=== PATIENT | female | born 1950 | race Caucasian/White ===

== ENCOUNTER → 2016-12-21 | Outpatient (CLI) | payer MEDICARE, OTHER ==
--- NOTE | 2016-12-21 16:17 | MR ---
EXAMINATION TYPE: MR brain wo con DATE OF EXAM: 12/21/2016 3:51 PM COMPARISON: NONE HISTORY: Dizziness, headaches, neck pain TECHNIQUE: Multiplanar, multisequence imaging of the brain and brainstem is performed without IV cont rast. Exam performed without IV contrast as ordered due to difficulty accessing IV access and then pa tient refusing. FINDINGS: Diffusion weighted images demonstrate no evidence of a recent infarct or other diffusion abnormality. There is no worrisome extra-axial fluid collection. There is ventricular and sulcal prominence consis tent with diffuse cerebral atrophy. There are scattered foci of T2 hyperintensity seen throughout the white matter bilaterally. Approximately 20-25 scattered lesions are likely present. Lesions are nons pecific in appearance and distribution but most likely on basis of product of chronic small vessel is chemic change in patient of this age. Midline structures demonstrate normal morphology. The craniocervical junction appears within normal limits. Normal vascular flow voids are present. There is mild to moderate mucosal thickening involvin g the anterior ethmoid sinuses bilaterally. The remainder of the paranasal sinuses are clear. The mago bes are intact bilaterally. IMPRESSION: 1. Mild to moderate diffuse cerebral atrophy and chronic small vessel ischemic change. 2. Mild bilateral chronic anterior ethmoid sinus disease.
--- NOTE | 2016-12-21 16:22 | MR ---
MRI CERVICAL SPINE: CLINICAL HISTORY: Headache and neck pain. History of fall injury January 22, 2015. TECHNIQUE: Multiplanar, multisequence imaging of the cervical spine is performed without IV contrast. . COMPARISON: None. FINDINGS: Sagittal images of the cervical spine show the craniocervical junction to appear within nor mal limits. The cervical and upper thoracic spinal cord is normal in course, caliber, and signal. V ertebral alignment is anatomic. The vertebral body heights are normal. There is moderate disc space narrowing C4-C5 through C6-C7 levels with moderate spurring. Posterior disc herniations are effacing anterior thecal sac from C3-C4 through C6-C7 levels on sagittal images. The bone marrow signal intens ity is within normal limits. Axial images are noted suboptimal as degraded by artifact. Axial images show the C2-C3 level to appear within normal limits. Axial images at C3-C4 level show broad-based right paracentral disc protrusion effacing anterolateral thecal sac as well as uncovertebral facet degenerative changes contributing to moderate right-sided neural foraminal narrowing. Left-sided neural foramen is patent. Motion artifact is noted. Axial images at C4-C5 level show broad-based right paracentral disc protrusion effacing anterior thec al sac up to ventral surface of spinal cord, artifact degradation is present. There is uncovertebral facet degenerative changes bilaterally. There is suspected moderate to severe right-sided neural fora [place] narrowing and mild left-sided neural foraminal narrowing. Axial images at C5-C6 level show broad-based central disc protrusion effacing anterior thecal sac up to ventral surface of spinal cord on axial image 22. Some increased cord signal may be present at thi s level. Artifact degradation is noted. There is suspected mild to moderate left greater than right neural foraminal narrowing at this level identified. Axial images at C6-C7 level show broad-based central disc protrusion effacing anterior thecal sac wit h mild to moderate left and mild right-sided neural foraminal narrowing identified. Artifact degradat ion is noted. Axial images at C7-T1 level are felt within normal limits. IMPRESSION: Suboptimal study with significant artifact on axial images present. There is multi level degenerative change in the cervical spine with prominent spinal canal effacement or stenosis identifi ed from C3-C4 through C6-C7 levels.
== END | disposition home or self-care (01) ==
LOC: RADMRIMAIN 14:47
PROVIDERS: ATTEND Family Medicine
DX: M47.812 Spondylosis without myelopathy or radiculopathy, cervical region (principal); G31.9 Degenerative disease of nervous system, unspecified; I67.82 Cerebral ischemia
CPT/HCPCS: 70551; 72141

== ENCOUNTER 2017-01-20 21:56 | Inpatient (IN) | payer MEDICARE, OTHER ==
[2017-01-20] MEDS ORDERED: methylPREDNISolone SOD SUCCI 125 MG/2 ML VIAL IV STA (22:18)
[2017-01-20] MEDS ORDERED: IPRATROPIUM 0.5 MG/2.5 ML NEBU INHALATION STA (22:18)
[2017-01-20] MEDS ORDERED: ALBUTEROL NEBULIZED 2.5 MG/3 ML INHALATION STA (22:18)
--- NOTE | 2017-01-20 22:23 | ED ---
General Adult HPI - General Chief complaint: Shortness of Breath Stated complaint: YARA Time Seen by Provider: 01/20/17 22:00 Source: patient, family, RN notes reviewed Mode of arrival: wheelchair Limitations: no limitations - History of Present Illness Initial comments: This is a 66-year-old female who presents to the emergency department complaining of difficulty breathing. Patient states she has a long-standing history of COPD. Patient states she doesn't wear oxygen at home and she continues to smoke. Patient states this COPD exacerbation started yesterday and continued today to get worse. Patient states she's had no fever or chills. Patient states she has a cough but not producing any sputum. Patient denies any chest pain or palpitations. Patient denies any abdominal pain. Patient denies nausea vomiting diarrhea. Patient denies any recent headache patient denies any lightheadedness dizziness or near syncopal episode. Patient denies any numbness or weakness. - Related Data Home Medications Medication Instructions Recorded Confirmed Unable To Assess [Unable to Assess] 01/20/17 01/20/17 Allergies Allergy/AdvReac Type Severity Reaction Status Date / Time Penicillins Allergy Unknown Verified 01/20/17 22:06 Review of Systems ROS Statement: Those systems with pertinent positive or pertinent negative responses have been documented in the HPI. ROS Other: All systems not noted in ROS Statement are negative. Past Medical History Past Medical History: COPD History of Any Multi-Drug Resistant Organisms: None Reported Past Surgical History: Cholecystectomy, Hysterectomy, Orthopedic Surgery Past Psychological History: Anxiety Smoking Status: Current every day smoker Past Alcohol Use History: None Reported Past Drug Use History: None Reported General Exam - General Exam Comments Initial Comments: GENERAL: Patient is well-developed and well-nourished. Patient is nontoxic and well- hydrated and is in mild distress. ENT: Neck is soft and supple. No significant lymphadenopathy is noted. Oropharynx is clear. Moist mucous membranes. Neck has full range of motion without eliciting any pain. EYES: The sclera were anicteric and conjunctiva were pink and moist. Extraocular movements were intact and pupils were equal round and reactive to light. Eyelids were unremarkable. PULMONARY: Patient has decreased breath sounds and diffuse wheezing CARDIOVASCULAR: Patient is tachycardic at about 110 beats a minute. ABDOMEN: Soft and nontender with normal bowel sounds. No palpable organomegaly was noted. There is no palpable pulsatile mass. SKIN: Skin is clear with no lesions or rashes and otherwise unremarkable. NEUROLOGIC: Patient is alert and oriented x3. Cranial nerves II through XII are grossly intact. Motor and sensory are also intact. Normal speech, volume and content. Symmetrical smile. MUSCULOSKELETAL: Normal extremities with adequate strength and full range of motion. LYMPHATICS: No significant lymphadenopathy is noted PSYCHIATRIC: Normal psychiatric evaluation. Normal interpersonal interactions appears functionally intact in deals appropriately with others. No signs of depression. No signs of anxiety. Limitations: no limitations Course Vital Signs 01/20/17 01/20/17 01/20/17 22:03 22:27 22:40 Temperature 98.4 F Pulse Rate 120 H 116 H 115 H Respiratory 26 H Rate Blood Pressure 143/86 O2 Sat by Pulse 82 L Oximetry Medical Decision Making - Medical Decision Making EKG shows sinus tachycardia at 110 bpm VT interval is 122 QRS is 68 QT interval 316 QTC is 427. Patient's EKG is of poor quality but there is no obvious ST segment elevation or depression or T-wave abnormalities. Patient received 3 albuterol treatments consecutively and Solu-Medrol. Patient was initially oxygenating in the low 80s on 2 L. I went back in and reevaluate the patient during the treatments and then after and she was oxygenating quite well and she was moving much more air. Patient was now oxygenating in the mid 90s with 4 L I spoke with Dr. Olmedo I admitted the patient I wrote admitting orders. Continue breathing treatments and steroids on the floor. - Lab Data Result diagrams: 01/20/17 22:20 01/20/17 22:20 Lab Results 01/20/17 01/20/17 01/20/17 Range/Units 22:20 22:20 22:20 WBC 7.2 (3.8-10.6) k/uL RBC 5.77 H (3.80-5.40) m/uL Hgb 17.7 H (11.4-16.0) gm/dL Hct 55.1 H (34.0-46.0) % MCV 95.4 (80.0-100.0) fL MCH 30.7 (25.0-35.0) pg MCHC 32.2 (31.0-37.0) g/dL RDW 15.0 (11.5-15.5) % Plt Count 208 (150-450) k/uL Neutrophils % 71 % Lymphocytes % 18 % Monocytes % 6 % Eosinophils % 0 % Basophils % 1 % Neutrophils # 5.1 (1.3-7.7) k/uL Lymphocytes # 1.3 (1.0-4.8) k/uL Monocytes # 0.5 (0-1.0) k/uL Eosinophils # 0.0 (0-0.7) k/uL Basophils # 0.0 (0-0.2) k/uL PT (9.0-12.0) sec INR (<1.1) APTT (22.0-30.0) sec Sodium 140 (137-145) mmol/L Potassium 4.3 (3.5-5.1) mmol/L Chloride 97 L (98-107) mmol/L Carbon Dioxide 27 (22-30) mmol/L Anion Gap 16 mmol/L BUN 12 (7-17) mg/dL Creatinine 0.94 (0.52-1.04) mg/dL Est GFR (MDRD) Af Amer >60 (>60 ml/min/1.73 sqM) Est GFR (MDRD) Non-Af 59 (>60 ml/min/1.73 sqM) Glucose 104 H (74-99) mg/dL Calcium 8.9 (8.4-10.2) mg/dL Magnesium 2.1 (1.6-2.3) mg/dL Total Bilirubin 0.7 (0.2-1.3) mg/dL AST 30 (14-36) U/L ALT 30 (9-52) U/L Alkaline Phosphatase 108 (38-126) U/L Total Creatine Kinase 52 (30-135) U/L CK-MB (CK-2) 1.0 (0.0-2.4) ng/mL CK-MB (CK-2) Rel Index 1.9 Troponin I <0.012 (0.000-0.034) ng/mL Total Protein 7.7 (6.3-8.2) g/dL Albumin 4.5 (3.5-5.0) g/dL 01/20/17 Range/Units 22:20 WBC (3.8-10.6) k/uL RBC (3.80-5.40) m/uL Hgb (11.4-16.0) gm/dL Hct (34.0-46.0) % MCV (80.0-100.0) fL MCH (25.0-35.0) pg MCHC (31.0-37.0) g/dL RDW (11.5-15.5) % Plt Count (150-450) k/uL Neutrophils % % Lymphocytes % % Monocytes % % Eosinophils % % Basophils % % Neutrophils # (1.3-7.7) k/uL Lymphocytes # (1.0-4.8) k/uL Monocytes # (0-1.0) k/uL Eosinophils # (0-0.7) k/uL Basophils # (0-0.2) k/uL PT 10.1 (9.0-12.0) sec INR 1.0 (<1.1) APTT 24.5 (22.0-30.0) sec Sodium (137-145) mmol/L Potassium (3.5-5.1) mmol/L Chloride (98-107) mmol/L Carbon Dioxide (22-30) mmol/L Anion Gap mmol/L BUN (7-17) mg/dL Creatinine (0.52-1.04) mg/dL Est GFR (MDRD) Af Amer (>60 ml/min/1.73 sqM) Est GFR (MDRD) Non-Af (>60 ml/min/1.73 sqM) Glucose (74-99) mg/dL Calcium (8.4-10.2) mg/dL Magnesium (1.6-2.3) mg/dL Total Bilirubin (0.2-1.3) mg/dL AST (14-36) U/L ALT (9-52) U/L Alkaline Phosphatase (38-126) U/L Total Creatine Kinase (30-135) U/L CK-MB (CK-2) (0.0-2.4) ng/mL CK-MB (CK-2) Rel Index Troponin I (0.000-0.034) ng/mL Total Protein (6.3-8.2) g/dL Albumin (3.5-5.0) g/dL Critical Care Time Critical Care Time: Yes Total Critical Care Time: 35 Disposition Clinical Impression: Acute exacerbation of chronic obstructive pulmonary disease (COPD) Disposition: ADMITTED IP TO THIS [facility] Time of Disposition: 23:55
[2017-01-20] MEDS ORDERED: ALBUTEROL NEB (CONC) 2.5 MG/0.5 ML INHALATION STA (22:25)
[2017-01-20] MEDS ORDERED: IPRATROPIUM-ALBUTEROL 3 ML NEB INHALATION STA (22:25)
[2017-01-20 22:39] LABS: Basophils % (A) 1 %; CHCM 32.8; Eosinophils % (A) 0 %; HCT 55.1 % (34.0-46.0); HGB 17.7 gm/dL (11.4-16.0); Luc # (Auto) 0.26; Luc % (Auto) 4; Lymphocytes # (A) 1.3 k/uL (1.0-4.8); Lymphocytes % (A) 18 %; MCH 30.7 pg (25.0-35.0); MCHC 32.2 g/dL (31.0-37.0); MCV 95.4 fL (80.0-100.0); Mean Platelet Volume 6.6; Monocytes # (A) 0.5 k/uL (0-1.0); Monocytes % (A) 6 %; Neutrophils # (A) 5.1 k/uL (1.3-7.7); Neutrophils % (A) 71 %; RBC 5.77 m/uL (3.80-5.40); WBC 7.2 k/uL (3.8-10.6); WBC (Perox) 7.25
[2017-01-20 22:47] LABS: Partial Thromboplastin Time 24.5 sec (22.0-30.0); Prothrombin Time 10.1 sec (9.0-12.0)
[2017-01-20 22:49] LABS: ALT 30 U/L (9-52); AST 30 U/L (14-36); Alkaline Phosphatase 108 U/L (38-126); Anion Gap 16 mmol/L; Blood Urea Nitrogen 12 mg/dL (7-17); Calcium 8.9 mg/dL (8.4-10.2); Carbon Dioxide 27 mmol/L (22-30); Chloride 97 mmol/L (98-107); Glucose 104 mg/dL (74-99); Magnesium 2.1 mg/dL (1.6-2.3); Non-African American GFR(MDRD) 59 (>60 ml/min/1.73 sqM); Potassium 4.3 mmol/L (3.5-5.1); Sodium 140 mmol/L (137-145); Total Bilirubin 0.7 mg/dL (0.2-1.3); Total Protein 7.7 g/dL (6.3-8.2)
[2017-01-20 22:52] LABS: Creatine Kinase 52 U/L (30-135)
--- NOTE | 2017-01-20 23:04 | XR ---
EXAM: XR Chest, 2 Views. CLINICAL HISTORY: Reason: difficulty breathing TECHNIQUE: Frontal and lateral views of the chest. COMPARISON: None FINDINGS: Hardware: None. Lungs/pleura: Diffuse mild interstitial opacities bilaterally. Mild streaky bibasilar opacities that may represent atelectasis. No focal consolidation. No pleural effusion or pneumothorax. Heart/mediastinum: Borderline size of the cardiac silhouette. Soft tissues: Unremarkable. Bones: Plate and screw fixation partially visualized in the left humerus. No acute fracture. Upper abdomen: Surgical clips in the upper abdomen seen on lateral view. IMPRESSION: Mild bibasilar atelectasis. Diffuse mild interstitial opacities may represent prominent lung markings versus mild interstitial pulmonary edema. No focal consolidation.
[2017-01-20 23:05] LABS: Troponin I <0.012 ng/mL (0.000-0.034)
[2017-01-21] MEDS: methylPREDNISolone SOD SUCCI 125 MG/2 ML VIAL IV SCH ×4 (06:14→23:35)
[2017-01-21] MEDS: IPRATROPIUM-ALBUTEROL 3 ML NEB INHALATION PRN ×4 (08:32→19:51)
[2017-01-21] MEDS: traMADol 50 MG TAB PO PRN (14:53)
[2017-01-21 17:29] LABS: Glucose,Whole Blood 139 mg/dL (75-99)
[2017-01-21] MEDS: CYCLOBENZAPRINE 10 MG TAB PO SCH ×2 (17:56→21:31)
[2017-01-21] MEDS: HYDROcodone/APAP 10-325MG 1 EACH TAB PO PRN (17:56)
[2017-01-21] MEDS: MECLIZINE 25 MG TAB PO SCH ×2 (17:56→21:31)
[2017-01-21] MEDS: INSULIN LISPRO (humaLOG) 300 UNIT/3 ML VIAL SQ SCH ×2 (17:57→21:32)
[2017-01-21 21:20] LABS: Glucose,Whole Blood 152 mg/dL (75-99)
[2017-01-21] MEDS: CITALOPRAM HYDROBROMIDE 20 MG TAB PO SCH (21:31)
[2017-01-21] MEDS: DOXYCYCLINE 50 MG CAP PO SCH (22:09)
[2017-01-21] MEDS: ZOLPIDEM 10 MG TAB PO PRN (22:09)
[2017-01-22] MEDS: LEVOTHYROXINE 112 MCG TAB PO SCH (06:36)
[2017-01-22] MEDS: methylPREDNISolone SOD SUCCI 125 MG/2 ML VIAL IV SCH ×4 (06:39→22:55)
[2017-01-22 07:23] LABS: Glucose,Whole Blood 129 mg/dL (75-99)
[2017-01-22] MEDS: INSULIN LISPRO (humaLOG) 300 UNIT/3 ML VIAL SQ SCH ×4 (07:30→21:27)
[2017-01-22] MEDS: IPRATROPIUM-ALBUTEROL 3 ML NEB INHALATION PRN ×4 (08:07→19:51)
[2017-01-22] MEDS: MECLIZINE 25 MG TAB PO SCH ×3 (08:30→20:56)
[2017-01-22] MEDS: CYCLOBENZAPRINE 10 MG TAB PO SCH ×3 (08:30→20:57)
[2017-01-22] MEDS: busPIRone HCl 10 MG TAB PO SCH (08:30)
[2017-01-22] MEDS: DOXYCYCLINE 50 MG CAP PO SCH ×2 (08:30→20:56)
[2017-01-22] MEDS: LORATADINE 10 MG TAB PO SCH (08:30)
[2017-01-22 09:08] LABS: Hemoglobin A1C 5.8 % (4.2-6.1)
[2017-01-22] MEDS: NICOTINE 21MG/24HR PATCH TRANSDERM SCH (10:33)
[2017-01-22 11:47] LABS: Glucose,Whole Blood 116 mg/dL (75-99)
--- NOTE | 2017-01-22 12:14 | HP ---
DATE OF ADMISSION: 01/20/2017 The patient is a 66 -year-old female with complaints of ( ). The patient appears to have ( ). The patient ( ) when I evaluated the patient which apparently this is after significant improvement. The patient continues to smoke and is noncompliant with ( ) and the patient ( ) does not have pneumonia on chest x-ray. The patient is on systemic steroids and inhalation treatments and the patient has chronic hypoxemia, elevated ( ). The patient denied any lightheadedness. Denied any chest pain, denied any syncopal episode. REVIEW OF SYSTEMS: CONSTITUTIONAL: No fever, no malaise, no fatigue. HEENT: No recent visual problems or hearing problems. Denied any sore throat. CARDIOVASCULAR: No chest pain, orthopnea, PND, no palpitations, no syncope. PULMONARY: As described in history of present illness. The patient denied any orthopnea or PND. GASTROINTESTINAL: No diarrhea, no nausea, no vomiting, no abdominal pain. Normoactive bowel sounds. NEUROLOGICAL: No headaches, no weakness, no numbness. HEMATOLOGICAL: Denies any bleeding or petechiae. GENITOURINARY: Denies any burning micturition, frequency, or urgency. MUSCULOSKELETAL/RHEUMATOLOGICAL: Denies any joint pain, swelling, or any muscle pain. ENDOCRINE: Denies any polyuria or polydipsia. The rest of the 14 point review of systems is negative. For home medications please refer to the chart. ALLERGIES: No known drug allergies. Past medical history significant for COPD, cholecystectomy, hysterectomy, orthopedic surgery, anxiety disorder. SOCIAL HISTORY: Patient continues to smoke. Denied any alcohol abuse or any drug abuse. FAMILY HISTORY: Unable to obtain at this point of time. PHYSICAL EXAMINATION: Temperature 98.5, pulse of 115, respiratory rate of 26, saturating at 90 percent on 5 liters of O2 by nasal cannula. GENERAL: The patient is in moderate respiratory distress, ( ) alert, oriented times ( ). HEENT: Pupils are round and equally reacting to light. EOMI. No scleral icterus. No conjunctival pallor. Normocephalic, atraumatic. No pharyngeal erythema. No thyromegaly. CARDIOVASCULAR: S1 and S2 present. No murmurs, rubs, or gallops. PULMONARY: Lung examination significant for decreased air entry. Significant expiratory wheezing was appreciated. No crackles were appreciated. ( ) as mentioned above. ABDOMEN: Soft, nontender, nondistended, normoactive bowel sounds. No palpable organomegaly. MUSCULOSKELETAL: No joint swelling or deformity. EXTREMITIES: No cyanosis, clubbing, or pedal edema. NEUROLOGICAL: Gross neurological examination did not reveal any focal deficits. SKIN: No rashes. LABORATORY DATA: CBC, BMP abnormal for elevated hematocrit 55, hemoglobin ( ). Patient does not have any leukocytosis. Chest x-ray as mentioned above. ASSESSMENT AND PLAN: 1. Acute on chronic hypercapnic respiratory failure secondary to chronic obstructive pulmonary disease exacerbation. Patient was started on systemic steroids ( ) and doxycycline for tracheobronchitis. 2. Acute bronchitis ( ) started on Doxycycline. 3. Elevated hematocrit secondary to chronic hypoxemia. Improving with IV fluids, which will be continued. This is a chronic response, ( ) for chronic hypoxemia. 4. Continue nicotine abuse, extensive counselling was provided.
--- NOTE | 2017-01-22 13:17 | P.CNPUL ---
History of Present Illness Consult date: 01/22/17 Requesting physician: Jayda Wilkinson Reason for consult: COPD Chief complaint: Shortness of breath cough and wheezing History of present illness: This is a 66-year-old female with history of severe underlying COPD, moved recently to the area, patient is a heavy smoker, quit only 3 days ago, she has history of chronic hypoxic respiratory failure and she is O2 dependent. Patient is not prednisone dependent. Patient presented to the ER with a few doses history of cough wheezing shortness of breath. Cough is productive with whitish phlegm. Chest x-ray on admission showed minimal scarring at the bases but no clear-cut evidence of pneumonia. She was admitted with the impression of acute exacerbation of COPD, and we were asked to see her on consultation. Since admission, the patient seems to be feeling a bit better, breathing easier. Denies any headaches no blurred vision no dizziness. She complains of shortness of breath cough and wheezing. Denies any nausea vomiting abdominal pain. No melena no hematemesis no dysuria and no frequency no urgency. Review of Systems 14 point review of systems were obtained, please refer to pertinent positives and negatives in HPI Past Medical History Past Medical History: COPD History of Any Multi-Drug Resistant Organisms: None Reported Past Surgical History: Cholecystectomy, Hysterectomy, Orthopedic Surgery Past Psychological History: Anxiety Smoking Status: Current every day smoker Past Alcohol Use History: None Reported Past Drug Use History: None Reported - Past Family History Mother Family Medical History: Cancer Medications and Allergies Home Medications Medication Instructions Recorded Confirmed Type Citalopram Hydrobromide [CeleXA] 20 mg PO HS 01/21/17 01/21/17 History Cyclobenzaprine [Flexeril] 10 mg PO TID 01/21/17 01/21/17 History Fluconazole [Diflucan] 100 mg PO DAILY PRN 01/21/17 01/21/17 History Levothyroxine Sodium [Synthroid] 112 mcg PO DAILY 01/21/17 01/21/17 History Loratadine [Claritin] 10 mg PO DAILY 01/21/17 01/21/17 History Meclizine [Antivert] 25 mg PO TID 01/21/17 01/21/17 History Zolpidem [Ambien] 10 mg PO HS PRN 01/21/17 01/21/17 History busPIRone HCL 10 mg PO DAILY 01/21/17 01/21/17 History traMADol HCL [Ultram] 50 mg PO Q6HR PRN 01/21/17 01/21/17 History Allergies Allergy/AdvReac Type Severity Reaction Status Date / Time Penicillins Allergy Unknown Verified 01/21/17 11:00 Physical Exam Vitals: Vital Signs Temp Pulse Pulse Pulse Resp BP Pulse Ox 01/22/17 12:12 96 01/22/17 12:00 96 01/22/17 08:21 100 01/22/17 08:08 100 01/22/17 07:00 96.8 F L 92 20 153/82 91 L 01/21/17 23:00 97.6 F 101 H 20 131/86 95 01/21/17 20:02 100 01/21/17 19:51 96 01/21/17 16:39 92 01/21/17 16:29 92 01/21/17 15:00 96.4 F L 95 18 143/77 95 Intake and Output 01/21/17 01/22/17 01/22/17 22:59 06:59 14:59 Intake Total 520 350 Balance 520 350 Intake: Oral 520 350 Other: Voiding Method Bedside Commode # Voids 2 1 # Bowel Movements 1 Physical Exam: Revealed a 66-year-old female, comfortable, in no distress. HEENT:[Neck is supple.] [No neck masses.] [No thyromegaly.] [No JVD.] Chest: [Diminished breath sounds at the bases some wheezing on forced expiratory maneuver noted..] Cardiac Exam: [Normal S1 and S2, no S3 gallop, no murmur.] Abdomen: [Soft, nontender, no megaly, no rebound, no guarding, normal bowel sounds.] Extremities: [No clubbing, no edema, no cyanosis.] Neurological Exam: [No focal neurologic deficit.] Results - Laboratory Findings CBC and BMP: 01/20/17 22:20 01/20/17 22:20 PT/INR, D-dimer PT 10.1 sec (9.0-12.0) 01/20/17 22:20 INR 1.0 (<1.1) 01/20/17 22:20 Abnormal lab findings: Abnormal Labs 01/21/17 01/21/17 01/22/17 17:15 21:00 07:22 POC Glucose (mg/dL) 139 H 152 H 129 H 01/22/17 11:45 POC Glucose (mg/dL) 116 H - Diagnostic Findings Chest x-ray: image reviewed (Chronic scarring at the bases, no evidence of active disease) Assessment and Plan Plan: Impression: 1 acute exacerbation of COPD and purulent tracheobronchitis. 2 tobacco dependence syndrome, hence the patient was counseled regarding smoking cessation. Recommendation: Fully agree with the present treatment plan including antibiotics and bronchodilators steroids, I added Symbicort 160/4.52 puffs twice a day. Consider discharge planning in the next 24 hours. And follow-up on outpatient basis. Time with Patient: Greater than 30
[2017-01-22] MEDS: HYDROcodone/APAP 10-325MG 1 EACH TAB PO PRN ×2 (15:23→22:47)
[2017-01-22 16:56] LABS: Glucose,Whole Blood 138 mg/dL (75-99)
[2017-01-22] MEDS: SYMBICORT 160-4.5 MCG INHALER INHALATION SCH (19:51)
[2017-01-22] MEDS ORDERED: CALCIUM CARBONATE 500 MG CHEWABLE PO PRN (19:54)
[2017-01-22] MEDS: CITALOPRAM HYDROBROMIDE 20 MG TAB PO SCH (20:56)
[2017-01-22] MEDS: PANTOPRAZOLE 40 MG TABLET PO SCH (20:56)
[2017-01-22] MEDS: traMADol 50 MG TAB PO PRN (20:59)
[2017-01-22 21:45] LABS: Glucose,Whole Blood 184 mg/dL (75-99)
[2017-01-22 21:54] LABS: Creatine Kinase 51 U/L (30-135)
[2017-01-22 22:07] LABS: Creatine Kinase MB 1.7 ng/mL (0.0-2.4); Troponin I <0.012 ng/mL (0.000-0.034)
[2017-01-22] MEDS: ZOLPIDEM 10 MG TAB PO PRN (22:49)
[2017-01-23] MEDS: IPRATROPIUM-ALBUTEROL 3 ML NEB INHALATION PRN ×6 (00:18→19:06)
[2017-01-23 03:49] LABS: CH 31.2; CHCM 32.7; HCT 55.2 % (34.0-46.0); HDW 2.78; HGB 17.6 gm/dL (11.4-16.0); MCH 30.7 pg (25.0-35.0); MCV 96.1 fL (80.0-100.0); Mean Platelet Volume 7.6; RBC 5.74 m/uL (3.80-5.40); RDW 15.1 % (11.5-15.5); WBC 10.7 k/uL (3.8-10.6)
[2017-01-23 04:08] LABS: Anion Gap 11 mmol/L; Blood Urea Nitrogen 22 mg/dL (7-17); Calcium 9.6 mg/dL (8.4-10.2); Carbon Dioxide 28 mmol/L (22-30); Chloride 98 mmol/L (98-107); Glucose 124 mg/dL (74-99); Non-African American GFR(MDRD) >60 (>60 ml/min/1.73 sqM); Potassium 5.1 mmol/L (3.5-5.1); Sodium 137 mmol/L (137-145)
[2017-01-23 04:10] LABS: Creatine Kinase 36 U/L (30-135)
[2017-01-23 04:23] LABS: Creatine Kinase MB 1.7 ng/mL (0.0-2.4); Troponin I <0.012 ng/mL (0.000-0.034)
[2017-01-23] MEDS: LEVOTHYROXINE 112 MCG TAB PO SCH (06:42)
[2017-01-23] MEDS: methylPREDNISolone SOD SUCCI 125 MG/2 ML VIAL IV SCH ×3 (06:42→19:28)
[2017-01-23 07:23] LABS: Glucose,Whole Blood 126 mg/dL (75-99)
[2017-01-23] MEDS: INSULIN LISPRO (humaLOG) 300 UNIT/3 ML VIAL SQ SCH ×4 (07:33→22:11)
[2017-01-23] MEDS: SYMBICORT 160-4.5 MCG INHALER INHALATION SCH ×2 (07:41→19:06)
[2017-01-23] MEDS: CYCLOBENZAPRINE 10 MG TAB PO SCH ×3 (08:05→22:10)
[2017-01-23] MEDS: LORATADINE 10 MG TAB PO SCH (08:05)
[2017-01-23] MEDS: busPIRone HCl 10 MG TAB PO SCH (08:05)
[2017-01-23] MEDS: MECLIZINE 25 MG TAB PO SCH ×3 (08:05→22:11)
[2017-01-23] MEDS: DOXYCYCLINE 50 MG CAP PO SCH ×2 (08:05→22:10)
[2017-01-23] MEDS: PANTOPRAZOLE 40 MG TABLET PO SCH (08:05)
[2017-01-23] MEDS: NICOTINE 21MG/24HR PATCH TRANSDERM SCH (08:07)
--- NOTE | 2017-01-23 08:18 | PN ---
Patient is admitted with COPD exacerbation. Patient continues to be short of breath, but significant improvement compared to yesterday. Tachycardia improving as well. REVIEW OF SYSTEMS: CARDIOVASCULAR: No chest pain, no orthopnea, no PND, no palpitations. PULMONARY: As described in HPI. GASTROINTESTINAL: No diarrhea, nausea or vomiting. No abdominal pain. Normoactive bowel sounds. NEUROLOGIC: No headaches, no weakness, no numbness. Medications were reviewed. PHYSICAL EXAMINATION: Temperature 96.8, pulse of 96, respiratory rate of 20. Blood pressure is 153/82, saturating at 91% on 4 L of O2 by nasal cannula. GENERAL: The patient is alert and oriented x3, not in any acute distress. Well developed, well nourished. HEENT: Pupils are round and equally reacting to light. EOMI. No scleral icterus. No conjunctival pallor. Normocephalic, atraumatic. No pharyngeal erythema. No thyromegaly. CARDIOVASCULAR: S1 and S2 present. No murmurs, rubs, or gallops. ABDOMEN: Soft, nontender, nondistended, normoactive bowel sounds. No palpable organomegaly. MUSCULOSKELETAL: No joint swelling or deformity. EXTREMITIES: No cyanosis, clubbing, or pedal edema. NEUROLOGICAL: Gross neurological examination did not reveal any focal deficits. SKIN: No rashes. LUNG EXAMINATION: Expiratory wheezing bilaterally. No crackles were appreciated. LABORATORY DATA: None available from today. ASSESSMENT AND PLAN: 1. Acute on chronic hypercapnic respiratory failure secondary to severe chronic obstructive pulmonary disease exacerbation. Patient appears to have advanced chronic obstructive pulmonary disease. 2. Acute tracheobronchitis for which patient is on doxycycline. 3. Elevated hematocrit secondary to chronic hypoxemia. Continue with IV fluids. 4. Nicotine dependence. Counseling was provided. 5. Tachycardia due to hypoxemia which is improving at this point of time.
[2017-01-23 09:38] LABS: Creatine Kinase 32 U/L (30-135)
[2017-01-23 09:51] LABS: Creatine Kinase MB 1.6 ng/mL (0.0-2.4); Troponin I <0.012 ng/mL (0.000-0.034)
[2017-01-23 11:57] LABS: Glucose,Whole Blood 134 mg/dL (75-99)
--- NOTE | 2017-01-23 14:38 | P.PN ---
Subjective Principal diagnosis: Acute exacerbation of chronic obstructive pulmonary disease This is a 66-year-old female with history of severe underlying COPD, moved recently to the area, patient is a heavy smoker, quit only 3 days ago, she has history of chronic hypoxic respiratory failure and she is O2 dependent. Patient is not prednisone dependent. Patient presented to the ER with a few day history of cough wheezing shortness of breath. Cough is productive with whitish phlegm. Chest x-ray on admission showed minimal scarring at the bases but no clear-cut evidence of pneumonia. She was admitted with the impression of acute exacerbation of COPD, and we were asked to see her on consultation. Since admission, the patient seems to be feeling a bit better, breathing easier. Denies any headaches no blurred vision no dizziness. She complains of shortness of breath cough and wheezing. Denies any nausea vomiting abdominal pain. No melena no hematemesis no dysuria and no frequency no urgency. The patient is seen again today 01/23/2017 in follow-up. She is awake and alert in no acute distress. She is quite dyspneic on minimal conversation however. She states she is better today as compared to yesterday but still not quite back to her baseline. She remains quite bronchospastic and wheezy. She has been afebrile. She is maintaining good O2 saturations in the mid 90s on 4 L /m per nasal cannula. Objective - Vital Signs Vital signs: Vital Signs Temp 97.1 F L 01/23/17 07:00 Pulse 108 H 01/23/17 11:04 Resp 20 01/23/17 07:00 BP 110/65 01/23/17 07:00 Pulse Ox 94 L 01/23/17 07:44 Intake & Output 01/22/17 01/23/17 01/23/17 18:59 06:59 18:59 Intake Total 400 Balance 400 Intake: Oral 400 Other: Voiding Method Bedside Commode Bedside Commode # Voids 2 2 - Exam GENERAL EXAM: Alert, fairly comfortable in no apparent distress. HEAD: Normocephalic. EYES: Normal reaction of pupils, equal size. NOSE: Clear with pink turbinates. THROAT: No erythema or exudates. NECK: No masses, no JVD. CHEST: No chest wall deformity. LUNGS: Equal air entry with bilateral wheezing. Diminished throughout. CVS: S1 and S2 normal with no audible murmurs, regular rhythm. ABDOMEN: Obese.Normal bowel sounds, no guarding or rigidity. Extremities: There is trace peripheral edema. No clubbing, no cyanosis. Peripheral pulses are intact. - Labs CBC & Chem 7: 01/23/17 03:30 01/23/17 03:30 Labs: Abnormal Lab Results - Last 24 Hours (Table) 01/22/17 01/22/17 01/23/17 Range/Units 16:55 21:19 03:30 WBC 10.7 H (3.8-10.6) k/uL RBC 5.74 H (3.80-5.40) m/uL Hgb 17.6 H (11.4-16.0) gm/dL Hct 55.2 H (34.0-46.0) % BUN (7-17) mg/dL Glucose (74-99) mg/dL POC Glucose (mg/dL) 138 H 184 H (75-99) mg/dL 01/23/17 01/23/17 01/23/17 Range/Units 03:30 07:22 11:56 WBC (3.8-10.6) k/uL RBC (3.80-5.40) m/uL Hgb (11.4-16.0) gm/dL Hct (34.0-46.0) % BUN 22 H (7-17) mg/dL Glucose 124 H (74-99) mg/dL POC Glucose (mg/dL) 126 H 134 H (75-99) mg/dL Assessment and Plan Plan: Impression: #1 Acute exacerbation of suspected severe chronic obstructive pulmonary disease , complicated by purulent tracheobronchitis. #2 Chronic and ongoing tobacco dependencehead #3 Anxiety/Depression. #4 Hypothyroidism. Plan: The patient was seen and evaluated by Dr. Sanches. We'll continue with her current medications including bronchodilators, IV Solu-Medrol and empiric antibiotics. Will increase her activity as tolerated. We'll continue to follow.
[2017-01-23] MEDS: guaiFENesin 600 MG TABLET.ER PO SCH (14:46)
[2017-01-23 17:13] LABS: Glucose,Whole Blood 112 mg/dL (75-99)
[2017-01-23 20:15] LABS: Glucose,Whole Blood 150 mg/dL (75-99)
[2017-01-23] MEDS: ZOLPIDEM 10 MG TAB PO PRN (22:10)
[2017-01-23] MEDS: HYDROcodone/APAP 10-325MG 1 EACH TAB PO PRN (22:10)
[2017-01-23] MEDS: CITALOPRAM HYDROBROMIDE 20 MG TAB PO SCH (22:11)
[2017-01-24] MEDS: HEPARIN SODIUM,PORCINE 5,000 UNIT/ML 1 ML VIAL SQ SCH ×4 (00:02→23:42)
[2017-01-24] MEDS: methylPREDNISolone SOD SUCCI 125 MG/2 ML VIAL IV SCH ×5 (00:02→23:42)
[2017-01-24] MEDS: IPRATROPIUM-ALBUTEROL 3 ML NEB INHALATION PRN ×5 (03:26→20:03)
[2017-01-24] MEDS: LEVOTHYROXINE 112 MCG TAB PO SCH (06:48)
[2017-01-24] MEDS: SYMBICORT 160-4.5 MCG INHALER INHALATION SCH ×2 (07:23→20:03)
[2017-01-24 07:32] LABS: Glucose,Whole Blood 135 mg/dL (75-99)
[2017-01-24 07:55] LABS: Basophils # (A) 0.1 k/uL (0-0.2); Basophils % (A) 1 %; CH 31.2; CHCM 33.3; Eosinophils % (A) 0 %; HCT 52.4 % (34.0-46.0); HDW 2.65; HGB 17.4 gm/dL (11.4-16.0); Luc # (Auto) 0.15; Luc % (Auto) 1; Lymphocytes # (A) 0.6 k/uL (1.0-4.8); Lymphocytes % (A) 5 %; MCH 31.4 pg (25.0-35.0); MCHC 33.3 g/dL (31.0-37.0); MCV 94.4 fL (80.0-100.0); Mean Platelet Volume 7.6; Monocytes # (A) 0.4 k/uL (0-1.0); Monocytes % (A) 3 %; Neutrophils # (A) 10.5 k/uL (1.3-7.7); Neutrophils % (A) 90 %; RBC 5.55 m/uL (3.80-5.40); RDW 14.9 % (11.5-15.5); WBC 11.6 k/uL (3.8-10.6)
[2017-01-24 08:23] LABS: Anion Gap 9 mmol/L; Blood Urea Nitrogen 25 mg/dL (7-17); Calcium 9.2 mg/dL (8.4-10.2); Carbon Dioxide 27 mmol/L (22-30); Chloride 101 mmol/L (98-107); Glucose 117 mg/dL (74-99); Non-African American GFR(MDRD) >60 (>60 ml/min/1.73 sqM); Potassium 4.9 mmol/L (3.5-5.1); Sodium 137 mmol/L (137-145)
[2017-01-24] MEDS: INSULIN LISPRO (humaLOG) 300 UNIT/3 ML VIAL SQ SCH ×4 (08:48→21:41)
[2017-01-24] MEDS: NICOTINE 21MG/24HR PATCH TRANSDERM SCH (08:49)
[2017-01-24] MEDS: LORATADINE 10 MG TAB PO SCH (08:49)
[2017-01-24] MEDS: PANTOPRAZOLE 40 MG TABLET PO SCH (08:50)
[2017-01-24] MEDS: busPIRone HCl 10 MG TAB PO SCH (08:51)
[2017-01-24] MEDS: DOXYCYCLINE 50 MG CAP PO SCH ×2 (08:51→21:40)
[2017-01-24] MEDS: CYCLOBENZAPRINE 10 MG TAB PO SCH ×3 (08:51→21:41)
[2017-01-24] MEDS: guaiFENesin 600 MG TABLET.ER PO SCH ×2 (08:51→21:41)
[2017-01-24] MEDS: MECLIZINE 25 MG TAB PO SCH ×3 (08:52→21:41)
--- NOTE | 2017-01-24 09:09 | PN ---
DATE OF SERVICE: 01/23/2017 INTERVAL HISTORY: Ms. Tyler is a 66-year-old female with known history of severe COPD, on home oxygen and active nicotine addiction, was admitted to the hospital with worsening short of breath oropharynx and currently being treated for acute COPD exacerbation. Otherwise, patient is still having short of breath at baseline even with minimal conversation. Patient is being continued on IV steroids and breathing treatments and antibiotics. Pulmonary is following this patient. Denied any fever or chills. No acute overnight issues. REVIEW OF SYSTEMS: CONSTITUTIONAL: No fever. No chills. RESPIRATORY: Patient does have a cough with whitish sputum production. . CARDIOVASCULAR: No chest pain. No leg swelling. ABDOMEN: No nausea, vomiting, abdominal pain. GENITOURINARY: Negative. ENDOCRINE: Negative. PSYCHIATRIC: Negative. SKIN: Negative. All other review of systems negative, except as above. Current medications include [place] 10, DuoNeb, Symbicort, BuSpar, TUMS, Celexa, Flexeril, Vibramycin, Mucinex, Humalog, Synthroid, loratadine, Antivert, methylprednisolone, nicotine patch, Protonix, Ultram and zolpidem. PHYSICAL EXAMINATION: A 66-year-old female, lying in the bed comfortably. Awake, alert, oriented x3, appears to be in no apparent distress. VITALS: Blood pressure 136/90, pulse is 106, respirations 20, temperature afebrile, pulse ox 97% on 4 L nasal cannula. HEENT: Atraumatic, normocephalic. Neck is supple. No JVD. CVS EXAM: S1, S2 heard. No murmurs, no gallop. LUNGS: Bilateral diminished breath sounds and extensive wheezing positive, using accessory muscles with minimal conversation. Abdomen is soft, nontender bowel sounds present. PAD HAND: Awake, alert, oriented, x3. No focal neurologic deficits. EXTREMITIES: No edema. Pulses palpable bilaterally. No clubbing or cyanosis. PSYCHIATRIC: Cooperative, anxious. LABORATORY DATA: WBC 10.7, hemoglobin 17.6, platelets 216. Sodium 137, potassium 5.1, chloride 98, bicarb is 28, BUN 22, creatinine 0.8, troponin less than 0.012. IMPRESSION: 1. Acute exacerbation of severe chronic obstructive pulmonary disease. 2. ( ) tracheobronchitis. 3. Chronic respiratory failure on home oxygen-dependent. 4. Hypothyroidism. 5. Anxiety and depression. DISCUSSION AND PLAN: Patient will be continued on bronchodilators, and continue with antibiotics in the form of doxycycline, continue with methylprednisolone. Patient is still having extensive wheezing. Will continue with the current management and further recommendations based on the clinical course. Pulmonary is on board.
[2017-01-24 11:50] LABS: Glucose,Whole Blood 116 mg/dL (75-99)
--- NOTE | 2017-01-24 12:41 | P.PN ---
Subjective Principal diagnosis: Acute exacerbation of chronic obstructive pulmonary disease This is a 66-year-old female with history of severe underlying COPD, moved recently to the area, patient is a heavy smoker, quit only 3 days ago, she has history of chronic hypoxic respiratory failure and she is O2 dependent. Patient is not prednisone dependent. Patient presented to the ER with a few day history of cough wheezing shortness of breath. Cough is productive with whitish phlegm. Chest x-ray on admission showed minimal scarring at the bases but no clear-cut evidence of pneumonia. She was admitted with the impression of acute exacerbation of COPD, and we were asked to see her on consultation. Since admission, the patient seems to be feeling a bit better, breathing easier. Denies any headaches no blurred vision no dizziness. She complains of shortness of breath cough and wheezing. Denies any nausea vomiting abdominal pain. No melena no hematemesis no dysuria and no frequency no urgency. The patient is seen again today 01/23/2017 in follow-up. She is awake and alert in no acute distress. She is quite dyspneic on minimal conversation however. She states she is better today as compared to yesterday but still not quite back to her baseline. She remains quite bronchospastic and wheezy. She has been afebrile. She is maintaining good O2 saturations in the mid 90s on 4 L /m per nasal cannula. She is seen again today 01/24/2017 in follow-up on the regular medical floor. She is awake and alert in no acute distress. She is breathing easier today as compared to yesterday. She denies any worsening shortness of breath, cough or congestion. Blood cultures reveal no growth. Objective - Vital Signs Vital signs: Vital Signs Temp 96.8 F L 01/24/17 07:00 Pulse 98 01/24/17 07:45 Resp 18 01/24/17 07:00 BP 130/69 01/24/17 07:00 Pulse Ox 97 01/24/17 07:00 Intake & Output 01/23/17 01/24/17 01/24/17 18:59 06:59 18:59 Other: Voiding Method Bedside Commode Bedside Commode # Voids 1 1 - Exam GENERAL EXAM: Alert, fairly comfortable in no apparent distress. HEAD: Normocephalic. EYES: Normal reaction of pupils, equal size. NOSE: Clear with pink turbinates. THROAT: No erythema or exudates. NECK: No masses, no JVD. CHEST: No chest wall deformity. LUNGS: Equal air entry with bilateral wheezing. Diminished throughout. CVS: S1 and S2 normal with no audible murmurs, regular rhythm. ABDOMEN: Obese.Normal bowel sounds, no guarding or rigidity. Extremities: There is trace peripheral edema. No clubbing, no cyanosis. Peripheral pulses are intact. - Labs CBC & Chem 7: 01/24/17 07:11 01/24/17 07:11 Labs: Abnormal Lab Results - Last 24 Hours (Table) 01/23/17 01/23/17 01/24/17 Range/Units 17:12 20:12 07:11 WBC 11.6 H (3.8-10.6) k/uL RBC 5.55 H (3.80-5.40) m/uL Hgb 17.4 H (11.4-16.0) gm/dL Hct 52.4 H (34.0-46.0) % Neutrophils # 10.5 H (1.3-7.7) k/uL Lymphocytes # 0.6 L (1.0-4.8) k/uL BUN (7-17) mg/dL Glucose (74-99) mg/dL POC Glucose (mg/dL) 112 H 150 H (75-99) mg/dL 01/24/17 01/24/17 01/24/17 Range/Units 07:11 07:11 11:44 WBC (3.8-10.6) k/uL RBC (3.80-5.40) m/uL Hgb (11.4-16.0) gm/dL Hct (34.0-46.0) % Neutrophils # (1.3-7.7) k/uL Lymphocytes # (1.0-4.8) k/uL BUN 25 H (7-17) mg/dL Glucose 117 H (74-99) mg/dL POC Glucose (mg/dL) 135 H 116 H (75-99) mg/dL Assessment and Plan Plan: Impression: #1 Acute exacerbation of suspected severe chronic obstructive pulmonary disease , complicated by purulent tracheobronchitis. #2 Chronic and ongoing tobacco dependence. #3 Anxiety/Depression. #4 Hypothyroidism. Plan: The patient was seen and evaluated by Dr. Sanches. We'll continue with her current medications including bronchodilators, IV Solu-Medrol and empiric antibiotics. Will increase her activity as tolerated. We'll continue to follow. We will repeat her chest x-ray. Possible discharge within the next 24 hours.
--- NOTE | 2017-01-24 13:07 | XR ---
EXAMINATION TYPE: XR chest 1V portable DATE OF EXAM: 01/24/2017 1:02 PM CLINICAL HISTORY: Difficulty breathing progress study. COPD. TECHNIQUE: Single AP portable upright view of the chest is obtained. COMPARISON: Chest x-ray from 4 days earlier. FINDINGS: There is chronic emphysematous change with small right pleural effusion is felt stable. Th ere is no new focal airspace opacity or pneumothorax seen bilaterally. Cardiac silhouette size is sta ble and within normal limits. There is metallic hardware from prior internal fixation surgery through healed fracture left proximal humerus. IMPRESSION: Overall stable findings, chronic emphysematous change with small right pleural effusion , no new suspicious focal infiltrate.
[2017-01-24] MEDS: GABAPENTIN 300 MG CAP PO SCH ×2 (16:18→21:41)
[2017-01-24] MEDS: HYDROcodone/APAP 10-325MG 1 EACH TAB PO PRN ×2 (16:24→21:45)
[2017-01-24 17:13] LABS: Glucose,Whole Blood 125 mg/dL (75-99)
[2017-01-24 21:09] LABS: Glucose,Whole Blood 117 mg/dL (75-99)
[2017-01-24] MEDS: CITALOPRAM HYDROBROMIDE 20 MG TAB PO SCH (21:40)
[2017-01-24] MEDS: ZOLPIDEM 10 MG TAB PO PRN (22:08)
[2017-01-25] MEDS: LEVOTHYROXINE 112 MCG TAB PO SCH (06:16)
[2017-01-25] MEDS: methylPREDNISolone SOD SUCCI 125 MG/2 ML VIAL IV SCH ×2 (06:16→11:25)
[2017-01-25 07:01] LABS: Glucose,Whole Blood 113 mg/dL (75-99)
[2017-01-25] MEDS: SYMBICORT 160-4.5 MCG INHALER INHALATION SCH (07:15)
[2017-01-25] MEDS: IPRATROPIUM-ALBUTEROL 3 ML NEB INHALATION PRN ×2 (07:15→11:01)
[2017-01-25 07:42] VITALS: BP 140/82; RESP 18; TEMP 97.4
[2017-01-25] MEDS: INSULIN LISPRO (humaLOG) 300 UNIT/3 ML VIAL SQ SCH ×2 (08:05→12:02)
[2017-01-25] MEDS: HEPARIN SODIUM,PORCINE 5,000 UNIT/ML 1 ML VIAL SQ SCH (08:08)
[2017-01-25] MEDS: guaiFENesin 600 MG TABLET.ER PO SCH (08:08)
[2017-01-25] MEDS: DOXYCYCLINE 50 MG CAP PO SCH (08:08)
[2017-01-25] MEDS: PANTOPRAZOLE 40 MG TABLET PO SCH (08:08)
[2017-01-25] MEDS: GABAPENTIN 300 MG CAP PO SCH (08:08)
[2017-01-25] MEDS: CYCLOBENZAPRINE 10 MG TAB PO SCH (08:08)
[2017-01-25] MEDS: LORATADINE 10 MG TAB PO SCH (08:08)
[2017-01-25] MEDS: NICOTINE 21MG/24HR PATCH TRANSDERM SCH (08:08)
[2017-01-25] MEDS: busPIRone HCl 10 MG TAB PO SCH (08:08)
[2017-01-25] MEDS: HYDROcodone/APAP 10-325MG 1 EACH TAB PO PRN (09:56)
[2017-01-25] MEDS: MECLIZINE 25 MG TAB PO SCH (10:06)
[2017-01-25 11:39] LABS: Glucose,Whole Blood 103 mg/dL (75-99)
[2017-01-25 12:50] VITALS: PULSE 96
--- NOTE | 2017-01-25 13:58 | P.PN ---
Subjective Principal diagnosis: Acute exacerbation of chronic obstructive pulmonary disease This is a 66-year-old female with history of severe underlying COPD, moved recently to the area, patient is a heavy smoker, quit only 3 days ago, she has history of chronic hypoxic respiratory failure and she is O2 dependent. Patient is not prednisone dependent. Patient presented to the ER with a few day history of cough wheezing shortness of breath. Cough is productive with whitish phlegm. Chest x-ray on admission showed minimal scarring at the bases but no clear-cut evidence of pneumonia. She was admitted with the impression of acute exacerbation of COPD, and we were asked to see her on consultation. Since admission, the patient seems to be feeling a bit better, breathing easier. Denies any headaches no blurred vision no dizziness. She complains of shortness of breath cough and wheezing. Denies any nausea vomiting abdominal pain. No melena no hematemesis no dysuria and no frequency no urgency. The patient is seen again today 01/23/2017 in follow-up. She is awake and alert in no acute distress. She is quite dyspneic on minimal conversation however. She states she is better today as compared to yesterday but still not quite back to her baseline. She remains quite bronchospastic and wheezy. She has been afebrile. She is maintaining good O2 saturations in the mid 90s on 4 L /m per nasal cannula. She is seen again today 01/24/2017 in follow-up on the regular medical floor. She is awake and alert in no acute distress. She is breathing easier today as compared to yesterday. She denies any worsening shortness of breath, cough or congestion. Blood cultures reveal no growth. The patient is seen again today 01/25/2017 in follow-up in the regular medical floor. She is more awake and alert and active today as compared to yesterday. She still is somewhat dyspneic on minimal exertion. She is nearing her baseline but not quite there yet. She continues with a loose nonproductive cough. No chills or night sweats. today's chest x-ray is stable. There is chronic and the somatic changes and a small right pleural effusion. No new suspicious focal infiltrates. Objective - Vital Signs Vital signs: Vital Signs Temp 97.4 F L 01/25/17 07:00 Pulse 96 01/25/17 11:12 Resp 18 01/25/17 07:00 BP 140/82 01/25/17 07:00 Pulse Ox 98 01/25/17 12:30 Intake & Output 01/24/17 01/25/17 01/25/17 18:59 06:59 18:59 Intake Total 600 300 Balance 600 300 Intake: Oral 600 300 Other: Voiding Method Bedside Commode # Voids 2 - Exam GENERAL EXAM: Alert, fairly comfortable in no apparent distress. HEAD: Normocephalic. EYES: Normal reaction of pupils, equal size. NOSE: Clear with pink turbinates. THROAT: No erythema or exudates. NECK: No masses, no JVD. CHEST: No chest wall deformity. LUNGS: Equal air entry with bilateral wheezing. Diminished throughout. CVS: S1 and S2 normal with no audible murmurs, regular rhythm. ABDOMEN: Obese.Normal bowel sounds, no guarding or rigidity. Extremities: There is trace peripheral edema. No clubbing, no cyanosis. Peripheral pulses are intact. - Labs CBC & Chem 7: 01/24/17 07:11 01/24/17 07:11 Labs: Abnormal Lab Results - Last 24 Hours (Table) 01/24/17 01/24/17 01/25/17 Range/Units 17:06 21:08 06:43 POC Glucose (mg/dL) 125 H 117 H 113 H (75-99) mg/dL 01/25/17 Range/Units 11:36 POC Glucose (mg/dL) 103 H (75-99) mg/dL Assessment and Plan Plan: Impression: #1 Acute exacerbation of suspected severe chronic obstructive pulmonary disease , complicated by purulent tracheobronchitis. #2 Chronic and ongoing tobacco dependence. #3 Anxiety/Depression. #4 Hypothyroidism. Plan: The patient was seen and evaluated by Dr. Sanches. We'll continue with her current medications including bronchodilators, IV Solu-Medrol and empiric antibiotics. Will increase her activity as tolerated. We'll continue to follow. Neck was ready for discharge today. Possible discharge within the next 24 hours.
--- NOTE | 2017-01-26 11:52 | PN ---
DATE OF SERVICE: 01/25/2017 INTERVAL HISTORY: Ms. Tyler is a 66-year-old female with known history of severe COPD, home oxygen-dependent, nicotine addiction, admitted to the hospital with worsening shortness of breath and being treated for acute COPD exacerbation. Patient is still having a little bit of shortness of breath when she walks; otherwise, did improve clinically. Patient has been continued on IV steroids and breathing treatments. Pulmonary is following this patient. Anticipate discharge in 24 hours. REVIEW OF SYSTEMS: CONSTITUTIONAL: No fever. No chills. RESPIRATORY: No cough or sputum production. CARDIOVASCULAR: No chest pain, shortness of breath. ABDOMEN: No nausea, vomiting, abdominal pain. GENITOURINARY: Negative. ENDOCRINE: Negative. PSYCHIATRIC: Negative. SKIN: Negative. All other 14-point review of systems negative except as above. Current medications reviewed. PHYSICAL EXAMINATION: A 66-year-old female, lying in bed comfortably; awake, alert, oriented x3, appears to be in no apparent distress. VITALS: Blood pressure is 130/69, pulse rate is 87, respirations 18, temperature afebrile, pulse ox 91% on 4L nasal cannula. HEENT: Atraumatic, normocephalic. Neck is supple. No JVD. CVS: S1, S2 heard. No murmurs. No gallop. LUNGS: Bilateral diffuse wheezing positive. Nonlabored breathing. ABDOMEN: Soft, nontender. Bowel sounds positive. ERADICATOR: Awake, alert and oriented x3. No focal deficits. EXTREMITIES: No edema. Pulses palpable bilaterally. No clubbing or cyanosis. PSYCHIATRIC: Cooperative. Nonsuicidal. LABORATORY DATA: Hemoglobin 11.6, hemoglobin 17.4, platelets 239. Sodium 137, potassium 4.9, chloride 101, bicarb is 27, BUN 25, creatinine 0.4. Calcium is 9.2. IMPRESSION: 1. Acute severe chronic obstructive pulmonary disease exacerbation. 2. Acute tracheobronchitis. 3. Chronic respiratory failure, home oxygen-dependent. 4. Hypothyroidism. 5. Anxiety and depression. DISCUSSION AND PLAN: The patient will be continued on bronchodilators and antibiotics and steroids and followed up closely. She is medically improving now and I anticipate discharge in 24 hours. Further recommendations based on clinical course. Pulmonary is on board.
--- NOTE | 2017-01-26 22:07 | DS ---
DATE OF ADMISSION: 01/20/2017 DATE OF DISCHARGE: 01/25/2017 DISCHARGE DIAGNOSES: 1. Acute severe chronic obstructive pulmonary disease exacerbation. 2. Acute tracheobronchitis. 3. Chronic respiratory failure on home oxygen dependent. 4. Active nicotine addiction. 5. Hypothyroidism. 6. Anxiety and depression. HOSPITAL COURSE: Ms. Tyler is a 66 -year-old female with known history of COPD admitted to the hospital with worsening short of breath and cough and sputum production. The patient was continued on breathing treatments. IV steroids in the form of Methylprednisolone and antibiotics. Patient did improve clinically. The patient was counseled for smoking cessation. Otherwise, the patient will be continued on tapering dose of steroids and breathing treatments and antibiotics at home. The patient is stable for discharge home. Patient was cleared by pulmonary as well. Discharge physical examination: 66-year-old female lying in bed, awake, alert, oriented x3, appears to be in no apparent distress. VITALS: Blood pressure is 140/82, pulse is 80, respirations 18, temp afebrile, pulse ox 98% on 4 liters nasal cannula. Laboratory data reviewed. Discharge physical examination done. Chest x-ray showed stable and no new findings noted. Discharge physical examination done. Discharge medications include: 1. Celexa 20 mg p.o. at bedtime. 2. Flexeril 10 mg p.o. t.i.d. 3. Diflucan 100 mg p.o. daily p.r.n. 4. Levothyroxine 112 mcg p.o. daily. 5. Loratadine 10 mg p.o. daily. 6. Meclizine 25 mg p.o. t.i.d. 7. Zolpidem 10 mg p.o. at bedtime. 8. Buspirone 10 mg p.o. daily. 9. Ultram 50 mg p.o. q.6 hourly p.r.n. for pain. 10. Gabapentin 300 mg p.o. t.i.d. 11. Symbicort 2 puffs b.i.d. 12. Vibramycin 100 mg p.o. b.i.d. for 7 days. 13. DuoNeb q.i.d. 14. Prednisone tapering dose. Activity as tolerated. Heart healthy diet. Follow-up with Dr. Seferino Dorman in one to three days. Follow-up with Dr. Sanches. Home with self-care.
== END 2017-01-25 15:45 | disposition home or self-care (01) | DRG 190 ==
LOC: EC 21:56 → 4MS4W 23:56
PROVIDERS: ADMIT Internal Medicine; ATTEND Internal Medicine
DX: J44.1 Chronic obstructive pulmonary disease with (acute) exacerbation (principal); J96.22 Acute and chronic respiratory failure with hypercapnia; J96.21 Acute and chronic respiratory failure with hypoxia; Z99.81 Dependence on supplemental oxygen; J20.9 Acute bronchitis, unspecified; E03.9 Hypothyroidism, unspecified; J44.0 Chronic obstructive pulmonary disease with (acute) lower respiratory infection; R00.0 Tachycardia, unspecified; F41.9 Anxiety disorder, unspecified; F32.9 Major depressive disorder, single episode, unspecified; E66.9 Obesity, unspecified; F17.200 Nicotine dependence, unspecified, uncomplicated; Z79.899 Other long term (current) drug therapy; Z88.0 Allergy status to penicillin; Z80.9 Family history of malignant neoplasm, unspecified; Z79.891 Long term (current) use of opiate analgesic; Z91.19 Patient's noncompliance with other medical treatment and regimen; Z71.6 Tobacco abuse counseling; Z90.49 Acquired absence of other specified parts of digestive tract; Z90.710 Acquired absence of both cervix and uterus; Z68.29 Body mass index [BMI] 29.0-29.9, adult
CPT/HCPCS: 36415; 71010; 71020; 80048; 80053; 82550; 82553; 83036; 83735; 84484; 85025; 85027; 85610; 85730; 87040; 87324; 93005; 94640; 94760; 96374; 99291

== ENCOUNTER → 2017-02-13 | Outpatient (CLI) | payer OTHER, MEDICARE ==
--- NOTE | 2017-02-14 08:32 | MR ---
MR thoracic spine without contrast history: Pain since trauma 2013 Multiplanar multisequence imaging through the thoracic spine. No comparisons Thoracic vertebral bodies show preserved height and alignment. There is multilevel spondylosis with e ndplate discogenic marrow signal change, associated loss of disc height and signal. Thoracic cord sig nal is normal. There is no significant central canal stenosis, foraminal encroachment, or sizable dis c herniation. Degenerative disc changes are noted in the cervical spine. There is a scoliotic curvature is suspecte d at the lower lumbar spine. There is some facet arthropathy noted at the lower thoracic spine. Left adrenal mass is suspected measuring 14 mm. IMPRESSION: Scoliosis, degenerative disc disease and facet arthropathy. No significant central canal stenosis or sizable disc herniation. Left adrenal mass statistically is likely to represent adenoma, follow-up could be performed to assess for stability, consider adrenal MRI
== END | disposition home or self-care (01) ==
LOC: RADMRIMAIN 17:54
PROVIDERS: ATTEND Psychiatry & Neurology Pain Medicine
DX: M51.34 Other intervertebral disc degeneration, thoracic region (principal); M46.84 Other specified inflammatory spondylopathies, thoracic region; M41.84 Other forms of scoliosis, thoracic region
CPT/HCPCS: 72146

== ENCOUNTER → 2017-02-14 | Outpatient (CLI) | payer OTHER, MEDICARE ==
--- NOTE | 2017-02-14 22:03 | MR ---
EXAMINATION TYPE: MR lumbar spine wo con DATE OF EXAM: 02/14/2017 8:54 PM COMPARISON: NONE HISTORY: 66-year-old female with low back pain, bilateral lower extremity radiculopathy status post f all 2 years ago. TECHNIQUE: Multiplanar, multisequence images of the lumbar spine were acquired. FINDINGS: There is a transitional lumbosacral segment with right L5 hemisacralization. Variable mild to moderate disc desiccation and disc interspace narrowing particularly at L1-L2 where broad-based posterior disc protrusion is present. There is a component of mild congenital spinal canal narrowing with AP canal dimension of 1 cm. Scattered facet degenerative change. Vertebral body heights are preserved and alignment is maintained. Conus medullaris is normal. No suspicious bone marrow replacement. At T12-L1, no spinal canal or neuroforaminal stenosis. At L1-L2, broad-based posterior disc protrusion. This impresses on the ventral thecal sac but does no t cause significant canal or neuroforaminal stenosis. At L2-L3, mild congenital canal narrowing without significant spinal canal or neuroforaminal stenosis . At L3-L4, there is facet arthropathy with ligamentum flavum thickening and mild diffuse disc bulge. O verall mild spinal canal stenosis and minimal inferior right neuroforaminal narrowing. At L4-L5, ligamentum flavum thickening with hypertrophic facet arthropathy. Changes result in minimal inferior left neural foraminal narrowing without significant spinal canal stenosis. At L5-S1, no significant spinal canal or neuroforaminal stenosis. No prevertebral or paravertebral soft tissue abnormality. There is fusiform ectasia of the infrarenal abdominal aorta of 2.5 cm. IMPRESSION: 1. Moderate multilevel degenerative disc disease. There is mild congenital spinal canal narrowing sandra ecially in the mid lumbar spine along with facet arthropathy. 2. Broad-based posterior disc protrusion at L1-L2 impresses on the ventral thecal sac but does not co ntribute to a significant spinal canal stenosis. 3. Accentuated overall mild spinal canal stenosis at L3-L4. 4. Variable minimal to mild neuroforaminal narrowing as outlined above. 5. Transitional lumbosacral segment with right L5 hemisacralization. 6. Fusiform ectasia of the infrarenal abdominal aorta at 2.5 cm.
== END | disposition home or self-care (01) ==
LOC: RADMRIMAIN 20:25
PROVIDERS: ATTEND Psychiatry & Neurology Pain Medicine
DX: M48.06 Spinal stenosis, lumbar region (principal); M51.26 Other intervertebral disc displacement, lumbar region; M51.36 Other intervertebral disc degeneration, lumbar region
CPT/HCPCS: 72148

== ENCOUNTER → 2017-03-07 | Outpatient (CLI) | payer OTHER, MEDICARE ==
--- NOTE | 2017-03-08 06:13 | MR ---
EXAMINATION TYPE: MR brain/cspine wo DATE OF EXAM: 03/07/2017 9:04 PM COMPARISON: MRI brain and cervical spine December 21, 2016 HISTORY: Dizziness, headache, neck pain, weakness TECHNIQUE: Multiplanar, multisequence imaging of the cervical spine, brain and brainstem are all perf ormed without IV contrast. FINDINGS: BRAIN: Diffusion weighted images demonstrate no evidence of a recent infarct or other diffusion abnormality. There is no worrisome extra-axial fluid collection. There is ventricular and sulcal prominence consis tent with diffuse cerebral atrophy. There are scattered foci of T2 hyperintensity seen throughout the white matter bilaterally. Lesions are nonspecific in appearance and distribution but most likely on basis of product of chronic small vessel ischemic change in patient of this age. Midline structures demonstrate normal morphology. Stable mild patchy increased fluid right mastoid a ir cells on axial image 5. The craniocervical junction appears within normal limits. Normal vascular flow voids are present. Stable mild mucosal thickening anterior ethmoid sinuses bilaterally otherwise paranasal sinuses are clear. Nasal septum is deviated to left of midline and unchanged. IMPRESSION: Stable mild to moderate diffuse cerebral atrophy and chronic small vessels ischemic larson e, no significant change from prior. C-SPINE: FINDINGS: Sagittal images of the cervical spine show the craniocervical junction to appear within nor mal limits. The cervical and upper thoracic spinal cord is normal in course, caliber, and signal. V ertebral alignment is anatomic. The vertebral body heights are normal. There is multilevel mild to m oderate disc space narrowing with mild to moderate spurring most prominent at C4-C5 and C5-C6 levels. Posterior disc herniations are redemonstrated effacing anterior thecal sac from C3 -C4 through C6-C7 levels on sagittal images. The bone marrow signal intensity is within normal limits. Axial images show the C2-C3 level to remain within normal limits. Axial images at C3-C4 level show uncovertebral facet degenerative changes bilaterally as well as cent ral disc protrusion. There is effacement of the anterior thecal sac. There is persistent moderate rig ht and mild left-sided neural foraminal narrowing. No significant change from prior study is seen. Axial images at C4-C5 level show broad-based right paracentral disc protrusion effacing anterolateral thecal sac up to ventral surface. In addition there is uncovertebral facet degenerative change seen bilaterally causing advanced right and mild left-sided neural foraminal narrowing. No significant milan nge from prior study is identified. Axial images at C5-C6 level show broad-based right paracentral disc protrusion effacing anterior thec al sac up to ventral surface of spinal cord and causing advanced right and moderate left-sided neural foraminal narrowing. No definitive abnormal cord signal is noted. Less artifact seen on current stud y versus prior. Axial images at C6-C7 level show new left paracentral/foraminal disc protrusion on axial image 16 cau sing moderate left-sided neural foraminal narrowing. There is effacement of the anterior thecal sac. There is persistent mild right-sided neural foraminal narrowing noted. Axial images at C7-T1 level remain within normal limits. IMPRESSION: Multilevel degenerative changes in the cervical spine redemonstrated with most pronounced spinal canal effacement seen at C4-C5 and C5-C6 level similar to prior exam, only interval change is increasing disc herniation C6-C7 level causing more prominent left-sided neural foraminal narrowing.
== END ==
LOC: RADMRIMAIN 20:20
PROVIDERS: ATTEND Psychiatry & Neurology Pain Medicine
DX: M99.73 Connective tissue and disc stenosis of intervertebral foramina of lumbar region (principal); M50.223 Other cervical disc displacement at C6-C7 level; M47.812 Spondylosis without myelopathy or radiculopathy, cervical region; R51 Headache
CPT/HCPCS: 70551; 72141

== ENCOUNTER → 2017-03-08 | Outpatient (CLI) | payer OTHER, MEDICARE ==
--- NOTE | 2017-03-08 21:47 | MR ---
EXAMINATION TYPE: MR shoulder RT wo con DATE OF EXAM: 03/08/2017 9:38 PM COMPARISON: NONE HISTORY: Rt shoulder pain, fall TECHNIQUE: Multiplanar, multisequence imaging of the right shoulder is performed without contrast. FINDINGS: Rotator Cuff: There is thinning and irregularity of the distal margin of the supraspinatus tendon ext ending a length of 16 mm.. Severe partial tear near the insertion measuring 7 mm. No retraction. Alexi g the undersurface of the infraspinatus tendon there is increased signal compatible with partial unde rsurface tear. No through thickness tear. There is a atrophic change of the musculature of the rotato r cuff tendon with the most marked findings involving the infraspinatus muscle. Small amount of fluid in the subscapularis bursa. Acromioclavicular Joint: Mild hypertrophic change of the AC joint. No impingement. Glenohumeral Joint: No sizable joint effusion. Glenohumeral ligaments appear intact. Labrum: The labrum appears grossly intact given limitation of non-arthrogram study. Biceps Tendon: The long head of biceps is in normal location within bicipital groove. Increased signa l within the intracapsular portion of the tendon suggests mild tendinosis. No through thickness tear. No retraction. Bone marrow signal: No focal abnormal marrow signal is appreciated. IMPRESSION: 1. There is a 7 x 16 mm partial tear distal margin supraspinatus tendon. 2. Undersurface partial tear insertion infraspinatus tendon with no retraction or through thickness t ear. Atrophic changes involving the infraspinatus muscle. 3. Bicipital mild tendinosis
== END | disposition home or self-care (01) ==
LOC: RADMRIMAIN 20:53
PROVIDERS: ATTEND Psychiatry & Neurology Pain Medicine
DX: M75.111 Incomplete rotator cuff tear or rupture of right shoulder, not specified as traumatic (principal); M62.511 Muscle wasting and atrophy, not elsewhere classified, right shoulder; M67.813 Other specified disorders of tendon, right shoulder

== ENCOUNTER 2018-07-28 06:16 | Inpatient (IN) | payer MEDICARE, OTHER ==
--- NOTE | 2018-07-28 07:13 | ED ---
General Adult HPI - General Chief complaint: Fall Stated complaint: Fall, left hip pain Time Seen by Provider: 07/28/18 07:01 Source: patient, RN notes reviewed, old records reviewed Mode of arrival: EMS Limitations: no limitations - History of Present Illness Initial comments: 67-year-old female presenting for evaluation of left hip pain status post fall. Patient states she was walking, her right knee gave out which happens from time to time she fell onto her left side. No head or neck trauma. No loss consciousness. She has been complaining of left hip pain since the fall. She has been unable to fully bear weight on this extremity. Denies any numbness or tingling in the lower portion of the left leg. - Related Data Home Medications Medication Instructions Recorded Confirmed Citalopram Hydrobromide [CeleXA] 20 mg PO HS 01/21/17 07/28/18 Cyclobenzaprine [Flexeril] 10 mg PO TID 01/21/17 07/28/18 Fluconazole [Diflucan] 100 mg PO DAILY PRN 01/21/17 07/28/18 Levothyroxine Sodium [Synthroid] 112 mcg PO DAILY 01/21/17 07/28/18 Loratadine [Claritin] 10 mg PO DAILY 01/21/17 07/28/18 Meclizine [Antivert] 25 mg PO TID 01/21/17 07/28/18 Zolpidem [Ambien] 10 mg PO HS PRN 01/21/17 07/28/18 busPIRone HCL 10 mg PO DAILY 01/21/17 07/28/18 traMADol HCL [Ultram] 50 mg PO Q6HR PRN 01/21/17 07/28/18 Gabapentin 300 mg PO TID 01/22/17 07/28/18 Previous Rx's Medication Instructions Recorded Budesonide-Formot 160-4.5 Mcg 2 puff INHALATION BID #1 inhaler 01/25/17 [Symbicort 160-4.5 Mcg Inhaler] Doxycycline Hyclate [Vibramycin] 100 mg PO BID #14 cap 01/25/17 Ipratropium-Albuterol Nebulize 0 ml INHALATION QID #120 neb 01/25/17 [Duoneb 0.5 mg-3 mg/3 ml Soln] predniSONE 10 mg PO DAILY #33 tab 01/25/17 Allergies Allergy/AdvReac Type Severity Reaction Status Date / Time ibuprofen Allergy Anaphylaxis Verified 08/30/17 16:47 Penicillins Allergy Unknown Verified 01/21/17 11:00 latex AdvReac Rash/Hives Verified 07/28/18 06:24 Review of Systems ROS Statement: Those systems with pertinent positive or pertinent negative responses have been documented in the HPI. ROS Other: All systems not noted in ROS Statement are negative. Past Medical History Past Medical History: COPD, Thyroid Disorder Additional Past Medical History / Comment(s): Degenerative bone disease, vertigo History of Any Multi-Drug Resistant Organisms: None Reported Past Surgical History: Cholecystectomy, Hysterectomy, Orthopedic Surgery Past Psychological History: Anxiety Smoking Status: Current every day smoker Past Alcohol Use History: None Reported Past Drug Use History: None Reported - Past Family History Mother Family Medical History: Cancer General Exam Limitations: no limitations General appearance: alert, in no apparent distress Head exam: Present: atraumatic, normocephalic Eye exam: Present: normal appearance, PERRL ENT exam: Present: normal exam Neck exam: Present: normal inspection. Absent: tenderness, meningismus Respiratory exam: Present: wheezes. Absent: respiratory distress Cardiovascular Exam: Present: regular rate, normal rhythm GI/Abdominal exam: Present: soft. Absent: distended, tenderness Extremities exam: Present: normal inspection, tenderness, normal capillary refill, other (2+ DP pulse, no shortening or rotation present on exam). Absent : full ROM (Pain with internal or external rotation at the hip, ), pedal edema, joint swelling, calf tenderness Neurological exam: Present: alert, oriented X3, CN II-XII intact. Absent: motor sensory deficit Psychiatric exam: Present: normal affect, normal mood Skin exam: Present: warm, dry, intact. Absent: cyanosis, diaphoretic Course Vital Signs 07/28/18 07/28/18 06:19 10:31 Temperature 98.7 F Pulse Rate 82 95 Respiratory 20 14 Rate Blood Pressure 140/75 108/56 O2 Sat by Pulse 94 L 93 L Oximetry Medical Decision Making - Medical Decision Making 67-year-old female presenting status post fall with left hip pain. X-ray obtained, concern for impacted 7D fracture, CT obtained, this confirms mildly displaced subcapital fracture left hip. Patient will be admitted to orthopedics , medicine on consult for surgical clearance. - Lab Data Result diagrams: 07/28/18 07:55 07/28/18 07:55 Lab Results 07/28/18 07/28/18 07/28/18 Range/Units 07:55 07:55 07:55 WBC 13.3 H (3.8-10.6) k/uL RBC 6.00 H (3.80-5.40) m/uL Hgb 17.9 H (11.4-16.0) gm/dL Hct 58.1 H* (34.0-46.0) % MCV 96.9 (80.0-100.0) fL MCH 29.9 (25.0-35.0) pg MCHC 30.9 L (31.0-37.0) g/dL RDW 13.7 (11.5-15.5) % Plt Count 294 (150-450) k/uL Neutrophils % 81 % Lymphocytes % 12 % Monocytes % 3 % Eosinophils % 3 % Basophils % 1 % Neutrophils # 10.8 H (1.3-7.7) k/uL Lymphocytes # 1.6 (1.0-4.8) k/uL Monocytes # 0.4 (0-1.0) k/uL Eosinophils # 0.3 (0-0.7) k/uL Basophils # 0.1 (0-0.2) k/uL PT 9.6 (9.0-12.0) sec INR 1.0 (<1.2) APTT 25.5 (22.0-30.0) sec Sodium 140 (137-145) mmol/L Potassium 4.7 (3.5-5.1) mmol/L Chloride 104 (98-107) mmol/L Carbon Dioxide 26 (22-30) mmol/L Anion Gap 10 mmol/L BUN 10 (7-17) mg/dL Creatinine 0.80 (0.52-1.04) mg/dL Est GFR (CKD-EPI)AfAm 87 (>60 ml/min/1.73 sqM) Est GFR (CKD-EPI)NonAf 76 (>60 ml/min/1.73 sqM) Glucose 87 (74-99) mg/dL Calcium 9.6 (8.4-10.2) mg/dL Total Bilirubin 0.4 (0.2-1.3) mg/dL AST 24 (14-36) U/L ALT 25 (9-52) U/L Alkaline Phosphatase 129 H (38-126) U/L Total Protein 7.0 (6.3-8.2) g/dL Albumin 4.1 (3.5-5.0) g/dL Disposition Clinical Impression: Fall, Subcapital fracture of hip Disposition: ADMITTED IP TO THIS [facility] Condition: Stable Is patient prescribed a controlled substance at d/c from ED?: No Referrals: Seferino Dorman MD [Primary Care Provider] - 1-2 days Decision to Admit Reason: Admit from EC Decision Date: 07/28/18 Decision Time: 09:30
--- NOTE | 2018-07-28 07:37 | XR ---
EXAMINATION TYPE: XR Hip LT and AP Pelvis , 3 VIEWS DATE OF EXAM ORDERED: 07/28/2018 HISTORY: Pain. COMPARISON: Previous study dated 08/30/2017. FINDINGS: The study is limited by the patient's tremendous size. The bones appear osteopenic. I'm st radhagly suspicious that there is a subcapital fracture of the left hip. IMPRESSION: PROBABLE SUBCAPITAL FRACTURE OF THE LEFT HIP. A CT SCAN OF THE HIP MAYBE WORTHWHILE FOR FURTHER ASSES SMENT. CODE A: INITIAL ENCOUNTER FOR CLOSED FRACTURE.
[2018-07-28] MEDS ORDERED: MORPHINE SULFATE 4 MG/ML SYRINGE IVP STA ×2 (07:58→10:23)
[2018-07-28 08:13] LABS: Basophils # (A) 0.1 k/uL (0-0.2); Basophils % (A) 1 %; Eosinophils # (A) 0.3 k/uL (0-0.7); Eosinophils % (A) 3 %; HGB 17.9 gm/dL (11.4-16.0); Lymphocytes # (A) 1.6 k/uL (1.0-4.8); Lymphocytes % (A) 12 %; MCH 29.9 pg (25.0-35.0); MCHC 30.9 g/dL (31.0-37.0); MCV 96.9 fL (80.0-100.0); Mean Platelet Volume 6.7; Monocytes # (A) 0.4 k/uL (0-1.0); Monocytes % (A) 3 %; Neutrophils # (A) 10.8 k/uL (1.3-7.7); Neutrophils % (A) 81 %; Platelet Count 294 k/uL (150-450); RDW 13.7 % (11.5-15.5); WBC 13.3 k/uL (3.8-10.6)
[2018-07-28 08:19] LABS: Partial Thromboplastin Time 25.5 sec (22.0-30.0); Prothrombin Time 9.6 sec (9.0-12.0)
[2018-07-28 08:30] LABS: Albumin 4.1 g/dL (3.5-5.0); Calcium 9.6 mg/dL (8.4-10.2); Potassium 4.7 mmol/L (3.5-5.1); Total Bilirubin 0.4 mg/dL (0.2-1.3)
[2018-07-28 08:33] LABS: HCT 58.1 % (34.0-46.0)
--- NOTE | 2018-07-28 09:16 | CT ---
EXAMINATION TYPE: CT hip LT wo con DATE OF EXAM: 07/28/2018 COMPARISON: Plain film of earlier today HISTORY: Lt hip pain CT DLP: 241.2 mGycm Automated exposure control for dose reduction was used. FINDINGS: There is a mildly impacted subcapital fracture of the left hip. Adjacent soft tissues are u nremarkable. IMPRESSION: MILDLY IMPACTED SUBCAPITAL FRACTURE OF THE LEFT HIP. CODE A: INITIAL ENCOUNTER FOR CLOSED FRACTURE.
--- NOTE | 2018-07-28 09:24 | XR ---
EXAMINATION TYPE: XR chest 1V DATE OF EXAM: 07/28/2018 HISTORY: Pain. REFERENCE: Previous study dated 01/24/2017. FINDINGS: There has been internal fixation of the left shoulder. Lung volumes are prominent. Heart size is within normal limits. There are chronic increased markings. There is mild vascular congestion and interstitial change. Pleural spaces are clear. IMPRESSION: PLEASE CORRELATE TO EXCLUDE CONGESTIVE HEART FAILURE
[2018-07-28] MEDS ORDERED: NALOXONE 0.4 MG/ML 1 ML VIAL IV PRN (10:47)
[2018-07-28] MEDS ORDERED: ACETAMINOPHEN TAB 325 MG TAB PO PRN (10:47)
[2018-07-28] MEDS ORDERED: ONDANSETRON 4 MG/2 ML VIAL IVP PRN (10:47)
[2018-07-28] MEDS ORDERED: 0.9% NACL WITH KCL 20 MEQ/L 1,000 ML IV SCH (11:00)
--- NOTE | 2018-07-28 12:16 | P.HPOR ---
History of Present Illness H&P Date: 07/28/18 Chief Complaint: Left subcapital fracture Patient is a 67-year-old female who presented to [facility] on 07/28/2018, she was brought in by EMS. Patient had a fall in her home, she landed on her left side. She was unable to weight-bear initially, EMS was contacted. Upon arrival to the hospital, imaging and lab tests were done. Both x-rays and computed tomography scan demonstrated a subcapital fracture involving the left hip. I was contacted by the emergency room staff about this patient, case was discussed. I was able to discuss this also with my attending physician Dr. Jay, patient was admitted under our service. Consults were placed for both medical clearance and evaluation by pulmonology, she does have a history of COPD. At bedside today, patient is resting comfortably, her daughters present at bedside. She notes discomfort in the left hip with movement. She also notes some anterior left knee pain. She denies any acute pain involving the right lower extremity, bilateral upper extremities. She denies any new onset cervical , thoracic or lumbar pain. She does have history of cervical degenerative disc and lumbar degenerative disc disease. With the lumbar problems, patient does have numbness and tingling in the bilateral lower extremities. She also notices weakness in the lower extremities. She states this may have contributed to the fall. Patient utilizes a cane with ambulation. She did inquire about a new set of arm crutches, she feels more stable with these. She does see a pain management doctor. She has a history of a right total knee arthroplasty that was done in [address] Becker in [place]. She also has a history of an open reduction internal fixation left proximal humerus fracture, this was done in 2007 in [place]. Patient denies any headaches or lightheadedness. She notes no worsening shortness of breath, she does have a history of COPD. She denies any chest pain. She denies any abdominal pain, fever or chills. Review of Systems Constitutional: Reports as per HPI Past Medical History Past Medical History: COPD, Thyroid Disorder Additional Past Medical History / Comment(s): Degenerative bone disease, vertigo History of Any Multi-Drug Resistant Organisms: None Reported Past Surgical History: Cholecystectomy, Hysterectomy, Orthopedic Surgery Past Psychological History: Anxiety Smoking Status: Current every day smoker Past Alcohol Use History: None Reported Past Drug Use History: None Reported - Past Family History Mother Family Medical History: Cancer Medications and Allergies Home Medications Medication Instructions Recorded Confirmed Type Citalopram Hydrobromide [CeleXA] 20 mg PO HS 01/21/17 07/28/18 History Cyclobenzaprine [Flexeril] 10 mg PO TID 01/21/17 07/28/18 History Fluconazole [Diflucan] 100 mg PO DAILY PRN 01/21/17 07/28/18 History Levothyroxine Sodium [Synthroid] 112 mcg PO DAILY 01/21/17 07/28/18 History Loratadine [Claritin] 10 mg PO DAILY 01/21/17 07/28/18 History Meclizine [Antivert] 25 mg PO TID 01/21/17 07/28/18 History Zolpidem [Ambien] 10 mg PO HS PRN 01/21/17 07/28/18 History busPIRone HCL 10 mg PO DAILY 01/21/17 07/28/18 History traMADol HCL [Ultram] 50 mg PO Q6HR PRN 01/21/17 07/28/18 History Gabapentin 300 mg PO TID 01/22/17 07/28/18 History Budesonide-Formot 160-4.5 Mcg 2 puff INHALATION BID #1 inhaler 01/25/17 Rx [Symbicort 160-4.5 Mcg Inhaler] Doxycycline Hyclate [Vibramycin] 100 mg PO BID #14 cap 01/25/17 07/28/18 Rx Ipratropium-Albuterol Nebulize 0 ml INHALATION QID #120 neb 01/25/17 07/28/18 Rx [Duoneb 0.5 mg-3 mg/3 ml Soln] predniSONE 10 mg PO DAILY #33 tab 01/25/17 07/28/18 Rx Allergies Allergy/AdvReac Type Severity Reaction Status Date / Time ibuprofen Allergy Anaphylaxis Verified 08/30/17 16:47 Penicillins Allergy Unknown Verified 01/21/17 11:00 latex AdvReac Rash/Hives Verified 07/28/18 06:24 Physical Examination Left lower extremity: No obvious open lesions or sores present throughout the leg No obvious malalignment present of the lower extremity Christi maneuver reproduces discomfort, she is unable to straight leg raise Tenderness with palpation over the patella on the anterior side involving the knee, no joint effusion is present or swelling over the prepatellar bursa. Remaining the exam is difficult due to pain in the left hip Calf is soft, no tenderness with palpation. Plantar flexion, dorsiflexion, EHL , FHL are intact. Dorsal pedis pulses 2+, sensory exam to light touch is diminished throughout multiple layers of left lower extremity Results - Labs Labs: Abnormal Lab Results - Last 24 Hours (Table) 07/28/18 07/28/18 Range/Units 07:55 07:55 WBC 13.3 H (3.8-10.6) k/uL RBC 6.00 H (3.80-5.40) m/uL Hgb 17.9 H (11.4-16.0) gm/dL Hct 58.1 H* (34.0-46.0) % MCHC 30.9 L (31.0-37.0) g/dL Neutrophils # 10.8 H (1.3-7.7) k/uL Alkaline Phosphatase 129 H (38-126) U/L H & H 07/28/18 Range/Units 07:55 Hgb 17.9 H (11.4-16.0) gm/dL Hct 58.1 H* (34.0-46.0) % Coagulation 07/28/18 Range/Units 07:55 INR 1.0 (<1.2) Result Diagrams: 07/28/18 07:55 07/28/18 07:55 - Diagnostic results Hip x-ray: report reviewed, image reviewed Hip CT: report reviewed, image reviewed Assessment and Plan Plan: Imaging: Multiple imaging studies were done, including x-rays and CT of the pelvis and left hip. Images do demonstrate an impacted subcapital fracture on the left side. Assessment: 1. Left subcapital femur fracture 2. Left knee pain 3. Multiple medical comorbidities Plan: I was able to discuss the case, including both physical exam findings and imaging studies my attending physician Dr. Jay. We would like to proceed with surgical intervention, more specifically left total hip arthroplasty, taking in consideration the patient's age. Our plan is to proceed with this on 07/29/2018. Risks and benefits of the procedure were discussed the patient, this including but not excluding infection, blood loss, pain and stiffness, development blood clots, need for subsequent surgeries. She is in good understanding with like to proceed. Obtain consent Due to the pain in the left knee, I will order AP and lateral x-rays Pain control, oral and IV medications needed Nonweightbearing left lower extremity GI and DVT prophylaxis, will likely begin subcu medication after surgery Medical and pulmonology recommendations and clearances Further recommendations to follow Time with Patient: Less than 30
[2018-07-28] MEDS ORDERED: IPRATROPIUM-ALBUTEROL 3 ML NEB INHALATION PRN ×2 (13:27)
[2018-07-28] MEDS: traMADol 50 MG TAB PO SCH ×3 (13:44→21:26)
--- NOTE | 2018-07-28 13:57 | P.CNPUL ---
History of Present Illness Consult date: 07/28/18 Requesting physician: Caden Jay Reason for consult: COPD, other Chief complaint: Pulmonary clearance for left total hip arthroplasty History of present illness: This is 67-year-old white female patient with past medical history of severe COPD with an underlying FEV1 of 46% of predicted, with hypoxemic respiratory failure, patient wears 2 L of oxygen at home on as-needed basis, chronic and ongoing nicotine dependence, hypothyroidism, degenerative osteoarthritis, vertigo, anxiety, who was brought to the hospital per ambulance after sustaining a fall in her home onto her left side. States she was reaching for the light switch, misjudged the distance, and went down. Upon arrival to the hospital, both x-rays and computed tomography scan demonstrated a subcu Of fracture involving the left hip. Patient was evaluated by orthopedic surgery and direct anterior left total hip arthroplasty was recommended on 07/29/[address] Jay, and we were asked to see the patient for pulmonary clearance. She is resting comfortably in bed, in no acute distress other than with repositioning, she has pain in her left hip area. His any dyspnea, denies any chest pain. No cough, or congestion, no wheezing. Currently on 2 L per nasal cannula and her pulse ox is anywhere from 90-93%, lung sounds are fair, diminished at the bases, patient is afebrile, vital signs are stable, chest x- ray was completed and showed increased interstitial markings and mild vascular congestion. No cardiomegaly, pleural spaces were clear. No prior history of congestive heart failure, or previous [place]. No peripheral edema. Lab work showed WBC of 13.3, hemoglobin 17.9, lecture lites and renal profile were within normal limits, LFTs was 129, AST, ALT were within normal limits. Review of Systems All systems: negative Constitutional: Denies chills, Denies fever Eyes: denies blurred vision, denies pain Ears, nose, mouth and throat: Denies headache, Denies sore throat Cardiovascular: Denies chest pain, Denies shortness of breath Respiratory: Denies cough Gastrointestinal: Denies abdominal pain, Denies diarrhea, Denies nausea, Denies vomiting Genitourinary: Denies dysuria, Denies hematuria Musculoskeletal: Denies myalgias Musculoskeletal: left: hip pain Integumentary: Denies pruritus, Denies rash Neurological: Denies numbness, Denies weakness Psychiatric: Denies anxiety, Denies depression Endocrine: Denies fatigue, Denies weight change Past Medical History Past Medical History: COPD, Thyroid Disorder Additional Past Medical History / Comment(s): Degenerative bone disease, vertigo History of Any Multi-Drug Resistant Organisms: None Reported Past Surgical History: Cholecystectomy, Hysterectomy, Orthopedic Surgery Additional Past Surgical History / Comment(s): right knee surgery 2014, left shoulder 2008 Past Anesthesia/Blood Transfusion Reactions: No Reported Reaction Past Psychological History: Anxiety Smoking Status: Current every day smoker Past Alcohol Use History: None Reported Past Drug Use History: None Reported - Past Family History Mother Family Medical History: Cancer Additional Family Medical History / Comment(s): skin cancer Medications and Allergies Home Medications Medication Instructions Recorded Confirmed Type Cyclobenzaprine [Flexeril] 10 mg PO TID 01/21/17 07/28/18 History Levothyroxine Sodium [Synthroid] 112 mcg PO DAILY 01/21/17 07/28/18 History Loratadine [Claritin] 10 mg PO DAILY 01/21/17 07/28/18 History Meclizine [Antivert] 25 mg PO TID 01/21/17 07/28/18 History Zolpidem [Ambien] 10 mg PO HS PRN 01/21/17 07/28/18 History busPIRone HCL 10 mg PO DAILY 01/21/17 07/28/18 History Gabapentin 300 mg PO TID 01/22/17 07/28/18 History Budesonide-Formot 160-4.5 Mcg 2 puff INHALATION RT-BID 07/28/18 07/28/18 History [Symbicort 160-4.5 Mcg Inhaler] Hydrocodone/Acetaminophen [[place] 1 tab PO TID PRN 07/28/18 07/28/18 History 10-325] Ipratropium-Albuterol Nebulize 3 ml INHALATION RT-BID PRN 07/28/18 07/28/18 History [Duoneb 0.5 mg-3 mg/3 ml Soln] guaiFENesin [Mucinex] 600 mg PO BID 07/28/18 07/28/18 History Allergies Allergy/AdvReac Type Severity Reaction Status Date / Time ibuprofen Allergy Anaphylaxis Verified 07/28/18 13:22 Penicillins Allergy Unknown Verified 09/23/18 13:22 latex AdvReac Rash/Hives Verified 07/28/18 13:22 Physical Exam Vitals: Vital Signs Temp Pulse Pulse Resp BP BP Pulse Ox 07/28/18 11:38 98.6 F 92 18 129/77 90 L 07/28/18 10:31 95 14 108/56 93 L 07/28/18 06:19 98.7 F 82 20 140/75 94 L Intake and Output 07/27/18 07/28/18 07/28/18 22:59 06:59 14:59 Intake Total 180 Balance 180 Intake: Oral 180 Other: Weight 61.235 kg GENERAL EXAM: Alert, pleasant, 67-year-old white female, appears older than stated age, comfortable in no apparent distress. HEAD: Normocephalic/atraumatic. EYES: Normal reaction of pupils, equal size. Conjunctiva pink, sclera white. NOSE: Clear with pink turbinates. THROAT: No erythema or exudates. NECK: No masses, no JVD, no thyroid enlargement, no adenopathy. CHEST: No chest wall deformity. Symmetrical expansion. LUNGS: Equal air entry with no crackles, wheeze, rhonchi or dullness. CVS: Regular rate and rhythm, normal S1 and S2, no gallops, no murmurs, no rubs ABDOMEN: Soft, nontender. No hepatosplenomegaly, normal bowel sounds, no guarding or rigidity. EXTREMITIES: No clubbing, no edema, no cyanosis, 2+ pulses and upper and lower extremities. MUSCULOSKELETAL: Muscle strength and tone normal. There is tenderness with palpation over left hip area. No calf tenderness, distal pulses are intact. SPINE: No scoliosis or deformity SKIN: No rashes CENTRAL NERVOUS SYSTEM: Alert and oriented -3. No focal deficits, tone is normal in all 4 extremities. PSYCHIATRIC: Alert and oriented -3. Appropriate affect. Intact judgment and insight. Results - Laboratory Findings CBC and BMP: 07/28/18 07:55 07/28/18 07:55 PT/INR, D-dimer PT 9.6 sec (9.0-12.0) 07/28/18 07:55 INR 1.0 (<1.2) 07/28/18 07:55 Abnormal lab findings: Abnormal Labs 07/28/18 07/28/18 07:55 07:55 WBC 13.3 H RBC 6.00 H Hgb 17.9 H Hct 58.1 H* MCHC 30.9 L Neutrophils # 10.8 H Alkaline Phosphatase 129 H - Diagnostic Findings Chest x-ray: report reviewed, image reviewed Assessment and Plan Plan: Assessment: #1. Left Femur fracture, Patient is scheduled for left total hip arthroplasty on 07/29/2018 #2. Mechanical fall at home sustaining left hip fracture #3. Chronic obstructive pulmonary disease, severe, gold stage III, with chronic hypoxemic respiratory failure, currently stable #4. Interstitial prominence seen on the chest x-ray, without any clinical signs of congestive heart failure. May be related to chest x-ray taken while the patient was laying down, poor inspiratory effort #5. Mild leukocytosis, possibly reactive #6. hypothyroidism #7. Chronic and ongoing nicotine dependence #8. Degenerative history of arthritis #9. Vertigo #10. Anxiety Plan: We'll obtain pro-BNP level. COPD seems to be stable, without any evidence of exacerbation. As far as interstitial prominence seen on the chest x-ray patient is without any medical signs of fluid overload or congestive heart failure. If the proBNP level is within normal limits no need to proceed with echocardiogram. No shortness of breath or chest pain, no peripheral edema, no JVD. If the proBNP level is elevated we may have to obtain clearance from cardiology. We will reorder patient's Symbicort, and DuoNeb nebulized treatments, Mucinex per patient's request. Provide with incentive spirometry. Pain control. As far as her history of COPD, she is stable, and is cleared for surgery from pulmonary perspective. I performed a history & physical examination of the patient and discussed their management with my nurse practitioner, Elsi Drake. I reviewed the nurse practitioner's note and agree with the documented findings and plan of care. Lung sounds are clear diminished at the bases. The findings and the impression was discussed with the patient. I attest to the documentation by the nurse practitioner. Time with Patient: Greater than 30
[2018-07-28] MEDS: MORPHINE SULFATE 4 MG/ML SYRINGE IV PRN ×2 (14:53→19:17)
[2018-07-28] MEDS: SYMBICORT 160-4.5 MCG INHALER INHALATION SCH (19:21)
[2018-07-28] MEDS: HYDROcodone/APAP 7.5-325MG 1 EACH TAB PO PRN (20:21)
[2018-07-28] MEDS: guaiFENesin 600 MG TABLET.ER PO SCH (20:21)
--- NOTE | 2018-07-29 00:32 | P.CONS ---
History of Present Illness - Reason for Consult Consult date: 07/28/18 Medical management and clearance for surgery - Chief Complaint Left hip pain - History of Present Illness Patient is a 67-year-old female with known history of COPD on home oxygen, nicotine ongoing addiction, hypothyroidism presented to ER with complaints of fall and left hip pain. Patient was brought to the hospital by ambulance. Patient was walking in the kitchen and turned to the side to these the switch, suddenly she lost balance and fell on the left side. Patient had left hip x- ray as well as computed tomography scan showed subcapital fracture involving the left hip. Otherwise plan for surgery tomorrow. Currently patient's pain is fairly controlled with medications. Denied any leg weakness or paresthesias. No complaints of chest pain or shortness of breath. No nausea vomiting or abdominal pain or diarrhea. Denied any previous cardiac history. No history of CHF. Patient does have chronic hypoxic respiratory failure currently on 2 L home oxygen. Patient does have a history of right total knee arthroplasty was done in 2014. Denied any fever or chills. No recent illnesses. No history of peripheral vascular disease. Laboratory data showed hemoglobin 17.9, alk phos 129 otherwise remaining laboratory data within normal limits. Chest x-ray showed Correlate for CHF. But BNP 264 Review of Systems Constitutional: Patient denies any fever or chills . No generalized weakness or weight loss. Abdomen: Patient denied nausea vomiting and diarrhea and abdominal pain. Cardiovascular: Patient denies any chest pain or short of breath no palpitations. Respiratory: patient denied any cough is from production. No shortness of breath Neurologic: Patient denied any numbness or tingling headache. Musculoskeletal: Patient denies any complaints of joint swelling or deformity. Left hip pain. Skin: Negative Psychiatric: Negative Endocrine: No heat or cold intolerance. No recent weight gain. Genitourinary: No dysuria or hematuria. All other 14 point ROS negative except the above Past Medical History Past Medical History: COPD, Thyroid Disorder Additional Past Medical History / Comment(s): Degenerative bone disease, vertigo History of Any Multi-Drug Resistant Organisms: None Reported Past Surgical History: Cholecystectomy, Hysterectomy, Orthopedic Surgery Additional Past Surgical History / Comment(s): right knee surgery 2014, left shoulder 2007 Past Anesthesia/Blood Transfusion Reactions: No Reported Reaction Past Psychological History: Anxiety Smoking Status: Current every day smoker Past Alcohol Use History: None Reported Past Drug Use History: None Reported - Past Family History Mother Family Medical History: Cancer Additional Family Medical History / Comment(s): skin cancer Medications and Allergies Home Medications Medication Instructions Recorded Confirmed Type Cyclobenzaprine [Flexeril] 10 mg PO TID 01/21/17 07/28/18 History Levothyroxine Sodium [Synthroid] 112 mcg PO DAILY 01/21/17 07/28/18 History Loratadine [Claritin] 10 mg PO DAILY 01/21/17 07/28/18 History Meclizine [Antivert] 25 mg PO TID 01/21/17 07/28/18 History Zolpidem [Ambien] 10 mg PO HS PRN 01/21/17 07/28/18 History busPIRone HCL 10 mg PO DAILY 01/21/17 07/28/18 History Gabapentin 300 mg PO TID 01/22/17 07/28/18 History Budesonide-Formot 160-4.5 Mcg 2 puff INHALATION RT-BID 07/28/18 07/28/18 History [Symbicort 160-4.5 Mcg Inhaler] Citalopram Hydrobromide [CeleXA] 20 mg PO HS 07/28/18 07/28/18 History Hydrocodone/Acetaminophen [[place] 1 tab PO TID PRN 07/28/18 07/28/18 History 10-325] Ipratropium-Albuterol Nebulize 3 ml INHALATION RT-BID PRN 07/28/18 07/28/18 History [Duoneb 0.5 mg-3 mg/3 ml Soln] guaiFENesin [Mucinex] 600 mg PO BID 07/28/18 07/28/18 History Allergies Allergy/AdvReac Type Severity Reaction Status Date / Time ibuprofen Allergy Anaphylaxis Verified 07/28/18 13:22 Penicillins Allergy Unknown Verified 07/28/18 13:22 latex AdvReac Rash/Hives Verified 07/28/18 13:22 Physical Exam Vitals: Vital Signs Temp Pulse Pulse Resp BP BP Pulse Ox 07/28/18 11:38 98.6 F 92 18 129/77 90 L 07/28/18 10:31 95 14 108/56 93 L 07/28/18 06:19 98.7 F 82 20 140/75 94 L Intake and Output 07/27/18 07/28/18 07/28/18 22:59 06:59 14:59 Intake Total 180 Balance 180 Intake: Oral 180 Other: Weight 61.235 kg PHYSICAL EXAMINATION: Patient is lying in the bed comfortably, no acute distress, awake alert and oriented.. HEENT: Normocephalic. Neck is supple. Pupils reactive. Nostrils clear. Oral cavity is moist. Ears reveal no drainage. Neck reveals no JVD, carotid bruits, or thyromegaly. CHEST EXAMINATION: Trachea is central. Symmetrical expansion. Lung kwok clear to auscultation and percussion. CARDIAC: Normal S1, S2 with no gallops. No murmurs ABDOMEN: Soft. Bowel sounds normal. No organomegaly. No abdominal bruits. Extremities: reveal no edema. No clubbing or cyanosis Neurologically awake, alert, oriented x3 with well-coordinated movements. No focal deficits noted Skin: No rash or skin lesions. Psychiatric: Coperative. Nonsuicidal Musculoskeletal: No joint swelling or deformity. Left hip pain and decreased range of motion. Results CBC & Chem 7: 07/28/18 07:55 07/28/18 07:55 Labs: Abnormal Lab Results - Last 24 Hours (Table) 07/28/18 07/28/18 Range/Units 07:55 07:55 WBC 13.3 H (3.8-10.6) k/uL RBC 6.00 H (3.80-5.40) m/uL Hgb 17.9 H (11.4-16.0) gm/dL Hct 58.1 H* (34.0-46.0) % MCHC 30.9 L (31.0-37.0) g/dL Neutrophils # 10.8 H (1.3-7.7) k/uL Alkaline Phosphatase 129 H (38-126) U/L Assessment and Plan Assessment: Left hip subcapital fracture status post mechanical fall. COPD stable. Chronic hypoxic respiratory failure on home oxygen 2 L nausea cannula due to COPD Unlikely CHF with BNP being not elevated. Chest x-ray showed correlate for CHF otherwise. Hypothyroidism Anxiety Degenerative joint disease History of vertigo Chronic ongoing nicotine addiction Polycythemia likely due to underlying COPD DVT prophylaxis Plan: Patient will be continued on breathing treatments and oxygen with another cannula. BNP is not elevated. Unlikely patient has CHF. No history of coronary artery disease or peripheral vascular disease in the past. No active complaints of chest pain or shortness of breath. No history of CVA. Patient is cleared for low risk orthopedic surgery. We will continue to follow with you. Discussed with patient's granddaughter at bedside in detail. Thank you for your consult Time with Patient: Greater than 30
[2018-07-29] MEDS: HYDROcodone/APAP 7.5-325MG 1 EACH TAB PO PRN ×2 (03:22→22:48)
[2018-07-29] MEDS: LEVOTHYROXINE 112 MCG TAB PO SCH (06:10)
[2018-07-29] MEDS: SYMBICORT 160-4.5 MCG INHALER INHALATION SCH ×2 (07:33→19:38)
[2018-07-29] MEDS: guaiFENesin 600 MG TABLET.ER PO SCH ×2 (07:57→21:30)
[2018-07-29] MEDS: LORATADINE 10 MG TAB PO SCH (07:58)
[2018-07-29] MEDS: traMADol 50 MG TAB PO SCH ×4 (08:00→21:30)
[2018-07-29] MEDS ORDERED: LACTATED RINGERS 1,000 ML IV ONE ×2 (08:02→11:23)
[2018-07-29] MEDS ORDERED: ROPIVACAINE 246.25 MG, EPINEPHrine 0.5 MG, KETOROLAC 30 MG, cloNIDine HCL/PF 80 MCG, WA... MISCELLANE ONE ×5 (09:06)
[2018-07-29] MEDS ORDERED: TRANEXAMIC ACID 1,000 MG in SODIUM CHLORIDE 0.9% 50 ML IVPB ONE ×2 (10:01→10:30)
[2018-07-29] MEDS ORDERED: SODIUM CHLORIDE 0.9% 100 ML with CLINDAMYCIN 600 MG IV ONE ×2 (10:10)
[2018-07-29] MEDS ORDERED: CLINDAMYCIN 1,800 MG in SODIUM CHLORIDE 0.9% IRRIGATIO 3,000 ML IRRIGATION ONE (10:17)
--- NOTE | 2018-07-29 11:47 | XR ---
EXAMINATION TYPE: XR Hip Limited LT DATE OF EXAM: 07/29/2018 COMPARISON: NONE HISTORY: Postsurgical TECHNIQUE: One view submitted. FINDINGS: There is a prosthetic hip in near anatomic alignment. There is soft tissue edema and emphysema. IMPRESSION: 1. Postoperative change. Appears in near-anatomic alignment.
[2018-07-29] MEDS ORDERED: ONDANSETRON 4 MG/2 ML VIAL IVP PRN (11:49)
[2018-07-29] MEDS ORDERED: HYDROmorphone 1 MG/ML 1 ML SYRINGE IVP PRN ×3 (11:49)
[2018-07-29] MEDS ORDERED: NALOXONE 0.4 MG/ML 1 ML VIAL IV PRN (11:49)
--- NOTE | 2018-07-29 11:49 | P.OP ---
Date of Procedure: 07/29/18 Preoperative Diagnosis: Left hip femoral neck fracture Postoperative Diagnosis: Left hip femoral neck fracture with acetabular osteoarthritis Procedure(s) Performed: Direct anterior left total hip arthroplasty Implants: 1. Reba Corail KA size 12 press-fit femoral stem 2. Bivins pinnacle multi hole acetabular shell press-fit 52 mm 3. Bivins pinnacle polyethylene acetabular liner neutral 36 mm ID 52 mm OD 4. Reba metallic femoral head 36 mm -2 5. 5-6.5 mm cancellus bone screws Anesthesia: FELICIAA, local Surgeon: Caden Jay Data Input Clerk #1: David Hart Estimated Blood Loss (ml): 500 Pathology: other (Femoral head) Condition: stable Disposition: PACU Indications for Procedure: 67-year-old patient who was seen with a displaced left hip femoral neck fracture. I discussed total hip arthroplasty given the fracture and her age. The procedure, risks, complications and recovery were discussed. Patient was agreeable and consent regarding the procedure was obtained. Operative Findings: See description of procedure Description of Procedure: The patient was taken to the operative suite. Patient underwent a general anesthetic by the department of anesthesia. Patient was then transferred to the [facility]. Patient was given preoperative IV antibiotics and TXA. Both lower extremities were placed in standard leg spars. The hip was then prepped and draped in the normal sterile orthopedic fashion. A standard anterior incision was made beginning 3 cm lateral and 1 cm distal to the ASIS extending 10 cm. Dissection was then carried down through the subcutaneous soft tissues down to the fascia overlying the tensor fascia davin. An incision was now made through the fascia. Careful dissection was taken down exposing the tensor fascia davin muscle. A Cobra retractor was now placed along the medial femoral neck and a second one along the lateral femoral neck. The venous circumflex vessels were now identified, cauterized and clipped. We identified the anterior hip capsule. An incision was made through the hip capsule along the lateral border. I noted immediately hemarthrosis with incision into the capsule. I performed a partial anterior capsulectomy. Retractors were now placed around the femoral neck itself. I could visualize the displaced femoral neck fracture with impaction. A femoral neck cut was now made with a sagittal saw. It was completed with an osteotome at the lateral neck area. The femoral head was now removed without difficulty. The extremity was now rotated to 45 of external rotation. It was locked in position. Residual labrum was now debrided out. There was some moderate osteoarthritis noted of the acetabulum. Serial reaming was performed of the acetabulum while Baldemar FARIAS assisted holding an anterior retractor for exposure. Once we reached the appropriate size and a trial was position and fit nicely. The appropriate size was now chosen opened and made available. It was introduced into the acetabulum without difficulty. The C-arm/fluoroscopy was now brought into the operative field. We made sure we had a true AP pelvic view. We now under direct C-arm/ fluoroscopy introduced into the acetabular component with appropriate version and inclination. I held the cup in appropriate position well Baldemar FARIAS used a mallet to seat the acetabular component. The cup would not seat. The acetabular cup was now removed. I made sure there was no soft tissue in the area. The acetabular cup was now reintroduced. I connected the cup to seat properly. I now opened up a multi hole cup. I seated it as well as possible. Under direct fluoroscopy I now made multiple drill holes introduced 6.5 mm cancellous bone screws. 3 out of 5 bone screws had great purchase. There was good stability noted now. I noted the component now to be well seated and stable. Acetabular cup introduce her was removed. The C-arm was pulled back. An appropriate liner was introduced and clicked into position. It was felt to be stable. At this point retractors were removed. The extremity was now placed into 120 external rotation with no traction. The leg was now dropped to the ground and adducted. Appropriate retractors were now positioned along the proximal femur. We also placed our femoral look into position. Additional capsular releasing was performed to gain access to the proximal femur. We now used a box osteotome. A canal finder was now utilized. Serial broaching was now performed with the assistance of Baldemar FARIAS tapping the broaches down with a mallet while held the broach in appropriate rotation and position. This was done until we reached the appropriate size with good overall rotational stability. Appropriate calcar planing was performed. A trial head/neck was placed into position. The hip was now reduced. The C-arm/fluoroscopy was brought back into the operative field. A spot film was obtained of the nonoperative hip. A spot film was obtained of the trial components. Overlays were performed, we noted good overall alignment and positioning for determining leg length. The C-arm/fluoroscopy was pulled back. Retractors were repositioned and the hip was dislocated. The leg was again taken down to the ground and adducted. Appropriate retractors were repositioned as well as the femoral hook. All trial components were removed. The femoral implant was opened along with the femoral head. The femoral implant was introduced on the appropriate handle into our pre-broached area. I held the component position well Baldemar FARIAS used a mallet to seat the femoral component. The femoral component was now noted to be well seated and stable.. The femoral head was introduced with good positioning and fixation noted. Retractors were now removed. The hip was now reduced. There appeared be good positioning of the hip confirmed on intraoperative fluoroscopy. Spot films were obtained to document this. A second gram of TXA was given. The deep and superficial soft tissues were infiltrated with local analgesic. Bipolar cautery had been utilized intermittently through the procedure for hemostasis. The wound was irrigated copiously with pulse lavage mechanical irrigation. The fascia was repaired with Vicryl suture. The subcutaneous soft tissues were repaired in layers with Vicryl suture. The skin was approximated with pernio/Dermabond. Sterile dressings were applied. Patient was then awakened, transferred to a bed and taken to recovery in stable condition. Baldemar FARIAS assisted with the complex procedure.
--- NOTE | 2018-07-29 11:54 | FL ---
EXAMINATION TYPE: FL guidance operating room DATE OF EXAM: 07/29/2018 HISTORY: Flouroscopy time 49 seconds of fluoroscopy provided. IMPRESSION: 1. Fluoroscopy time.
[2018-07-29] MEDS: LACTATED RINGERS 1,000 ML IV SCH ×2 (13:18→23:58)
[2018-07-29] MEDS: CLINDAMYCIN 900 MG in DEXTROSE 5% IN WATER 50 ML IVPB SCH ×4 (15:53→23:58)
--- NOTE | 2018-07-29 17:33 | P.PN ---
Subjective 67-year-old female resting in bed. Complains of left hip pain. Patient has COPD his descending to 88% ordered [facility] Objective - Vital Signs Vital signs: Vital Signs Temp 97.9 F 07/29/18 13:15 Pulse 94 07/29/18 15:00 Resp 14 07/29/18 13:15 BP 126/81 07/29/18 15:00 Pulse Ox 95 07/29/18 13:15 Intake & Output 07/28/18 07/29/18 07/29/18 18:59 06:59 18:59 Intake Total 595 067 2974 Output Total 600 900 750 Balance -420 -400 1745 Weight 61.235 kg Intake: IV 1855 Intake, IV Titration 640 Amount Lactated Ringers 1,000 ml 640 @ 80 mls/hr IV .[id number] NADEEN Rx#:[id number] Oral 180 500 Output: Urine 600 900 250 Estimated Blood Loss 500 Other: Voiding Method Indwelling Catheter Indwelling Catheter - Constitutional General appearance: Present: mild distress - EENT Eyes: Present: PERRLA Ears: bilateral: normal - Neck Neck: Present: normal ROM - Respiratory Respiratory: bilateral: diminished - Cardiovascular Rhythm: regular - Gastrointestinal General gastrointestinal: Present: soft - Integumentary Integumentary: Present: normal - Neurologic Neurologic: Present: CNII-XII intact - Psychiatric Psychiatric: Present: A&O x's 3, appropriate affect, intact judgment & insight - Labs CBC & Chem 7: 07/28/18 07:55 07/28/18 07:55 Assessment and Plan Plan: Assessment Left hip subcapital fracture secondary to fall post total left hip arthroplasty COPD stable Chronic hypoxic respiratory failure home O2 2 L Hypothyroidism Anxiety disorder Degenerative joint disease History of vertigo Chronic nicotine addiction Polycythemia secondary to COPD Plan Pulmonology to follow We'll monitor for changes patient condition
[2018-07-29] MEDS ORDERED: NICOTINE 21MG/24HR PATCH TRANSDERM STA (17:59)
[2018-07-29] MEDS ORDERED: diphenhydrAMINE 50 MG CAP PO PRN (18:43)
[2018-07-29] MEDS ORDERED: SYMBICORT 160-4.5 MCG INHALER INHALATION SCH (20:00)
[2018-07-29] MEDS: SENNOSIDES-DOCUSATE SODIUM 1 EACH TAB PO SCH (21:30)
[2018-07-29] MEDS: GABAPENTIN 300 MG CAP PO SCH (21:30)
[2018-07-30] MEDS: HYDROcodone/APAP 7.5-325MG 1 EACH TAB PO PRN ×3 (06:00→19:36)
[2018-07-30] MEDS: LEVOTHYROXINE 112 MCG TAB PO SCH (06:55)
[2018-07-30] MEDS ORDERED: SODIUM CHLORIDE 0.9% 500 ML IV ONE ×2 (07:23→09:02)
[2018-07-30 08:51] VITALS: BMI 25.4
[2018-07-30] MEDS: SYMBICORT 160-4.5 MCG INHALER INHALATION SCH ×2 (08:52→20:45)
[2018-07-30 08:56] LABS: Basophils # (A) 0.1 k/uL (0-0.2); Basophils % (A) 1 %; Eosinophils # (A) 0.5 k/uL (0-0.7); Eosinophils % (A) 4 %; Lymphocytes # (A) 1.2 k/uL (1.0-4.8); Lymphocytes % (A) 11 %; MCH 30.9 pg (25.0-35.0); MCHC 32.5 g/dL (31.0-37.0); MCV 95.2 fL (80.0-100.0); Mean Platelet Volume 6.9; Monocytes # (A) 0.5 k/uL (0-1.0); Monocytes % (A) 4 %; Neutrophils # (A) 8.7 k/uL (1.3-7.7); Neutrophils % (A) 79 %; Platelet Count 215 k/uL (150-450); RBC 3.89 m/uL (3.80-5.40); RDW 13.7 % (11.5-15.5)
[2018-07-30] MEDS ORDERED: CITALOPRAM HYDROBROMIDE 20 MG TAB PO SCH (09:00)
[2018-07-30 09:03] LABS: Calcium 7.7 mg/dL (8.4-10.2); Potassium 4.4 mmol/L (3.5-5.1)
[2018-07-30] MEDS: busPIRone HCl 10 MG TAB PO SCH (09:08)
[2018-07-30] MEDS: LORATADINE 10 MG TAB PO SCH (09:08)
[2018-07-30] MEDS: FAMOTIDINE 20 MG TAB PO SCH (09:08)
[2018-07-30] MEDS: GABAPENTIN 300 MG CAP PO SCH ×3 (09:08→21:06)
[2018-07-30] MEDS: ENOXAPARIN 40 MG/0.4 ML SYRINGE SQ SCH (09:08)
[2018-07-30] MEDS: guaiFENesin 600 MG TABLET.ER PO SCH ×2 (09:09→19:36)
[2018-07-30] MEDS: traMADol 50 MG TAB PO SCH ×4 (09:09→21:06)
--- NOTE | 2018-07-30 09:37 | P.PN ---
Subjective Report given from the nurse at patient was hypoxic and hypotensive. On examination patient awake and alert. Dr. Camp consult did sent critical care nurse to assess. EKG and labs ordered. Patient was given a 500 mL bolus of normal saline Objective - Vital Signs Vital signs: Vital Signs Temp 97.5 F L 07/30/18 07:00 Pulse 94 07/30/18 08:59 Resp 18 07/30/18 00:00 BP 86/54 07/30/18 09:32 Pulse Ox 88 L 07/30/18 08:25 Intake & Output 07/29/18 07/30/18 07/30/18 18:59 06:59 18:59 Intake Total 2595 1500 200 Output Total 1275 Balance 1320 1500 200 Weight 61.235 kg Intake: IV 1855 Intake, IV Titration 640 1000 Amount Lactated Ringers 1,000 ml 640 1000 @ 80 mls/hr IV .[id number] [facility] Rx#:[id number] Oral 100 500 200 Output: Urine 775 Estimated Blood Loss 500 Other: Voiding Method Indwelling Catheter Indwelling Catheter Indwelling Catheter - Constitutional General appearance: Present: mild distress - EENT Eyes: Present: PERRLA Ears: bilateral: normal - Neck Neck: Present: normal ROM - Respiratory Respiratory: bilateral: diminished - Cardiovascular Rhythm: regular - Gastrointestinal General gastrointestinal: Present: soft - Integumentary Integumentary: Present: normal - Neurologic Neurologic: Present: CNII-XII intact - Musculoskeletal Musculoskeletal: Present: generalized weakness - Psychiatric Psychiatric: Present: A&O x's 3, appropriate affect, intact judgment & insight - Labs CBC & Chem 7: 07/30/18 08:30 07/30/18 08:30 Labs: Abnormal Lab Results - Last 24 Hours (Table) 07/30/18 07/30/18 Range/Units 08:30 08:30 WBC 11.0 H (3.8-10.6) k/uL Neutrophils # 8.7 H (1.3-7.7) k/uL Sodium 135 L (137-145) mmol/L Glucose 114 H (74-99) mg/dL Calcium 7.7 L (8.4-10.2) mg/dL Assessment and Plan Plan: Assessment Left hip septic capital fracture post total hip arthroplasty Hypotensive episode COPD with saturation at 88% Hypothyroidism Anxiety Degenerative joint disease Vertigo Chronic nicotine addiction Polycythemia secondary to COPD 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
[2018-07-30] MEDS: LACTATED RINGERS 1,000 ML IV SCH ×2 (10:13→21:09)
--- NOTE | 2018-07-30 11:02 | P.PN ---
Subjective Progress Note Date: 07/30/18 Principal diagnosis: left femur fracture, status post left total hip arthroplasty, postop day 1 This is 67-year-old white female patient with past medical history of severe COPD with an underlying FEV1 of 46% of predicted, with hypoxemic respiratory failure, patient wears 2 L of oxygen at home on as-needed basis, chronic and ongoing nicotine dependence, hypothyroidism, degenerative osteoarthritis, vertigo, anxiety, who was brought to the hospital per ambulance after sustaining a fall in her home onto her left side. States she was reaching for the light switch, misjudged the distance, and went down. Upon arrival to the hospital, both x-rays and computed tomography scan demonstrated a subcu Of fracture involving the left hip. Patient was evaluated by orthopedic surgery and direct anterior left total hip arthroplasty was recommended on 07/29/[address] Jay, and we were asked to see the patient for pulmonary clearance. She is resting comfortably in bed, in no acute distress other than with repositioning, she has pain in her left hip area. His any dyspnea, denies any chest pain. No cough, or congestion, no wheezing. Currently on 2 L per nasal cannula and her pulse ox is anywhere from 90-93%, lung sounds are fair, diminished at the bases, patient is afebrile, vital signs are stable, chest x- ray was completed and showed increased interstitial markings and mild vascular congestion. No cardiomegaly, pleural spaces were clear. No prior history of congestive heart failure, or previous [place]. No peripheral edema. Lab work showed WBC of 13.3, hemoglobin 17.9, lecture lites and renal profile were within normal limits, LFTs was 129, AST, ALT were within normal limits. On 07/30/2018 patient seen in follow-up on the surgical floor, this is postop day 1 status post left hip arthroplasty. Patient had retention this morning, he was given 500 mL of IV 0.9 normal saline, she remains hypotensive, but she is clinically asymptomatic. She is awake and alert, denies any acute distress, no chest pain, no shortness of breath no altered mentation. Give the patient additional 500 mL bolus. Otherwise vitals are stable, she is not tachycardic. Afebrile. Her left hip pain is reasonably controlled, she needs to be encouraged with the use of her incentive spirometer. Lung sounds are positive for a few faint wheezes. Objective - Vital Signs Vital signs: Vital Signs Temp 97.5 F L 07/30/18 07:00 Pulse 94 07/30/18 08:59 Resp 18 07/30/18 00:00 BP 86/54 07/30/18 09:32 Pulse Ox 88 L 07/30/18 08:25 Intake & Output 07/29/18 07/30/18 07/30/18 18:59 06:59 18:59 Intake Total 2595 1500 200 Output Total 1275 Balance 1320 1500 200 Weight 61.235 kg Intake: IV 1855 Intake, IV Titration 640 1000 Amount Lactated Ringers 1,000 ml 640 1000 @ 80 mls/hr IV .[id number] [facility] Rx#:[id number] Oral 100 500 200 Output: Urine 775 Estimated Blood Loss 500 Other: Voiding Method Indwelling Catheter Indwelling Catheter Indwelling Catheter - Exam GENERAL EXAM: Alert, pleasant, 67-year-old white female, appears older than stated age, comfortable in no apparent distress. HEAD: Normocephalic/atraumatic. EYES: Normal reaction of pupils, equal size. Conjunctiva pink, sclera white. NOSE: Clear with pink turbinates. THROAT: No erythema or exudates. NECK: No masses, no JVD, no thyroid enlargement, no adenopathy. CHEST: No chest wall deformity. Symmetrical expansion. LUNGS: Equal air entry with no crackles, scattered faint wheezes CVS: Regular rate and rhythm, normal S1 and S2, no gallops, no murmurs, no rubs ABDOMEN: Soft, nontender. No hepatosplenomegaly, normal bowel sounds, no guarding or rigidity. EXTREMITIES: No clubbing, no edema, no cyanosis, 2+ pulses and upper and lower extremities. MUSCULOSKELETAL: Muscle strength and tone normal. There is tenderness with palpation over left hip area. No calf tenderness, distal pulses are intact. SPINE: No scoliosis or deformity SKIN: No rashes CENTRAL NERVOUS SYSTEM: Alert and oriented -3. No focal deficits, tone is normal in all 4 extremities. PSYCHIATRIC: Alert and oriented -3. Appropriate affect. Intact judgment and insight. - Labs CBC & Chem 7: 07/30/18 08:30 07/30/18 08:30 Labs: Abnormal Lab Results - Last 24 Hours (Table) 09/25/18 09/25/18 Range/Units 08:30 08:30 WBC 11.0 H (3.8-10.6) k/uL Neutrophils # 8.7 H (1.3-7.7) k/uL Sodium 135 L (137-145) mmol/L Glucose 114 H (74-99) mg/dL Calcium 7.7 L (8.4-10.2) mg/dL Assessment and Plan Plan: Assessment: #1. Left Femur fracture, left hip arthroplasty, postop day 1. #2. Hypotension, related to hypovolemia. She was given 1 L bolus of IV 0.9 normal saline. Clinically asymptomatic #3. Mechanical fall at home sustaining left hip fracture #4. Chronic obstructive pulmonary disease, severe, gold stage III, with chronic hypoxemic respiratory failure, currently stable #5. Interstitial prominence seen on the chest x-ray, without any clinical signs of congestive heart failure. May be related to chest x-ray taken while the patient was laying down, poor inspiratory effort #6. Mild leukocytosis, possibly reactive #7. hypothyroidism #8. Chronic and ongoing nicotine dependence #9. Degenerative history of arthritis #10. Vertigo #11. Anxiety Plan: Patient received a total of 1 L bolus of IV 0.9 normal saline, she remains asymptomatic. Non-tachycardic. No distress. She may remain on the surgical floor. Continue with bronchodilators, continue with Symbicort, incentive spirometry use, deep breathing and coughing, pain control. Vu performed a history & physical examination of the patient and discussed their management with my nurse practitioner, Elsi Drake. I reviewed the nurse practitioner's note and agree with the documented findings and plan of care. Lung sounds are clear diminished at the bases. The findings and the impression was discussed with the patient. I attest to the documentation by the nurse practitioner. Time with Patient: Less than 30
--- NOTE | 2018-07-30 17:17 | P.PN ---
Subjective Progress Note Date: 07/30/18 Principal diagnosis: Status post left total hip arthroplasty Patient seen today resting in her hospital bed, she has family present at bedside. She did have initially low blood pressure this morning, this has improved after a few fluid boluses. She's ambulated with therapy. She denies any chest pain or shortness of breath. Objective - Vital Signs Vital signs: Vital Signs Temp 97.5 F L 07/30/18 07:00 Pulse 94 07/30/18 08:59 Resp 18 07/30/18 00:00 BP 93/59 07/30/18 17:13 Pulse Ox 88 L 07/30/18 08:25 Intake & Output 07/29/18 07/30/18 07/30/18 18:59 06:59 18:59 Intake Total 2595 1500 1840 Output Total 1275 2300 Balance 1320 1500 -460 Weight 61.235 kg Intake: IV 1855 Intake, IV Titration 640 1000 1000 Amount Lactated Ringers 1,000 ml 640 1000 @ 80 mls/hr IV .[id number] [facility] Rx#:[id number] Sodium Chloride 0.9% 100 1000 ml @ 0 mls/hr IV .STK-MED ONE with Clindamycin 600 mg Rx#:[id number] Oral 100 500 840 Output: Urine 775 2300 Uretheral (Sam) 2300 Estimated Blood Loss 500 Other: Voiding Method Indwelling Catheter Indwelling Catheter Indwelling Catheter - Exam Left lower extremity: Incision is clean, dry, and intact. The prineo tape is in good condition. There is minimal soft tissue swelling and ecchymosis surrounding the medial and lateral aspects of the incision. Calf is soft, no tenderness with palpation. Plantar flexion, dorsiflexion, EHL, FHL are intact. Sensory exam to light touch throughout the extremity is intact, dorsal pedis pulses 2+. - Labs CBC & Chem 7: 07/30/18 08:30 07/30/18 08:30 Labs: Abnormal Lab Results - Last 24 Hours (Table) 07/30/18 07/30/18 Range/Units 08:30 08:30 WBC 11.0 H (3.8-10.6) k/uL Neutrophils # 8.7 H (1.3-7.7) k/uL Sodium 135 L (137-145) mmol/L Glucose 114 H (74-99) mg/dL Calcium 7.7 L (8.4-10.2) mg/dL Assessment and Plan Plan: Assessment: Postoperative day #1 status post left total hip arthroplasty Plan: Pain control, continue supportive oral medication GI and DVT prophylaxis, continue Lovenox Daily dressing changes/ice and elevate Continue work physical therapy Encourage incentive spirometer Other medical specialty recommendations Discharge planning: Plan for discharge home in the next day or 2 Time with Patient: Less than 30
[2018-07-30] MEDS: SENNOSIDES-DOCUSATE SODIUM 1 EACH TAB PO SCH (19:36)
--- NOTE | 2018-07-30 20:11 | XR ---
EXAMINATION: XR chest 2V DATE AND TIME: 07/30/2018 6:39 PM CLINICAL INDICATION: cough TECHNIQUE: PA and lateral COMPARISON: 07/28/2018 FINDINGS: There is partial silhouetting of the right hemidiaphragm due to partial airlessness within the right lower lobe, with partial volume loss evident with mild elevation of the right hemidiaphragm. Lungs ar e otherwise clear. The pleural spaces are negative. The cardiac silhouette is not enlarged. The remainder of the mediastinal silhouette is unremarkable. The skeletal structures and soft tissues are negative for acute findings. IMPRESSION: Right lower lobe bronchopneumonia. Would recommend 6 week follow-up PA and lateral chest regressed to prove resolution.
[2018-07-30] MEDS ORDERED: LEVOFLOXACIN 500MG-D5W PMX 500 MG in DEXTROSE/WATER 1 100ML.BAG IVPB SCH (22:00)
[2018-07-31] MEDS: LEVOTHYROXINE 112 MCG TAB PO SCH (05:51)
[2018-07-31] MEDS: SYMBICORT 160-4.5 MCG INHALER INHALATION SCH ×2 (07:22→19:48)
[2018-07-31 08:12] LABS: Basophils # (A) 0.1 k/uL (0-0.2); Basophils % (A) 1 %; Eosinophils # (A) 0.4 k/uL (0-0.7); Eosinophils % (A) 4 %; HGB 12.5 gm/dL (11.4-16.0); Lymphocytes % (A) 9 %; MCH 30.4 pg (25.0-35.0); MCHC 32.1 g/dL (31.0-37.0); MCV 94.7 fL (80.0-100.0); Mean Platelet Volume 6.9; Monocytes # (A) 0.5 k/uL (0-1.0); Monocytes % (A) 4 %; Neutrophils # (A) 8.5 k/uL (1.3-7.7); Neutrophils % (A) 80 %; Platelet Count 230 k/uL (150-450); RBC 4.12 m/uL (3.80-5.40); RDW 13.8 % (11.5-15.5); WBC 10.6 k/uL (3.8-10.6)
[2018-07-31 08:40] LABS: ALT 22 U/L (9-52); AST 38 U/L (14-36); Albumin 2.5 g/dL (3.5-5.0); Alkaline Phosphatase 98 U/L (38-126); Anion Gap 5 mmol/L; Blood Urea Nitrogen 9 mg/dL (7-17); Calcium 8.1 mg/dL (8.4-10.2); Carbon Dioxide 25 mmol/L (22-30); Chloride 107 mmol/L (98-107); Glucose 92 mg/dL (74-99); Sodium 137 mmol/L (137-145); Total Bilirubin 0.7 mg/dL (0.2-1.3); Total Protein 4.9 g/dL (6.3-8.2)
[2018-07-31 09:02] LABS: Potassium 4.6 mmol/L (3.5-5.1)
[2018-07-31] MEDS: LORATADINE 10 MG TAB PO SCH (09:48)
[2018-07-31] MEDS: GABAPENTIN 300 MG CAP PO SCH ×3 (09:48→22:29)
[2018-07-31] MEDS: traMADol 50 MG TAB PO SCH ×4 (09:48→22:28)
[2018-07-31] MEDS: ENOXAPARIN 40 MG/0.4 ML SYRINGE SQ SCH (09:48)
[2018-07-31] MEDS: guaiFENesin 600 MG TABLET.ER PO SCH ×2 (09:49→20:47)
[2018-07-31] MEDS: busPIRone HCl 10 MG TAB PO SCH (09:49)
[2018-07-31] MEDS: FAMOTIDINE 20 MG TAB PO SCH (09:49)
--- NOTE | 2018-07-31 10:46 | P.PN ---
Subjective Progress Note Date: 07/31/18 Principal diagnosis: Status post left total hip arthroplasty Patient seen today resting in her hospital bed, she has family present at bedside. She denies any chest pain or shortness of breath. Objective - Vital Signs Vital signs: Vital Signs Temp 98.5 F 07/31/18 07:35 Pulse 92 07/31/18 07:35 Resp 17 07/31/18 07:35 BP 124/74 07/31/18 07:35 Pulse Ox 96 07/31/18 07:35 Intake & Output 07/30/18 07/31/18 07/31/18 18:59 06:59 18:59 Intake Total 1840 640 Output Total 2600 8 Balance -760 632 Weight 61.235 kg Intake: Intake, IV Titration 1000 640 Amount Lactated Ringers 1,000 ml 640 @ 80 mls/hr IV .[id number] [facility] Rx#:[id number] Sodium Chloride 0.9% 100 1000 ml @ 0 mls/hr IV .STK-MED ONE with Clindamycin 600 mg Rx#:[id number] Oral 840 Output: Urine 2600 8 Uretheral (Sam) 2300 Other: Voiding Method Indwelling Catheter # Voids 1 1 - Exam Left lower extremity: Incision is clean, dry, and intact. The prineo tape is in good condition. There is minimal soft tissue swelling and ecchymosis surrounding the medial and lateral aspects of the incision. Calf is soft, no tenderness with palpation. Plantar flexion, dorsiflexion, EHL, FHL are intact. Sensory exam to light touch throughout the extremity is intact, dorsal pedis pulses 2+. - Labs CBC & Chem 7: 07/31/18 08:01 07/31/18 08:01 Labs: Abnormal Lab Results - Last 24 Hours (Table) 07/31/18 07/31/18 Range/Units 08:01 08:01 Neutrophils # 8.5 H (1.3-7.7) k/uL Calcium 8.1 L (8.4-10.2) mg/dL AST 38 H (14-36) U/L Total Protein 4.9 L (6.3-8.2) g/dL Albumin 2.5 L (3.5-5.0) g/dL Assessment and Plan Plan: Assessment: Postoperative day #2 status post left total hip arthroplasty Plan: Pain control, continue supportive oral medication GI and DVT prophylaxis, continue Lovenox Daily dressing changes/ice and elevate Continue work physical therapy Encourage incentive spirometer Other medical specialty recommendations Discharge planning: Awaiting arrival of hospital bed to patient's house, plan for discharge to home tomorrow Time with Patient: Less than 30
--- NOTE | 2018-07-31 11:19 | P.PN ---
Subjective Progress Note Date: 07/31/18 Principal diagnosis: left femur fracture, status post left total hip arthroplasty, postop day 1 This is 67-year-old white female patient with past medical history of severe COPD with an underlying FEV1 of 46% of predicted, with hypoxemic respiratory failure, patient wears 2 L of oxygen at home on as-needed basis, chronic and ongoing nicotine dependence, hypothyroidism, degenerative osteoarthritis, vertigo, anxiety, who was brought to the hospital per ambulance after sustaining a fall in her home onto her left side. States she was reaching for the light switch, misjudged the distance, and went down. Upon arrival to the hospital, both x-rays and computed tomography scan demonstrated a subcu Of fracture involving the left hip. Patient was evaluated by orthopedic surgery and direct anterior left total hip arthroplasty was recommended on 07/29/[address] Jay, and we were asked to see the patient for pulmonary clearance. She is resting comfortably in bed, in no acute distress other than with repositioning, she has pain in her left hip area. His any dyspnea, denies any chest pain. No cough, or congestion, no wheezing. Currently on 2 L per nasal cannula and her pulse ox is anywhere from 90-93%, lung sounds are fair, diminished at the bases, patient is afebrile, vital signs are stable, chest x- ray was completed and showed increased interstitial markings and mild vascular congestion. No cardiomegaly, pleural spaces were clear. No prior history of congestive heart failure, or previous [place]. No peripheral edema. Lab work showed WBC of 13.3, hemoglobin 17.9, lecture lites and renal profile were within normal limits, LFTs was 129, AST, ALT were within normal limits. On 07/30/2018 patient seen in follow-up on the surgical floor, this is postop day 1 status post left hip arthroplasty. Patient had retention this morning, he was given 500 mL of IV 0.9 normal saline, she remains hypotensive, but she is clinically asymptomatic. She is awake and alert, denies any acute distress, no chest pain, no shortness of breath no altered mentation. Give the patient additional 500 mL bolus. Otherwise vitals are stable, she is not tachycardic. Afebrile. Her left hip pain is reasonably controlled, she needs to be encouraged with the use of her incentive spirometer. Lung sounds are positive for a few faint wheezes. On 07/31/2018 patient seen in follow-up 3 surgical floor. Patient was noted to be hypoxic, and chest x-ray was obtained which showed partial volume loss the right hemidiaphragm, possibly atelectasis, or limited pneumonitis. He was started on antibiotics in the form of Levaquin, she is on nebulized bronchodilators, he is afebrile, she is currently on 3 L per nasal cannula and her pulse ox is 96%, hemodynamically stable. Today's lab work has been reviewed , WBCs 10.6, hemoglobin is 12.5, electrolytes and renal profile are normal. This is postop day 2 status post left hip arthroplasty. Her pain is reasonably controlled, lung sounds are diminished, scattered faint wheezes., Patient denies any shortness of breath or chest pain. Objective - Vital Signs Vital signs: Vital Signs Temp 98.5 F 07/31/18 07:35 Pulse 92 07/31/18 07:35 Resp 17 07/31/18 07:35 BP 124/74 07/31/18 07:35 Pulse Ox 96 07/31/18 07:35 Intake & Output 07/30/18 07/31/18 07/31/18 18:59 06:59 18:59 Intake Total 1840 640 Output Total 2600 8 Balance -760 632 Weight 61.235 kg Intake: Intake, IV Titration 1000 640 Amount Lactated Ringers 1,000 ml 640 @ 80 mls/hr IV .[id number] [facility] Rx#:[id number] Sodium Chloride 0.9% 100 1000 ml @ 0 mls/hr IV .STK-MED ONE with Clindamycin 600 mg Rx#:[id number] Oral 840 Output: Urine 2600 8 Uretheral (Sam) 2300 Other: Voiding Method Indwelling Catheter # Voids 1 1 - Exam GENERAL EXAM: Alert, pleasant, 67-year-old white female, appears older than stated age, comfortable in no apparent distress. HEAD: Normocephalic/atraumatic. EYES: Normal reaction of pupils, equal size. Conjunctiva pink, sclera white. NOSE: Clear with pink turbinates. THROAT: No erythema or exudates. NECK: No masses, no JVD, no thyroid enlargement, no adenopathy. CHEST: No chest wall deformity. Symmetrical expansion. LUNGS: Equal air entry with no crackles, scattered faint wheezes CVS: Regular rate and rhythm, normal S1 and S2, no gallops, no murmurs, no rubs ABDOMEN: Soft, nontender. No hepatosplenomegaly, normal bowel sounds, no guarding or rigidity. EXTREMITIES: No clubbing, no edema, no cyanosis, 2+ pulses and upper and lower extremities. MUSCULOSKELETAL: Muscle strength and tone normal. There is tenderness with palpation over left hip area. No calf tenderness, distal pulses are intact. SPINE: No scoliosis or deformity SKIN: No rashes CENTRAL NERVOUS SYSTEM: Alert and oriented -3. No focal deficits, tone is normal in all 4 extremities. PSYCHIATRIC: Alert and oriented -3. Appropriate affect. Intact judgment and insight. - Labs CBC & Chem 7: 07/31/18 08:01 07/31/18 08:01 Labs: Abnormal Lab Results - Last 24 Hours (Table) 07/31/18 07/31/18 Range/Units 08:01 08:01 Neutrophils # 8.5 H (1.3-7.7) k/uL Calcium 8.1 L (8.4-10.2) mg/dL AST 38 H (14-36) U/L Total Protein 4.9 L (6.3-8.2) g/dL Albumin 2.5 L (3.5-5.0) g/dL Assessment and Plan Plan: Assessment: #1. Left Femur fracture, left hip arthroplasty, postop day 2. #2. Hypoxic respiratory failure secondary to atelectasis, and limited pneumonitis at the right base #3. Hypotension, related to hypovolemia. She was given 1 L bolus of IV 0.9 normal saline. Clinically asymptomatic. Resolved. #4. Mechanical fall at home sustaining left hip fracture #5. Chronic obstructive pulmonary disease, severe, gold stage III, with chronic hypoxemic respiratory failure, currently stable #6. Interstitial prominence seen on the chest x-ray, without any clinical signs of congestive heart failure. May be related to chest x-ray taken while the patient was laying down, poor inspiratory effort #7. Mild leukocytosis, possibly reactive #8. hypothyroidism #9. Chronic and ongoing nicotine dependence #10. Degenerative history of arthritis #11. Vertigo #12. Anxiety Plan: Continue current plan of treatment, continue Levaquin, chest x-ray has been reviewed by , showed some atelectasis and limited pneumonitis at the right lung base. Patient is afebrile, denies any chest pain or shortness of breath. Continue encouraging incentive spirometry use and deep breathing and coughing. No leukocytosis. Continue nebulized bronchodilators. Today's labs have been reviewed, and essentially unremarkable. Discharge planning is in progress. From pulmonary perspective patient is stable for discharge. Vu performed a history & physical examination of the patient and discussed their management with my nurse practitioner, Elsi Drake. I reviewed the nurse practitioner's note and agree with the documented findings and plan of care. Lung sounds are clear diminished at the bases. The findings and the impression was discussed with the patient. I attest to the documentation by the nurse practitioner. Time with Patient: Less than 30
--- NOTE | 2018-07-31 11:35 | P.PN ---
Subjective Patient sitting in chair at bedside continues complaining of cough with sputum evaluated by Dr. Melton question of atelectasis versus pneumonitis patient on bronchodilators and Levaquin. Home bed ordered from [facility]. Discussed crutches versus walker patient on cleared by physical therapy for crutches Objective - Vital Signs Vital signs: Vital Signs Temp 98.5 F 07/31/18 07:35 Pulse 92 07/31/18 07:35 Resp 17 07/31/18 07:35 BP 124/74 07/31/18 07:35 Pulse Ox 96 07/31/18 07:35 Intake & Output 07/30/18 07/31/18 07/31/18 18:59 06:59 18:59 Intake Total 1840 640 Output Total 2600 8 Balance -760 632 Weight 61.235 kg Intake: Intake, IV Titration 1000 640 Amount Lactated Ringers 1,000 ml 640 @ 80 mls/hr IV .[id number] [facility] Rx#:[id number] Sodium Chloride 0.9% 100 1000 ml @ 0 mls/hr IV .STK-MED ONE with Clindamycin 600 mg Rx#:[id number] Oral 840 Output: Urine 2600 8 Uretheral (Sam) 2300 Other: Voiding Method Indwelling Catheter # Voids 1 1 - Constitutional General appearance: Present: mild distress - EENT Eyes: Present: PERRLA Ears: bilateral: normal - Neck Neck: Present: normal ROM - Respiratory Respiratory: bilateral: diminished - Cardiovascular Rhythm: regular - Gastrointestinal General gastrointestinal: Present: soft - Integumentary Integumentary: Present: normal - Neurologic Neurologic: Present: CNII-XII intact - Musculoskeletal Musculoskeletal: Present: generalized weakness - Psychiatric Psychiatric: Present: A&O x's 3, appropriate affect, intact judgment & insight - Labs CBC & Chem 7: 07/31/18 08:01 07/31/18 08:01 Labs: Abnormal Lab Results - Last 24 Hours (Table) 07/31/18 07/31/18 Range/Units 08:01 08:01 Neutrophils # 8.5 H (1.3-7.7) k/uL Calcium 8.1 L (8.4-10.2) mg/dL AST 38 H (14-36) U/L Total Protein 4.9 L (6.3-8.2) g/dL Albumin 2.5 L (3.5-5.0) g/dL - Imaging and Cardiology Chest x-ray: report reviewed Assessment and Plan Plan: Assessment Left hip some capital fracture post fall patient is postop from total hip arthroplasty Hypotension corrected hypovolemic Pneumonitis on Levaquin COPD" stage III chronic hypoxic respiratory failure on home O2 Hypothyroidism Anxiety disorder Degenerative joint disease Nicotine addiction Polycythemia secondary to COPD Plan Continue all Levaquin and bronchodilators Patient medically cleared by pulmonology for discharge
[2018-07-31] MEDS: HYDROcodone/APAP 7.5-325MG 1 EACH TAB PO PRN ×2 (11:45→20:47)
--- NOTE | 2018-07-31 13:49 | P.PN ---
Progress Note - Text Addendum to soap chart Patient in need of hospital bed has severe COPD needs ahead of that elevated. Also is postoperative for hip fracture has limited mobility needs a walker for ambulation. COPD and the fractured hip limiter all ability to ambulate. Hospital bed ordered for delivery from [facility]
[2018-07-31] MEDS: LACTATED RINGERS 1,000 ML IV SCH (16:56)
--- NOTE | 2018-07-31 17:03 | P.CONS ---
History of Present Illness - Chief Complaint Walking difficulty due to left hip fracture - History of Present Illness I had the opportunity to see patient for inpatient rehab consultation with regard to walking difficulty. She was admitted to [facility] July 28 trip and fall and left hip pain. Pelvic x-ray and head CT demonstrates mild impacted subcapital fracture left hip. Chest x-ray with right lower lobe infiltrate. Seen in consultation by pulmonary, Dr. Luis and Dr. Jay who did perform operative procedure. PT reports moderate to maximal assistance functional mobility. OT reports minimal assistance for upper dressing and maximal assistance for lower dressing and bathing and total assistance for toileting. Transfers and a. Previous functional history as elicited from patient and daughter: 67-year-old left-handed white female is lives in a first-floor of 2 floor home with 2 daughters in the daughters boyfriends and kids. Patient receives physical assistance for sitdown shower, dressing and toileting and mobility. Dr. Elana Dorman is regular doctor. Smokes up to pack per day and doesn't drink. Note that the patient is on chronic pain management for myself includes [place] 10 4 times a day, gabapentin 300 3 times a day and Flexeril. Review of Systems Review of systems: ENT: Denies sneezes or discharge. Eyes: Denies discharge or photophobia. Cardiac: Denies chest pain or palpitation. Pulmonary: Denies cough or shortness of breath. Breast: Denies discharge or lumps. Gastrointestinal: Denies nausea, emesis, constipation, diarrhea. Genitourinary: Denies discharge or frequency. Musculoskeletal: Left hip discomfort when laying supine. Neurologic: Denies motor or sensory change. But giveaway weakness left hip due to pain. Endocrine: Denies shakes or sweats. Oncology: Denies cancers. Dermatologic: Denies rash, itching, pruritus. ALLERGY/immunology: Denies sneezes, rashes. Past Medical History Past Medical History: COPD, Thyroid Disorder Additional Past Medical History / Comment(s): Degenerative bone disease, vertigo History of Any Multi-Drug Resistant Organisms: None Reported Past Surgical History: Cholecystectomy, Hysterectomy, Orthopedic Surgery Additional Past Surgical History / Comment(s): right knee surgery 2014, left shoulder 2008 Past Anesthesia/Blood Transfusion Reactions: No Reported Reaction Past Psychological History: Anxiety Smoking Status: Current every day smoker Past Alcohol Use History: None Reported Past Drug Use History: None Reported - Past Family History Mother Family Medical History: Cancer Additional Family Medical History / Comment(s): skin cancer Medications and Allergies Home Medications Medication Instructions Recorded Confirmed Type Cyclobenzaprine [Flexeril] 10 mg PO TID 01/21/17 07/28/18 History Levothyroxine Sodium [Synthroid] 112 mcg PO DAILY 01/21/17 07/28/18 History Loratadine [Claritin] 10 mg PO DAILY 01/21/17 07/28/18 History Meclizine [Antivert] 25 mg PO TID 01/21/17 07/28/18 History Zolpidem [Ambien] 10 mg PO HS PRN 01/21/17 07/28/18 History busPIRone HCL 10 mg PO DAILY 01/21/17 07/28/18 History Gabapentin 300 mg PO TID 01/22/17 07/28/18 History Budesonide-Formot 160-4.5 Mcg 2 puff INHALATION RT-BID 07/28/18 07/28/18 History [Symbicort 160-4.5 Mcg Inhaler] Citalopram Hydrobromide [CeleXA] 20 mg PO QAM 07/28/18 07/29/18 History Hydrocodone/Acetaminophen [[place] 1 tab PO TID PRN 07/28/18 07/28/18 History 10-325] Ipratropium-Albuterol Nebulize 3 ml INHALATION RT-BID PRN 07/28/18 07/28/18 History [Duoneb 0.5 mg-3 mg/3 ml Soln] guaiFENesin [Mucinex] 600 mg PO BID 07/28/18 07/28/18 History Allergies Allergy/AdvReac Type Severity Reaction Status Date / Time ibuprofen Allergy Anaphylaxis Verified 07/28/18 13:22 Penicillins Allergy Unknown Verified 07/28/18 13:22 latex AdvReac Rash/Hives Verified 07/28/18 13:22 Physical Exam Vitals: Vital Signs Temp Pulse Pulse Resp BP Pulse Ox 07/31/18 15:46 98.5 F 89 18 131/79 90 L 07/31/18 07:35 98.5 F 92 17 124/74 96 07/31/18 05:53 96 104/65 07/31/18 01:02 98.3 F 98 16 112/68 95 07/30/18 22:31 111/63 07/30/18 19:08 98.5 F 101 H 20 116/59 96 07/30/18 17:13 93/59 Intake and Output 07/31/18 07/31/18 07/31/18 06:59 14:59 22:59 Intake Total 640 1000 Output Total 8 Balance 632 1000 Intake: Intake, IV Titration 640 Amount Lactated Ringers 1,000 ml 640 @ 80 mls/hr IV .[id number] [facility] Rx#:[id number] Oral 1000 Output: Urine 8 Other: # Voids 1 Skin: Good color, texture, turgor. General: Medium build and comfortable appearance. Head: Normocephalic, atraumatic. Eyes: Symmetric. Pupils equal round. Ears: Symmetric. Hearing within normal limits. Mouth: Clear. Neck: Supple. Carotid without bruit. Cardiac: Regular rate and rhythm. Lungs: Clear anteriorly and posteriorly. Abdomen: Soft active nontender. Extremities: Normal tone. Neurological: Mental status: Alert, cooperative, pleasant. Cranial nerves: Symmetric facial tone and trapezius. Motor: Normal strength and isolation both arms and right leg. Left leg poor due to pain and hip but does actively move right ankle and toes. Sensation: Intact throughout. DTRs: Symmetric and equal throughout. Mobility: Requires assistance for bed mobility. Results CBC & Chem 7: 07/31/18 08:01 07/31/18 08:01 Labs: Abnormal Lab Results - Last 24 Hours (Table) 07/31/18 07/31/18 Range/Units 08:01 08:01 Neutrophils # 8.5 H (1.3-7.7) k/uL Calcium 8.1 L (8.4-10.2) mg/dL AST 38 H (14-36) U/L Total Protein 4.9 L (6.3-8.2) g/dL Albumin 2.5 L (3.5-5.0) g/dL Assessment and Plan (1) Subcapital fracture of hip Current Visit: Yes Status: Acute Code(s): S72.019A - UNSP INTRACAPSULAR FRACTURE OF UNSP FEMUR, INIT FOR CLOS FX SNOMED Code(s): 145792003 Plan: Impression: 1. Walking difficulty. 2. Left sub-Fracture status post PILAR. 3. COPD exacerbation. 4. Chronic pain. Comments and plan: At this time discussed case with patient and one daughter that I have reviewed PT and OT notes previously and would recommend inpatient rehab. Both patient and daughter feel that rehab not necessary and patient can return home with care of 2 daughters and extended family as well as support services. In fact, patient seems to be unwilling to work with therapies in hospital currently. Note that I do treat patient for chronic pain. Patient is on a regimen that includes [place] 10 4 times a day. I have discussed opiate agreement loop all that includes perioperative pain management that can be managed by surgeon, that is the patient can receive pain meds related to the surgery from surgeon instead of myself. My refill dates would then be delayed however long patient is in hospital as well as receiving perioperative pain management.
[2018-07-31] MEDS: SENNOSIDES-DOCUSATE SODIUM 1 EACH TAB PO SCH (20:43)
[2018-07-31] MEDS ORDERED: LEVOFLOXACIN 500MG-D5W PMX 500 MG in DEXTROSE/WATER 1 100ML.BAG IVPB SCH (21:00)
[2018-08-01] MEDS: LACTATED RINGERS 1,000 ML IV SCH ×2 (02:30→14:35)
[2018-08-01] MEDS: HYDROcodone/APAP 7.5-325MG 1 EACH TAB PO PRN ×2 (05:39→12:18)
[2018-08-01] MEDS: LEVOTHYROXINE 112 MCG TAB PO SCH (05:39)
[2018-08-01 07:11] LABS: Basophils # (A) 0.1 k/uL (0-0.2); Basophils % (A) 1 %; Eosinophils # (A) 0.6 k/uL (0-0.7); Eosinophils % (A) 5 %; HCT 37.5 % (34.0-46.0); HGB 11.7 gm/dL (11.4-16.0); Lymphocytes # (A) 1.6 k/uL (1.0-4.8); Lymphocytes % (A) 13 %; MCH 30.3 pg (25.0-35.0); MCHC 31.3 g/dL (31.0-37.0); MCV 96.9 fL (80.0-100.0); Monocytes # (A) 0.5 k/uL (0-1.0); Monocytes % (A) 4 %; Neutrophils # (A) 9.5 k/uL (1.3-7.7); Neutrophils % (A) 77 %; Platelet Count 258 k/uL (150-450); RBC 3.87 m/uL (3.80-5.40); RDW 13.9 % (11.5-15.5); WBC 12.3 k/uL (3.8-10.6)
[2018-08-01 07:35] VITALS: BP 92/58; PULSE 88; RESP 18; TEMP 98.4
[2018-08-01] MEDS: traMADol 50 MG TAB PO SCH ×3 (08:10→18:09)
[2018-08-01] MEDS: ENOXAPARIN 40 MG/0.4 ML SYRINGE SQ SCH (08:10)
[2018-08-01] MEDS: LORATADINE 10 MG TAB PO SCH (08:10)
[2018-08-01] MEDS: FAMOTIDINE 20 MG TAB PO SCH (08:10)
[2018-08-01] MEDS: busPIRone HCl 10 MG TAB PO SCH (08:11)
[2018-08-01] MEDS: GABAPENTIN 300 MG CAP PO SCH ×2 (08:11→16:22)
[2018-08-01] MEDS: guaiFENesin 600 MG TABLET.ER PO SCH (08:11)
--- NOTE | 2018-08-01 10:37 | P.PN ---
Subjective Patient resting in bed complaining of increasing low back pain. Awaiting x-ray results. Patient has had hospital bed delivered to home. Objective - Vital Signs Vital signs: Vital Signs Temp 98.4 F 08/01/18 07:15 Pulse 88 08/01/18 07:15 Resp 18 08/01/18 07:15 BP 92/58 08/01/18 07:15 Pulse Ox 92 L 08/01/18 07:15 Intake & Output 07/31/18 08/01/18 08/01/18 18:59 06:59 18:59 Intake Total 1000 778 Balance 1000 778 Intake: Intake, IV Titration 660 Amount Lactated Ringers 1,000 ml 560 @ 80 mls/hr IV .[id number] [facility] Rx#:[id number] Levofloxacin 500Mg-D5w 100 Pmx 500 mg In Dextrose/ Water 1 100ml.bag @ 100 mls/hr IVPB Q48H [facility] Rx#: [id number] Oral 1000 118 Other: Voiding Method Bedside Commode # Voids 2 # Bowel Movements 1 - Constitutional General appearance: Present: mild distress - EENT Eyes: Present: PERRLA Ears: bilateral: normal - Neck Neck: Present: normal ROM - Respiratory Respiratory: bilateral: diminished - Cardiovascular Rhythm: regular - Gastrointestinal General gastrointestinal: Present: soft - Integumentary Integumentary: Present: normal - Neurologic Neurologic: Present: CNII-XII intact - Musculoskeletal Musculoskeletal Comment(s): Patient complaining of low lumbar tenderness Musculoskeletal: Present: generalized weakness - Psychiatric Psychiatric: Present: A&O x's 3, appropriate affect, intact judgment & insight - Labs CBC & Chem 7: 08/01/18 06:25 07/31/18 08:01 Labs: Abnormal Lab Results - Last 24 Hours (Table) 08/01/18 Range/Units 06:25 WBC 12.3 H (3.8-10.6) k/uL Neutrophils # 9.5 H (1.3-7.7) k/uL Assessment and Plan Plan: Assessment Left hip subcapital fracture post fall. Patient is post total left hip arthroplasty Hypotension volume depletion COPD Gold stage III chronic hypoxic respiratory failure home on O2 2 L Pneumonitis Hypothyroidism Anxiety disorder Degenerative joint disease Low lumbar pain History of nicotine addiction Polycythemia secondary to underlying COPD Plan Continue consultation with pulmonology Hopeful discharge soon
--- NOTE | 2018-08-01 11:57 | P.PN ---
Subjective Progress Note Date: 08/01/18 Principal diagnosis: Status post left total hip arthroplasty Patient seen today resting in her hospital bed, she has family present at bedside. Patient is complaining of increasing low back pain. She denies any chest pain or shortness of breath. Objective - Vital Signs Vital signs: Vital Signs Temp 98.4 F 08/01/18 07:15 Pulse 88 08/01/18 07:15 Resp 18 08/01/18 07:15 BP 92/58 08/01/18 07:15 Pulse Ox 92 L 08/01/18 07:15 Intake & Output 07/31/18 08/01/18 08/01/18 18:59 06:59 18:59 Intake Total 1000 778 Balance 1000 778 Intake: Intake, IV Titration 660 Amount Lactated Ringers 1,000 ml 560 @ 80 mls/hr IV .[id number] [facility] Rx#:[id number] Levofloxacin 500Mg-D5w 100 Pmx 500 mg In Dextrose/ Water 1 100ml.bag @ 100 mls/hr IVPB Q48H [facility] Rx#: [id number] Oral 1000 118 Other: Voiding Method Bedside Commode # Voids 2 # Bowel Movements 1 - Exam Left lower extremity: Incision is clean, dry, and intact. The prineo tape is in good condition. There is minimal soft tissue swelling and ecchymosis surrounding the medial and lateral aspects of the incision. Calf is soft, no tenderness with palpation. Plantar flexion, dorsiflexion, EHL, FHL are intact. Sensory exam to light touch throughout the extremity is intact, dorsal pedis pulses 2+. - Labs CBC & Chem 7: 08/01/18 06:25 07/31/18 08:01 Labs: Abnormal Lab Results - Last 24 Hours (Table) 08/01/18 Range/Units 06:25 WBC 12.3 H (3.8-10.6) k/uL Neutrophils # 9.5 H (1.3-7.7) k/uL Assessment and Plan Plan: Assessment: Postoperative day #3 status post left total hip arthroplasty Plan: Pain control, continue supportive oral medication GI and DVT prophylaxis, continue Lovenox Daily dressing changes/ice and elevate Continue work physical therapy Encourage incentive spirometer Other medical specialty recommendations X-rays of the lumbar spine reproduces no acute fractures or dislocations. Likely irritation of her degenerative disc disease from recent injury along with extended period of immobilization in a hospital bed Discharge planning: On an orthopedic standpoint, patient remained stable for discharge to home. Patient states that she has enough pain medication at home from her pain management doctor to last her until her Refills. We'll utilize Eliquis 2.5mg for 1 month. Time with Patient: Less than 30
--- NOTE | 2018-08-01 11:59 | P.DS ---
Providers Date of admission: 07/28/18 10:47 Expected date of discharge: 08/01/18 Attending physician: Caden Jay Consults: 07/28/18 10:48 Consult Physician Routine Consulting Provider: Seferino Dorman Consult Reason/Comments: Medical clearance Do you want consulting provider notified?: Already Contacted 07/28/18 11:13 Consult Physician Routine Consulting Provider: Geoffrey Sanches Reason/Comments: Surgical clearance/ hx of COPD Do you want consulting provider notified?: Yes Primary care physician: Seferino Dorman Hospital Course: Date of admission: 07/28/2018 Date of discharge: 08/01/2018 Admission diagnosis: Impacted left femoral neck fracture Discharge diagnosis: Status post left total hip arthroplasty Attending physician: Dr. Jay Surgical procedures: Left total hip arthroplasty Brief history: Patient is a 67-year-old female who presented [facility] on 07/28/2018 after sustaining a fall home. Initial x-rays revealed a impacted left femoral neck fracture. I was contacted by the emergency room staff, the case was discussed. Patient was admitted under our care with plan for surgical intervention. [facility] consults replaced the services, patient underwent surgery on 07/29/2018. Hospital course: Details of patient's surgery can be found in operative report. Patient tolerated the procedure well and was subsequently transported to orthopedic floor. Patient's orthopeidc and medical care was provided daily. Patient had daily laboratory tests performed for evaluation of overall blood counts. Patient had daily physical therapy to include strengthening range of motion as well as education with walker ambulation. Patient was treated with Lovenox for their postoperative DVT prophylaxis during their inpatient stay. Patient was noted to have a relatively uneventful postoperative course. Patient reported satisfactory pain control with oral pain medications by postoperative day 0. Patient showed satisfactory progress with physical therapy. Patient moved steadily through the program and had no difficulty meeting the goals by postoperative day 3. Given patient's otherwise satisfactory course and having met physical therapy goals, plan is to discharge patient home on postoperative day 3. Discharge condition/disposition: Patient will be discharged home in stable condition. Discharge medications: Instructions are given on resumption of patient's normal daily medications per primary care recommendation, in addition patient will be prescribed Eliquis 2.5mg. Discharge instructions: 1. Wound care and infection precautions, keep incision dry and covered while showering, no lotions, creams, moisturizers. No soaking, tubs, pools, hottubs. Do not scrub over the incision. 2. Weight-bear as tolerated with walker / cane until follow-up. 3. Ice and elevate when necessary. Do not exceed 20 minutes per hour with ice pack. 4. Utilize compression sleeve until seen at first follow up appointment. 5. Visiting nursing care. 6. Home physical therapy 7. Pain meds and anticoagulants per prescription. 8. Pain medication has potential to cause constipation. Increase oral fluid and fiber intake. Contact primary care provider if you have not had a bowel movement within 48 hours after discharge 9. No anti-inflammatory medication until discussed at first post operative visit, this including Motrin, Aleve, Mobic, Diclofenac 10. Follow up in office at 2 weeks postop with Baldemar Hart PA-C 11. Follow up with your primary care doctor 7-10 days after discharge. 12. Contact [facility] with any questions, . Procedures: Left total hip arthroplasty Patient Condition at Discharge: Stable Plan - Discharge Summary Discharge Rx Participant: Yes New Discharge Prescriptions: New Apixaban [Eliquis] 2.5 mg PO BID #60 tab No Action Loratadine [Claritin] 10 mg PO DAILY Cyclobenzaprine [Flexeril] 10 mg PO TID Meclizine [Antivert] 25 mg PO TID Zolpidem [Ambien] 10 mg PO HS PRN PRN Reason: sleep Levothyroxine Sodium [Synthroid] 112 mcg PO DAILY busPIRone HCL 10 mg PO DAILY Gabapentin 300 mg PO TID Ipratropium-Albuterol Nebulize [Duoneb 0.5 mg-3 mg/3 ml Soln] 3 ml INHALATION RT-BID PRN PRN Reason: Shortness Of Breath Budesonide-Formot 160-4.5 Mcg [Symbicort 160-4.5 Mcg Inhaler] 2 puff INHALATION RT-BID guaiFENesin [Mucinex] 600 mg PO BID Hydrocodone/Acetaminophen [[place] 10-325] 1 tab PO TID PRN PRN Reason: Pain Citalopram Hydrobromide [CeleXA] 20 mg PO QAM Discharge Medication List Cyclobenzaprine [Flexeril] 10 mg PO TID 01/21/17 [History] Levothyroxine Sodium [Synthroid] 112 mcg PO DAILY 01/21/17 [History] Loratadine [Claritin] 10 mg PO DAILY 01/21/17 [History] Meclizine [Antivert] 25 mg PO TID 01/21/17 [History] Zolpidem [Ambien] 10 mg PO HS PRN 01/21/17 [History] busPIRone HCL 10 mg PO DAILY 01/21/17 [History] Gabapentin 300 mg PO TID 01/22/17 [History] Budesonide-Formot 160-4.5 Mcg [Symbicort 160-4.5 Mcg Inhaler] 2 puff INHALATION RT-BID 07/28/18 [History] Citalopram Hydrobromide [CeleXA] 20 mg PO QAM 07/28/18 [History] Hydrocodone/Acetaminophen [[place] 10-325] 1 tab PO TID PRN 07/28/18 [History] Ipratropium-Albuterol Nebulize [Duoneb 0.5 mg-3 mg/3 ml Soln] 3 ml INHALATION RT -BID PRN 07/28/18 [History] guaiFENesin [Mucinex] 600 mg PO BID 07/28/18 [History] Apixaban [Eliquis] 2.5 mg PO BID #60 tab 08/01/18 [Rx] Follow up Appointment(s)/Referral(s): Seferino Dorman MD [Primary Care Provider] - 1-2 days [facility], [NON-STAFF] - David Hart PAC [PHYSICIAN TUG HAND] - 08/16/18 2:10 pm Activity/Diet/Wound Care/Special Instructions: Orthopedic Discharge Instructions: 1. Wound care and infection precautions, keep incision dry and covered while showering, no lotions, creams, moisturizers. No soaking, pools, hot tubs. Do not scrub over incision. 2. Weight-bear as tolerated with walker / cane until follow-up. 3. Ice and elevate when necessary. Do not exceed 20 minutes per hour with ice pack. 4. Utilize compression sleeve until seen at first follow up appointment. 5. Pain meds and anticoagulants per prescription. 6. Pain medication has potential to cause constipation. Increase oral fluid and fiber intake. Contact primary care provider if you have not had a bowel movement within 48 hours after discharge. 7. No anti-inflammatory medication until discussed at first post operative visit, this including Motrin, Aleve, Mobic, Diclofenac. 8. Follow up in office at 2 weeks postop with Baldemar Hart PA-C 9. Follow up with your primary care doctor 7-10 days after discharge. 10. Contact [facility] with any questions, 11. Hospital Bed to be delivered to home - [facility] - [phone] 12. Forearm Crutches - [facility] - [phone] - will deliver to bedside before discharge Discharge Disposition: HOME WITH HOME HEALTH SERVICES
--- NOTE | 2018-08-01 12:09 | XR ---
EXAMINATION TYPE: XR lumbar spine 2 or 3V DATE OF EXAM: 08/01/2018 COMPARISON: None HISTORY: Back pain TECHNIQUE: Three-view lumbar spine FINDINGS: There are 4 lumbar-type vertebral bodies. T12 ribs appear to be rudimentary. There is attem pted sacralization of L5. Disc heights are preserved. Vertebral body heights are preserved. There is some prominence of the dwain cified abdominal aorta with an AP diameter of 3.2 cm. IMPRESSION: 1. No acute osseous abnormality.
--- NOTE | 2018-08-01 12:43 | P.PN ---
Subjective Progress Note Date: 08/01/18 Principal diagnosis: left femur fracture, status post left total hip arthroplasty, postop day 1 This is 67-year-old white female patient with past medical history of severe COPD with an underlying FEV1 of 46% of predicted, with hypoxemic respiratory failure, patient wears 2 L of oxygen at home on as-needed basis, chronic and ongoing nicotine dependence, hypothyroidism, degenerative osteoarthritis, vertigo, anxiety, who was brought to the hospital per ambulance after sustaining a fall in her home onto her left side. States she was reaching for the light switch, misjudged the distance, and went down. Upon arrival to the hospital, both x-rays and computed tomography scan demonstrated a subcu Of fracture involving the left hip. Patient was evaluated by orthopedic surgery and direct anterior left total hip arthroplasty was recommended on 07/29/[address] Jay, and we were asked to see the patient for pulmonary clearance. She is resting comfortably in bed, in no acute distress other than with repositioning, she has pain in her left hip area. His any dyspnea, denies any chest pain. No cough, or congestion, no wheezing. Currently on 2 L per nasal cannula and her pulse ox is anywhere from 90-93%, lung sounds are fair, diminished at the bases, patient is afebrile, vital signs are stable, chest x- ray was completed and showed increased interstitial markings and mild vascular congestion. No cardiomegaly, pleural spaces were clear. No prior history of congestive heart failure, or previous AR. No peripheral edema. Lab work showed WBC of 13.3, hemoglobin 17.9, lecture lites and renal profile were within normal limits, LFTs was 129, AST, ALT were within normal limits. On 07/30/2018 patient seen in follow-up on the surgical floor, this is postop day 1 status post left hip arthroplasty. Patient had retention this morning, he was given 500 mL of IV 0.9 normal saline, she remains hypotensive, but she is clinically asymptomatic. She is awake and alert, denies any acute distress, no chest pain, no shortness of breath no altered mentation. Give the patient additional 500 mL bolus. Otherwise vitals are stable, she is not tachycardic. Afebrile. Her left hip pain is reasonably controlled, she needs to be encouraged with the use of her incentive spirometer. Lung sounds are positive for a few faint wheezes. On 07/31/2018 patient seen in follow-up 3 surgical floor. Patient was noted to be hypoxic, and chest x-ray was obtained which showed partial volume loss the right hemidiaphragm, possibly atelectasis, or limited pneumonitis. He was started on antibiotics in the form of Levaquin, she is on nebulized bronchodilators, he is afebrile, she is currently on 3 L per nasal cannula and her pulse ox is 96%, hemodynamically stable. Today's lab work has been reviewed , WBCs 10.6, hemoglobin is 12.5, electrolytes and renal profile are normal. This is postop day 2 status post left hip arthroplasty. Her pain is reasonably controlled, lung sounds are diminished, scattered faint wheezes., Patient denies any shortness of breath or chest pain. On 08/01/2018 patient seen in follow-up on the surgical floor. No specific complaints, no shortness of breath, she does have occasional congestive cough, no fever, no chills, no chest pain. Signs are stable, she is on 4 L per nasal cannula, and her pulse ox is 92%, patient was started on Levaquin, she is on nebulized bronchodilators. Today's labs were reviewed, WBC is 12.3, hemoglobin is 11.7. Her postoperative pain is controlled, lung sounds are diminished, with some scattered rhonchi. Patient had a lumbar spine x-ray, which showed no acute osseous abnormality. Patient is stable, she will likely be discharged home today. He is cleared to go from pulmonary perspective on oral course of antibiotics, and her maintenance inhalers and nebulized treatments. Smoking cessation was again revisited, strongly encouraged Objective - Vital Signs Vital signs: Vital Signs Temp 98.4 F 08/01/18 07:15 Pulse 88 08/01/18 07:15 Resp 18 08/01/18 07:15 BP 92/58 08/01/18 07:15 Pulse Ox 92 L 08/01/18 07:15 Intake & Output 07/31/18 08/01/18 08/01/18 18:59 06:59 18:59 Intake Total 1000 778 Balance 1000 778 Intake: Intake, IV Titration 660 Amount Lactated Ringers 1,000 ml 560 @ 80 mls/hr IV .[id number] [facility] Rx#:[id number] Levofloxacin 500Mg-D5w 100 Pmx 500 mg In Dextrose/ Water 1 100ml.bag @ 100 mls/hr IVPB Q48H [facility] Rx#: [id number] Oral 1000 118 Other: Voiding Method Bedside Commode # Voids 2 # Bowel Movements 1 - Exam GENERAL EXAM: Alert, pleasant, 67-year-old white female, appears older than stated age, comfortable in no apparent distress. HEAD: Normocephalic/atraumatic. EYES: Normal reaction of pupils, equal size. Conjunctiva pink, sclera white. NOSE: Clear with pink turbinates. THROAT: No erythema or exudates. NECK: No masses, no JVD, no thyroid enlargement, no adenopathy. CHEST: No chest wall deformity. Symmetrical expansion. LUNGS: Equal air entry with no crackles, scattered faint wheezes CVS: Regular rate and rhythm, normal S1 and S2, no gallops, no murmurs, no rubs ABDOMEN: Soft, nontender. No hepatosplenomegaly, normal bowel sounds, no guarding or rigidity. EXTREMITIES: No clubbing, no edema, no cyanosis, 2+ pulses and upper and lower extremities. MUSCULOSKELETAL: Muscle strength and tone normal. There is tenderness with palpation over left hip area. No calf tenderness, distal pulses are intact. SPINE: No scoliosis or deformity SKIN: No rashes CENTRAL NERVOUS SYSTEM: Alert and oriented -3. No focal deficits, tone is normal in all 4 extremities. PSYCHIATRIC: Alert and oriented -3. Appropriate affect. Intact judgment and insight. - Labs CBC & Chem 7: 08/01/18 06:25 07/31/18 08:01 Labs: Abnormal Lab Results - Last 24 Hours (Table) 08/01/18 Range/Units 06:25 WBC 12.3 H (3.8-10.6) k/uL Neutrophils # 9.5 H (1.3-7.7) k/uL Assessment and Plan Plan: Assessment: #1. Left Femur fracture, left hip arthroplasty, postop day 2. #2. Hypoxic respiratory failure secondary to atelectasis, and limited pneumonitis at the right base #3. Hypotension, related to hypovolemia. She was given 1 L bolus of IV 0.9 normal saline. Clinically asymptomatic. Resolved. #4. Mechanical fall at home sustaining left hip fracture #5. Chronic obstructive pulmonary disease, severe, gold stage III, with chronic hypoxemic respiratory failure, currently stable #6. Interstitial prominence seen on the chest x-ray, without any clinical signs of congestive heart failure. May be related to chest x-ray taken while the patient was laying down, poor inspiratory effort #7. Mild leukocytosis, possibly reactive #8. Hypothyroidism #9. Chronic and ongoing nicotine dependence #10. Degenerative history of arthritis #11. Vertigo #12. Anxiety Plan: No ongoing fever or chills. No worsening chest congestion or shortness of breath. Continue nebulized bronchodilators, patient is stable for discharge home from pulmonary perspective, finish outpatient course of Levaquin. Smoking cessation was again encouraged, however patient states she has tried quitting in the past, and due to her anxiety issues she will likely not quit smoking. Vu performed a history & physical examination of the patient and discussed their management with my nurse practitioner, Elsi Drake. I reviewed the nurse practitioner's note and agree with the documented findings and plan of care. Lung sounds are clear diminished at the bases. The findings and the impression was discussed with the patient. I attest to the documentation by the nurse practitioner. Time with Patient: Less than 30
[2018-08-01] MEDS: SYMBICORT 160-4.5 MCG INHALER INHALATION SCH (15:20)
[2018-08-01] MEDS ORDERED: LEVOFLOXACIN 500 MG TAB PO SCH (21:00)
== END 2018-08-01 18:20 | disposition home health service (06) | DRG 469 ==
LOC: EC 06:16 → 3SUR 10:47
PROVIDERS: ADMIT Orthopaedic Surgery; ATTEND Orthopaedic Surgery
PROC: 0SRB02A Replacement of Left Hip Joint with Metal on Polyethylene Synthetic Substitute, Uncemented, Open Approach (ICD-10-PCS; principal; 2018-07-29 09:30)
DX: S72.012A Unspecified intracapsular fracture of left femur, initial encounter for closed fracture (principal); J18.9 Pneumonia, unspecified organism; J44.0 Chronic obstructive pulmonary disease with (acute) lower respiratory infection; J44.1 Chronic obstructive pulmonary disease with (acute) exacerbation; J96.11 Chronic respiratory failure with hypoxia; J98.11 Atelectasis; I95.9 Hypotension, unspecified; D75.1 Secondary polycythemia; E03.9 Hypothyroidism, unspecified; E86.1 Hypovolemia; F17.210 Nicotine dependence, cigarettes, uncomplicated; F41.9 Anxiety disorder, unspecified; G89.29 Other chronic pain; M19.90 Unspecified osteoarthritis, unspecified site; M50.30 Other cervical disc degeneration, unspecified cervical region; M51.36 Other intervertebral disc degeneration, lumbar region; M25.562 Pain in left knee; M54.5 Low back pain; R26.2 Difficulty in walking, not elsewhere classified; D72.829 Elevated white blood cell count, unspecified; Z99.81 Dependence on supplemental oxygen; Z96.651 Presence of right artificial knee joint; Z90.710 Acquired absence of both cervix and uterus; Z79.51 Long term (current) use of inhaled steroids; Z79.890 Hormone replacement therapy; Z79.52 Long term (current) use of systemic steroids; Z79.899 Other long term (current) drug therapy; Z90.49 Acquired absence of other specified parts of digestive tract; Z88.0 Allergy status to penicillin; Z88.6 Allergy status to analgesic agent; Z91.040 Latex allergy status; Z80.8 Family history of malignant neoplasm of other organs or systems; W01.0XXA Fall on same level from slipping, tripping and stumbling without subsequent striking against object, initial encounter; Y92.000 Kitchen of unspecified non-institutional (private) residence as the place of occurrence of the external cause
CPT/HCPCS: 36415; 51702; 71045; 71046; 72100; 73501; 73502; 80048; 80053; 83880; 84484; 85025; 85610; 85730; 88305; 88311; 93005; 94640; 96374; 96376; 99285

== ENCOUNTER 2018-12-09 02:44 | Inpatient (IN) | payer MEDICARE ==
--- NOTE | 2018-12-09 03:22 | XR ---
EXAMINATION TYPE: XR chest 2V DATE OF EXAM: 12/09/2018 COMPARISON: 07/30/2018 HISTORY: Difficulty breathing TECHNIQUE: Frontal and lateral views of the chest are obtained. FINDINGS: There is coarsening the pulmonary interstitial markings. Heart size is normal. There is no pleural effusion. The bony thorax is intact. There is no definite pleural effusion. IMPRESSION: COPD and pulmonary interstitial fibrosis. There is slight increased density in the right lower lobe compared to last exam the could relate to some degree of acute pneumonia.
[2018-12-09 04:13] LABS: Basophils # (A) 0.1 k/uL (0-0.2); Basophils % (A) 1 %; Eosinophils # (A) 0.2 k/uL (0-0.7); Eosinophils % (A) 3 %; HCT 53.3 % (34.0-46.0); HGB 16.7 gm/dL (11.4-16.0); Lymphocytes # (A) 0.5 k/uL (1.0-4.8); Lymphocytes % (A) 6 %; MCHC 31.3 g/dL (31.0-37.0); MCV 95.6 fL (80.0-100.0); Mean Platelet Volume 6.7; Monocytes # (A) 0.3 k/uL (0-1.0); Monocytes % (A) 3 %; Neutrophils # (A) 7.9 k/uL (1.3-7.7); Neutrophils % (A) 87 %; Platelet Count 217 k/uL (150-450); RBC 5.58 m/uL (3.80-5.40); RDW 14.5 % (11.5-15.5); WBC 9.1 k/uL (3.8-10.6)
[2018-12-09 04:27] LABS: Creatine Kinase 62 U/L (30-135)
[2018-12-09 04:29] LABS: ALT 19 U/L (9-52); AST 19 U/L (14-36); Albumin 4.4 g/dL (3.5-5.0); Alkaline Phosphatase 105 U/L (38-126); Anion Gap 7 mmol/L; Blood Urea Nitrogen 7 mg/dL (7-17); Calcium 9.3 mg/dL (8.4-10.2); Carbon Dioxide 27 mmol/L (22-30); Chloride 104 mmol/L (98-107); Glucose 140 mg/dL (74-99); Potassium 3.8 mmol/L (3.5-5.1); Sodium 138 mmol/L (137-145); Total Bilirubin 0.8 mg/dL (0.2-1.3); Total Protein 7.3 g/dL (6.3-8.2)
[2018-12-09 04:41] LABS: Creatine Kinase MB 1.8 ng/mL (0.0-2.4); Troponin I <0.012 ng/mL (0.000-0.034)
[2018-12-09] MEDS ORDERED: IPRATROPIUM-ALBUTEROL 3 ML NEB INHALATION STA (05:01)
--- NOTE | 2018-12-09 05:23 | ED ---
SOB HPI - General Chief Complaint: Shortness of Breath Stated Complaint: YARA, nosebleed Source: patient, EMS Mode of arrival: EMS Limitations: no limitations - History of Present Illness Initial Comments: Patient is 68-year-old woman with history of some underlying COPD who presents with worsening of shortness of breath and a nonproductive cough going on for the past few days. In addition she has been using her oxygen more than usual and states that this seems to have caused a nosebleed. The patient is denying symptoms of anemia, including no chest pain, diaphoresis, orthostatic symptoms, palpitations or syncope. MD Complaint: shortness of breath, cough Onset/Timin -: days(s) Consistency: constant Improves With: nothing Worsens With: nothing Known History Of: COPD Associated Symptoms: other (epistaxis) Treatments Prior to Arrival: oxygen, bronchodilator - Related Data Home Oxygen Therapy: Yes Home Oxygen Amount: 4 Liters Home Medications Medication Instructions Recorded Confirmed Cyclobenzaprine [Flexeril] 10 mg PO TID 01/21/17 12/09/18 Levothyroxine Sodium [Synthroid] 112 mcg PO DAILY 01/21/17 12/09/18 Loratadine [Claritin] 10 mg PO DAILY 01/21/17 12/09/18 Meclizine [Antivert] 25 mg PO TID 01/21/17 12/09/18 Gabapentin 300 mg PO TID 01/22/17 12/09/18 Citalopram Hydrobromide [CeleXA] 20 mg PO QAM 07/28/18 12/09/18 Hydrocodone/Acetaminophen [[place] 1 tab PO QID PRN 07/28/18 12/09/18 10-325] Albuterol Inhaler [Ventolin Hfa 2 puff INHALATION RT-Q6H PRN 12/09/18 12/09/18 Inhaler] Albuterol Nebulized [Ventolin 2.5 mg INHALATION RT-Q6H 12/09/18 12/09/18 Nebulized] Fluconazole [Diflucan] 100 mg PO DAILY PRN 12/09/18 12/09/18 guaiFENesin [Mucinex] 600 mg PO BID 12/09/18 12/09/18 metroNIDAZOLE [Flagyl] 500 mg PO BID 12/09/18 12/09/18 traZODone HCL [Desyrel] 50 mg PO HS 12/09/18 12/09/18 Allergies Allergy/AdvReac Type Severity Reaction Status Date / Time aspirin Allergy Unknown Verified 12/09/18 07:01 ibuprofen Allergy Anaphylaxis Verified 12/09/18 07:01 latex Allergy Rash/Hives Verified 12/09/18 07:01 Penicillins Allergy Unknown Verified 12/09/18 07:01 Review of Systems ROS Statement: Those systems with pertinent positive or pertinent negative responses have been documented in the HPI. ROS Other: All systems not noted in ROS Statement are negative. Constitutional: Denies: fever, chills ENT: Reports: epistaxis, congestion Respiratory: Reports: cough, dyspnea, wheezes. Denies: hemoptysis Cardiovascular: Denies: chest pain, palpitations, edema, syncope Gastrointestinal: Denies: abdominal pain, vomiting, diarrhea Genitourinary: Denies: dysuria Skin: Denies: rash Neurological: Denies: headache Psychiatric: Reports: anxiety Past Medical History Past Medical History: COPD, Thyroid Disorder Additional Past Medical History / Comment(s): Degenerative bone disease, vertigo History of Any Multi-Drug Resistant Organisms: None Reported Past Surgical History: Cholecystectomy, Hysterectomy, Orthopedic Surgery Additional Past Surgical History / Comment(s): right knee surgery 2014, left shoulder 2008 Past Anesthesia/Blood Transfusion Reactions: No Reported Reaction Past Psychological History: Anxiety Smoking Status: Current every day smoker Past Alcohol Use History: None Reported Past Drug Use History: None Reported - Past Family History Mother Family Medical History: Cancer Additional Family Medical History / Comment(s): skin cancer General Exam Limitations: no limitations General appearance: alert, in no apparent distress, anxious Head exam: Present: atraumatic, normocephalic Eye exam: Present: normal appearance. Absent: scleral icterus, conjunctival injection Respiratory exam: Present: wheezes. Absent: rales, rhonchi, stridor Cardiovascular Exam: Present: regular rate, normal rhythm, normal heart sounds. Absent: systolic murmur, diastolic murmur, rubs, gallop GI/Abdominal exam: Present: soft. Absent: distended, tenderness, guarding, rebound, mass Extremities exam: Present: normal inspection, normal capillary refill. Absent: pedal edema, calf tenderness Back exam: Present: normal inspection. Absent: CVA tenderness (R), CVA tenderness (L) Neurological exam: Present: alert Skin exam: Present: warm, dry, intact, normal color. Absent: rash Course Vital Signs 12/09/18 12/09/18 12/09/18 02:45 02:50 03:54 Temperature 98.2 F Pulse Rate 115 H 109 H Respiratory 18 16 Rate Blood Pressure 130/97 O2 Sat by Pulse 93 L 99 Oximetry 12/09/18 12/09/18 12/09/18 04:11 05:28 05:37 Temperature 98.2 F Pulse Rate 100 104 H Respiratory 16 Rate Blood Pressure 133/77 O2 Sat by Pulse 92 L Oximetry 12/09/18 12/09/18 05:47 06:59 Temperature Pulse Rate 110 H 105 H Respiratory 16 Rate Blood Pressure 136/85 O2 Sat by Pulse 95 Oximetry Medical Decision Making - Medical Decision Making Patient 68-year-old woman in with increasing dyspnea. Patient found to have mild elevation of d-dimer. She refused computed tomography scan here, after discussion of the indications, risks and benefits. Patient does agree to have VQ scan. Treatment for her COPD initiated. - Lab Data Result diagrams: 12/09/18 04:03 12/09/18 04:03 Lab Results 12/09/18 12/09/18 12/09/18 Range/Units 04:03 04:03 04:03 WBC 9.1 (3.8-10.6) k/uL RBC 5.58 H (3.80-5.40) m/uL Hgb 16.7 H (11.4-16.0) gm/dL Hct 53.3 H (34.0-46.0) % MCV 95.6 (80.0-100.0) fL MCH 30.0 (25.0-35.0) pg MCHC 31.3 (31.0-37.0) g/dL RDW 14.5 (11.5-15.5) % Plt Count 217 (150-450) k/uL Neutrophils % 87 % Lymphocytes % 6 % Monocytes % 3 % Eosinophils % 3 % Basophils % 1 % Neutrophils # 7.9 H (1.3-7.7) k/uL Lymphocytes # 0.5 L (1.0-4.8) k/uL Monocytes # 0.3 (0-1.0) k/uL Eosinophils # 0.2 (0-0.7) k/uL Basophils # 0.1 (0-0.2) k/uL PT (9.0-12.0) sec INR (<1.2) APTT (22.0-30.0) sec D-Dimer (<0.60) mg/L FEU Sodium 138 (137-145) mmol/L Potassium 3.8 (3.5-5.1) mmol/L Chloride 104 (98-107) mmol/L Carbon Dioxide 27 (22-30) mmol/L Anion Gap 7 mmol/L BUN 7 (7-17) mg/dL Creatinine 0.71 (0.52-1.04) mg/dL Est GFR (CKD-EPI)AfAm >90 (>60 ml/min/1.73 sqM) Est GFR (CKD-EPI)NonAf 87 (>60 ml/min/1.73 sqM) Glucose 140 H (74-99) mg/dL Plasma Lactic Acid Demetrius 1.3 (0.7-2.0) mmol/L Calcium 9.3 (8.4-10.2) mg/dL Total Bilirubin 0.8 (0.2-1.3) mg/dL AST 19 (14-36) U/L ALT 19 (9-52) U/L Alkaline Phosphatase 105 (38-126) U/L Total Creatine Kinase (30-135) U/L CK-MB (CK-2) (0.0-2.4) ng/mL CK-MB (CK-2) Rel Index Troponin I (0.000-0.034) ng/mL NT-Pro-B Natriuret Pep pg/mL Total Protein 7.3 (6.3-8.2) g/dL Albumin 4.4 (3.5-5.0) g/dL 12/09/18 12/09/18 12/09/18 Range/Units 04:03 04:03 04:03 WBC (3.8-10.6) k/uL RBC (3.80-5.40) m/uL Hgb (11.4-16.0) gm/dL Hct (34.0-46.0) % MCV (80.0-100.0) fL MCH (25.0-35.0) pg MCHC (31.0-37.0) g/dL RDW (11.5-15.5) % Plt Count (150-450) k/uL Neutrophils % % Lymphocytes % % Monocytes % % Eosinophils % % Basophils % % Neutrophils # (1.3-7.7) k/uL Lymphocytes # (1.0-4.8) k/uL Monocytes # (0-1.0) k/uL Eosinophils # (0-0.7) k/uL Basophils # (0-0.2) k/uL PT 9.6 (9.0-12.0) sec INR 0.9 (<1.2) APTT 22.8 (22.0-30.0) sec D-Dimer 1.43 H (<0.60) mg/L FEU Sodium (137-145) mmol/L Potassium (3.5-5.1) mmol/L Chloride (98-107) mmol/L Carbon Dioxide (22-30) mmol/L Anion Gap mmol/L BUN (7-17) mg/dL Creatinine (0.52-1.04) mg/dL Est GFR (CKD-EPI)AfAm (>60 ml/min/1.73 sqM) Est GFR (CKD-EPI)NonAf (>60 ml/min/1.73 sqM) Glucose (74-99) mg/dL Plasma Lactic Acid Demetrius (0.7-2.0) mmol/L Calcium (8.4-10.2) mg/dL Total Bilirubin (0.2-1.3) mg/dL AST (14-36) U/L ALT (9-52) U/L Alkaline Phosphatase (38-126) U/L Total Creatine Kinase 62 (30-135) U/L CK-MB (CK-2) 1.8 (0.0-2.4) ng/mL CK-MB (CK-2) Rel Index 2.9 Troponin I <0.012 (0.000-0.034) ng/mL NT-Pro-B Natriuret Pep 333 pg/mL Total Protein (6.3-8.2) g/dL Albumin (3.5-5.0) g/dL - EKG Data -: EKG Interpreted by [facility] EKG shows normal: sinus rhythm, axis (Left axis deviation), intervals (Normal), QRS complexes (Normal), ST-T waves (Normal) Rate: tachycardia (Rate 106 bpm) Disposition Clinical Impression: Acute exacerbation of chronic obstructive pulmonary disease (COPD), Epistaxis Disposition: ADMITTED IP TO THIS HOSP Condition: Fair Is patient prescribed a controlled substance at d/c from ED?: No Referrals: Seferino Dorman MD [Primary Care Provider] - 1-2 days
[2018-12-09 05:35] LABS: INR 0.9 (<1.2); Partial Thromboplastin Time 22.8 sec (22.0-30.0); Prothrombin Time 9.6 sec (9.0-12.0)
[2018-12-09 05:36] LABS: D-Dimer 1.43 mg/L FEU (<0.60)
[2018-12-09] MEDS ORDERED: FAMOTIDINE 20 MG/2 ML VIAL IV STA (06:05)
[2018-12-09] MEDS ORDERED: diphenhydrAMINE 50 MG/ML 1 ML VIAL IVP STA (06:05)
[2018-12-09] MEDS ORDERED: methylPREDNISolone SOD SUCCI 125 MG/2 ML VIAL IV STA (06:06)
[2018-12-09] MEDS: SODIUM CHLORIDE 0.9% 1,000 ML IV SCH (08:10)
[2018-12-09] MEDS: NICOTINE 14MG/24HR PATCH TRANSDERM SCH (08:11)
[2018-12-09] MEDS ORDERED: predniSONE 20 MG TAB PO SCH (09:00)
[2018-12-09] MEDS: BUDESONIDE 0.5 MG/2 ML NEBU INHALATION SCH ×2 (10:13→20:10)
[2018-12-09] MEDS: ENOXAPARIN 40 MG/0.4 ML SYRINGE SQ SCH (11:34)
--- NOTE | 2018-12-09 11:34 | NM ---
EXAMINATION TYPE: NM pul vent and perfuse DATE OF EXAM: 12/09/2018 COMPARISON: Chest radiograph dated 12/09/2018 HISTORY: Difficulty breathing TECHNIQUE: Utilizing inhalation of 65.9 mCi Tc 99m DTPA aerosol and intravenous injection of 4.93 mC i of Tc 99m MAA, ventilation and perfusion images are acquired post injection in multiple projections . FINDINGS: There is central radiotracer clumping on the ventilation portion examination indicative of underlying airway disease and limiting evaluation of the ventilation portion of the examination. Relative biapi dwain photopenia is seen suggesting air trapping given the patient's underlying COPD. However these are matched defects. Oblique and lateral images are limited as the patient's arms partially obscure visu alization. IMPRESSION: Intermediate probability for pulmonary embolism as there are matched defects of the upper lungs prese nt however and correlation with the chest radiograph overall findings of radiotracer clumping on the ventilation portion the examination and biapical photopenia suggest underlying COPD with air trapping and central airway disease rather than pulmonary embolus.
--- NOTE | 2018-12-09 11:36 | P.HPIM ---
History of Present Illness 68-year-old female with history of nicotine use presented to the emergency room with complaints of worsening shortness of breath and productive cough also states problems with epistaxis from oxygen use. Denies fever Review of Systems Respiratory: Reports cough, Reports dyspnea Past Medical History Past Medical History: COPD, Thyroid Disorder Additional Past Medical History / Comment(s): Degenerative bone disease, vertigo History of Any Multi-Drug Resistant Organisms: None Reported Past Surgical History: Cholecystectomy, Hysterectomy, Orthopedic Surgery Additional Past Surgical History / Comment(s): right knee surgery 2014, left shoulder 2008 Past Anesthesia/Blood Transfusion Reactions: No Reported Reaction Past Psychological History: Anxiety Smoking Status: Current every day smoker Past Alcohol Use History: None Reported Past Drug Use History: None Reported - Past Family History Mother Family Medical History: Cancer Additional Family Medical History / Comment(s): skin cancer Medications and Allergies Home Medications Medication Instructions Recorded Confirmed Type Cyclobenzaprine [Flexeril] 10 mg PO TID 01/21/17 12/09/18 History Levothyroxine Sodium [Synthroid] 112 mcg PO DAILY 01/21/17 12/09/18 History Loratadine [Claritin] 10 mg PO DAILY 01/21/17 12/09/18 History Meclizine [Antivert] 25 mg PO TID 01/21/17 12/09/18 History Gabapentin 300 mg PO TID 01/22/17 12/09/18 History Citalopram Hydrobromide [CeleXA] 20 mg PO QAM 07/28/18 12/09/18 History Hydrocodone/Acetaminophen [[place] 1 tab PO QID PRN 07/28/18 12/09/18 History 10-325] Albuterol Inhaler [Ventolin Hfa 2 puff INHALATION RT-Q6H PRN 12/09/18 12/09/18 History Inhaler] Albuterol Nebulized [Ventolin 2.5 mg INHALATION RT-Q6H 12/09/18 12/09/18 History Nebulized] Fluconazole [Diflucan] 100 mg PO DAILY PRN 12/09/18 12/09/18 History guaiFENesin [Mucinex] 600 mg PO BID 12/09/18 12/09/18 History metroNIDAZOLE [Flagyl] 500 mg PO BID 12/09/18 12/09/18 History traZODone HCL [Desyrel] 50 mg PO HS 12/09/18 12/09/18 History Allergies Allergy/AdvReac Type Severity Reaction Status Date / Time aspirin Allergy Unknown Verified 12/09/18 07:01 ibuprofen Allergy Anaphylaxis Verified 12/09/18 07:01 latex Allergy Rash/Hives Verified 12/09/18 07:01 Penicillins Allergy Unknown Verified 12/09/18 07:01 Physical Exam Vitals: Vital Signs Temp Pulse Pulse Resp BP BP Pulse Ox 12/09/18 08:45 98.2 F 106 H 16 139/67 92 L 12/09/18 08:15 98.1 F 104 H 20 125/77 95 12/09/18 06:59 105 H 16 136/85 95 12/09/18 05:47 110 H 12/09/18 05:37 104 H 12/09/18 05:28 100 16 133/77 92 L 12/09/18 04:11 98.2 F 12/09/18 03:54 109 H 16 130/97 99 12/09/18 02:50 98.2 F 12/09/18 02:45 115 H 18 93 L Intake and Output 12/08/18 12/09/18 12/09/18 22:59 06:59 14:59 Other: Weight 58.967 kg - Constitutional General appearance: mild distress - EENT No teeth Eyes: PERRLA Ears: bilateral: normal - Neck Neck: normal ROM - Respiratory Respiratory: bilateral: rhonchi, wheezing - Cardiovascular Rhythm: regular - Gastrointestinal General gastrointestinal: soft - Integumentary Integumentary: normal - Neurologic Neurologic: CNII-XII intact - Musculoskeletal Musculoskeletal: generalized weakness - Psychiatric Psychiatric: A&O x's 3, appropriate affect, intact judgment & insight Results CBC & Chem 7: 12/09/18 04:03 12/09/18 04:03 Labs: Abnormal Lab Results - Last 24 Hours (Table) 12/09/18 12/09/18 12/09/18 Range/Units 04:03 04:03 04:03 RBC 5.58 H (3.80-5.40) m/uL Hgb 16.7 H (11.4-16.0) gm/dL Hct 53.3 H (34.0-46.0) % Neutrophils # 7.9 H (1.3-7.7) k/uL Lymphocytes # 0.5 L (1.0-4.8) k/uL D-Dimer 1.43 H (<0.60) mg/L FEU Glucose 140 H (74-99) mg/dL Chest x-ray: report reviewed Assessment and Plan Plan: Assessment Acute exacerbation of chronic obstructive pulmonary disease Epistaxis Hypothyroidism Plan Bronchodilators steroids VQ scan Continue consultation with pulmonology
[2018-12-09] MEDS: methylPREDNISolone SOD SUCCI 125 MG/2 ML VIAL IV SCH ×3 (11:41→23:59)
[2018-12-09] MEDS: IPRATROPIUM 0.5 MG/2.5 ML NEBU INHALATION SCH ×3 (13:10→20:12)
[2018-12-09] MEDS: HYDROcodone/APAP 10-325MG 1 EACH TAB PO PRN ×2 (13:39→21:41)
[2018-12-09] MEDS: IPRATROPIUM-ALBUTEROL 3 ML NEB INHALATION PRN ×2 (16:24→20:12)
--- NOTE | 2018-12-09 16:41 | P.CNPUL ---
History of Present Illness Consult date: 12/09/18 Reason for consult: COPD History of present illness: 67-year-old female patient with known history of severe COPD with a baseline FEV1 of 46% of predicted and addition to chronic hypoxic respiratory failure maintained on oxygen at 2 L per minute nasal cannula comes into the hospital because of increased dyspnea cough chest congestion and chest tightness and wheezing typically of an underlying COPD exacerbation. In the year 2018, the patient was hospitalized twice for the same. She comes in for a similar presentation. No fever. No chills. She is a smoker. She has been experiencing progressive limitation excess capacity because of her increased COPD. D-dimer was slightly elevated and based on that the patient was sent for a VQ scan that do not to be of an intermediate probability. Nevertheless, the patient has no significant history of DVT or pulmonary embolism. There was evidence of radiotracer clumping on the ventilation portion and this was suggestive of COPD Pulmonary embolism. Review of Systems Constitutional: Denies chills, Denies fever Eyes: denies blurred vision, denies pain Ears, nose, mouth and throat: Denies headache, Denies sore throat, the patient is edentulous Cardiovascular: Denies chest pain, Denies shortness of breath Respiratory: Patient has cough, congestion, and excessive mucin production Gastrointestinal: Denies abdominal pain, Denies diarrhea, Denies nausea, Denies vomiting Genitourinary: Denies dysuria, Denies hematuria Musculoskeletal: Denies myalgias Musculoskeletal: left: hip pain Integumentary: Denies pruritus, Denies rash Neurological: Denies numbness, Denies weakness Psychiatric: Denies anxiety, Denies depression Endocrine: Denies fatigue, Denies weight change Past Medical History Past Medical History: COPD, Thyroid Disorder Additional Past Medical History / Comment(s): Degenerative bone disease, vertigo History of Any Multi-Drug Resistant Organisms: None Reported Past Surgical History: Cholecystectomy, Hysterectomy, Orthopedic Surgery Additional Past Surgical History / Comment(s): right knee surgery 2014, left shoulder 2007 Past Anesthesia/Blood Transfusion Reactions: No Reported Reaction Past Psychological History: Anxiety Smoking Status: Current every day smoker Past Alcohol Use History: None Reported Past Drug Use History: None Reported - Past Family History Mother Family Medical History: Cancer Additional Family Medical History / Comment(s): skin cancer Medications and Allergies Home Medications Medication Instructions Recorded Confirmed Type Cyclobenzaprine [Flexeril] 10 mg PO TID 03/19/17 02/04/19 History Levothyroxine Sodium [Synthroid] 112 mcg PO DAILY 01/21/17 12/09/18 History Loratadine [Claritin] 10 mg PO DAILY 01/21/17 12/09/18 History Meclizine [Antivert] 25 mg PO TID 01/21/17 12/09/18 History Gabapentin 300 mg PO TID 01/22/17 12/09/18 History Citalopram Hydrobromide [CeleXA] 20 mg PO QAM 07/28/18 12/09/18 History Hydrocodone/Acetaminophen [[place] 1 tab PO QID PRN 07/28/18 12/09/18 History 10-325] Albuterol Inhaler [Ventolin Hfa 2 puff INHALATION RT-Q6H PRN 12/09/18 12/09/18 History Inhaler] Albuterol Nebulized [Ventolin 2.5 mg INHALATION RT-Q6H 12/09/18 12/09/18 History Nebulized] Fluconazole [Diflucan] 100 mg PO DAILY PRN 12/09/18 12/09/18 History guaiFENesin [Mucinex] 600 mg PO BID 12/09/18 12/09/18 History metroNIDAZOLE [Flagyl] 500 mg PO BID 12/09/18 12/09/18 History traZODone HCL [Desyrel] 50 mg PO HS 12/09/18 12/09/18 History Allergies Allergy/AdvReac Type Severity Reaction Status Date / Time aspirin Allergy Unknown Verified 12/09/18 07:01 ibuprofen Allergy Anaphylaxis Verified 12/09/18 07:01 latex Allergy Rash/Hives Verified 12/09/18 07:01 Penicillins Allergy Unknown Verified 12/09/18 07:01 Physical Exam Vitals: Vital Signs Temp Pulse Pulse Resp BP BP Pulse Ox 12/09/18 16:24 94 12/09/18 13:23 92 12/09/18 13:10 84 12/09/18 12:00 97.6 F 96 18 101/73 95 12/09/18 08:45 98.2 F 106 H 16 139/67 92 L 12/09/18 08:15 98.1 F 104 H 20 125/77 95 12/09/18 06:59 105 H 16 136/85 95 12/09/18 05:47 110 H 12/09/18 05:37 104 H 12/09/18 05:28 100 16 133/77 92 L 12/09/18 04:11 98.2 F 12/09/18 03:54 109 H 16 130/97 99 12/09/18 02:50 98.2 F 12/09/18 02:45 115 H 18 93 L Intake and Output 12/09/18 12/09/18 12/09/18 06:59 14:59 22:59 Other: Voiding Method Bedside Commode # Voids 1 Weight 58.967 kg GENERAL EXAM: Alert, pleasant, 67-year-old white female, appears older than stated age, comfortable in no apparent distress. HEAD: Normocephalic/atraumatic. EYES: Normal reaction of pupils, equal size. Conjunctiva pink, sclera white. NOSE: Clear with pink turbinates. THROAT: No erythema or exudates. NECK: No masses, no JVD, no thyroid enlargement, no adenopathy. CHEST: No chest wall deformity. Symmetrical expansion. Diminished breath sounds bilaterally along with scattered expiratory wheezes throughout the lung kwok. LUNGS: Equal air entry with no crackles, there is extensive expiratory wheeze, rhonchi or dullness. CVS: Regular rate and rhythm, normal S1 and S2, no gallops, no murmurs, no rubs ABDOMEN: Soft, nontender. No hepatosplenomegaly, normal bowel sounds, no guarding or rigidity. EXTREMITIES: No clubbing, no edema, no cyanosis, 2+ pulses and upper and lower extremities. MUSCULOSKELETAL: Muscle strength and tone normal. There is tenderness with palpation over left hip area. No calf tenderness, distal pulses are intact. SPINE: No scoliosis or deformity SKIN: No rashes CENTRAL NERVOUS SYSTEM: Alert and oriented -3. No focal deficits, tone is normal in all 4 extremities. PSYCHIATRIC: Alert and oriented -3. Appropriate affect. Intact judgment and insight. Results - Laboratory Findings CBC and BMP: 12/09/18 04:03 12/09/18 04:03 PT/INR, D-dimer PT 9.6 sec (9.0-12.0) 12/09/18 04:03 INR 0.9 (<1.2) 12/09/18 04:03 D-Dimer 1.43 mg/L FEU (<0.60) H 02/04/19 04:03 Abnormal lab findings: Abnormal Labs 12/09/18 12/09/18 12/09/18 04:03 04:03 04:03 RBC 5.58 H Hgb 16.7 H Hct 53.3 H Neutrophils # 7.9 H Lymphocytes # 0.5 L D-Dimer 1.43 H Glucose 140 H - Diagnostic Findings Chest x-ray: image reviewed Assessment and Plan Plan: Assessment 1 acute COPD exacerbation, possible right lower lobe pneumonia based on the chest x-ray findings. The patient is having excessive congestion along with cough shortness of breath chest that is no wheezing and a presentation is consistent with COPD exacerbation and possible right lower lobe pneumonia. 2 severe COPD, with a based on FEV1 of 46% of predicted 3 chronic hypoxic respiratory failure 4 chronic smoker 5 hypothyroidism 6 chronic anxiety 7 recent hospitalization for a left femur fracture, post left hip arthroplasty back in July 2018 8 hypothyroidism Plan We'll cover this patient to oral Levaquin 750 mg by mouth daily. Switch this patient IV Solu Medrol 60 mg every 6 hours. DuoNeb nebulized treatments around the clock. Continue supportive care and obtain a sputum Gram stain and culture. We'll continue to follow. Smoking cessation counseling was done.
[2018-12-09 16:56] LABS: Glucose,Whole Blood 168 mg/dL (75-99)
[2018-12-09] MEDS: INSULIN ASPART 100 UNIT/ML 1 ML 10 ML VIAL SQ SCH ×2 (17:45→21:38)
[2018-12-09] MEDS: CYCLOBENZAPRINE 10 MG TAB PO SCH ×2 (17:45→21:39)
[2018-12-09] MEDS: MECLIZINE 25 MG TAB PO SCH ×2 (17:45→21:39)
[2018-12-09] MEDS: GABAPENTIN 300 MG CAP PO SCH ×2 (17:45→21:39)
[2018-12-09] MEDS: LEVOFLOXACIN 750 MG TAB PO SCH (18:29)
[2018-12-09 20:59] LABS: Glucose,Whole Blood 140 mg/dL (75-99)
[2018-12-09] MEDS: traZODone HCL 50 MG TAB PO SCH (21:39)
[2018-12-10] MEDS: LEVOTHYROXINE 112 MCG TAB PO SCH (05:50)
[2018-12-10] MEDS: methylPREDNISolone SOD SUCCI 125 MG/2 ML VIAL IV SCH ×4 (05:50→23:25)
[2018-12-10 07:02] LABS: Glucose,Whole Blood 146 mg/dL (75-99)
[2018-12-10] MEDS: IPRATROPIUM 0.5 MG/2.5 ML NEBU INHALATION SCH ×4 (07:26→20:43)
[2018-12-10] MEDS: BUDESONIDE 0.5 MG/2 ML NEBU INHALATION SCH ×2 (07:26→20:43)
[2018-12-10] MEDS: HYDROcodone/APAP 10-325MG 1 EACH TAB PO PRN ×3 (09:17→22:15)
[2018-12-10] MEDS: SODIUM CHLORIDE 0.9% 1,000 ML IV SCH (09:19)
[2018-12-10] MEDS: INSULIN ASPART 100 UNIT/ML 1 ML 10 ML VIAL SQ SCH ×4 (09:49→21:27)
[2018-12-10] MEDS: NICOTINE 14MG/24HR PATCH TRANSDERM SCH (09:49)
[2018-12-10] MEDS: CITALOPRAM HYDROBROMIDE 20 MG TAB PO SCH (09:50)
[2018-12-10] MEDS: CYCLOBENZAPRINE 10 MG TAB PO SCH ×3 (09:50→22:15)
[2018-12-10] MEDS: ENOXAPARIN 40 MG/0.4 ML SYRINGE SQ SCH (09:50)
[2018-12-10] MEDS: MECLIZINE 25 MG TAB PO SCH ×3 (09:51→22:15)
[2018-12-10] MEDS: GABAPENTIN 300 MG CAP PO SCH ×3 (09:51→22:15)
[2018-12-10] MEDS: LORATADINE 10 MG TAB PO SCH (09:51)
[2018-12-10] MEDS: LEVOFLOXACIN 750 MG TAB PO SCH (09:51)
[2018-12-10 11:15] LABS: Glucose,Whole Blood 145 mg/dL (75-99)
--- NOTE | 2018-12-10 11:52 | P.PN ---
Subjective Patient resting in bed continues to have low wheezing and congested cough Objective - Vital Signs Vital signs: Vital Signs Temp 98.2 F 12/10/18 08:25 Pulse 101 H 12/10/18 11:47 Resp 16 12/10/18 11:47 BP 103/72 12/10/18 08:25 Pulse Ox 95 12/10/18 08:25 Intake & Output 12/09/18 12/10/18 12/10/18 18:59 06:59 18:59 Intake Total 1320 Balance 1320 Intake: Intake, IV Titration 240 Amount Sodium Chloride 0.9% 1, 240 000 ml @ 20 mls/hr IV . Q24H [facility] Rx#:[id number] Oral 1080 Other: Voiding Method Bedside Commode Bedside Commode Bedside Commode # Voids 1 2 - Constitutional General appearance: Present: mild distress - EENT Eyes: Present: PERRLA Ears: bilateral: normal - Neck Neck: Present: normal ROM - Respiratory Respiratory: bilateral: rhonchi, wheezing - Cardiovascular Rhythm: regular - Gastrointestinal General gastrointestinal: Present: soft - Integumentary Integumentary: Present: normal - Neurologic Neurologic: Present: CNII-XII intact - Musculoskeletal Musculoskeletal: Present: generalized weakness - Psychiatric Psychiatric: Present: A&O x's 3, appropriate affect, intact judgment & insight ( VQ scan indeterminate) - Labs CBC & Chem 7: 12/09/18 04:03 12/09/18 04:03 Labs: Abnormal Lab Results - Last 24 Hours (Table) 12/09/18 12/09/18 12/10/18 Range/Units 16:54 20:58 07:00 POC Glucose (mg/dL) 168 H 140 H 146 H (75-99) mg/dL 12/10/18 Range/Units 11:14 POC Glucose (mg/dL) 145 H (75-99) mg/dL Assessment and Plan Plan: Assessment Acute exacerbation of COPD severe Pneumonia right lower lobe Epistaxis Hypothyroidism Plan Continue consultation with pulmonology on Levaquin and steroids Consultation with ENT regarding epistaxis and oral lesion
--- NOTE | 2018-12-10 12:57 | P.PN ---
<Elsi Drake M - Last Filed: 12/10/18 12:53> Subjective Progress Note Date: 12/10/18 Principal diagnosis: Acute COPD exacerbation, possible right lower lobe pneumonia 67-year-old female patient with known history of severe COPD with a baseline FEV1 of 46% of predicted and addition to chronic hypoxic respiratory failure maintained on oxygen at 2 L per minute nasal cannula comes into the hospital because of increased dyspnea cough chest congestion and chest tightness and wheezing typically of an underlying COPD exacerbation. In the year 2017, the patient was hospitalized twice for the same. She comes in for a similar presentation. No fever. No chills. She is a smoker. She has been experiencing progressive limitation excess capacity because of her increased COPD. D-dimer was slightly elevated and based on that the patient was sent for a VQ scan that do not to be of an intermediate probability. Nevertheless, the patient has no significant history of DVT or pulmonary embolism. There was evidence of radiotracer clumping on the ventilation portion and this was suggestive of COPD Pulmonary embolism. On 12/10/2018 patient seen in follow-up. Still quite congested and bronchospastic. Short of breath. Pulse ox is 91% on 2 L, afebrile. Minimal improvement since yesterday. Patient is on empiric antibiotics, IV steroids, nebulized bronchodilators. Objective - Vital Signs Vital signs: Vital Signs Temp 98.1 F 12/10/18 11:53 Pulse 106 H 12/10/18 11:53 Resp 22 12/10/18 11:53 BP 122/81 12/10/18 11:53 Pulse Ox 91 L 12/10/18 11:53 Intake & Output 12/09/18 12/10/18 12/10/18 18:59 06:59 18:59 Intake Total 1320 Balance 1320 Intake: Intake, IV Titration 240 Amount Sodium Chloride 0.9% 1, 240 000 ml @ 20 mls/hr IV . Q24H [facility] Rx#:[id number] Oral 1080 Other: Voiding Method Bedside Commode Bedside Commode Bedside Commode # Voids 1 2 - Exam GENERAL EXAM: Alert, pleasant, 68-year-old comfortable in no apparent distress. HEAD: Normocephalic/atraumatic. EYES: Normal reaction of pupils, equal size. Conjunctiva pink, sclera white. NOSE: Clear with pink turbinates. THROAT: No erythema or exudates. NECK: No masses, no JVD, no thyroid enlargement, no adenopathy. CHEST: No chest wall deformity. Symmetrical expansion. LUNGS: Equal air entry with diffuse wheezes, and rhonchi CVS: Regular rate and rhythm, normal S1 and S2, no gallops, no murmurs, no rubs ABDOMEN: Soft, nontender. No hepatosplenomegaly, normal bowel sounds, no guarding or rigidity. EXTREMITIES: No clubbing, no edema, no cyanosis, 2+ pulses and upper and lower extremities. MUSCULOSKELETAL: Muscle strength and tone normal. SPINE: No scoliosis or deformity SKIN: No rashes CENTRAL NERVOUS SYSTEM: Alert and oriented -3. No focal deficits, tone is normal in all 4 extremities. PSYCHIATRIC: Alert and oriented -3. Appropriate affect. Intact judgment and insight. - Labs CBC & Chem 7: 12/09/18 04:03 12/09/18 04:03 Labs: Abnormal Lab Results - Last 24 Hours (Table) 12/09/18 12/09/18 12/10/18 Range/Units 16:54 20:58 07:00 POC Glucose (mg/dL) 168 H 140 H 146 H (75-99) mg/dL 12/10/18 Range/Units 11:14 POC Glucose (mg/dL) 145 H (75-99) mg/dL Assessment and Plan Plan: 1 acute COPD exacerbation, possible right lower lobe pneumonia based on the chest x-ray findings. The patient is having excessive congestion along with cough shortness of breath chest that is no wheezing and a presentation is consistent with COPD exacerbation and possible right lower lobe pneumonia. 2 severe COPD, with a based on FEV1 of 46% of predicted 3 chronic hypoxic respiratory failure 4 chronic smoker 5 hypothyroidism 6 chronic anxiety 7 recent hospitalization for a left femur fracture, post left hip arthroplasty back in July 2018 8 hypothyroidism Plan: Continue with current medical treatment, nebulized bronchodilators, IV steroids , Levaquin. Sputum for culture. Remains bronchospastic and congested. Not ready for discharge I performed a history & physical examination of the patient and discussed their management with my nurse practitioner, Elsi Drake. I reviewed the nurse practitioner's note and agree with the documented findings and plan of care. Lung sounds are positive for diffuse wheezes and rhonchi. The findings and the impression was discussed with the patient. I attest to the documentation by the nurse practitioner. Time with Patient: Less than 30 <Sarah Corbett - Last Filed: 12/10/18 19:47> Objective - Vital Signs Vital signs: Vital Signs Temp 98.1 F 12/10/18 11:53 Pulse 94 12/10/18 16:47 Resp 18 12/10/18 16:47 BP 122/81 12/10/18 11:53 Pulse Ox 94 L 12/10/18 16:35 Intake & Output 12/10/18 12/10/18 12/11/18 06:59 18:59 06:59 Intake Total 1320 160 Balance 1320 160 Intake: Intake, IV Titration 240 160 Amount Sodium Chloride 0.9% 1, 240 160 000 ml @ 20 mls/hr IV . Q24H [facility] Rx#:[id number] Oral 1080 Other: Voiding Method Bedside Commode Bedside Commode # Voids 2 2 - Labs CBC & Chem 7: 12/09/18 04:03 12/09/18 04:03 Labs: Abnormal Lab Results - Last 24 Hours (Table) 12/09/18 12/10/18 12/10/18 Range/Units 20:58 07:00 11:14 POC Glucose (mg/dL) 140 H 146 H 145 H (75-99) mg/dL 12/10/18 Range/Units 17:12 POC Glucose (mg/dL) 108 H (75-99) mg/dL
[2018-12-10 16:49] LABS: Hemoglobin A1C 5.4 % (4.0-6.0)
[2018-12-10 17:13] LABS: Glucose,Whole Blood 108 mg/dL (75-99)
[2018-12-10 20:36] LABS: Glucose,Whole Blood 124 mg/dL (75-99)
[2018-12-10] MEDS: traZODone HCL 50 MG TAB PO SCH (22:15)
[2018-12-11] MEDS: LEVOTHYROXINE 112 MCG TAB PO SCH (05:43)
[2018-12-11] MEDS: methylPREDNISolone SOD SUCCI 125 MG/2 ML VIAL IV SCH ×3 (05:43→17:54)
[2018-12-11 07:03] LABS: Glucose,Whole Blood 139 mg/dL (75-99)
[2018-12-11] MEDS: IPRATROPIUM-ALBUTEROL 3 ML NEB INHALATION PRN ×4 (07:29→19:07)
[2018-12-11] MEDS: BUDESONIDE 0.5 MG/2 ML NEBU INHALATION SCH ×2 (07:29→18:53)
[2018-12-11] MEDS: IPRATROPIUM 0.5 MG/2.5 ML NEBU INHALATION SCH ×4 (07:29→19:08)
[2018-12-11] MEDS: ENOXAPARIN 40 MG/0.4 ML SYRINGE SQ SCH (08:20)
[2018-12-11] MEDS: INSULIN ASPART 100 UNIT/ML 1 ML 10 ML VIAL SQ SCH ×4 (08:20→22:02)
[2018-12-11] MEDS: NICOTINE 14MG/24HR PATCH TRANSDERM SCH (08:20)
[2018-12-11] MEDS: HYDROcodone/APAP 10-325MG 1 EACH TAB PO PRN ×3 (08:21→22:04)
[2018-12-11] MEDS: MECLIZINE 25 MG TAB PO SCH ×3 (08:21→22:04)
[2018-12-11] MEDS: LEVOFLOXACIN 750 MG TAB PO SCH (08:22)
[2018-12-11] MEDS: GABAPENTIN 300 MG CAP PO SCH ×3 (08:22→22:04)
[2018-12-11] MEDS: CITALOPRAM HYDROBROMIDE 20 MG TAB PO SCH (08:23)
[2018-12-11] MEDS: CYCLOBENZAPRINE 10 MG TAB PO SCH ×3 (08:23→22:04)
[2018-12-11] MEDS: LORATADINE 10 MG TAB PO SCH (08:23)
[2018-12-11] MEDS: SODIUM CHLORIDE 0.9% 1,000 ML IV SCH (08:42)
--- NOTE | 2018-12-11 11:17 | P.PN ---
Subjective Patient resting in bed talkative noted to be improved continues with all pulmonology consultation Objective - Vital Signs Vital signs: Vital Signs Temp 97.4 F L 12/11/18 05:00 Pulse 72 12/11/18 07:47 Resp 18 12/11/18 05:00 BP 131/79 12/11/18 05:00 Pulse Ox 97 12/11/18 07:30 Intake & Output 12/10/18 12/11/18 12/11/18 18:59 06:59 18:59 Intake Total 160 1800 Balance 160 1800 Intake: Intake, IV Titration 160 240 Amount Sodium Chloride 0.9% 1, 160 240 000 ml @ 20 mls/hr IV . Q24H [facility] Rx#:[id number] Oral 1560 Other: Voiding Method Bedside Commode Bedside Commode Bedside Commode # Voids 2 3 - Constitutional General appearance: Present: mild distress - EENT Eyes: Present: PERRLA Ears: bilateral: normal - Neck Neck: Present: normal ROM - Respiratory Respiratory: bilateral: diminished - Cardiovascular Rhythm: regular - Gastrointestinal General gastrointestinal: Present: soft - Integumentary Integumentary: Present: normal - Neurologic Neurologic: Present: CNII-XII intact - Musculoskeletal Musculoskeletal: Present: generalized weakness - Psychiatric Psychiatric: Present: A&O x's 3, appropriate affect, intact judgment & insight - Labs CBC & Chem 7: 12/09/18 04:03 12/09/18 04:03 Labs: Abnormal Lab Results - Last 24 Hours (Table) 12/10/18 12/10/18 12/10/18 Range/Units 11:14 17:12 20:35 POC Glucose (mg/dL) 145 H 108 H 124 H (75-99) mg/dL 12/11/18 Range/Units 06:59 POC Glucose (mg/dL) 139 H (75-99) mg/dL Microbiology - Last 24 Hours (Table) 12/10/18 21:00 Gram Stain - Preliminary Sputum Assessment and Plan Plan: Assessment Acute acute exacerbation of COPD severe Pneumonia right lower lobe Nicotine use Hypothyroidism Plan Continue consultation with pulmonology on Levaquin and steroids with bronchodilators Consults ENT for epistaxis
[2018-12-11 12:34] LABS: Glucose,Whole Blood 87 mg/dL (75-99)
[2018-12-11] MEDS: CLOTRIMAZOLE TROCHE 10 MG TROCHE MUCOUS MEM SCH ×4 (14:59→23:06)
[2018-12-11 17:06] LABS: Glucose,Whole Blood 104 mg/dL (75-99)
--- NOTE | 2018-12-11 19:12 | P.PN ---
Subjective Progress Note Date: 12/11/18 Today's evaluation of 12/11/2018, the patient is being seen in follow-up regarding her acute COPD exacerbation. As mentioned earlier, the patient has developed chronic respiratory failure due to advanced COPD and the patient carries an FEV1 of 46% of predicted. She is in oxygen at 2 L per minute nasal cannula on outpatient basis. She comes in with typical features of acute COPD exacerbation with acute vocal spasm or wheezing. Have been treating this patient with a combination of bronchodilators as and steroids. Overall, she is doing better. No chest pain. No altered mentation. No hemoptysis. No pleurisy. Still utilizing the same bronchodilators regimen. The patient remains on IV Solu-Medrol. Clinically is improving. She is less short of breath compared to yesterday. The sputum culture has been sent and the results are still pending for now. Objective - Vital Signs Vital signs: Vital Signs Temp 98.2 F 12/11/18 13:00 Pulse 74 12/11/18 19:05 Resp 16 12/11/18 13:00 BP 128/73 12/11/18 13:00 Pulse Ox 95 12/11/18 18:54 Intake & Output 12/11/18 12/11/18 12/12/18 06:59 18:59 06:59 Intake Total 1800 760 Balance 1800 760 Intake: Intake, IV Titration 240 160 Amount Sodium Chloride 0.9% 1, 240 160 000 ml @ 20 mls/hr IV . Q24H [facility] Rx#:[id number] Oral 1560 600 Other: Voiding Method Bedside Commode Bedside Commode # Voids 3 3 - Exam Appearance, comfortable likely distress comfortable in no apparent distress. HEAD: Normocephalic/atraumatic. EYES: Normal reaction of pupils, equal size. Conjunctiva pink, sclera white. NOSE: Clear with pink turbinates. THROAT: No erythema or exudates. NECK: No masses, no JVD, no thyroid enlargement, no adenopathy. CHEST: No chest wall deformity. Symmetrical expansion. Diminished breath sounds bilaterally along with scattered expiratory wheezes throughout the lung kwok. LUNGS: Equal air entry with no crackles, there is extensive expiratory wheeze, rhonchi or dullness. CVS: Regular rate and rhythm, normal S1 and S2, no gallops, no murmurs, no rubs ABDOMEN: Soft, nontender. No hepatosplenomegaly, normal bowel sounds, no guarding or rigidity. EXTREMITIES: No clubbing, no edema, no cyanosis, 2+ pulses and upper and lower extremities. MUSCULOSKELETAL: Muscle strength and tone normal. There is tenderness with palpation over left hip area. No calf tenderness, distal pulses are intact. SPINE: No scoliosis or deformity SKIN: No rashes CENTRAL NERVOUS SYSTEM: Alert and oriented -3. No focal deficits, tone is normal in all 4 extremities. PSYCHIATRIC: Alert and oriented -3. Appropriate affect. Intact judgment and insight. - Labs CBC & Chem 7: 12/09/18 04:03 12/09/18 04:03 Labs: Abnormal Lab Results - Last 24 Hours (Table) 12/10/18 12/11/18 12/11/18 Range/Units 20:35 06:59 17:05 POC Glucose (mg/dL) 124 H 139 H 104 H (75-99) mg/dL Microbiology - Last 24 Hours (Table) 12/10/18 21:00 Gram Stain - Preliminary Sputum Assessment and Plan Plan: Assessment 1 acute COPD exacerbation, possible right lower lobe pneumonia based on the chest x-ray findings. She continues to receive a combination of bronchodilators and steroids and the patient is showing slow but steady improvement. She is less short of breath compared to yesterday. Woke acute same regimen for another 24 hours. 2 severe COPD, with a based on FEV1 of 46% of predicted 3 chronic hypoxic respiratory failure 4 chronic smoker 5 hypothyroidism 6 chronic anxiety 7 recent hospitalization for a left femur fracture, post left hip arthroplasty back in July 2018 8 hypothyroidism Plan Continue same treatment. Continue oral Levaquin. Continue IV Solu-Medrol. Continue DuoNeb neb assumes [id number]. Continue Perforomist and Pulmicort overestimates twice a day. Ambulate this patient the hallway. Smoking cessation counseling was done. We'll continue to follow.
[2018-12-11 21:46] LABS: Glucose,Whole Blood 173 mg/dL (75-99)
[2018-12-11] MEDS: traZODone HCL 50 MG TAB PO SCH (22:04)
[2018-12-12] MEDS: methylPREDNISolone SOD SUCCI 125 MG/2 ML VIAL IV SCH ×4 (00:03→19:01)
--- NOTE | 2018-12-12 01:53 | CONS ---
CONSULTATION DATE OF CONSULTATION: 12/11/2018. REASON FOR CONSULTATION: Epistaxis and oral lesion. CONSULTING DOCTOR: Dr. Eddie Whitley. HISTORY OF PRESENT ILLNESS: This patient was admitted on 12/09/2018 via the emergency room with complaints of severe shortness of breath and intermittent nose bleeds. The patient is on supplemental oxygen and has recently has noted that she has had to turn the oxygen up. She has a history of severe COPD and continues to smoke 1/2 to 1 pack of cigarettes per day. She notes that whenever she has to turn the O2 concentration to a higher level that she has nosebleeds, although she admits that she has had intermittent nosebleeds most of her life. She denies a sore throat or difficulty swallowing or any referred otalgia. PAST MEDICAL HISTORY: Past medical history reveals she has: ALLERGIES: TO ASPIRIN, IBUPROFEN, MOST NSAIDS, PENICILLIN, AND LATEX. SOCIAL HISTORY: She smokes 1/2 to 1 pack cigarettes per day. Has a history of severe COPD. MEDICATIONS: Current medications include albuterol, Mucinex, Diflucan, Ventolin, FHA, Claritin, Antivert, Synthroid, [place] 10/325, trazodone, gabapentin, Flexeril and Celexa. The patient noted that she has had oral lesions in the past, which initially she has treated at home by using Mycostatin rinse orally. REVIEW OF SYSTEMS: Review of systems is positive with respect to the respiratory system and the patient is known to have severe COPD/emphysema. Metabolic, endocrine system is positive for hypothyroidism. Musculoskeletal is positive osteoarthritis. Remainder of the review of systems is essentially unremarkable. PHYSICAL EXAM: Patient is a 68-year-old female who looks somewhat older than her stated age. She is in no acute distress at this time. Since her admission to the hospital, there is not any evidence of any nosebleeds. She is currently on supplemental oxygen. HEENT: Patient is normocephalic. Tympanic membranes are normal. Intranasal examination does not reveal any evidence of active bleeding sites. Nasal cannulas are present. Examination of oropharynx reveals that the patient has a lesion on the posterior pharyngeal wall which appears to be somewhat ulcerated. It is difficult to tell whether this is an actual lesion or there is a scab covering the lesion. It does not have the appearance of an obvious dried blood clot. Palpation of the lesion lightly with a cotton-tipped applicator does not elicit any movement of the area which would be expected if it was a scab or there was a blood clot. Palpation of the neck is negative for neck masses or lymphadenopathy. Cranial nerves 2 through 12 and remainder of the head and neck exam is unremarkable. Chest/cardiovascular both lung kwok are clear except for some slight wheezing at the base, but mostly the lung sounds are quite distant. There is no obvious rales or rhonchi. The patient is in regular sinus rhythm. S1 and S2 are present without evidence of any murmurs. Peripheral pulses are bilaterally symmetrical and the remainder of physical exam is unremarkable. IMPRESSION: 1. Epistaxis, I do not feel that this is the issue at this time. I explained to the patient that unfortunately her at-home oxygen set up in the past has not had any type of humidification and that this would be a good idea. In addition to this, I advised her that during the times when she is not using the oxygen, which she states happens quite frequently, it should be safe for her to use a small amount of Vaseline intranasally. I advised her against using any type of saline nasal spray as this is more drying to the nasal passages. She states that her primary care doctor/Pulmonary physician is going to be ordering equipment that includes a humidifier bottle on the on the O2 saturation. 2. Suspicious lesion of the oropharynx. Because of this patient has history of heavy smoking, certainly this lesion needs to be further evaluated. Unfortunately, this cannot be done in this hospital setting and would be best done in my office at which point, I could scope the patient and get a better idea whether it is a lesion that needs to actually be biopsied or not. I did caution the patient with respect to the fact that she certainly should consider quitting smoking as this will definitely slow down the progression of her chronic obstructive pulmonary disease. However, my impression is that she at this point is not seriously interested in quitting, although she states that she is willing to try the patch but simply cannot afford it. She recently changed insurance companies and hopes that this will pay for the nicotine patch. Because the patient states that she has tried nystatin oral rinse/swish and swallow at home and this has helped with lesions. At this point, I feel no harm could be done by simply having her on this. Unfortunately, the hospital does not stock nystatin instead they Mycelex throat lozenges which will use 5 times a day. I have advised the nurses that I would like for them to call my office and get an appointment, this is not urgent, so that I may see her in the office at that time, scope or make a decision whether or not the area on the posterior pharynx is still present or whether or not it needs to be biopsied. Certainly if this is a suspicious lesion, i.e. early malignancy, it has been there for quite some point. I want to take the opportunity to thank you for allowing me to assist in the care of your patient. If I can be of any further assistance, please feel free to call my office. MMODL / IJN: [id number] /
[2018-12-12] MEDS: CLOTRIMAZOLE TROCHE 10 MG TROCHE MUCOUS MEM SCH ×5 (04:32→22:36)
[2018-12-12] MEDS: LEVOTHYROXINE 112 MCG TAB PO SCH (06:08)
[2018-12-12 07:10] LABS: Glucose,Whole Blood 124 mg/dL (75-99)
[2018-12-12] MEDS: IPRATROPIUM 0.5 MG/2.5 ML NEBU INHALATION SCH ×4 (08:54→20:19)
[2018-12-12] MEDS: BUDESONIDE 0.5 MG/2 ML NEBU INHALATION SCH ×2 (08:54→20:19)
[2018-12-12] MEDS: CITALOPRAM HYDROBROMIDE 20 MG TAB PO SCH (09:13)
[2018-12-12] MEDS: GABAPENTIN 300 MG CAP PO SCH ×3 (09:14→20:54)
[2018-12-12] MEDS: CYCLOBENZAPRINE 10 MG TAB PO SCH ×3 (09:14→20:54)
[2018-12-12] MEDS: ENOXAPARIN 40 MG/0.4 ML SYRINGE SQ SCH (09:14)
[2018-12-12] MEDS: LORATADINE 10 MG TAB PO SCH (09:15)
[2018-12-12] MEDS: MECLIZINE 25 MG TAB PO SCH ×3 (09:15→20:54)
[2018-12-12] MEDS: LEVOFLOXACIN 750 MG TAB PO SCH (09:15)
[2018-12-12] MEDS: guaiFENesin 600 MG TABLET.ER PO SCH ×2 (09:16→20:53)
[2018-12-12] MEDS: NICOTINE 14MG/24HR PATCH TRANSDERM SCH (09:16)
[2018-12-12] MEDS: INSULIN ASPART 100 UNIT/ML 1 ML 10 ML VIAL SQ SCH ×4 (09:21→21:00)
[2018-12-12] MEDS: SODIUM CHLORIDE 0.9% 1,000 ML IV SCH (10:16)
[2018-12-12 11:04] LABS: Glucose,Whole Blood 122 mg/dL (75-99)
--- NOTE | 2018-12-12 12:30 | P.PN ---
Subjective Improvement noted and patient condition. Had consultation with of ENT regarding epistaxis and oral lesion. Continues consultation with pulmonology Objective - Vital Signs Vital signs: Vital Signs Temp 96.3 F L 12/12/18 11:20 Pulse 80 12/12/18 11:20 Resp 17 12/12/18 11:20 BP 104/59 12/12/18 11:20 Pulse Ox 97 12/12/18 04:47 Intake & Output 12/11/18 12/12/18 12/12/18 18:59 06:59 18:59 Intake Total 760 550 Balance 760 550 Intake: Intake, IV Titration 160 Amount Sodium Chloride 0.9% 1, 160 000 ml @ 20 mls/hr IV . Q24H [facility] Rx#:[id number] Oral 600 550 Other: Voiding Method Bedside Commode Bedside Commode Bedside Commode # Voids 3 1 - Constitutional General appearance: Present: mild distress - EENT Eyes: Present: PERRLA Ears: bilateral: normal - Neck Neck: Present: normal ROM - Respiratory Respiratory: left: wheezing, bilateral: diminished - Cardiovascular Rhythm: regular - Gastrointestinal General gastrointestinal: Present: soft - Integumentary Integumentary: Present: normal - Neurologic Neurologic: Present: CNII-XII intact - Musculoskeletal Musculoskeletal: Present: generalized weakness - Psychiatric Psychiatric: Present: A&O x's 3, appropriate affect, intact judgment & insight - Labs CBC & Chem 7: 12/09/18 04:03 12/09/18 04:03 Labs: Abnormal Lab Results - Last 24 Hours (Table) 12/11/18 12/11/18 12/12/18 Range/Units 17:05 21:44 07:09 POC Glucose (mg/dL) 104 H 173 H 124 H (75-99) mg/dL 12/12/18 Range/Units 11:03 POC Glucose (mg/dL) 122 H (75-99) mg/dL Microbiology - Last 24 Hours (Table) 12/10/18 21:00 Gram Stain - Preliminary Sputum - Imaging and Cardiology Chest x-ray: report reviewed Assessment and Plan Plan: Assessment Acute exacerbation of COPD severe Pneumonia right lower lobe Gait dysfunction History of hip fracture Hypothyroidism Epistaxis Oral lesion Plan Continue consultation with pulmonology Outpatient evaluation with Dr. Whitley for oral lesion
--- NOTE | 2018-12-12 15:15 | P.PN ---
Subjective Progress Note Date: 12/12/18 Principal diagnosis: Acute exacerbation of chronic obstructive pulmonary disease and suspected right lower lobe pneumonia. Patient is seen today 12/12/2018 in follow-up on the regular medical floor. She is currently sitting up bedside having lunch. She is awake and alert in no acute distress. She denies any worsening shortness of breath, cough or congestion. She is improved today as compared to yesterday but still not quite back to her baseline. He is maintaining good O2 saturations in the 90s on 4 L/ m per nasal cannula. She's afebrile. Hemodynamically stable. Sputum culture is positive for moderate gram-positive cocci and appears in chains. ID and susceptibility in progress. She is currently on Levaquin. She remains on DuoNeb inhalations, Pulmicort and Perforomist inhalations, IV Solu-Medrol. Objective - Vital Signs Vital signs: Vital Signs Temp 96.3 F L 12/12/18 11:20 Pulse 80 12/12/18 11:20 Resp 17 12/12/18 11:20 BP 104/59 12/12/18 11:20 Pulse Ox 97 12/12/18 04:47 Intake & Output 12/11/18 12/12/18 12/12/18 18:59 06:59 18:59 Intake Total 760 550 760 Balance 760 550 760 Intake: Intake, IV Titration 160 160 Amount Sodium Chloride 0.9% 1, 160 160 000 ml @ 20 mls/hr IV . Q24H [facility] Rx#:[id number] Oral 600 550 600 Other: Voiding Method Bedside Commode Bedside Commode Bedside Commode # Voids 3 1 2 - Exam General appearance, awake alert in no acute distress. On 4 L nasal cannula. HEAD: Normocephalic/atraumatic. EYES: Normal reaction of pupils, equal size. Conjunctiva pink, sclera white. NOSE: Clear with pink turbinates. THROAT: No erythema or exudates. NECK: No masses, no JVD, no thyroid enlargement, no adenopathy. CHEST: No chest wall deformity. Symmetrical expansion. Diminished breath sounds bilaterally along with scattered expiratory wheezes throughout the lung kwok. LUNGS: Equal air entry with no crackles, there is extensive expiratory wheeze, rhonchi or dullness. CVS: Regular rate and rhythm, normal S1 and S2, no gallops, no murmurs, no rubs ABDOMEN: Soft, nontender. No hepatosplenomegaly, normal bowel sounds, no guarding or rigidity. EXTREMITIES: No clubbing, no edema, no cyanosis, 2+ pulses and upper and lower extremities. MUSCULOSKELETAL: Muscle strength and tone normal. There is tenderness with palpation over left hip area. No calf tenderness, distal pulses are intact. SPINE: No scoliosis or deformity SKIN: No rashes CENTRAL NERVOUS SYSTEM: Alert and oriented -3. No focal deficits, tone is normal in all 4 extremities. PSYCHIATRIC: Appropriate affect. Intact judgment and insight - Labs CBC & Chem 7: 12/09/18 04:03 12/09/18 04:03 Labs: Abnormal Lab Results - Last 24 Hours (Table) 12/11/18 12/11/18 12/12/18 Range/Units 17:05 21:44 07:09 POC Glucose (mg/dL) 104 H 173 H 124 H (75-99) mg/dL 12/12/18 Range/Units 11:03 POC Glucose (mg/dL) 122 H (75-99) mg/dL Microbiology - Last 24 Hours (Table) 12/10/18 21:00 Gram Stain - Preliminary Sputum Sputum Culture - Preliminary Assessment and Plan Assessment: Assessment 1 acute COPD exacerbation, possible right lower lobe pneumonia based on the chest x-ray findings. She continues to receive a combination of bronchodilators and steroids and the patient is showing slow but steady improvement. She is less short of breath compared to yesterday. 2 severe COPD, with a based on FEV1 of 46% of predicted 3 chronic hypoxic respiratory failure 4 chronic smoker 5 hypothyroidism 6 chronic anxiety 7 recent hospitalization for a left femur fracture, post left hip arthroplasty back in July 2018 8 hypothyroidism Plan The patient was seen and evaluated by Dr. Corbett. She is improved today compared to yesterday. Not quite back to her baseline. We'll continue with her current treatment plan. Possible discharge in the a.m. Increase her activity as tolerated. She is again educated regarding the importance of complete smoking cessation. We will continue to follow. I, the cosigning physician, performed a history & physical examination of the patient. Lungs sounds with bilateral end expiratory wheeze, few scattered rhonchi Maintaining good O2 saturations in the 90s on 4 L/m per nasal cannula. I discussed the assessment and plan of care with my nurse practitioner, Cristina Epsinosa. I attest to the above note as dictated by her.
[2018-12-12] MEDS: HYDROcodone/APAP 10-325MG 1 EACH TAB PO PRN (15:46)
[2018-12-12] MEDS: IPRATROPIUM-ALBUTEROL 3 ML NEB INHALATION PRN ×2 (16:45→20:19)
[2018-12-12 17:20] LABS: Glucose,Whole Blood 109 mg/dL (75-99)
[2018-12-12 20:53] LABS: Glucose,Whole Blood 125 mg/dL (75-99)
[2018-12-12] MEDS: traZODone HCL 50 MG TAB PO SCH (20:53)
[2018-12-13] MEDS: methylPREDNISolone SOD SUCCI 125 MG/2 ML VIAL IV SCH ×3 (00:39→12:40)
[2018-12-13] MEDS: CLOTRIMAZOLE TROCHE 10 MG TROCHE MUCOUS MEM SCH ×2 (00:41→10:30)
[2018-12-13] MEDS: LEVOTHYROXINE 112 MCG TAB PO SCH (06:01)
[2018-12-13 07:15] LABS: Glucose,Whole Blood 111 mg/dL (75-99)
[2018-12-13] MEDS: IPRATROPIUM 0.5 MG/2.5 ML NEBU INHALATION SCH ×2 (07:18→15:48)
[2018-12-13] MEDS: BUDESONIDE 0.5 MG/2 ML NEBU INHALATION SCH (07:18)
[2018-12-13 07:40] VITALS: RESP 18
[2018-12-13] MEDS: INSULIN ASPART 100 UNIT/ML 1 ML 10 ML VIAL SQ SCH ×2 (09:47→12:49)
[2018-12-13] MEDS: NICOTINE 14MG/24HR PATCH TRANSDERM SCH (09:47)
[2018-12-13] MEDS: GABAPENTIN 300 MG CAP PO SCH (09:48)
[2018-12-13] MEDS: CYCLOBENZAPRINE 10 MG TAB PO SCH ×2 (09:48→14:30)
[2018-12-13] MEDS: CITALOPRAM HYDROBROMIDE 20 MG TAB PO SCH (09:48)
[2018-12-13] MEDS: ENOXAPARIN 40 MG/0.4 ML SYRINGE SQ SCH (09:48)
[2018-12-13] MEDS: guaiFENesin 600 MG TABLET.ER PO SCH (09:49)
[2018-12-13] MEDS: LORATADINE 10 MG TAB PO SCH (09:49)
[2018-12-13] MEDS: MECLIZINE 25 MG TAB PO SCH (09:49)
[2018-12-13] MEDS: LEVOFLOXACIN 750 MG TAB PO SCH (09:49)
[2018-12-13] MEDS: IPRATROPIUM-ALBUTEROL 3 ML NEB INHALATION PRN ×2 (11:03→15:22)
--- NOTE | 2018-12-13 11:13 | P.DS ---
Providers Date of admission: 12/10/18 08:03 Attending physician: Seferino Dorman Consults: 12/09/18 06:57 Consult Physician Routine Consulting Provider: Geoffrey Sanches Consult Reason/Comments: COPD exacerbation Do you want consulting provider notified?: Yes 12/10/18 11:48 Consult Physician Urgent Consulting Provider: Eddie Whitley Consult Reason/Comments: epistaxis mouth lesion Do you want consulting provider notified?: Yes Primary care physician: Seferino Dorman Hospital Course: Final Diagnoses: Acute exacerbation of COPD severe Pneumonia right lower lobe Chronic hypoxic respiratory failure, respiratory liters nasal cannula at home Recent left femur fracture, status post arthroplasty Hypothyroidism Oral lesion of oral pharynx, further follow-up outpatient with ENT. History of nicotine abuse. Hospital course: This a 68-year-old female admitted with acute exacerbation of COPD, suspected right lower lobe pneumonia, and multiple other medical issues. Maintained on nebulized bronchodilators, steroids, antibiotics. Evaluated by pulmonary, ENT. Maintaining O2 sats in the 90s on 4 L nasal cannula, in a patient with chronic hypoxic respiratory failure who wears 4 L nasal cannula O2 at home. Sputum culture reporting moderate gram-positive cocci in pairs and chains. Significant clinical improvement. Patient is being discharged home in a stable condition with guarded prognosis pending final sputum ID and susceptibility, pulmonary clearance. - Exam General: Alert and oriented 3, no acute distress LUNGS: Equal air entry, Bilaterally diminished with no crackles,scattered fine expiratory wheezes CV: Regular rate and rhythm, normal S1 and S2, no gallops, no murmurs, no rubs ABDOMEN: Soft, nontender. Positive bowel sounds, no guarding or rigidity. NEURO: No focal deficits Microbiology 12/10/18 21:00 Sputum Gram Stain - Preliminary 12/10/18 21:00 Sputum Sputum Culture - Preliminary EXAM: The impression and plan of care has been dictated as directed. : I performed a history and examination of this patient, discussed the same with the dictator. I agree with the dictator's note ,documented as a scribe. Any additional findings or plans will be noted. Time taken: 35 minute Patient Condition at Discharge: Stable Plan - Discharge Summary Discharge Rx Participant: Yes New Discharge Prescriptions: New Nicotine 14Mg/24Hr Patch [Habitrol] 1 patch TRANSDERM Q24H #30 patch predniSONE 10 mg PO DIRECTED #30 tab Levofloxacin [Levaquin] 750 mg PO DAILY #5 tab Continue Loratadine [Claritin] 10 mg PO DAILY Cyclobenzaprine [Flexeril] 10 mg PO TID Meclizine [Antivert] 25 mg PO TID Levothyroxine Sodium [Synthroid] 112 mcg PO DAILY Gabapentin 300 mg PO TID Hydrocodone/Acetaminophen [[place] 10-325] 1 tab PO QID PRN PRN Reason: Pain Citalopram Hydrobromide [CeleXA] 20 mg PO QAM Albuterol Nebulized [Ventolin Nebulized] 2.5 mg INHALATION RT-Q6H guaiFENesin [Mucinex] 600 mg PO BID Fluconazole [Diflucan] 100 mg PO DAILY PRN PRN Reason: YEAST INFECTION Albuterol Inhaler [Ventolin Hfa Inhaler] 2 puff INHALATION RT-Q6H PRN PRN Reason: Shortness Of Breath traZODone HCL [Desyrel] 50 mg PO HS No Action metroNIDAZOLE [Flagyl] 500 mg PO BID Discharge Medication List Cyclobenzaprine [Flexeril] 10 mg PO TID 01/21/17 [History] Levothyroxine Sodium [Synthroid] 112 mcg PO DAILY 01/21/17 [History] Loratadine [Claritin] 10 mg PO DAILY 01/21/17 [History] Meclizine [Antivert] 25 mg PO TID 01/21/17 [History] Gabapentin 300 mg PO TID 01/22/17 [History] Citalopram Hydrobromide [CeleXA] 20 mg PO QAM 07/28/18 [History] Hydrocodone/Acetaminophen [[place] 10-325] 1 tab PO QID PRN 07/28/18 [History] Albuterol Inhaler [Ventolin Hfa Inhaler] 2 puff INHALATION RT-Q6H PRN 12/09/18 [ History] Albuterol Nebulized [Ventolin Nebulized] 2.5 mg INHALATION RT-Q6H 12/09/18 [ History] Fluconazole [Diflucan] 100 mg PO DAILY PRN 12/09/18 [History] guaiFENesin [Mucinex] 600 mg PO BID 12/09/18 [History] metroNIDAZOLE [Flagyl] 500 mg PO BID 12/09/18 [History] traZODone HCL [Desyrel] 50 mg PO HS 02/04/19 [History] Levofloxacin [Levaquin] 750 mg PO DAILY #5 tab 12/13/18 [Rx] Nicotine 14Mg/24Hr Patch [Habitrol] 1 patch TRANSDERM Q24H #30 patch 12/13/18 [ Rx] predniSONE 10 mg PO DIRECTED #30 tab 12/13/18 [Rx] Follow up Appointment(s)/Referral(s): Seferino Dorman MD [Primary Care Provider] - 12/18/18 1:40 pm Eddie Whitley MD [STAFF PHYSICIAN] - 2 Weeks (office is closed on fridays , patient can call and schedule own appt.) Sarah Corbett MD [STAFF PHYSICIAN] - 2 Weeks [facility] Visiting Nurse, [NON-STAFF] - 1-2 Days Ambulatory/Diagnostic Orders: Complete Blood Count w/diff [LAB.AMB] Time Frame: 3 Days, Location: None Selected Patient Instructions/Handouts: How to Stop Smoking (DC), COPD (Chronic Obstructive Pulmonary Disease) (DC) Activity/Diet/Wound Care/Special Instructions: Pending final ID/sensitivities of the sputum culture ,DC recommendations and clearance from pulmonary 4 L nasal cannula O2, patient has a home Diet: Cardiac Activity: Limited until follow up
[2018-12-13 11:31] VITALS: BP 121/66; TEMP 97.9
[2018-12-13 11:41] LABS: Glucose,Whole Blood 132 mg/dL (75-99)
[2018-12-13] MEDS: SODIUM CHLORIDE 0.9% 1,000 ML IV SCH (12:42)
[2018-12-13] MEDS: HYDROcodone/APAP 10-325MG 1 EACH TAB PO PRN (14:30)
[2018-12-13 15:36] VITALS: PULSE 70
--- NOTE | 2018-12-13 16:00 | P.PN ---
Subjective Progress Note Date: 12/13/18 Principal diagnosis: Acute exacerbation of chronic obstructive pulmonary disease and suspected right lower lobe pneumonia. Patient is seen today 12/12/2018 in follow-up on the regular medical floor. She is currently sitting up bedside having lunch. She is awake and alert in no acute distress. She denies any worsening shortness of breath, cough or congestion. She is improved today as compared to yesterday but still not quite back to her baseline. He is maintaining good O2 saturations in the 90s on 4 L/ m per nasal cannula. She's afebrile. Hemodynamically stable. Sputum culture is positive for moderate gram-positive cocci and appears in chains. ID and susceptibility in progress. She is currently on Levaquin. She remains on DuoNeb inhalations, Pulmicort and Perforomist inhalations, IV Solu-Medrol. Patient is seen today 12/13/2017 in follow-up on the regular medical floor. She is awake and alert in no acute distress. Maintaining good O2 saturations in the 90s on 2 L/m per nasal cannula. She's been afebrile. Hemodynamically stable. The preliminary sputum culture revealed moderate gram-positive cocci in pairs and chains. Final ID and sensitivity pending. Currently on Levaquin 750 mg daily. Remains on bronchodilators, Pulmicort, IV Solu-Medrol, Mucinex. Objective - Vital Signs Vital signs: Vital Signs Temp 97.9 F 12/13/18 11:29 Pulse 70 12/13/18 15:32 Resp 18 12/13/18 11:29 BP 121/66 12/13/18 11:29 Pulse Ox 92 L 12/13/18 05:00 Intake & Output 12/12/18 12/13/18 12/13/18 18:59 06:59 18:59 Intake Total 760 780 Balance 760 780 Intake: Intake, IV Titration 160 0 Amount Sodium Chloride 0.9% 1, 160 0 000 ml @ 20 mls/hr IV . Q24H [facility] Rx#:[id number] Oral 600 780 Other: Voiding Method Bedside Commode Bedside Commode Bedside Commode # Voids 2 2 - Exam General appearance, awake alert in no acute distress. On 2 L nasal cannula. HEAD: Normocephalic/atraumatic. EYES: Normal reaction of pupils, equal size. Conjunctiva pink, sclera white. NOSE: Clear with pink turbinates. THROAT: No erythema or exudates. NECK: No masses, no JVD, no thyroid enlargement, no adenopathy. CHEST: No chest wall deformity. Symmetrical expansion. Diminished breath sounds bilaterally along with scattered expiratory wheezes throughout the lung kwok. LUNGS: Equal air entry with no crackles, there is extensive expiratory wheeze, rhonchi or dullness. CVS: Regular rate and rhythm, normal S1 and S2, no gallops, no murmurs, no rubs ABDOMEN: Soft, nontender. No hepatosplenomegaly, normal bowel sounds, no guarding or rigidity. EXTREMITIES: No clubbing, no edema, no cyanosis, 2+ pulses and upper and lower extremities. MUSCULOSKELETAL: Muscle strength and tone normal. There is tenderness with palpation over left hip area. No calf tenderness, distal pulses are intact. SPINE: No scoliosis or deformity SKIN: No rashes CENTRAL NERVOUS SYSTEM: Alert and oriented -3. No focal deficits, tone is normal in all 4 extremities. PSYCHIATRIC: Appropriate affect. Intact judgment and insight - Labs CBC & Chem 7: 12/09/18 04:03 12/09/18 04:03 Labs: Abnormal Lab Results - Last 24 Hours (Table) 12/12/18 12/12/18 12/13/18 Range/Units 17:18 20:51 07:14 POC Glucose (mg/dL) 109 H 125 H 111 H (75-99) mg/dL 12/13/18 Range/Units 11:39 POC Glucose (mg/dL) 132 H (75-99) mg/dL Microbiology - Last 24 Hours (Table) 12/10/18 21:00 Gram Stain - Preliminary Sputum Sputum Culture - Preliminary Assessment and Plan Assessment: Assessment 1 acute COPD exacerbation, possible right lower lobe pneumonia based on the chest x-ray findings. She continues to receive a combination of bronchodilators and steroids and the patient is showing slow but steady improvement. She is less short of breath compared to yesterday. 2 severe COPD, with a based on FEV1 of 46% of predicted 3 chronic hypoxic respiratory failure 4 chronic smoker 5 hypothyroidism 6 chronic anxiety 7 recent hospitalization for a left femur fracture, post left hip arthroplasty back in July 2018 8 hypothyroidism Plan The patient was seen and evaluated by Dr. Corbett. She is cleared for discharge from the pulmonary standpoint. Complete her course of Levaquin. Complete a prednisone burst and taper. Continue bronchodilators. She should follow-up in our office in 1-2 weeks' time. She is encouraged to call sooner with any recurrence of symptoms or other questions or concerns. She is again educated regarding the importance of complete smoking cessation. I, the cosigning physician, performed a history & physical examination of the patient. Lungs sounds with bilateral end expiratory wheeze, few scattered rhonchi. Maintaining good O2 saturations in the 90s on 2 L/m per nasal cannula. I discussed the assessment and plan of care with my nurse practitioner , Cristina Espinosa. I attest to the above note as dictated by her.
== END 2018-12-13 16:35 | disposition home health service (06) | DRG 190 ==
LOC: EC 02:44 → 3NMEDONC 06:58 → OBSVTOIN 12-10 08:03 → 3NMEDONC 12-12 07:30
PROVIDERS: ADMIT Family Medicine; ATTEND Family Medicine
DX: J44.1 Chronic obstructive pulmonary disease with (acute) exacerbation (principal); J18.9 Pneumonia, unspecified organism; J96.11 Chronic respiratory failure with hypoxia; J44.0 Chronic obstructive pulmonary disease with (acute) lower respiratory infection; E03.9 Hypothyroidism, unspecified; F17.210 Nicotine dependence, cigarettes, uncomplicated; F41.9 Anxiety disorder, unspecified; R04.0 Epistaxis; R26.9 Unspecified abnormalities of gait and mobility; K13.70 Unspecified lesions of oral mucosa; M19.90 Unspecified osteoarthritis, unspecified site; Z79.890 Hormone replacement therapy; Z79.899 Other long term (current) drug therapy; Z88.0 Allergy status to penicillin; Z88.6 Allergy status to analgesic agent; Z91.040 Latex allergy status; Z99.81 Dependence on supplemental oxygen; Z96.642 Presence of left artificial hip joint; Z90.710 Acquired absence of both cervix and uterus; Z87.81 Personal history of (healed) traumatic fracture; Z80.8 Family history of malignant neoplasm of other organs or systems
CPT/HCPCS: 36415; 71046; 78582; 80053; 82550; 82553; 83036; 83605; 83880; 84484; 85025; 85379; 85610; 85730; 87070; 87205; 93005; 94640; 94760; 99285

== ENCOUNTER 2019-04-01 05:23 | Emergency (ER) | payer MEDICARE ==
[2019-04-01] MEDS ORDERED: SODIUM CHLORIDE 0.9% 1,000 ML IV STA (05:36)
[2019-04-01 05:46] LABS: Basophils # (A) 0.1 k/uL (0-0.2); Basophils % (A) 1 %; Eosinophils # (A) 0.7 k/uL (0-0.7); Eosinophils % (A) 5 %; HCT 53.6 % (34.0-46.0); HGB 17.7 gm/dL (11.4-16.0); Lymphocytes # (A) 3.5 k/uL (1.0-4.8); Lymphocytes % (A) 27 %; MCH 30.7 pg (25.0-35.0); MCHC 32.9 g/dL (31.0-37.0); MCV 93.1 fL (80.0-100.0); Mean Platelet Volume 7.3; Monocytes # (A) 0.5 k/uL (0-1.0); Monocytes % (A) 4 %; Neutrophils # (A) 7.8 k/uL (1.3-7.7); Neutrophils % (A) 61 %; Platelet Count 306 k/uL (150-450); RBC 5.76 m/uL (3.80-5.40); RDW 15.1 % (11.5-15.5); WBC 12.8 k/uL (3.8-10.6)
--- NOTE | 2019-04-01 05:49 | ED ---
Fall HPI - General Chief Complaint: Fall Stated Complaint: Fall Time Seen by Provider: 04/01/19 05:35 Source: EMS, RN notes reviewed, old records reviewed, Caregiver (Daughter) Mode of arrival: EMS - History of Present Illness Initial Comments: This is a 68-year-old female the ER status post fall, no blood thinners. Patient had no episodes of syncope, denies any chest pain or shortness of breath. Patient was getting out of bed, fell on her right side hitting her right shoulder right hip and byrd. No again loss of consciousness. Patient did not get up or turn and went at the time is demonstrated to move her. Patient comes in the ER complaining of again the above right-sided pain. MD Complaint: fall -: hour(s) Fall From: standing When Fall Occurred: 1-3 hours TREASURY CONSULTANT Fall Witnessed: yes, by family Place Fall Occurred: home Loss of Consciousness: none Prolonged Down Time?: no Symptoms Prior to Fall: none Location: head, face Location - Extremities: Right: Shoulder, Thigh Severity: moderate Severity scale (1-10): 3 Quality: aching Context: tripped/slipped Associated Symptoms: denies - Related Data Home Medications Medication Instructions Recorded Confirmed Cyclobenzaprine [Flexeril] 10 mg PO TID 01/21/17 12/09/18 Levothyroxine Sodium [Synthroid] 112 mcg PO DAILY 01/21/17 12/09/18 Loratadine [Claritin] 10 mg PO DAILY 01/21/17 12/09/18 Meclizine [Antivert] 25 mg PO TID 01/21/17 12/09/18 Gabapentin 300 mg PO TID 01/22/17 12/09/18 Citalopram Hydrobromide [CeleXA] 20 mg PO QAM 07/28/18 12/09/18 Hydrocodone/Acetaminophen [[place] 1 tab PO QID PRN 07/28/18 12/09/18 10-325] Albuterol Inhaler [Ventolin Hfa 2 puff INHALATION RT-Q6H PRN 12/09/18 12/09/18 Inhaler] Albuterol Nebulized [Ventolin 2.5 mg INHALATION RT-Q6H 12/09/18 12/09/18 Nebulized] Fluconazole [Diflucan] 100 mg PO DAILY PRN 12/09/18 12/09/18 guaiFENesin [Mucinex] 600 mg PO BID 12/09/18 12/09/18 metroNIDAZOLE [Flagyl] 500 mg PO BID 12/09/18 12/09/18 traZODone HCL [Desyrel] 50 mg PO HS 12/09/18 12/09/18 Previous Rx's Medication Instructions Recorded Levofloxacin [Levaquin] 750 mg PO DAILY #5 tab 12/13/18 Nicotine 14Mg/24Hr Patch [Habitrol] 1 patch TRANSDERM Q24H #30 patch 12/13/18 predniSONE 10 mg PO DIRECTED #30 tab 12/13/18 Nitrofurantoin Monohyd/M-Cryst 100 mg PO Q12HR #14 cap 04/01/19 [Macrobid] Allergies Allergy/AdvReac Type Severity Reaction Status Date / Time aspirin Allergy Unknown Verified 04/01/19 05:31 ibuprofen Allergy Anaphylaxis Verified 04/01/19 05:31 latex Allergy Rash/Hives Verified 04/01/19 05:31 Penicillins Allergy Unknown Verified 04/01/19 05:31 Review of Systems ROS Statement: Those systems with pertinent positive or pertinent negative responses have been documented in the HPI. ROS Other: All systems not noted in ROS Statement are negative. Past Medical History Past Medical History: COPD, Thyroid Disorder Additional Past Medical History / Comment(s): Degenerative bone disease, vertigo History of Any Multi-Drug Resistant Organisms: None Reported Past Surgical History: Cholecystectomy, Hysterectomy, Orthopedic Surgery Additional Past Surgical History / Comment(s): right knee surgery 2014, left shoulder 2007 Past Anesthesia/Blood Transfusion Reactions: No Reported Reaction Past Psychological History: Anxiety Smoking Status: Current every day smoker Past Alcohol Use History: None Reported Past Drug Use History: None Reported - Past Family History Mother Family Medical History: Cancer Additional Family Medical History / Comment(s): skin cancer General Exam Limitations: no limitations General appearance: alert, in no apparent distress Head exam: Present: atraumatic, normocephalic, normal inspection Eye exam: Present: normal appearance, PERRL, EOMI. Absent: scleral icterus, conjunctival injection, periorbital swelling ENT exam: Present: normal exam, mucous membranes moist Neck exam: Present: normal inspection. Absent: tenderness, meningismus, lymphadenopathy Respiratory exam: Present: normal lung sounds bilaterally. Absent: respiratory distress, wheezes, rales, rhonchi, stridor Cardiovascular Exam: Present: regular rate, normal rhythm, normal heart sounds. Absent: systolic murmur, diastolic murmur, rubs, gallop, clicks GI/Abdominal exam: Present: soft, normal bowel sounds. Absent: distended, tenderness, guarding, rebound, rigid Extremities exam: Present: normal inspection, full ROM, normal capillary refill. Absent: tenderness, pedal edema, joint swelling, calf tenderness Back exam: Present: normal inspection Neurological exam: Present: alert, oriented X3, CN II-XII intact Psychiatric exam: Present: normal affect, normal mood Skin exam: Present: warm, dry, intact, normal color. Absent: rash Course Vital Signs 04/01/19 04/01/19 04/01/19 05:26 06:32 08:33 Temperature 97.6 F 98 F Pulse Rate 91 90 82 Respiratory 16 20 18 Rate Blood Pressure 91/63 113/75 104/61 O2 Sat by Pulse 90 L 91 L 97 Oximetry - Reevaluation(s) Reevaluation #1: Medical records reviewed Patient is ambulatory Medical Decision Making - Medical Decision Making 68 female the ER status post fall, no acute injury found from fall. Patient does have UTI of chronic intermittent weakness leading to fall. Patient given hydration and antibiotics able to cannulate currently and can be discharged home - Lab Data Result diagrams: 04/01/19 05:35 04/01/19 05:35 Lab Results 04/01/19 04/01/19 04/01/19 Range/Units 05:35 05:35 05:35 WBC 12.8 H (3.8-10.6) k/uL RBC 5.76 H (3.80-5.40) m/uL Hgb 17.7 H (11.4-16.0) gm/dL Hct 53.6 H (34.0-46.0) % MCV 93.1 (80.0-100.0) fL MCH 30.7 (25.0-35.0) pg MCHC 32.9 (31.0-37.0) g/dL RDW 15.1 (11.5-15.5) % Plt Count 306 (150-450) k/uL Neutrophils % 61 % Lymphocytes % 27 % Monocytes % 4 % Eosinophils % 5 % Basophils % 1 % Neutrophils # 7.8 H (1.3-7.7) k/uL Lymphocytes # 3.5 (1.0-4.8) k/uL Monocytes # 0.5 (0-1.0) k/uL Eosinophils # 0.7 (0-0.7) k/uL Basophils # 0.1 (0-0.2) k/uL PT (9.0-12.0) sec INR (<1.2) APTT (22.0-30.0) sec Sodium 138 (137-145) mmol/L Potassium 4.2 (3.5-5.1) mmol/L Chloride 106 (98-107) mmol/L Carbon Dioxide 21 L (22-30) mmol/L Anion Gap 11 mmol/L BUN 15 (7-17) mg/dL Creatinine 0.86 (0.52-1.04) mg/dL Est GFR (CKD-EPI)AfAm 80 (>60 ml/min/1.73 sqM) Est GFR (CKD-EPI)NonAf 69 (>60 ml/min/1.73 sqM) Glucose 127 H (74-99) mg/dL Plasma Lactic Acid Demetrius 1.2 (0.7-2.0) mmol/L Calcium 10.1 (8.4-10.2) mg/dL Phosphorus 4.4 (2.5-4.5) mg/dL Magnesium 2.1 (1.6-2.3) mg/dL Total Bilirubin 0.7 (0.2-1.3) mg/dL AST 25 (14-36) U/L ALT 26 (9-52) U/L Alkaline Phosphatase 119 (38-126) U/L Troponin I (0.000-0.034) ng/mL Total Protein 6.9 (6.3-8.2) g/dL Albumin 4.3 (3.5-5.0) g/dL TSH 0.544 (0.465-4.680) mIU/L Urine Color Urine Appearance (Clear) Urine pH (5.0-8.0) Ur Specific [place] (1.001-1.035) Urine Protein (Negative) Urine Glucose (UA) (Negative) Urine Ketones (Negative) Urine Blood (Negative) Urine Nitrite (Negative) Urine Bilirubin (Negative) Urine Urobilinogen (<2.0) mg/dL Ur Leukocyte Esterase (Negative) Urine RBC (0-5) /hpf Urine WBC (0-5) /hpf Ur Squamous Epith Cells (0-4) /hpf Hyaline Casts (0-2) /lpf Urine Mucus (None) /hpf 04/01/19 04/01/19 04/01/19 Range/Units 05:35 05:35 06:15 WBC (3.8-10.6) k/uL RBC (3.80-5.40) m/uL Hgb (11.4-16.0) gm/dL Hct (34.0-46.0) % MCV (80.0-100.0) fL MCH (25.0-35.0) pg MCHC (31.0-37.0) g/dL RDW (11.5-15.5) % Plt Count (150-450) k/uL Neutrophils % % Lymphocytes % % Monocytes % % Eosinophils % % Basophils % % Neutrophils # (1.3-7.7) k/uL Lymphocytes # (1.0-4.8) k/uL Monocytes # (0-1.0) k/uL Eosinophils # (0-0.7) k/uL Basophils # (0-0.2) k/uL PT 9.9 (9.0-12.0) sec INR 0.9 (<1.2) APTT 23.7 (22.0-30.0) sec Sodium (137-145) mmol/L Potassium (3.5-5.1) mmol/L Chloride (98-107) mmol/L Carbon Dioxide (22-30) mmol/L Anion Gap mmol/L BUN (7-17) mg/dL Creatinine (0.52-1.04) mg/dL Est GFR (CKD-EPI)AfAm (>60 ml/min/1.73 sqM) Est GFR (CKD-EPI)NonAf (>60 ml/min/1.73 sqM) Glucose (74-99) mg/dL Plasma Lactic Acid Demetrius (0.7-2.0) mmol/L Calcium (8.4-10.2) mg/dL Phosphorus (2.5-4.5) mg/dL Magnesium (1.6-2.3) mg/dL Total Bilirubin (0.2-1.3) mg/dL AST (14-36) U/L ALT (9-52) U/L Alkaline Phosphatase (38-126) U/L Troponin I <0.012 (0.000-0.034) ng/mL Total Protein (6.3-8.2) g/dL Albumin (3.5-5.0) g/dL TSH (0.465-4.680) mIU/L Urine Color Dark Yellow Urine Appearance Cloudy H (Clear) Urine pH 5.0 (5.0-8.0) Ur Specific [place] 1.033 (1.001-1.035) Urine Protein 1+ H (Negative) Urine Glucose (UA) Negative (Negative) Urine Ketones 1+ H (Negative) Urine Blood Negative (Negative) Urine Nitrite Negative (Negative) Urine Bilirubin 1+ H (Negative) Urine Urobilinogen 6.0 (<2.0) mg/dL Ur Leukocyte Esterase Large H (Negative) Urine RBC 14 H (0-5) /hpf Urine WBC >182 H (0-5) /hpf Ur Squamous Epith Cells 4 (0-4) /hpf Hyaline Casts 504 H (0-2) /lpf Urine Mucus Moderate H (None) /hpf - EKG Data -: EKG Interpreted by Me (EKG shows sinus rhythm at 91, VA 146, QRS 78, QTc 499) - Radiology Data Radiology results: report reviewed (CT brain C-spine negative for traumatic injury, x-ray chest pelvis right shoulder right hip negative for traumatic injury), image reviewed Disposition Clinical Impression: Fall, UTI (urinary tract infection) Disposition: HOME SELF-CARE Condition: Good Instructions (If sedation given, give patient instructions): Urinary Tract Infection in Women (ED), Fall Prevention for Older Adults (ED) Prescriptions: Nitrofurantoin Monohyd/M-Cryst [Macrobid] 100 mg PO Q12HR #14 cap Is patient prescribed a controlled substance at d/c from ED?: No Referrals: Seferino Dorman MD [Primary Care Provider] - 1-2 days
[2019-04-01 05:54] LABS: Albumin 4.3 g/dL (3.5-5.0); Calcium 10.1 mg/dL (8.4-10.2); Magnesium 2.1 mg/dL (1.6-2.3); Phosphorus 4.4 mg/dL (2.5-4.5); Potassium 4.2 mmol/L (3.5-5.1); Total Bilirubin 0.7 mg/dL (0.2-1.3); Total Protein 6.9 g/dL (6.3-8.2)
[2019-04-01 05:55] LABS: INR 0.9 (<1.2); Partial Thromboplastin Time 23.7 sec (22.0-30.0); Prothrombin Time 9.9 sec (9.0-12.0)
--- NOTE | 2019-04-01 06:31 | XR ---
EXAM: XR Right Hip With Pelvis When Performed, 1 View CLINICAL HISTORY: Pain TECHNIQUE: Frontal view of the right hip, with pelvis when performed. COMPARISON: 12-09-18 FINDINGS: Bones/joints: Osteopenia. No fracture. No dislocation. Soft tissues: Unremarkable. Other findings: Calcific lesion is suspected over right hemipelvis IMPRESSION: No fracture
--- NOTE | 2019-04-01 06:32 | XR ---
EXAM: XR Chest, 1 View CLINICAL HISTORY: ITS.REASON XR Reason: Weakness TECHNIQUE: Frontal view of the chest. COMPARISON: 12/09/18 FINDINGS: Lungs: Unremarkable. No consolidation. Pleural space: Unremarkable. No pneumothorax. Heart: Unremarkable. No cardiomegaly. Mediastinum: Unremarkable. Bones/joints: Fixation hardware of left humerus are partially visualized. Osteopenia IMPRESSION: No acute findings.
--- NOTE | 2019-04-01 06:33 | CT ---
EXAM: CT Maxillofacial Without Intravenous Contrast CLINICAL HISTORY: Pain after fall TECHNIQUE: Axial computed tomography images of the face without intravenous contrast. CTDI is 7.9 mGy and DLP is 2 42.1 mGy-cm. This CT exam was performed using one or more of the following dose reduction techniques: automated exposure control, adjustment of the mA and/or kV according to patient size, and/or use of iterative reconstruction technique. Coronal reconstruction was performed. 340 images received COMPARISON: No relevant prior studies available. FINDINGS: Bones/joints: No fracture. Soft tissues: Unremarkable. Orbits: Unremarkable. Sinuses: Unremarkable. No air-fluid levels. IMPRESSION: No fracture
--- NOTE | 2019-04-01 06:36 | CT ---
EXAM: CT Head Without Intravenous Contrast CLINICAL HISTORY: Pain after fall TECHNIQUE: Axial computed tomography images of the head/brain without intravenous contrast. DLP is 1006.3 mGy-cm. This CT exam was performed using one or more of the following dose reduction techniques: automated exposure control, adjustment of the mA and/or kV according to patient size, and/or use of iterative reconstruction technique.. Coronal and sagittal reconstructions are performed. 667 images received COMPARISON: No relevant prior studies available. FINDINGS: Brain: Unremarkable. No hemorrhage. No significant white matter disease. No edema. Ventricles: Unremarkable. No ventriculomegaly. Bones/joints: Unremarkable. No acute fracture. Soft tissues: Unremarkable. Sinuses: Unremarkable as visualized. No acute sinusitis. Mastoid air cells: Unremarkable as visualized. No mastoid effusion. Left cataract surgery IMPRESSION: No intracranial hemorrhage or skull fracture EXAM: CT Cervical Spine Without Intravenous Contrast CLINICAL HISTORY: Pain after fall TECHNIQUE: Axial computed tomography images of the cervical spine without intravenous contrast. DLP is 1006.3 mGy-cm. This CT exam was performed using one or more of the following dose reduction techniques: automated exposure control, adjustment of the mA and/or kV according to patient size, and/or use of iterative reconstruction technique. Coronal and sagittal reconstructions are performed. 667 images received along with head CT COMPARISON: No relevant prior studies available. FINDINGS: Vertebrae: Osteopenia. No acute fracture. Discs/spinal canal/neural foramina: Moderate degenerative disc disease No spinal canal stenosis. Soft tissues: Unremarkable. Orbits: Bilateral cataract surgeries. Pulmonary emphysema. IMPRESSION: No acute findings.
[2019-04-01 06:44] LABS: Appearance,Urine Cloudy (Clear); Bilirubin,Urine 1+ (Negative); Blood,Urine Negative (Negative); Color,Urine Dark Yellow; Glucose,Urine (UA) Negative (Negative); Hyaline Casts,Urine 504 /lpf (0-2); Ketones,Urine 1+ (Negative); Leukocyte Esterase,Urine Large (Negative); Mucus,Urine Moderate /hpf; Nitrite,Urine Negative (Negative); Protein,Urine 1+ (Negative); RBC,Urine 14 /hpf (0-5); Specific Gravity,Urine 1.033 (1.001-1.035); Squamous Epithelial Cell,Urine 4 /hpf (0-4); WBC,Urine >182 /hpf (0-5)
[2019-04-01 08:34] VITALS: BP 104/61; PULSE 82; RESP 18; TEMP 98
== END 2019-04-01 08:36 | disposition home or self-care (01) ==
LOC: EC 05:23
DX: N39.0 Urinary tract infection, site not specified (principal); R53.1 Weakness; M25.511 Pain in right shoulder; M25.551 Pain in right hip; J44.9 Chronic obstructive pulmonary disease, unspecified; E07.9 Disorder of thyroid, unspecified; F41.9 Anxiety disorder, unspecified; F17.200 Nicotine dependence, unspecified, uncomplicated; Z79.890 Hormone replacement therapy; Z79.899 Other long term (current) drug therapy; Z88.6 Allergy status to analgesic agent; Z88.0 Allergy status to penicillin; Z91.040 Latex allergy status; W01.10XA Fall on same level from slipping, tripping and stumbling with subsequent striking against unspecified object, initial encounter
CPT/HCPCS: 36415; 93005; 80053; 83605; 83735; 84100; 84443; 84484; 85025; 85610; 85730; 81001; 87086; 73502; 71045; 72125; 70486; 70450; 99285; 96365; 96361; J0696

== ENCOUNTER → 2019-05-27 | Outpatient (CLI) | payer MEDICARE ==
--- NOTE | 2019-05-27 16:16 | US ---
EXAMINATION TYPE: US carotid duplex BILAT DATE OF EXAM: 05/27/2019 COMPARISON: NONE CLINICAL HISTORY: 68-year-old female R55 SYNCOPE AND COLLAPSE. Patient has been passing out TECHNIQUE: Carotid duplex ultrasound examination. Indirect Doppler criteria was utilized. FINDINGS: EXAM MEASUREMENTS: RIGHT: Peak Systolic Velocity (PSV) cm/sec ----- Right CCA: 66.3 ----- Right ICA: 110.8 ----- Right ECA: 99.5 ICA/CCA ratio: 1.7 RIGHT: End Diastole cm/sec ----- Right CCA: 16.9 ----- Right ICA: 26.8 ----- Right ECA: 12.3 LEFT: Peak Systolic Velocity (PSV) cm/sec ----- Left CCA: 62.2 ----- Left ICA: 79.8 ----- Left ECA: 75.4 ICA/CCA ratio: 1.3 LEFT: End Diastole cm/sec ----- Left CCA: 17.1 ----- Left ICA: 23.7 ----- Left ECA: 10.6 VERTEBRALS (direction of flow): Right Vertebral: Antegrade Left Vertebral: Antegrade Rhythm: Normal Obstetrics Gyn notes: Moderate amount of plaque visualized bilaterally. No elevated velocities, no signi ficant stenosis. IMPRESSION: Mild to moderate atherosclerotic changes at both bifurcations but without hemodynamically significant stenosis appreciated in either internal carotid artery. Criteria for Assigning % of Stenosis / Diameter reduction (Estimation based on the indirect measurements of the internal carotid artery velocities (ICA PSV). 1. Normal (no stenosis)=ICA PSV < 125 cm/s: ratio < 2.0: ICA EDV<40 cm/s. 2. Less than 50% stenosis=ICA PSV < 125 cm/s: ratio < 2.0: ICA EDV<40 cm/s. 3. 50 to 69% stenosis=ICA PSV of 125 to 230 cm/s: ration 2.0 ? 4.0: ICA EDV 40-100 cm/s. 4. Greater than 70% stenosis to near occlusion= ICA PSV > 230 cm/s: ratio > 4.0: ICA EDV > 100 cm/s. 5. Near occlusion= ICA PSV velocities may be low or undetectable: variable ratio and ICA EDV. 6. Total occlusion=unable to detect flow.
--- NOTE | 2019-05-27 16:22 | US ---
EXAMINATION TYPE: US thyroid st tissue head/neck DATE OF EXAM: 05/27/2019 COMPARISON: NONE CLINICAL HISTORY: 68-year-old female E04.1 SINGLE THYROID NODULE. Patient has been on thyroid medicat ion for 10 years. Dizziness and passing out TECHNIQUE: Multiple sonographic images of the thyroid gland are obtained. FINDINGS: GLAND SIZE: Right Lobe: 4.2 x 1.6 x 0.8 cm Overall Parenchyma: heterogenous Left Lobe: 3.0 x 0.6 x 0.8 cm Overall Parenchyma: heterogeneous Isthmus Thickness: 0.3 cm NODULES RIGHT: # of nodules measured on right: 0 LEFT: # of nodules measured on left: 0 ISTHMUS: # of nodules measured in the isthmus: 0 Bilateral neck scanned, no evidence of lymphadenopathy. IMPRESSION: Slight glandular heterogeneity without discrete nodule.
== END | disposition home or self-care (01) ==
LOC: RADUSWWP 15:27
PROVIDERS: ATTEND Family Medicine
DX: I65.23 Occlusion and stenosis of bilateral carotid arteries (principal); E07.89 Other specified disorders of thyroid
CPT/HCPCS: 76536; 93880

== ENCOUNTER 2019-10-07 15:15 | Inpatient (IN) | payer MEDICARE ==
[2019-10-07] MEDS ORDERED: SODIUM CHLORIDE 0.9% 500 ML 500 ML IV STA (15:36)
[2019-10-07] MEDS ORDERED: methylPREDNISolone SOD SUCCI 125 MG/2 ML VIAL IV STA (15:36)
[2019-10-07] MEDS ORDERED: ALBUTEROL NEBULIZED 2.5 MG/3 ML INHALATION STA (15:36)
[2019-10-07] MEDS ORDERED: IPRATROPIUM 0.5 MG/2.5 ML NEBU INHALATION STA (15:36)
--- NOTE | 2019-10-07 15:38 | ED ---
General Adult HPI - General Chief complaint: Shortness of Breath Stated complaint: SOB/fluid on lungs Time Seen by Provider: 10/07/19 15:20 Source: patient, RN notes reviewed, old records reviewed Mode of arrival: ambulatory Limitations: no limitations - History of Present Illness Initial comments: This is a 69-year-old female with past medical history significant for COPD. Patient states she's been smoking since she's been 10 and continues to smoke and sees no reason to quit. Patient states she is having difficulty breathing has been having that over the last few days it has gotten much worse per patient states she also is coughing but there is no sputum production. Patient denies any fever chills per patient denies any chest pain or palpitations. Patient denies any lightheadedness dizziness or near syncopal episode. Patient denies any abdominal pain. Patient has a swan to the legs or calf tenderness. - Related Data Home Medications Medication Instructions Recorded Confirmed Cyclobenzaprine [Flexeril] 10 mg PO TID 01/21/17 12/09/18 Levothyroxine Sodium [Synthroid] 112 mcg PO DAILY 01/21/17 12/09/18 Loratadine [Claritin] 10 mg PO DAILY 01/21/17 12/09/18 Meclizine [Antivert] 25 mg PO TID 01/21/17 12/09/18 Gabapentin 300 mg PO TID 01/22/17 12/09/18 Citalopram Hydrobromide [CeleXA] 20 mg PO QAM 07/28/18 12/09/18 Hydrocodone/Acetaminophen [[place] 1 tab PO QID PRN 07/28/18 12/09/18 10-325] Albuterol Inhaler [Ventolin Hfa 2 puff INHALATION RT-Q6H PRN 12/09/18 12/09/18 Inhaler] Albuterol Nebulized [Ventolin 2.5 mg INHALATION RT-Q6H 12/09/18 12/09/18 Nebulized] Fluconazole [Diflucan] 100 mg PO DAILY PRN 12/09/18 12/09/18 guaiFENesin [Mucinex] 600 mg PO BID 12/09/18 12/09/18 metroNIDAZOLE [Flagyl] 500 mg PO BID 12/09/18 12/09/18 traZODone HCL [Desyrel] 50 mg PO HS 12/09/18 12/09/18 Levothyroxine Sodium 100 mcg PO DAILY 10/07/19 10/07/19 traZODone HCL 100 mg PO HS PRN 10/07/19 10/07/19 Previous Rx's Medication Instructions Recorded Levofloxacin [Levaquin] 750 mg PO DAILY #5 tab 12/13/18 Nicotine 14Mg/24Hr Patch [Habitrol] 1 patch TRANSDERM Q24H #30 patch 12/13/18 predniSONE 10 mg PO DIRECTED #30 tab 12/13/18 Nitrofurantoin Monohyd/M-Cryst 100 mg PO Q12HR #14 cap 04/01/19 [Macrobid] Allergies Allergy/AdvReac Type Severity Reaction Status Date / Time aspirin Allergy Swelling Verified 10/07/19 18:10 ibuprofen Allergy Anaphylaxis Verified 10/07/19 18:10 latex Allergy Rash/Hives Verified 10/07/19 18:10 Penicillins AdvReac MAKES COPD Verified 10/07/19 18:10 WORSE Review of Systems ROS Statement: Those systems with pertinent positive or pertinent negative responses have been documented in the HPI. ROS Other: All systems not noted in ROS Statement are negative. Past Medical History Past Medical History: COPD, Thyroid Disorder Additional Past Medical History / Comment(s): Degenerative bone disease, vertigo History of Any Multi-Drug Resistant Organisms: None Reported Past Surgical History: Cholecystectomy, Hysterectomy, Orthopedic Surgery Additional Past Surgical History / Comment(s): right knee surgery 2014, left shoulder 2008 Past Anesthesia/Blood Transfusion Reactions: No Reported Reaction Past Psychological History: Anxiety Smoking Status: Current every day smoker Past Alcohol Use History: None Reported Past Drug Use History: None Reported - Past Family History Mother Family Medical History: Cancer Additional Family Medical History / Comment(s): skin cancer General Exam - General Exam Comments Initial Comments: GENERAL: Patient is well-developed and well-nourished. Patient is nontoxic and well- hydrated and is in mild distress. ENT: Neck is soft and supple. No significant lymphadenopathy is noted. Oropharynx is clear. Moist mucous membranes. Neck has full range of motion without eliciting any pain. EYES: The sclera were anicteric and conjunctiva were pink and moist. Extraocular movements were intact and pupils were equal round and reactive to light. Eyelids were unremarkable. PULMONARY: Patient has expiratory wheezing diffusely CARDIOVASCULAR: There is a regular rate and rhythm without any murmurs gallops or rubs. ABDOMEN: Soft and nontender with normal bowel sounds. SKIN: Skin is clear with no lesions or rashes and otherwise unremarkable. NEUROLOGIC: Patient is alert and oriented x3. Cranial nerves II through XII are grossly intact. Motor and sensory are also intact. Normal speech, volume and content. Symmetrical smile. MUSCULOSKELETAL: Normal extremities with adequate strength and full range of motion. No lower extremity swelling or edema. No calf tenderness. LYMPHATICS: No significant lymphadenopathy is noted PSYCHIATRIC: Normal psychiatric evaluation. Limitations: no limitations Course Vital Signs 10/07/19 10/07/19 10/07/19 15:18 15:41 16:00 Temperature 97.3 F L Pulse Rate 106 H 105 H Respiratory 25 H 22 24 Rate Blood Pressure 120/79 O2 Sat by Pulse 95 Oximetry 10/07/19 10/07/19 16:29 17:19 Temperature Pulse Rate 106 H 105 H Respiratory 22 22 Rate Blood Pressure O2 Sat by Pulse 93 L Oximetry Medical Decision Making - Medical Decision Making EKG shows sinus tachycardia at [address] interval is 138 QRS 72 QT interval 358 QTC is 464. Patient's EKG shows no ST segment elevation or depression or T wave abnormalities are noted. Her patient has a right lower lobe infiltrate. I'll start the patient on antibiotics in the emergency department. Spoke Dr. Dandy Dorman agreed to admit the patient admitted the patient I wrote admitting orders. - Lab Data Result diagrams: 10/07/19 15:40 10/07/19 15:40 Lab Results 10/07/19 10/07/19 10/07/19 Range/Units 15:40 15:40 15:40 WBC 16.1 H (3.8-10.6) k/uL RBC 5.20 (3.80-5.40) m/uL Hgb 16.3 H (11.4-16.0) gm/dL Hct 49.8 H (34.0-46.0) % MCV 95.7 (80.0-100.0) fL MCH 31.3 (25.0-35.0) pg MCHC 32.7 (31.0-37.0) g/dL RDW 12.9 (11.5-15.5) % Plt Count 407 (150-450) k/uL Neutrophils % 89 % Lymphocytes % 5 % Monocytes % 3 % Eosinophils % 2 % Basophils % 1 % Neutrophils # 14.3 H (1.3-7.7) k/uL Lymphocytes # 0.8 L (1.0-4.8) k/uL Monocytes # 0.5 (0-1.0) k/uL Eosinophils # 0.3 (0-0.7) k/uL Basophils # 0.1 (0-0.2) k/uL PT (9.0-12.0) sec INR (<1.2) APTT (22.0-30.0) sec Sodium 137 (137-145) mmol/L Potassium 4.8 (3.5-5.1) mmol/L Chloride 105 (98-107) mmol/L Carbon Dioxide 16 L (22-30) mmol/L Anion Gap 16 mmol/L BUN 24 H (7-17) mg/dL Creatinine 0.76 (0.52-1.04) mg/dL Est GFR (CKD-EPI)AfAm >90 (>60 ml/min/1.73 sqM) Est GFR (CKD-EPI)NonAf 80 (>60 ml/min/1.73 sqM) Glucose 128 H (74-99) mg/dL Calcium 10.0 (8.4-10.2) mg/dL Magnesium 2.0 (1.6-2.3) mg/dL Total Bilirubin 1.0 (0.2-1.3) mg/dL AST 21 (14-36) U/L ALT 14 (9-52) U/L Alkaline Phosphatase 144 H (38-126) U/L Troponin I <0.012 (0.000-0.034) ng/mL Total Protein 7.7 (6.3-8.2) g/dL Albumin 4.4 (3.5-5.0) g/dL 10/07/19 Range/Units 16:00 WBC (3.8-10.6) k/uL RBC (3.80-5.40) m/uL Hgb (11.4-16.0) gm/dL Hct (34.0-46.0) % MCV (80.0-100.0) fL MCH (25.0-35.0) pg MCHC (31.0-37.0) g/dL RDW (11.5-15.5) % Plt Count (150-450) k/uL Neutrophils % % Lymphocytes % % Monocytes % % Eosinophils % % Basophils % % Neutrophils # (1.3-7.7) k/uL Lymphocytes # (1.0-4.8) k/uL Monocytes # (0-1.0) k/uL Eosinophils # (0-0.7) k/uL Basophils # (0-0.2) k/uL PT 9.4 (9.0-12.0) sec INR 0.9 (<1.2) APTT 24.3 (22.0-30.0) sec Sodium (137-145) mmol/L Potassium (3.5-5.1) mmol/L Chloride (98-107) mmol/L Carbon Dioxide (22-30) mmol/L Anion Gap mmol/L BUN (7-17) mg/dL Creatinine (0.52-1.04) mg/dL Est GFR (CKD-EPI)AfAm (>60 ml/min/1.73 sqM) Est GFR (CKD-EPI)NonAf (>60 ml/min/1.73 sqM) Glucose (74-99) mg/dL Calcium (8.4-10.2) mg/dL Magnesium (1.6-2.3) mg/dL Total Bilirubin (0.2-1.3) mg/dL AST (14-36) U/L ALT (9-52) U/L Alkaline Phosphatase (38-126) U/L Troponin I (0.000-0.034) ng/mL Total Protein (6.3-8.2) g/dL Albumin (3.5-5.0) g/dL Disposition Clinical Impression: Acute exacerbation of chronic obstructive pulmonary disease, Pneumonia Disposition: ADMITTED IP TO THIS HOSP Referrals: Seferino Dorman MD [Primary Care Provider] - 1-2 days Time of Disposition: 18:20
[2019-10-07 15:51] LABS: Basophils # (A) 0.1 k/uL (0-0.2); Basophils % (A) 1 %; Eosinophils # (A) 0.3 k/uL (0-0.7); Eosinophils % (A) 2 %; HCT 49.8 % (34.0-46.0); HGB 16.3 gm/dL (11.4-16.0); Lymphocytes # (A) 0.8 k/uL (1.0-4.8); Lymphocytes % (A) 5 %; MCH 31.3 pg (25.0-35.0); MCHC 32.7 g/dL (31.0-37.0); MCV 95.7 fL (80.0-100.0); Mean Platelet Volume 6.9; Monocytes # (A) 0.5 k/uL (0-1.0); Monocytes % (A) 3 %; Neutrophils # (A) 14.3 k/uL (1.3-7.7); Neutrophils % (A) 89 %; Platelet Count 407 k/uL (150-450); RDW 12.9 % (11.5-15.5); WBC 16.1 k/uL (3.8-10.6)
[2019-10-07 16:01] LABS: ALT 14 U/L (9-52); AST 21 U/L (14-36); African American GFR (CKD) >90 (>60 ml/min/1.73 sqM); Albumin 4.4 g/dL (3.5-5.0); Alkaline Phosphatase 144 U/L (38-126); Anion Gap 16 mmol/L; Blood Urea Nitrogen 24 mg/dL (7-17); Carbon Dioxide 16 mmol/L (22-30); Chloride 105 mmol/L (98-107); Glucose 128 mg/dL (74-99); Non-African American GFR(CKD) 80 (>60 ml/min/1.73 sqM); Potassium 4.8 mmol/L (3.5-5.1); Sodium 137 mmol/L (137-145); Total Protein 7.7 g/dL (6.3-8.2)
[2019-10-07 16:24] LABS: INR 0.9 (<1.2); Partial Thromboplastin Time 24.3 sec (22.0-30.0); Prothrombin Time 9.4 sec (9.0-12.0)
[2019-10-07] MEDS ORDERED: MORPHINE SULFATE 2 MG/ML SYRINGE IVP STA (17:05)
--- NOTE | 2019-10-07 17:54 | XR ---
EXAMINATION TYPE: XR chest 2V DATE OF EXAM: 10/07/2019 COMPARISON: 03/24/2019 HISTORY: Short of breath TECHNIQUE: Frontal and lateral views of the chest are obtained. FINDINGS: There is some patchy mild infiltrate and atelectasis at the lung bases. This is worse on t he right side. Heart size is normal. There is no heart failure. There are chest leads. IMPRESSION: Increased infiltrate and atelectasis at the lung bases mainly on the right side compared to last exam. Normal heart.
[2019-10-07] MEDS ORDERED: cefTRIAXone IN SWFI 1,000 MG/10 ML SYRINGE IVP STA (18:00)
[2019-10-07] MEDS ORDERED: PNEUMONIA PROTOCOL UTILIZED 1 EACH MISC PO PRN (18:21)
[2019-10-07] MEDS ORDERED: AZITHROMYCIN 500 MG in SODIUM CHLORIDE 0.9% 250 ML IVPB STA (18:21)
[2019-10-07] MEDS ORDERED: ALBUTEROL NEBULIZED 2.5 MG/3 ML INHALATION PRN ×2 (22:48)
[2019-10-07] MEDS ORDERED: traZODone HCL 100 MG TAB PO PRN (22:48)
[2019-10-07] MEDS: HYDROcodone/APAP 10-325MG 1 EACH TAB PO PRN (23:10)
[2019-10-07] MEDS: MECLIZINE 25 MG TAB PO PRN (23:42)
[2019-10-07] MEDS: IPRATROPIUM-ALBUTEROL 3 ML NEB INHALATION PRN (23:55)
[2019-10-08] MEDS: methylPREDNISolone SOD SUCCI 125 MG/2 ML VIAL IV SCH ×5 (01:14→23:51)
[2019-10-08] MEDS: IPRATROPIUM-ALBUTEROL 3 ML NEB INHALATION PRN ×3 (03:48→11:47)
[2019-10-08] MEDS: LEVOTHYROXINE 100 MCG TAB PO SCH (06:01)
--- NOTE | 2019-10-08 08:16 | XR ---
EXAMINATION TYPE: XR chest 2V DATE OF EXAM: 10/08/2019 COMPARISON: 10/07/2019 HISTORY: Shortness of breath TECHNIQUE: Frontal and lateral views of the chest are obtained. FINDINGS: Scattered senescent parenchymal changes noted. Hyperinflation compatible with COPD. Basilar fibrotic changes noted. Increased density right lung base may reflect developing pneumonia. Correlate clinical ly. Heart size is stable. Mediastinal structures are stable and grossly unremarkable. No evidence for hilar prominence. Degenerative changes dorsal spine. IMPRESSION: 1. Basilar fibrotic changes noted. Increased density right lung base may reflect developing pneumonia . Correlate clinically.
[2019-10-08] MEDS: LORATADINE 10 MG TAB PO SCH (08:26)
[2019-10-08] MEDS: AZITHROMYCIN 500 MG TAB PO SCH (08:26)
[2019-10-08] MEDS: MECLIZINE 25 MG TAB PO PRN ×3 (09:00→21:34)
--- NOTE | 2019-10-08 11:52 | P.HPIM ---
History of Present Illness 69-year-old female presented emergency room with the increasing shortness of breath. Patient is a smoker and refusing to quit. Has home oxygen. Chronic COPD noted to have pneumonia in the emergency room patient has not felt well for 2 weeks Review of Systems Constitutional: Reports fatigue, Reports weakness Respiratory: Reports cough with sputum, Reports dyspnea Past Medical History Past Medical History: COPD, Thyroid Disorder Additional Past Medical History / Comment(s): Degenerative bone disease, vertigo, fibrocystic disease, neuropathy, diverticulitis, cervical CA (1980) and breast CA (1985) History of Any Multi-Drug Resistant Organisms: None Reported Past Surgical History: Cholecystectomy, Hysterectomy, Orthopedic Surgery Additional Past Surgical History / Comment(s): right knee surgery 2014, left shoulder 2007, left hip (2017) Past Anesthesia/Blood Transfusion Reactions: No Reported Reaction Additional Past Anesthesia/Blood Transfusion Reaction / Comment(s): pt states that she had a hard time waking up from anesthesia and cannot tolerate "adult dose" Past Psychological History: Anxiety, Depression Smoking Status: Current every day smoker Past Alcohol Use History: None Reported Past Drug Use History: None Reported - Past Family History Mother Family Medical History: Cancer Additional Family Medical History / Comment(s): skin cancer Medications and Allergies Home Medications Medication Instructions Recorded Confirmed Type Loratadine [Claritin] 10 mg PO DAILY 01/21/17 10/07/19 History Meclizine [Antivert] 25 mg PO TID 01/21/17 10/07/19 History Hydrocodone/Acetaminophen [[place] 1 tab PO QID 07/28/18 10/07/19 History 10-325] Albuterol Inhaler [Ventolin Hfa 2 puff INHALATION RT-Q6H PRN 12/09/18 10/07/19 History Inhaler] Albuterol Nebulized [Ventolin 2.5 mg INHALATION RT-QID PRN 12/09/18 10/07/19 History Nebulized] Levothyroxine Sodium 100 mcg PO DAILY 10/07/19 10/07/19 History traZODone HCL 100 mg PO HS PRN 10/07/19 10/07/19 History Allergies Allergy/AdvReac Type Severity Reaction Status Date / Time aspirin Allergy Swelling Verified 10/07/19 18:10 ibuprofen Allergy Anaphylaxis Verified 10/07/19 18:10 latex Allergy Rash/Hives Verified 10/07/19 18:10 Penicillins AdvReac MAKES COPD Verified 10/07/19 18:10 WORSE Physical Exam Vitals: Vital Signs Temp Pulse Pulse Resp BP BP Pulse Ox 10/08/19 08:30 92 10/08/19 08:20 88 10/08/19 05:41 97.6 F 98 19 118/76 94 L 10/08/19 03:48 92 10/08/19 00:08 108 H 10/07/19 23:57 108 H 10/07/19 21:05 98.2 F 102 H 17 111/69 92 L 10/07/19 19:00 97.4 F L 96 20 124/89 96 10/07/19 17:19 105 H 22 93 L 10/07/19 16:29 106 H 22 10/07/19 16:00 105 H 24 10/07/19 15:41 22 10/07/19 15:18 97.3 F L 106 H 25 H 120/79 95 Intake and Output 10/07/19 10/08/19 10/08/19 22:59 06:59 14:59 Intake Total 350 Balance 350 Intake: Intake, IV Titration 350 Amount Azithromycin 500 mg In 250 Sodium Chloride 0.9% 250 ml @ 250 mls/hr IVPB ONCE STA Rx#:[id number] cefTRIAXone 1 gm In 100 Sodium Chloride 0.9% 50 ml @ 100 mls/hr IVPB ONCE ONE Rx#:[id number] Other: Voiding Method Bedside Commode # Voids 1 Weight 53.524 kg 53.524 kg - Constitutional General appearance: mild distress - EENT Eyes: PERRLA Ears: bilateral: normal - Neck Neck: normal ROM - Respiratory Respiratory: bilateral: diminished, wheezing - Cardiovascular Rhythm: regular - Gastrointestinal General gastrointestinal: normal bowel sounds, soft - Integumentary Scaly rash to lower extremities Integumentary: normal, rash - Neurologic Neurologic: CNII-XII intact - Musculoskeletal Musculoskeletal: generalized weakness - Psychiatric Psychiatric: A&O x's 3, appropriate affect, intact judgment & insight Results CBC & Chem 7: 10/07/19 15:40 10/07/19 15:40 Labs: Abnormal Lab Results - Last 24 Hours (Table) 10/07/19 10/07/19 Range/Units 15:40 15:40 WBC 16.1 H (3.8-10.6) k/uL Hgb 16.3 H (11.4-16.0) gm/dL Hct 49.8 H (34.0-46.0) % Neutrophils # 14.3 H (1.3-7.7) k/uL Lymphocytes # 0.8 L (1.0-4.8) k/uL Carbon Dioxide 16 L (22-30) mmol/L BUN 24 H (7-17) mg/dL Glucose 128 H (74-99) mg/dL Alkaline Phosphatase 144 H (38-126) U/L Microbiology - Last 24 Hours (Table) 10/07/19 21:15 Gram Stain - Preliminary Sputum Sputum Culture - Preliminary Chest x-ray: report reviewed (Mild right infiltrate) Thrombosis Risk Factor Assmnt - Choose All That Apply Any of the Below Risk Factors Present?: Yes Each Factor Represents 1 point: Abnormal pulmonary function (COPD), Serious lung disease incl. pneumonia (< 1month) Each Risk Factor Represents 2 Points: Age 61-74 years Thrombosis Risk Factor Assessment Total Risk Factor Score: 4 Thrombosis Risk Factor Assessment Level: Moderate Risk Assessment and Plan Plan: Assessment Acute on chronic COPD 3 acquired pneumonia Degenerative disc disease opioid dependent Hypothyroidism Continues with nicotine use Psoriasis Plan Consultation with pulmonology On bronchodilators and antibiotics Zithromax Rocephin and steroids
[2019-10-08] MEDS: HYDROcodone/APAP 10-325MG 1 EACH TAB PO PRN ×3 (12:05→23:52)
--- NOTE | 2019-10-08 12:13 | P.CNPUL ---
History of Present Illness Consult date: 10/08/19 Reason for consult: COPD, pneumonia Chief complaint: Shortness of breath and cough. History of present illness: This is a 69-year-old female with history of severe COPD, FEV1 is 46%, patient is known to have chronic hypoxic respiratory failure, maintained on oxygen at 2 L/m. Patient continues to smoke in spite of her underlying COPD, she smokes about 5 cigarettes per day. Patient was brought in with 2 weeks history of cough, wheezing, shortness of breath. Cough is productive with yellow phlegm, denies any fever no chills no hemoptysis no chest pain. Chest x-ray is suggestive of a limited infiltrate in the right lower lobe. Patient was admitted, placed on broad-spectrum antibiotics for community-acquired pneumonia, bronchodilators, steroids, and I was asked to see her on consultation. Review of Systems Constitutional: Denies chills, Denies fever Eyes: denies blurred vision, denies pain Ears, nose, mouth and throat: Denies headache, Denies sore throat, Cardiovascular: Denies chest pain, Denies shortness of breath Respiratory: As noted in HPI. Gastrointestinal: Denies abdominal pain, Denies diarrhea, Denies nausea, Denies vomiting Genitourinary: Denies dysuria, Denies hematuria Musculoskeletal: Denies myalgias Musculoskeletal: left: hip pain previous hip fracture Integumentary: Denies pruritus, Denies rash Neurological: Denies numbness, Denies weakness Psychiatric: Denies anxiety, Denies depression Endocrine: Denies fatigue, Denies weight change Past Medical History Past Medical History: COPD, Thyroid Disorder Additional Past Medical History / Comment(s): Degenerative bone disease, ve rtigo, fibrocystic disease, neuropathy, diverticulitis, cervical CA (1980) and breast CA (1985) History of Any Multi-Drug Resistant Organisms: None Reported Past Surgical History: Cholecystectomy, Hysterectomy, Orthopedic Surgery Additional Past Surgical History / Comment(s): right knee surgery 2014, left shoulder 2007, left hip (2018) Past Anesthesia/Blood Transfusion Reactions: No Reported Reaction Additional Past Anesthesia/Blood Transfusion Reaction / Comment(s): pt states that she had a hard time waking up from anesthesia and cannot tolerate "adult dose" Past Psychological History: Anxiety, Depression Smoking Status: Current every day smoker Past Alcohol Use History: None Reported Past Drug Use History: None Reported - Past Family History Mother Family Medical History: Cancer Additional Family Medical History / Comment(s): skin cancer Medications and Allergies Home Medications Medication Instructions Recorded Confirmed Type Loratadine [Claritin] 10 mg PO DAILY 01/21/17 10/07/19 History Meclizine [Antivert] 25 mg PO TID 01/21/17 10/07/19 History Hydrocodone/Acetaminophen [[place] 1 tab PO QID 07/28/18 10/07/19 History 10-325] Albuterol Inhaler [Ventolin Hfa 2 puff INHALATION RT-Q6H PRN 12/09/18 10/07/19 History Inhaler] Albuterol Nebulized [Ventolin 2.5 mg INHALATION RT-QID PRN 12/09/18 10/07/19 History Nebulized] Levothyroxine Sodium 100 mcg PO DAILY 10/07/19 10/07/19 History traZODone HCL 100 mg PO HS PRN 10/07/19 10/07/19 History Allergies Allergy/AdvReac Type Severity Reaction Status Date / Time aspirin Allergy Swelling Verified 10/07/19 18:10 ibuprofen Allergy Anaphylaxis Verified 10/07/19 18:10 latex Allergy Rash/Hives Verified 10/07/19 18:10 Penicillins AdvReac MAKES COPD Verified 10/07/19 18:10 WORSE Physical Exam Vitals: Vital Signs Temp Pulse Pulse Resp BP BP Pulse Ox 10/08/19 11:58 92 10/08/19 11:47 100 10/08/19 08:30 92 10/08/19 08:20 88 10/08/19 05:41 97.6 F 98 19 118/76 94 L 10/08/19 03:48 92 10/08/19 00:08 108 H 10/07/19 23:57 108 H 10/07/19 21:05 98.2 F 102 H 17 111/69 92 L 10/07/19 19:00 97.4 F L 96 20 124/89 96 10/07/19 17:19 105 H 22 93 L 10/07/19 16:29 106 H 22 10/07/19 16:00 105 H 24 10/07/19 15:41 22 10/07/19 15:18 97.3 F L 106 H 25 H 120/79 95 Intake and Output 10/07/19 10/08/19 10/08/19 22:59 06:59 14:59 Intake Total 350 Balance 350 Intake: Intake, IV Titration 350 Amount Azithromycin 500 mg In 250 Sodium Chloride 0.9% 250 ml @ 250 mls/hr IVPB ONCE STA Rx#:[id number] cefTRIAXone 1 gm In 100 Sodium Chloride 0.9% 50 ml @ 100 mls/hr IVPB ONCE ONE Rx#:[id number] Other: Voiding Method Bedside Commode # Voids 1 Weight 53.524 kg 53.524 kg GENERAL EXAM: Alert, pleasant, 69-year-old white female, on 2 L nasal cannula, in no distress. HEAD: Normocephalic/atraumatic. EYES: Normal reaction of pupils, equal size. Conjunctiva pink, sclera white. NOSE: Clear with pink turbinates. THROAT: No erythema or exudates. NECK: No masses, no JVD, no thyroid enlargement, no adenopathy. CHEST: No chest wall deformity. Symmetrical expansion. Diminished breath soun ds bilaterally along with scattered expiratory wheezes throughout the lung kwok. LUNGS: Equal air entry with no crackles, there is extensive expiratory wheeze, rhonchi or dullness. CVS: Regular rate and rhythm, normal S1 and S2, no gallops, no murmurs, no rubs ABDOMEN: Soft, nontender. No hepatosplenomegaly, normal bowel sounds, no guarding or rigidity. EXTREMITIES: No clubbing, no edema, no cyanosis, 2+ pulses and upper and lower extremities. MUSCULOSKELETAL: Muscle strength and tone normal. There is tenderness with palpation over left hip area. No calf tenderness, distal pulses are intact. SPINE: No scoliosis or deformity SKIN: No rashes CENTRAL NERVOUS SYSTEM: Alert and oriented -3. No focal deficits, tone is normal in all 4 extremities. PSYCHIATRIC: Alert and oriented -3. Appropriate affect. Intact judgment and insight. Results - Laboratory Findings CBC and BMP: 10/07/19 15:40 10/07/19 15:40 PT/INR, D-dimer PT 9.4 sec (9.0-12.0) 10/07/19 16:00 INR 0.9 (<1.2) 10/07/19 16:00 Abnormal lab findings: Abnormal Labs 10/07/19 10/07/19 15:40 15:40 WBC 16.1 H Hgb 16.3 H Hct 49.8 H Neutrophils # 14.3 H Lymphocytes # 0.8 L Carbon Dioxide 16 L BUN 24 H Glucose 128 H Alkaline Phosphatase 144 H - Diagnostic Findings Chest x-ray: image reviewed (As noted in HPI.) Assessment and Plan Assessment: 1 acute COPD exacerbation, possible right lower lobe pneumonia based on the chest x-ray findings. This is likely community-acquired pneumonia. 2 severe COPD, with a based on FEV1 of 46% of predicted 3 chronic hypoxic respiratory failure 4 chronic smoker 5 hypothyroidism 6 chronic anxiety 7 post left hip arthroplasty back in July 2018 8 hypothyroidism Recommendation: Continue present course of treatment including bronchodilators, steroids, antibiotics in the form of Rocephin and Zithromax, will add Symbicort, will continue to follow. Patient was counseled regarding smoking cessation, however she has no plans to consider smoking cessation anytime in the near future. We'll continue to follow. Time with Patient: Greater than 30
[2019-10-08 13:18] VITALS: BMI 26.4
[2019-10-08] MEDS: SYMBICORT 160-4.5 MCG INHALER INHALATION SCH (20:36)
[2019-10-08] MEDS: TRIAMCINOLONE 0.1% CREAM 80 GM TUBE TOPICAL SCH (21:38)
[2019-10-08] MEDS ORDERED: traZODone HCL 50 MG TAB PO PRN (23:23)
[2019-10-09] MEDS: LEVOTHYROXINE 100 MCG TAB PO SCH (05:46)
[2019-10-09] MEDS: methylPREDNISolone SOD SUCCI 125 MG/2 ML VIAL IV SCH ×4 (05:46→22:59)
[2019-10-09] MEDS: HYDROcodone/APAP 10-325MG 1 EACH TAB PO PRN ×2 (05:47→19:23)
[2019-10-09] MEDS: SYMBICORT 160-4.5 MCG INHALER INHALATION SCH ×2 (07:13→20:06)
[2019-10-09] MEDS: IPRATROPIUM-ALBUTEROL 3 ML NEB INHALATION PRN ×3 (07:14→15:50)
[2019-10-09] MEDS: AZITHROMYCIN 500 MG TAB PO SCH (08:17)
[2019-10-09] MEDS: LORATADINE 10 MG TAB PO SCH (08:17)
[2019-10-09] MEDS: MECLIZINE 25 MG TAB PO PRN ×2 (08:17→19:25)
[2019-10-09] MEDS: TRIAMCINOLONE 0.1% CREAM 80 GM TUBE TOPICAL SCH ×2 (08:18→20:52)
--- NOTE | 2019-10-09 11:12 | P.PN ---
Subjective Patient resting in bed states she didn't sleep much last night. Patient had evaluation by pulmonology will continue present therapy Objective - Vital Signs Vital signs: Vital Signs Temp 97.8 F 10/09/19 06:30 Pulse 92 10/09/19 07:34 Resp 20 10/09/19 06:30 BP 118/69 10/09/19 06:30 Pulse Ox 95 10/09/19 06:30 Intake & Output 10/08/19 10/09/19 10/09/19 18:59 06:59 18:59 Intake Total 100 240 Balance 100 240 Weight 53.524 kg Intake: Intake, IV Titration 100 Amount cefTRIAXone 1 gm In 100 Sodium Chloride 0.9% 50 ml @ 100 mls/hr IVPB Q24HR [facility] Rx#:[id number] Oral 240 Other: Voiding Method Bedside Commode # Voids 1 2 - Constitutional General appearance: Present: mild distress - EENT Eyes: Present: PERRLA Ears: bilateral: normal - Neck Neck: Present: normal ROM - Respiratory Respiratory: bilateral: diminished - Cardiovascular Rhythm: regular - Gastrointestinal General gastrointestinal: Present: soft - Integumentary Integumentary Comment(s): Psoriasis lower extremities - Neurologic Neurologic: Present: CNII-XII intact - Musculoskeletal Musculoskeletal: Present: generalized weakness - Psychiatric Psychiatric: Present: A&O x's 3, appropriate affect, intact judgment & insight - Labs CBC & Chem 7: 10/07/19 15:40 10/07/19 15:40 Labs: Microbiology - Last 24 Hours (Table) 10/07/19 19:15 Blood Culture - Preliminary Blood No Growth after 24 hours 10/07/19 21:15 Gram Stain - Preliminary Sputum Sputum Culture - Preliminary - Imaging and Cardiology Chest x-ray: report reviewed Assessment and Plan Plan: Assessment Acute exacerbation of severe chronic COPD Pneumonia community-acquired Chronic hypoxic respiratory failure on home O2 Degenerative disc disease Hypothyroidism Nicotine use not wanting to quit Psoriasis Plan Continue antibiotics bronchodilators and steroids Continue consultation with pulmonology
[2019-10-09] MEDS: CALCIUM CARBONATE 500 MG CHEWABLE PO PRN (20:51)
[2019-10-10] MEDS: LEVOTHYROXINE 100 MCG TAB PO SCH (05:26)
[2019-10-10] MEDS: MECLIZINE 25 MG TAB PO PRN ×2 (05:26→08:25)
[2019-10-10] MEDS: HYDROcodone/APAP 10-325MG 1 EACH TAB PO PRN ×3 (05:26→17:09)
[2019-10-10] MEDS: methylPREDNISolone SOD SUCCI 125 MG/2 ML VIAL IV SCH ×4 (05:27→21:32)
[2019-10-10] MEDS: CALCIUM CARBONATE 500 MG CHEWABLE PO PRN ×2 (07:45→19:50)
[2019-10-10] MEDS: AZITHROMYCIN 500 MG TAB PO SCH (07:45)
[2019-10-10] MEDS: LORATADINE 10 MG TAB PO SCH (07:45)
[2019-10-10] MEDS: CITALOPRAM HYDROBROMIDE 20 MG TAB PO SCH (07:45)
[2019-10-10] MEDS: SYMBICORT 160-4.5 MCG INHALER INHALATION SCH ×2 (07:52→19:30)
[2019-10-10] MEDS: IPRATROPIUM-ALBUTEROL 3 ML NEB INHALATION PRN ×3 (07:52→19:30)
[2019-10-10] MEDS: DOCUSATE 100 MG CAP PO PRN (10:59)
[2019-10-10] MEDS: TRIAMCINOLONE 0.1% CREAM 80 GM TUBE TOPICAL SCH ×2 (10:59→21:33)
--- NOTE | 2019-10-10 14:36 | P.PN ---
Subjective Progress Note Date: 10/10/19 Principal diagnosis: Shortness of breath and cough, right lower lobe pneumonia This is a 69-year-old female with history of severe COPD, FEV1 is 46%, patient is known to have chronic hypoxic respiratory failure, maintained on oxygen at 2 L/m. Patient continues to smoke in spite of her underlying COPD, she smokes about 5 cigarettes per day. Patient was brought in with 2 weeks history of cough, wheezing, shortness of breath. Cough is productive with yellow phlegm, denies any fever no chills no hemoptysis no chest pain. Chest x-ray is suggestive of a limited infiltrate in the right lower lobe. Patient was admitted, placed on broad-spectrum antibiotics for community-acquired pneumonia, bronchodilators, steroids, and I was asked to see her on consultation. On 10/10/2019 patient seen in follow-up. Still with spastic and congested, bringing up yellow sputum, no hemoptysis, room air pulse ox is 94%, afebrile, hemodynamically stable, still very dyspneic with any exertion, remains on IV steroids, antibiotics, and sputum culture revealed moraxella catarrhalis and Streptococcus pneumonia. Final sensitivity is pending, but generally Moraxella catarrhalis is susceptible to Zithromax, and Streptococcus is susceptible to both Zithromax and Rocephin Objective - Vital Signs Vital signs: Vital Signs Temp 97.4 F L 10/10/19 12:26 Pulse 82 10/10/19 12:26 Resp 17 10/10/19 12:26 BP 120/57 10/10/19 12:26 Pulse Ox 94 L 10/10/19 12:26 Intake & Output 10/09/19 10/10/19 10/10/19 18:59 06:59 18:59 Intake Total 240 1200 Balance 240 1200 Intake: Intake, IV Titration 50 Amount cefTRIAXone 1 gm In 50 Sodium Chloride 0.9% 50 ml @ 100 mls/hr IVPB ONCE ONE Rx#:[id number] Oral 240 1150 Other: Voiding Method Bedside Commode Bedside Commode # Voids 2 2 3 - Exam GENERAL EXAM: Alert, active, comfortable in no apparent distress. HEAD: Normocephalic/atraumatic. EYES: Normal reaction of pupils, equal size. Conjunctiva pink, sclera white. NOSE: Clear with pink turbinates. THROAT: No erythema or exudates. NECK: No masses, no JVD, no thyroid enlargement, no adenopathy. CHEST: No chest wall deformity. Symmetrical expansion. LUNGS: Equal air entry with diffuse wheezes and rhonchi CVS: Regular rate and rhythm, normal S1 and S2, no gallops, no murmurs, no rubs ABDOMEN: Soft, nontender. No hepatosplenomegaly, normal bowel sounds, no guarding or rigidity. EXTREMITIES: No clubbing, no edema, no cyanosis, 2+ pulses and upper and lower extremities. MUSCULOSKELETAL: Muscle strength and tone normal. SPINE: No scoliosis or deformity SKIN: No rashes CENTRAL NERVOUS SYSTEM: Alert and oriented -3. No focal deficits, tone is normal in all 4 extremities. PSYCHIATRIC: Alert and oriented -3. Appropriate affect. Intact judgment and insight. - Labs CBC & Chem 7: 10/07/19 15:40 10/07/19 15:40 Labs: Microbiology - Last 24 Hours (Table) 10/07/19 21:15 Gram Stain - Preliminary Sputum Sputum Culture - Preliminary Moraxella(branhamella) catarra Streptococcus pneumoniae 10/07/19 19:15 Blood Culture - Preliminary Blood No Growth after 48 hours Assessment and Plan Plan: 1 acute COPD exacerbation, right lower lobe pneumonia related to Moraxella catarrhalis and Streptococcus pneumonia currently on Zithromax and Rocephin This is likely community-acquired pneumonia. 2 severe COPD, with a based on FEV1 of 46% of predicted 3 chronic hypoxic respiratory failure 4 chronic smoker 5 hypothyroidism 6 chronic anxiety 7 post left hip arthroplasty back in July 2018 8 hypothyroidism Plan: Continue current medical treatment, continue Rocephin and Zithromax, final sputum cultures are pending, Moraxella catarrhalis is generally susceptible to Zithromax and Streptococcus pneumonia is susceptible to Zithromax and Rocephin. No fever or chills, will continue with bronchodilators and IV steroids, patient remains bronchospastic and congested, and she is able to clear secretions. We'll continue to follow I performed a history & physical examination of the patient and discussed their management with my nurse practitioner, Elsi Drake. I reviewed the nurse practitioner's note and agree with the documented findings and plan of care. Lung sounds are positive for diffuse wheezes throughout the lung kwok. The findings and the impression was discussed with the patient. I attest to the documentation by the nurse practitioner. Time with Patient: Less than 30
--- NOTE | 2019-10-10 15:26 | P.PN ---
Subjective Progress Note Date: 10/09/19 Principal diagnosis: Shortness of breath and cough, right lower lobe pneumonia This is a 69-year-old female with history of severe COPD, FEV1 is 46%, patient is known to have chronic hypoxic respiratory failure, maintained on oxygen at 2 L/m. Patient continues to smoke in spite of her underlying COPD, she smokes about 5 cigarettes per day. Patient was brought in with 2 weeks history of cough, wheezing, shortness of breath. Cough is productive with yellow phlegm, denies any fever no chills no hemoptysis no chest pain. Chest x-ray is suggestive of a limited infiltrate in the right lower lobe. Patient was admitted, placed on broad-spectrum antibiotics for community-acquired pneumonia, bronchodilators, steroids, and I was asked to see her on consultation. On 10/09/2019 patient seen in follow-up. 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, continues on IV steroids, continues on breathing treatments, she is getting up to the commode, she is dyspneic with minimal activity, sputum cultures are pending, patient is on a combination of Zithromax and Rocephin, Objective - Vital Signs Vital signs: Vital Signs Temp 97.4 F L 10/10/19 12:26 Pulse 82 10/10/19 14:30 Resp 17 10/10/19 14:30 BP 120/57 10/10/19 12:26 Pulse Ox 94 L 10/10/19 12:26 Intake & Output 10/09/19 10/10/19 10/10/19 18:59 06:59 18:59 Intake Total 240 1200 Balance 240 1200 Intake: Intake, IV Titration 50 Amount cefTRIAXone 1 gm In 50 Sodium Chloride 0.9% 50 ml @ 100 mls/hr IVPB ONCE ONE Rx#:[id number] Oral 240 1150 Other: Voiding Method Bedside Commode Bedside Commode # Voids 2 2 3 - Exam GENERAL EXAM: Alert, active, comfortable in no apparent distress. HEAD: Normocephalic/atraumatic. EYES: Normal reaction of pupils, equal size. Conjunctiva pink, sclera white. NOSE: Clear with pink turbinates. THROAT: No erythema or exudates. NECK: No masses, no JVD, no thyroid enlargement, no adenopathy. CHEST: No chest wall deformity. Symmetrical expansion. LUNGS: Equal air entry with diffuse wheezes and rhonchi CVS: Regular rate and rhythm, normal S1 and S2, no gallops, no murmurs, no rubs ABDOMEN: Soft, nontender. No hepatosplenomegaly, normal bowel sounds, no guarding or rigidity. EXTREMITIES: No clubbing, no edema, no cyanosis, 2+ pulses and upper and lower extremities. MUSCULOSKELETAL: Muscle strength and tone normal. SPINE: No scoliosis or deformity SKIN: No rashes CENTRAL NERVOUS SYSTEM: Alert and oriented -3. No focal deficits, tone is normal in all 4 extremities. PSYCHIATRIC: Alert and oriented -3. Appropriate affect. Intact judgment and insight. - Labs CBC & Chem 7: 10/07/19 15:40 10/07/19 15:40 Labs: Microbiology - Last 24 Hours (Table) 10/07/19 21:15 Gram Stain - Preliminary Sputum Sputum Culture - Preliminary Moraxella(branhamella) catarra Streptococcus pneumoniae 10/07/19 19:15 Blood Culture - Preliminary Blood No Growth after 48 hours Assessment and Plan Plan: 1 acute COPD exacerbation, right lower lobe pneumonia This is likely community-acquired pneumonia. 2 severe COPD, with a based on FEV1 of 46% of predicted 3 chronic hypoxic respiratory failure 4 chronic smoker 5 hypothyroidism 6 chronic anxiety 7 post left hip arthroplasty back in July 2018 8 hypothyroidism Plan: Continue current medical treatment, continue Rocephin and Zithromax, final sputu m cultures are pending, No fever or chills, will continue with bronchodilators and IV steroids, patient remains bronchospastic and congested, but she is able to clear secretions. Still very dyspneic with minimal exertion, continue current medical treatment. We'll continue to follow I performed a history & physical examination of the patient and discussed their management with my nurse practitioner, Elsi Drake. I reviewed the nurse practitioner's note and agree with the documented findings and plan of care. Lung sounds are positive for diffuse wheezes throughout the lung kwok. The f indings and the impression was discussed with the patient. I attest to the documentation by the nurse practitioner. Time with Patient: Less than 30
[2019-10-10] MEDS: MECLIZINE 25 MG TAB PO SCH ×2 (15:40→22:03)
[2019-10-10] MEDS: traZODone HCL 100 MG TAB PO SCH (21:33)
[2019-10-11] MEDS: methylPREDNISolone SOD SUCCI 125 MG/2 ML VIAL IV SCH ×4 (05:39→23:36)
[2019-10-11] MEDS: LEVOTHYROXINE 100 MCG TAB PO SCH (05:39)
[2019-10-11] MEDS: SYMBICORT 160-4.5 MCG INHALER INHALATION SCH ×2 (08:27→20:02)
[2019-10-11] MEDS: AZITHROMYCIN 500 MG TAB PO SCH (08:53)
[2019-10-11] MEDS: LORATADINE 10 MG TAB PO SCH (08:53)
[2019-10-11] MEDS: CITALOPRAM HYDROBROMIDE 20 MG TAB PO SCH (08:53)
[2019-10-11] MEDS: TRIAMCINOLONE 0.1% CREAM 80 GM TUBE TOPICAL SCH ×2 (08:53→20:42)
[2019-10-11] MEDS: MECLIZINE 25 MG TAB PO SCH ×3 (08:53→20:37)
[2019-10-11] MEDS: HYDROcodone/APAP 10-325MG 1 EACH TAB PO PRN ×3 (09:02→20:37)
[2019-10-11] MEDS: DOCUSATE 100 MG CAP PO PRN (09:04)
[2019-10-11] MEDS: IPRATROPIUM-ALBUTEROL 3 ML NEB INHALATION PRN ×3 (12:42→20:02)
--- NOTE | 2019-10-11 13:29 | P.PN ---
Subjective Progress Note Date: 10/11/19 Principal diagnosis: Acute right lower lobe pneumonia and acute exacerbation of COPD This is a 69-year-old female with history of severe COPD, FEV1 is 46%, patient is known to have chronic hypoxic respiratory failure, maintained on oxygen at 2 L/m. Patient continues to smoke in spite of her underlying COPD, she smokes about 5 cigarettes per day. Patient was brought in with 2 weeks history of cough, wheezing, shortness of breath. Cough is productive with yellow phlegm, denies any fever no chills no hemoptysis no chest pain. Chest x-ray is suggestive of a limited infiltrate in the right lower lobe. Patient was admitted, placed on broad-spectrum antibiotics for community-acquired pneumonia, bronchodilators, steroids, and I was asked to see her on consultation. On 10/10/2019 patient seen in follow-up. Still with spastic and congested, bringing up yellow sputum, no hemoptysis, room air pulse ox is 94%, afebrile, hemodynamically stable, still very dyspneic with any exertion, remains on IV steroids, antibiotics, and sputum culture revealed moraxella catarrhalis and Streptococcus pneumonia. Final sensitivity is pending, but generally Moraxella catarrhalis is susceptible to Zithromax, and Streptococcus is susceptible to both Zithromax and Rocephin Reevaluated today on 10/11/2019, patient remains short of breath, continues to complain of intermittent episodes cough wheezing shortness of breath. Cough is productive with yellow phlegm, her sputum has been positive for Moraxella and for Streptococcus Pneumoniae. Patient is on proper antibiotics. Objective - Vital Signs Vital signs: Vital Signs Temp 97.1 F L 10/11/19 12:47 Pulse 90 10/11/19 12:56 Resp 17 10/11/19 12:47 BP 127/68 10/11/19 12:47 Pulse Ox 95 10/11/19 12:47 Intake & Output 10/10/19 10/11/19 10/11/19 18:59 06:59 18:59 Intake Total 1200 1740 Balance 1200 1740 Intake: Intake, IV Titration 50 Amount cefTRIAXone 1 gm In 50 Sodium Chloride 0.9% 50 ml @ 100 mls/hr IVPB ONCE ONE Rx#:[id number] Oral 1150 1740 Other: Voiding Method Bedside Commode Bedside Commode Bedside Commode # Voids 3 2 - Exam GENERAL EXAM: Alert, active, comfortable in no apparent distress. HEAD: Normocephalic/atraumatic. HEENT: PERRLA, EOMI, no icterus, moist mucous membranes. CHEST: No chest wall deformity. Symmetrical expansion. LUNGS: Symmetrical chest expansion, crackles and rhonchi and wheezes noted lesly aterally more so on forced expiratory maneuver. CVS: Regular rate and rhythm, normal S1 and S2, no gallops, no murmurs, no rubs ABDOMEN: Soft, nontender. No hepatosplenomegaly, normal bowel sounds, no guarding or rigidity. EXTREMITIES: No clubbing, no edema, no cyanosis, 2+ pulses and upper and lower extremities. MUSCULOSKELETAL: Muscle strength and tone normal. SPINE: No scoliosis or deformity SKIN: No rashes CENTRAL NERVOUS SYSTEM: Alert and oriented 3 focal deficits. PSYCHIATRIC: Normal mood affect and normal mental status examination. - Labs CBC & Chem 7: 10/07/19 15:40 10/07/19 15:40 Labs: Microbiology - Last 24 Hours (Table) 10/07/19 21:15 Gram Stain - Final Sputum Sputum Culture - Final Moraxella(branhamella) catarra Streptococcus pneumoniae 10/07/19 19:15 Blood Culture - Preliminary Blood No Growth after 72 hours Assessment and Plan Assessment: 1 acute COPD exacerbation, and right lower lobe pneumonia secondary to Moraxella catarrhalis and secondary to Streptococcus pneumonia. 2 severe COPD, with a based on FEV1 of 46% of predicted 3 chronic hypoxic respiratory failure 4 chronic smoker 5 hypothyroidism 6 chronic anxiety 7 post left hip arthroplasty back in July 2018 8 hypothyroidism Recommendation: Continue present course of treatment including bronchodilators, steroids, antibiotics in the form of Rocephin and Zithromax, continue Symbicort, I have explained to the patient that if she doesn't improve much over the next couple of days, she may have to be seriously considered for bronchoscopy and lavage of right lower lobe. This will be decided upon early next week. Patient is not ready for any discharge planning. Time with Patient: Less than 30
[2019-10-11] MEDS: CEFDINIR 300 MG CAP PO SCH (13:43)
[2019-10-11] MEDS: CALCIUM CARBONATE 500 MG CHEWABLE PO PRN ×2 (17:29→23:39)
[2019-10-11] MEDS: traZODone HCL 100 MG TAB PO SCH (20:37)
--- NOTE | 2019-10-11 23:20 | P.PN ---
Subjective Progress Note Date: 10/10/19 Principal diagnosis: Acute COPD exacerbation 69-year-old female presented emergency room with the increasing shortness of breath. Patient is a smoker and refusing to quit. Has home oxygen. Chronic COPD noted to have pneumonia in the emergency room patient has not felt well for 2 weeks 10/10/2019 Patient is still dyspneic and complaints of cough with minimal amount of sputum production. Patient was able to bring out yellowish sputum this morning. Denied any complaints of fever or chills. Patient is on antibiotics in the form of azithromycin and ceftriaxone. Sputum cultures showed Moraxella catarrhalis and strep pneumoniae. No complaints of chest pain. No nausea vomiting or abdominal pain. Still dyspneic with minimal exertion. Currently being continued on IV steroids and DuoNeb's. Oxygen via nausea cannula. Current medications reviewed. Objective - Vital Signs Vital signs: Vital Signs Temp 97.4 F L 10/10/19 12:26 Pulse 82 10/10/19 14:30 Resp 17 10/10/19 14:30 BP 120/57 10/10/19 12:26 Pulse Ox 94 L 10/10/19 12:26 Intake & Output 10/09/19 10/10/19 10/10/19 18:59 06:59 18:59 Intake Total 240 1200 Balance 240 1200 Intake: Intake, IV Titration 50 Amount cefTRIAXone 1 gm In 50 Sodium Chloride 0.9% 50 ml @ 100 mls/hr IVPB ONCE ONE Rx#:[id number] Oral 240 1150 Other: Voiding Method Bedside Commode Bedside Commode # Voids 2 2 3 - Exam PHYSICAL EXAMINATION: Patient is lying in the bed comfortably, no acute distress, awake alert and oriented.. HEENT: Normocephalic. Neck is supple. Pupils reactive. Nostrils clear. Oral cavity is moist. Ears reveal no drainage. Neck reveals no JVD, carotid bruits, or thyromegaly. CHEST EXAMINATION: Trachea is central. Symmetrical expansion. Bilateral diffuse wheezing and rhonchi.. CARDIAC: Normal S1, S2 with no gallops. No murmurs ABDOMEN: Soft. Bowel sounds normal. No organomegaly. No abdominal bruits. Extremities: reveal no edema. No clubbing or cyanosis Neurologically awake, alert, oriented x3 with well-coordinated movements. No focal deficits noted Skin: No rash or skin lesions. Psychiatric: Coperative. Nonsuicidal Musculoskeletal: No joint swelling or deformity. Normal range of motion. - Labs CBC & Chem 7: 10/07/19 15:40 10/07/19 15:40 Labs: Microbiology - Last 24 Hours (Table) 10/07/19 21:15 Gram Stain - Preliminary Sputum Sputum Culture - Preliminary Moraxella(branhamella) catarra Streptococcus pneumoniae 10/07/19 19:15 Blood Culture - Preliminary Blood No Growth after 48 hours Assessment and Plan Assessment: Acute COPD exacerbation secondary to tracheobronchitis and right lower lobe pneumonia. Right lower lobe pneumonia with sputum cultures growing Moraxella catarrhalis and streptococcal pneumonia. Currently on antibiotics in the form of ceftriaxone and azithromycin. Chronic hypoxic respiratory failure secondary to COPD. FEV1 46% of predicted Ongoing nicotine addiction Hypothyroidism Anxiety Osteoarthritis DVT prophylaxis Plan: Patient will be continued on antibiotics. Continue with IV steroids and DuoNeb's and follow closely. Oxygen therapy. Patient is still dyspneic. Continue the current management and further recommendations based on the clinical course. Pulmonary is on board. Time with Patient: Greater than 30
--- NOTE | 2019-10-11 23:22 | P.PN ---
Subjective Progress Note Date: 10/11/19 Principal diagnosis: Acute COPD exacerbation 69-year-old female presented emergency room with the increasing shortness of breath. Patient is a smoker and refusing to quit. Has home oxygen. Chronic COPD noted to have pneumonia in the emergency room patient has not felt well for 2 weeks 10/10/2019 Patient is still dyspneic and complaints of cough with minimal amount of sputum production. Patient was able to bring out yellowish sputum this morning. Denied any complaints of fever or chills. Patient is on antibiotics in the form of azithromycin and ceftriaxone. Sputum cultures showed Moraxella catarrhalis and strep pneumoniae. No complaints of chest pain. No nausea vomiting or abdominal pain. Still dyspneic with minimal exertion. Currently being continued on IV steroids and DuoNeb's. Oxygen via nausea cannula. 10/11/2019 Patient says that her breathing is better compared to yesterday. Not at baseline. Was able to bring out small amount of sputum with cough today. Patient is currently on azithromycin sensitive to Moraxella catarrhalis and streptococcal pneumonia. Continue oxygen therapy and IV steroids and DuoNeb's. Current medications reviewed. Objective - Vital Signs Vital signs: Vital Signs Temp 98.0 F 10/11/19 20:26 Pulse 68 10/11/19 20:26 Resp 20 10/11/19 20:26 BP 168/66 10/11/19 20:26 Pulse Ox 93 L 10/11/19 20:26 Intake & Output 10/11/19 10/11/19 10/12/19 06:59 18:59 06:59 Intake Total 1740 650 Balance 1740 650 Intake: Intake, IV Titration 50 Amount cefTRIAXone 1 gm In 50 Sodium Chloride 0.9% 50 ml @ 100 mls/hr IVPB ONCE ONE Rx#:[id number] Oral 1740 600 Other: Voiding Method Bedside Commode Bedside Commode Bedside Commode # Voids 2 2 1 # Bowel Movements 2 - Exam PHYSICAL EXAMINATION: Patient is lying in the bed comfortably, no acute distress, awake alert and oriented.. HEENT: Normocephalic. Neck is supple. Pupils reactive. Nostrils clear. Oral cavity is moist. Ears reveal no drainage. Neck reveals no JVD, carotid bruits, or thyromegaly. CHEST EXAMINATION: Trachea is central. Symmetrical expansion. Bilateral diffuse wheezing and rhonchi.. CARDIAC: Normal S1, S2 with no gallops. No murmurs ABDOMEN: Soft. Bowel sounds normal. No organomegaly. No abdominal bruits. Extremities: reveal no edema. No clubbing or cyanosis Neurologically awake, alert, oriented x3 with well-coordinated movements. No focal deficits noted Skin: No rash or skin lesions. Psychiatric: Coperative. Nonsuicidal Musculoskeletal: No joint swelling or deformity. Normal range of motion. - Labs CBC & Chem 7: 10/07/19 15:40 10/07/19 15:40 Labs: Microbiology - Last 24 Hours (Table) 10/07/19 19:15 Blood Culture - Preliminary Blood No Growth after 96 hours 10/07/19 21:15 Gram Stain - Final Sputum Sputum Culture - Final Moraxella(branhamella) catarra Streptococcus pneumoniae Assessment and Plan Assessment: Acute COPD exacerbation secondary to tracheobronchitis and right lower lobe pneumonia. Right lower lobe pneumonia with sputum cultures growing Moraxella catarrhalis and streptococcal pneumonia. Currently on antibiotics in the form of azithromycin. Chronic hypoxic respiratory failure secondary to COPD. FEV1 46% of predicted Ongoing nicotine addiction Hypothyroidism Anxiety Osteoarthritis DVT prophylaxis Plan: Patient will be continued on antibiotics. Continue with IV steroids and DuoNeb's and follow closely. Oxygen therapy. Patient is still dyspneic. Continue the current management and further recommendations based on the clinical course. Pulmonary is on board. Time with Patient: Greater than 30
[2019-10-12] MEDS: methylPREDNISolone SOD SUCCI 125 MG/2 ML VIAL IV SCH ×3 (05:32→17:00)
[2019-10-12] MEDS: LEVOTHYROXINE 100 MCG TAB PO SCH (05:32)
[2019-10-12] MEDS: SYMBICORT 160-4.5 MCG INHALER INHALATION SCH ×2 (07:26→19:24)
[2019-10-12] MEDS: IPRATROPIUM-ALBUTEROL 3 ML NEB INHALATION PRN ×4 (07:26→23:56)
[2019-10-12] MEDS: HYDROcodone/APAP 10-325MG 1 EACH TAB PO PRN ×3 (07:38→19:28)
[2019-10-12 07:55] LABS: Basophils # (A) 0.2 k/uL (0-0.2); Basophils % (A) 1 %; Eosinophils # (A) 0.1 k/uL (0-0.7); Eosinophils % (A) 0 %; HCT 40.7 % (34.0-46.0); Lymphocytes # (A) 1.1 k/uL (1.0-4.8); Lymphocytes % (A) 5 %; MCH 31.5 pg (25.0-35.0); MCHC 32.7 g/dL (31.0-37.0); MCV 96.4 fL (80.0-100.0); Mean Platelet Volume 7.2; Monocytes # (A) 0.6 k/uL (0-1.0); Monocytes % (A) 3 %; Neutrophils # (A) 20.9 k/uL (1.3-7.7); Neutrophils % (A) 91 %; Platelet Count 373 k/uL (150-450); RBC 4.22 m/uL (3.80-5.40); RDW 12.6 % (11.5-15.5); WBC 23.1 k/uL (3.8-10.6)
[2019-10-12 07:56] LABS: HGB 13.3 gm/dL (11.4-16.0)
[2019-10-12 08:08] LABS: African American GFR (CKD) >90 (>60 ml/min/1.73 sqM); Anion Gap 10 mmol/L; Blood Urea Nitrogen 28 mg/dL (7-17); Calcium 9.1 mg/dL (8.4-10.2); Carbon Dioxide 26 mmol/L (22-30); Chloride 103 mmol/L (98-107); Glucose 109 mg/dL (74-99); Non-African American GFR(CKD) 83 (>60 ml/min/1.73 sqM); Potassium 4.6 mmol/L (3.5-5.1); Sodium 139 mmol/L (137-145)
[2019-10-12] MEDS: MECLIZINE 25 MG TAB PO SCH ×3 (08:46→22:04)
[2019-10-12] MEDS: CEFDINIR 300 MG CAP PO SCH (08:46)
[2019-10-12] MEDS: CALCIUM CARBONATE 500 MG CHEWABLE PO PRN ×2 (08:46→19:28)
[2019-10-12] MEDS: CITALOPRAM HYDROBROMIDE 20 MG TAB PO SCH (08:47)
[2019-10-12] MEDS: TRIAMCINOLONE 0.1% CREAM 80 GM TUBE TOPICAL SCH ×2 (08:47→22:02)
[2019-10-12] MEDS: DOCUSATE 100 MG CAP PO PRN (08:47)
[2019-10-12] MEDS: AZITHROMYCIN 500 MG TAB PO SCH (08:47)
[2019-10-12] MEDS: LORATADINE 10 MG TAB PO SCH (08:47)
--- NOTE | 2019-10-12 11:04 | P.PN ---
Subjective Progress Note Date: 10/12/19 Principal diagnosis: Shortness of breath and cough, right lower lobe pneumonia This is a 69-year-old female with history of severe COPD, FEV1 is 46%, patient is known to have chronic hypoxic respiratory failure, maintained on oxygen at 2 L/m. Patient continues to smoke in spite of her underlying COPD, she smokes about 5 cigarettes per day. Patient was brought in with 2 weeks history of cough, wheezing, shortness of breath. Cough is productive with yellow phlegm, denies any fever no chills no hemoptysis no chest pain. Chest x-ray is suggestive of a limited infiltrate in the right lower lobe. Patient was admitted, placed on broad-spectrum antibiotics for community-acquired pneumonia, bronchodilators, steroids, and I was asked to see her on consultation. On 10/09/2019 patient seen in follow-up. Still very dyspneic and bronchospastic, vital signs are stable, no fever or chills, patient is bringing up thick yellow colored phlegm, which is clothing consultant in color compared to her admission, continues on IV steroids, continues on breathing treatments, she is getting up to the commode, she is dyspneic with minimal activity, sputum cultures are pending, patient is on a combination of Zithromax and Rocephin, On 10/12/2019 patient seen in follow-up on medical surgical floor, breathing much easier today, significant difference in the breath sounds, much less bronchospastic and congested, lung sounds are positive for minimal wheezing. Patient cough with production of whitish phlegm, no fever or chills, remains on a combination of Zithromax and Cefdinir, Symbicort, IV steroids, and breathing treatments, improving, today's labs have been reviewed, showing white blood cell, 23.1, hemoglobin is 13.3, electrolytes were within normal limits, BUN is 20 creatinine 0.73. Patient is on antibiotics, sputum culture was positive for Moraxella catarrhalis and Streptococcus pneumonia Objective - Vital Signs Vital signs: Vital Signs Temp 97.6 F 10/12/19 04:48 Pulse 90 10/12/19 07:40 Resp 20 10/12/19 04:48 BP 135/76 10/12/19 04:48 Pulse Ox 94 L 10/12/19 07:28 Intake & Output 10/11/19 10/12/19 10/12/19 18:59 06:59 18:59 Intake Total 650 Balance 650 Intake: Intake, IV Titration 50 Amount cefTRIAXone 1 gm In 50 Sodium Chloride 0.9% 50 ml @ 100 mls/hr IVPB ONCE ONE Rx#:[id number] Oral 600 Other: Voiding Method Bedside Commode Bedside Commode Bedside Commode # Voids 2 1 # Bowel Movements 2 - Exam GENERAL EXAM: Alert, active, comfortable in no apparent distress. HEAD: Normocephalic/atraumatic. EYES: Normal reaction of pupils, equal size. Conjunctiva pink, sclera white. NOSE: Clear with pink turbinates. THROAT: No erythema or exudates. NECK: No masses, no JVD, no thyroid enlargement, no adenopathy. CHEST: No chest wall deformity. Symmetrical expansion. LUNGS: Equal air entry with minimal wheezing, good air entry noted bilaterally CVS: Regular rate and rhythm, normal S1 and S2, no gallops, no murmurs, no rubs ABDOMEN: Soft, nontender. No hepatosplenomegaly, normal bowel sounds, no guarding or rigidity. EXTREMITIES: No clubbing, no edema, no cyanosis, 2+ pulses and upper and lower extremities. MUSCULOSKELETAL: Muscle strength and tone normal. SPINE: No scoliosis or deformity SKIN: No rashes CENTRAL NERVOUS SYSTEM: Alert and oriented -3. No focal deficits, tone is normal in all 4 extremities. PSYCHIATRIC: Alert and oriented -3. Appropriate affect. Intact judgment and insight. - Labs CBC & Chem 7: 10/12/19 07:29 10/12/19 07:20 Labs: Abnormal Lab Results - Last 24 Hours (Table) 10/12/19 10/12/19 Range/Units 07:20 07:29 WBC 23.1 H (3.8-10.6) k/uL Neutrophils # 20.9 H (1.3-7.7) k/uL BUN 28 H (7-17) mg/dL Glucose 109 H (74-99) mg/dL Microbiology - Last 24 Hours (Table) 10/07/19 19:15 Blood Culture - Preliminary Blood No Growth after 96 hours 10/07/19 21:15 Gram Stain - Final Sputum Sputum Culture - Final Moraxella(branhamella) catarra Streptococcus pneumoniae Assessment and Plan Plan: 1 acute COPD exacerbation, right lower lobe pneumonia, related to Moraxella catarrhalis, and Streptococcus pneumonia. This is likely community-acquired pneumonia. 2 severe COPD, with a based on FEV1 of 46% of predicted 3 chronic hypoxic respiratory failure 4 chronic smoker 5 hypothyroidism 6 chronic anxiety 7 post left hip arthroplasty back in July 2018 8 hypothyroidism Plan: We'll obtain a follow-up chest x-ray tomorrow, continue same antibiotics, patient is on commission Zithromax and Cefdinir, clinically improving. Patient does not want a bronchoscopy unless absolutely necessary, and if she needs it is requesting that we speak to her daughters first. So far she is clinically improving, will reevaluate again next 24 hours, in the meanwhile increase activity, encouraged patient to sit up in the chair, continue same dose IV steroids continue nebulized bronchodilators. I performed a history & physical examination of the patient and discussed their management with my nurse practitioner, lEsi Drake. I reviewed the nurse practitioner's note and agree with the documented findings and plan of care. Shannon ng sounds are positive for diffuse wheezes throughout the lung kwok. The findings and the impression was discussed with the patient. I attest to the documentation by the nurse practitioner. Time with Patient: Less than 30
[2019-10-12] MEDS ORDERED: traZODone HCL 50 MG TAB PO SCH (21:39)
[2019-10-12] MEDS: traZODone HCL 100 MG TAB PO SCH (22:05)
--- NOTE | 2019-10-13 01:05 | P.PN ---
Subjective Progress Note Date: 10/12/19 Principal diagnosis: Acute COPD exacerbation 69-year-old female presented emergency room with the increasing shortness of breath. Patient is a smoker and refusing to quit. Has home oxygen. Chronic COPD noted to have pneumonia in the emergency room patient has not felt well for 2 weeks 10/10/2019 Patient is still dyspneic and complaints of cough with minimal amount of sputum production. Patient was able to bring out yellowish sputum this morning. Denied any complaints of fever or chills. Patient is on antibiotics in the form of azithromycin and ceftriaxone. Sputum cultures showed Moraxella catarrhalis and strep pneumoniae. No complaints of chest pain. No nausea vomiting or abdominal pain. Still dyspneic with minimal exertion. Currently being continued on IV steroids and DuoNeb's. Oxygen via nausea cannula. 10/11/2019 Patient says that her breathing is better compared to yesterday. Not at baseline. Was able to bring out small amount of sputum with cough today. Patient is currently on azithromycin sensitive to Moraxella catarrhalis and streptococcal pneumonia. Continue oxygen therapy and IV steroids and DuoNeb's. 10/12/2019 Patient is still having expiratory wheezing and cough with whitish sputum production. Still having exertional dyspnea. Currently being continued on antibiotics in the form of azithromycin and cefdinir,. On breathing treatments and IV steroids. WBC count went up to 23.1 likely due to steroids. A repeat chest x-ray was o rdered for tomorrow. Renal function stable Active Medications Hydrocodone Bitart/Acetaminophen ([place] 10) 1 each PO QID PRN PRN Reason: Moderate Pain Last Admin: 10/12/19 19:28 Dose: 1 each Documented by: Albuterol Sulfate (Ventolin Nebulized) 2.5 mg INHALATION RT-QID PRN PRN Reason: Shortness Of Breath Last Admin: 10/08/19 20:37 Dose: 2.5 mg Documented by: Albuterol/Ipratropium (Duoneb 0.5 Mg-3 Mg/3 Ml Soln) 3 ml INHALATION RT-Q4H PRN PRN Reason: shortness of breath Last Admin: 10/12/19 23:56 Dose: 3 ml Documented by: Azithromycin (Zithromax) 500 mg PO DAILY [facility] Last Admin: 10/12/19 08:47 Dose: 500 mg Documented by: Budesonide/Formoterol Fumarate (Symbicort 160-4.5 Mcg Inhaler) 2 puff INHALATION RT-BID [facility] Last Admin: 10/12/19 19:24 Dose: 2 puff Documented by: Calcium Carbonate/Glycine (Tums) 1,000 mg PO QID PRN PRN Reason: Heartburn Last Admin: 10/12/19 19:28 Dose: 1,000 mg Documented by: Cefdinir (Omnicef) 600 mg PO DAILY [facility] Stop: 10/17/19 09:01 Last Admin: 10/12/19 08:46 Dose: 600 mg Documented by: Citalopram Hydrobromide (Celexa) 20 mg PO DAILY [facility] Last Admin: 10/12/19 08:47 Dose: 20 mg Documented by: Docusate Sodium (Colace) 100 mg PO DAILY PRN PRN Reason: Constipation Last Admin: 10/12/19 08:47 Dose: 100 mg Documented by: Levothyroxine Sodium (Synthroid) 100 mcg PO DAILY@0630 [facility] Last Admin: 10/12/19 05:32 Dose: 100 mcg Documented by: Loratadine (Claritin) 10 mg PO DAILY [facility] Last Admin: 10/12/19 08:47 Dose: 10 mg Documented by: Meclizine HCl (Antivert) 25 mg PO TID [facility] Last Admin: 10/12/19 22:04 Dose: 25 mg Documented by: Methylprednisolone Sodium Succinate (Solu-Medrol) 60 mg IV Q6HR [facility] Last Admin: 10/12/19 17:00 Dose: 60 mg Documented by: Miscellaneous Information (Pneumonia Protocol Utilized) 1 each PO ONCE PRN PRN Reason: Per Protocol Trazodone HCl (Desyrel) 100 mg PO HS [facility] Last Admin: 10/12/19 22:04 Dose: 100 mg Documented by: Triamcinolone Acetonide (Kenalog) 1 applic TOPICAL BID [facility] Last Admin: 10/12/19 22:02 Dose: 1 applic Documented by: Objective - Vital Signs Vital signs: Vital Signs Temp 98 F 10/12/19 21:00 Pulse 91 10/12/19 21:00 Resp 18 10/12/19 21:00 BP 121/67 10/12/19 21:00 Pulse Ox 95 10/12/19 21:00 Intake & Output 10/12/19 10/12/19 10/13/19 06:59 18:59 06:59 Intake Total 600 Balance 600 Intake: Oral 600 Other: Voiding Method Bedside Commode Bedside Commode # Voids 1 2 - Exam PHYSICAL EXAMINATION: Patient is lying in the bed comfortably, no acute distress, awake alert and oriented.. HEENT: Normocephalic. Neck is supple. Pupils reactive. Nostrils clear. Oral cavity is moist. Ears reveal no drainage. Neck reveals no JVD, carotid bruits, or thyromegaly. CHEST EXAMINATION: Trachea is central. Symmetrical expansion. Bilateral diffuse wheezing and rhonchi.. CARDIAC: Normal S1, S2 with no gallops. No murmurs ABDOMEN: Soft. Bowel sounds normal. No organomegaly. No abdominal bruits. Extremities: reveal no edema. No clubbing or cyanosis Neurologically awake, alert, oriented x3 with well-coordinated movements. No focal deficits noted Skin: No rash or skin lesions. Psychiatric: Coperative. Nonsuicidal Musculoskeletal: No joint swelling or deformity. Normal range of motion. - Labs CBC & Chem 7: 10/12/19 07:29 10/12/19 07:20 Labs: Abnormal Lab Results - Last 24 Hours (Table) 10/12/19 10/12/19 Range/Units 07:20 07:29 WBC 23.1 H (3.8-10.6) k/uL Neutrophils # 20.9 H (1.3-7.7) k/uL BUN 28 H (7-17) mg/dL Glucose 109 H (74-99) mg/dL Microbiology - Last 24 Hours (Table) 10/07/19 19:15 Blood Culture - Preliminary Blood No Growth after 120 hours Assessment and Plan Assessment: Acute COPD exacerbation secondary to tracheobronchitis and right lower lobe pneumonia. Right lower lobe pneumonia with sputum cultures growing Moraxella catarrhalis and streptococcal pneumonia. Currently on antibiotics in the form of azithromycin. Chronic hypoxic respiratory failure secondary to COPD. FEV1 46% of predicted Ongoing nicotine addiction Hypothyroidism Anxiety Osteoarthritis DVT prophylaxis Plan: Patient will be continued on antibiotics. Continue with IV steroids and DuoNeb's and follow closely. Oxygen therapy. Patient is still dyspneic. Continue the current management and further recommendations based on the clinical course. Pulmonary is on board. Time with Patient: Greater than 30
[2019-10-13] MEDS: HYDROcodone/APAP 10-325MG 1 EACH TAB PO PRN ×3 (01:24→15:41)
[2019-10-13] MEDS: methylPREDNISolone SOD SUCCI 125 MG/2 ML VIAL IV SCH ×3 (01:25→12:41)
[2019-10-13] MEDS: IPRATROPIUM-ALBUTEROL 3 ML NEB INHALATION PRN ×3 (03:28→11:37)
[2019-10-13 05:37] VITALS: TEMP 97.9
[2019-10-13] MEDS: LEVOTHYROXINE 100 MCG TAB PO SCH (06:10)
[2019-10-13 07:47] LABS: Basophils # (A) 0.2 k/uL (0-0.2); Basophils % (A) 1 %; Eosinophils % (A) 0 %; HCT 41.8 % (34.0-46.0); HGB 13.4 gm/dL (11.4-16.0); Lymphocytes # (A) 0.6 k/uL (1.0-4.8); Lymphocytes % (A) 3 %; MCH 31.2 pg (25.0-35.0); MCHC 32.1 g/dL (31.0-37.0); MCV 97.2 fL (80.0-100.0); Mean Platelet Volume 6.3; Monocytes # (A) 0.8 k/uL (0-1.0); Monocytes % (A) 3 %; Neutrophils # (A) 21.4 k/uL (1.3-7.7); Neutrophils % (A) 92 %; Platelet Count 359 k/uL (150-450); RBC 4.29 m/uL (3.80-5.40); RDW 12.8 % (11.5-15.5); WBC 23.2 k/uL (3.8-10.6)
[2019-10-13] MEDS: SYMBICORT 160-4.5 MCG INHALER INHALATION SCH (07:48)
[2019-10-13 08:02] LABS: Calcium 9.2 mg/dL (8.4-10.2)
[2019-10-13] MEDS: LORATADINE 10 MG TAB PO SCH (08:45)
[2019-10-13] MEDS: AZITHROMYCIN 500 MG TAB PO SCH (08:45)
[2019-10-13] MEDS: CEFDINIR 300 MG CAP PO SCH (08:46)
[2019-10-13] MEDS: MECLIZINE 25 MG TAB PO SCH ×2 (08:47→16:01)
[2019-10-13] MEDS: DOCUSATE 100 MG CAP PO PRN (08:49)
[2019-10-13] MEDS: CITALOPRAM HYDROBROMIDE 20 MG TAB PO SCH (08:49)
[2019-10-13] MEDS: TRIAMCINOLONE 0.1% CREAM 80 GM TUBE TOPICAL SCH (08:51)
[2019-10-13 11:23] VITALS: BP 123/65; RESP 20
[2019-10-13 11:50] VITALS: PULSE 90
--- NOTE | 2019-10-13 15:46 | PN ---
PROGRESS NOTE DATE OF SERVICE: 10/13/2019 This is a 69-year-old female with a diagnosis of acute COPD exacerbation and right lower lobe pneumonia. The pneumonia was secondary to Moraxella catarrhalis and Streptococcus pneumoniae, and likely represents a community-acquired process. In addition, the patient has stage 3/severe COPD with an FEV1 that is 46% of predicted, as well as chronic hypoxemic respiratory failure, chronic and ongoing tobacco use, hypothyroidism, chronic anxiety, hypothyroidism, and status post left hip arthroplasty. The patient is doing much better. Feeling much better. Still short of breath. She is particularly short of breath with any activity. She is still coughing and wheezing a bit. Not bringing up any phlegm. PHYSICAL EXAMINATION: VITAL SIGNS: Current vital signs are reviewed. The temperature is 97.9, heart rate 82, respiratory rate 20, blood pressure 123/65, mean 84, 4 L saturation 94%. Appears in no acute distress. HEENT examination is grossly unremarkable. Mucous membranes are moist. No oral lesions. Nasal O2 noted at 4 L. NECK: Supple. Full range of motion. No adenopathy or thyromegaly. Neck veins are flat. CARDIOVASCULAR examination reveals regular rhythm and rate. Heart rate in mid 80s. S1, S2 normal. No murmur. LUNGS: Reveal diffuse coarse rhonchi. There are some expiratory wheezes. No crackles. There is prolongation on forced maneuver. Breath sounds are diminished throughout. ABDOMEN: Obese. Bowel sounds heard. No masses or tenderness. EXTREMITIES are intact. No cyanosis, clubbing, or edema. SKIN: Without rash. NEUROLOGIC examination is brief but nonfocal. Microbiology showing evidence of sputum positive for both Moraxella catarrhalis and Streptococcus pneumoniae from October 07. LABS: Reviewed. White count 23.2, hemoglobin 13.4, hematocrit 41.8, platelet count 359,000. Sodium 138, potassium 6, chloride 101, CO2 is 30, anion gap is 7. BUN and creatinine were 39 and 0.84. Chest x-ray from the shows right basilar infiltrate. MEDICATIONS: Medications are reviewed. Everything seems to be appropriate. She is currently on Omnicef 300 twice a day. She also remains on Solu-Medrol 60 q.6h as well as breathing treatments. ASSESSMENT: 1. Acute chronic obstructive pulmonary disease exacerbation in a patient with severe stage 3 chronic obstructive pulmonary disease, complicated by right lower lobe pneumonia secondary to Moraxella catarrhalis and Streptococcus pneumoniae. 2. History of severe chronic obstructive pulmonary disease and the patient with an FEV1 that is only 46% of predicted. 3. Chronic hypoxemic respiratory failure. 4. Chronic tobacco use. 5. Hypothyroidism. 6. Chronic anxiety. 7. Leukocytosis secondary to acute infection and stress as well as steroids. PLAN: The patient seems to be improving but slowly. No additional recommendations are made. Continue on breathing treatments, steroids and antibiotics. No additional recommendations are made. She will need followed up in the office post discharge. MMODL / IJN: [id number] /
[2019-10-13] MEDS ORDERED: DOCUSATE 100 MG CAP PO STA (15:54)
--- NOTE | 2019-10-13 16:43 | XR ---
EXAMINATION TYPE: XR chest 2V DATE OF EXAM: 10/13/2019 COMPARISON: 10/08/2019 HISTORY: Short of breath TECHNIQUE: Frontal and lateral views of the chest are obtained. FINDINGS: There is blunting right costophrenic angle. There is no heart failure. Heart size is elias l. There is plate fixing old left humerus fracture. IMPRESSION: There is some infiltrate and pleural fluid right lung base that is increased compared to last exam. No heart failure.
--- NOTE | 2019-10-14 11:54 | P.DS ---
Providers Date of admission: 10/07/19 18:21 Expected date of discharge: 10/13/19 Attending physician: Seferino Dorman Consults: 10/08/19 10:05 Consult Physician Urgent Consulting Provider: Sarah Corbett Consult Reason/Comments: copd pneumonia Do you want consulting provider notified?: Yes Primary care physician: Seferino Dorman Hospital Course: 69-year-old female is admitted to the emergency room with complaints of increasing shortness of breath. Patient has significant history for COPD and is a smoker and continues to do so. Patient was evaluated by pulmonology stabiliz ed with bronchodilators antibiotics and steroids. Patient cleared for discharge home Assessment Acute exacerbation of COPD with which is severe Pneumonia community acquired Moraxella and strep pneumo coccus Degenerative disc disease Chronic hypoxic respiratory failure Hypothyroidism Nicotine use Plan Discharge home anabiotic and oral steroid taper Patient to follow-up with pulmonology and physician Dr. Seferino Dorman Plan - Discharge Summary Discharge Rx Participant: Yes New Discharge Prescriptions: New Citalopram Hydrobromide [CeleXA] 20 mg PO DAILY #30 tab Docusate [Colace] 100 mg PO DAILY PRN #30 cap PRN Reason: Constipation Triamcinolone 0.1% Cream [Kenalog 0.1% Cream] 1 applic TOPICAL BID #30 applic Cefdinir [Omnicef] 600 mg PO DAILY #5 cap predniSONE 10 mg PO DAILY #40 tab Budesonide-Formot 160-4.5 Mcg [Symbicort 160-4.5 Mcg Inhaler] 2 puff INHALATION RT-BID #1 puff Calcium Carbonate [Tums] 1,000 mg PO QID PRN chew PRN Reason: Heartburn Continue Loratadine [Claritin] 10 mg PO DAILY Meclizine [Antivert] 25 mg PO TID Hydrocodone/Acetaminophen [Brownfield 10-325] 1 tab PO QID Albuterol Nebulized [Ventolin Nebulized] 2.5 mg INHALATION RT-QID PRN PRN Reason: Shortness Of Breath Albuterol Inhaler [Ventolin Hfa Inhaler] 2 puff INHALATION RT-Q6H PRN PRN Reason: Shortness Of Breath traZODone HCL 100 mg PO HS PRN PRN Reason: Insomnia Levothyroxine Sodium 100 mcg PO DAILY Discharge Medication List Loratadine [Claritin] 10 mg PO DAILY 01/21/17 [History] Meclizine [Antivert] 25 mg PO TID 01/21/17 [History] Hydrocodone/Acetaminophen [Brownfield 10-325] 1 tab PO QID 07/28/18 [History] Albuterol Inhaler [Ventolin Hfa Inhaler] 2 puff INHALATION RT-Q6H PRN 12/09/18 [History] Albuterol Nebulized [Ventolin Nebulized] 2.5 mg INHALATION RT-QID PRN 12/09/18 [History] Levothyroxine Sodium 100 mcg PO DAILY 10/07/19 [History] traZODone HCL 100 mg PO HS PRN 10/07/19 [History] Budesonide-Formot 160-4.5 Mcg [Symbicort 160-4.5 Mcg Inhaler] 2 puff INHALATION RT-BID #1 puff 10/13/19 [Rx] Calcium Carbonate [Tums] 1,000 mg PO QID PRN chew 10/13/19 [Rx] Cefdinir [Omnicef] 600 mg PO DAILY #5 cap 10/13/19 [Rx] Citalopram Hydrobromide [CeleXA] 20 mg PO DAILY #30 tab 10/13/19 [Rx] Docusate [Colace] 100 mg PO DAILY PRN #30 cap 10/13/19 [Rx] Triamcinolone 0.1% Cream [Kenalog 0.1% Cream] 1 applic TOPICAL BID #30 applic 10/13/19 [Rx] predniSONE 10 mg PO DAILY #40 tab 10/13/19 [Rx] Follow up Appointment(s)/Referral(s): Seferino Dorman MD [Primary Care Provider] - 1-2 days (Patient to call Dr. Dorman's office to schedule follow up appointment. The office is closed at time of discharge.) Patient Instructions/Handouts: Prednisone (By mouth), Laxative, Stool Softeners (By mouth), Triamcinolone (On the skin), Citalopram (By mouth), Cefdinir (By mouth), Budesonide/Formoterol (By breathing), COPD (Chronic Obstructive Pulmonary Disease) (DC), Pneumonia (DC) Discharge Disposition: HOME SELF-CARE
== END 2019-10-13 19:00 | disposition home or self-care (01) | DRG 190 ==
LOC: EC 15:15 → 3NMEDONC 18:21
PROVIDERS: ADMIT Family Medicine; ATTEND Family Medicine
DX: J44.0 Chronic obstructive pulmonary disease with (acute) lower respiratory infection (principal); J15.4 Pneumonia due to other streptococci; J15.6 Pneumonia due to other Gram-negative bacteria; F11.20 Opioid dependence, uncomplicated; J96.11 Chronic respiratory failure with hypoxia; J44.1 Chronic obstructive pulmonary disease with (acute) exacerbation; E03.9 Hypothyroidism, unspecified; F17.210 Nicotine dependence, cigarettes, uncomplicated; F32.9 Major depressive disorder, single episode, unspecified; F41.9 Anxiety disorder, unspecified; Z99.81 Dependence on supplemental oxygen; K59.00 Constipation, unspecified; L40.9 Psoriasis, unspecified; M19.90 Unspecified osteoarthritis, unspecified site; T38.0X5A Adverse effect of glucocorticoids and synthetic analogues, initial encounter; Z79.51 Long term (current) use of inhaled steroids; Z79.890 Hormone replacement therapy; Z79.899 Other long term (current) drug therapy; Z80.8 Family history of malignant neoplasm of other organs or systems; Z85.3 Personal history of malignant neoplasm of breast; Z85.41 Personal history of malignant neoplasm of cervix uteri; Z90.710 Acquired absence of both cervix and uterus; Z96.642 Presence of left artificial hip joint; Z88.0 Allergy status to penicillin; Z88.6 Allergy status to analgesic agent; Z91.040 Latex allergy status
CPT/HCPCS: 36415; 71046; 80048; 80053; 83605; 83735; 84484; 85025; 85610; 85730; 87040; 87070; 87077; 87186; 87205; 93005; 94640; 94760; 96361; 96374; 96375; 99285

== ENCOUNTER 2022-05-30 14:31 | Inpatient (IN) | payer MEDICARE ==
[2022-05-30] MEDS ORDERED: MAGNESIUM SULFATE-D5W PMX 1 GM in DEXTROSE/WATER 1 100ML.BAG IVPB STA (15:47)
[2022-05-30] MEDS ORDERED: IPRATROPIUM-ALBUTEROL 3 ML NEB INHALATION STA (15:47)
[2022-05-30] MEDS ORDERED: methylPREDNISolone SOD SUCCI 125 MG/2 ML VIAL IV STA (15:47)
[2022-05-30] MEDS ORDERED: SODIUM CHLORIDE 0.9% 500 ML 500 ML IV STA (15:47)
[2022-05-30 16:03] LABS: Basophils # (A) 0.1 k/uL (0-0.2); Basophils % (A) 1 %; Eosinophils # (A) 0.4 k/uL (0-0.7); Eosinophils % (A) 3 %; HCT 47.3 % (34.0-46.0); HGB 15.2 gm/dL (11.4-16.0); Lymphocytes # (A) 2.4 k/uL (1.0-4.8); Lymphocytes % (A) 21 %; MCH 32.1 pg (25.0-35.0); MCHC 32.2 g/dL (31.0-37.0); MCV 99.8 fL (80.0-100.0); Macrocytosis Slight; Mean Platelet Volume 7.3; Monocytes # (A) 0.4 k/uL (0-1.0); Monocytes % (A) 4 %; Neutrophils # (A) 7.9 k/uL (1.3-7.7); Neutrophils % (A) 70 %; Platelet Count 273 k/uL (150-450); RBC 4.74 m/uL (3.80-5.40); RDW 15.6 % (11.5-15.5); WBC 11.3 k/uL (3.8-10.6)
[2022-05-30 16:07] LABS: INR 0.9 (<1.2); Partial Thromboplastin Time 27.7 sec (22.0-30.0); Prothrombin Time 10.1 sec (9.0-12.0)
[2022-05-30 16:19] LABS: Calcium 9.7 mg/dL (8.4-10.2); Magnesium 2.1 mg/dL (1.6-2.3); Potassium 4.3 mmol/L (3.5-5.1); Total Bilirubin 0.5 mg/dL (0.2-1.3); Total Protein 8.3 g/dL (6.3-8.2)
--- NOTE | 2022-05-30 16:43 | XR ---
EXAMINATION TYPE: XR chest 2V DATE OF EXAM: 05/30/2022 4:35 PM COMPARISON: Chest radiographs from 10/13/2019. TECHNIQUE: XR chest 2V Frontal and lateral views of the chest. CLINICAL INDICATION:Female, 71 years old with history of difficulty breathing; FINDINGS: Lungs/pleura: There is flattening of the diaphragm with increased lucency of the lungs. No evidence o f pneumothorax, pleural effusion or focal consolidation. Pulmonary vascularity: Unremarkable. Heart/mediastinum: Cardiomediastinal silhouette is unremarkable. Musculoskeletal: No acute osseous pathology. Partially visualized proximal left humerus fixation hard simmons which appears intact. IMPRESSION: 1. No acute cardiopulmonary disease process. 2. COPD changes.
[2022-05-30] MEDS ORDERED: IPRATROPIUM-ALBUTEROL 3 ML NEB INHALATION SCH (17:45)
--- NOTE | 2022-05-30 17:46 | ED ---
General Adult HPI - General Chief complaint: Shortness of Breath Stated complaint: SOB Time Seen by Provider: 05/30/22 15:40 Source: patient, RN notes reviewed, old records reviewed Mode of arrival: wheelchair - History of Present Illness Initial comments: Patient is a 71-year-old female with past medical history remarkable for COPD on home oxygen 4 L, thyroid disorder who presents emergency Department complaining of worsening shortness breath with productive cough. Was discharged home 9 days ago with pneumonia. States she initially was improving but noticed that she is having some worsening productive cough of greenish mucus since then. Also worsening shortness of breath. Has not needed to increase her oxygen. Symptoms not improving with home breathing treatments. Presents for further evaluation at this time. Denies sick contacts. Denies fevers. Denies abdominal pain, nausea, vomiting. Denies chest pain. His no other acute complaints. Presents for further evaluation. - Related Data Home Medications Medication Instructions Recorded Confirmed No Known Home Medications 05/30/22 05/30/22 Allergies Allergy/AdvReac Type Severity Reaction Status Date / Time aspirin Allergy Swelling Verified 05/30/22 16:55 ibuprofen Allergy Anaphylaxis Verified 05/30/22 16:55 latex Allergy Rash/Hives Verified 05/30/22 16:55 Penicillins AdvReac Swelling Verified 05/30/22 16:55 Review of Systems ROS Statement: Those systems with pertinent positive or pertinent negative responses have been documented in the HPI. Review of Systems: CONST: Denies fever EYES: Denies blurry vision ENT: Denies nasal congestion C/V: Denies Chest pain RESP: Endorses shortness of breath, wheezing GI: Denies abdominal pain : Denies dysuria SKIN: Denies rash. MSK: Denies joint pain. NEURO: Denies headache ROS Other: All systems not noted in ROS Statement are negative. Past Medical History Past Medical History: COPD, Thyroid Disorder Additional Past Medical History / Comment(s): Degenerative bone disease, vertigo, fibrocystic disease, neuropathy, diverticulitis, cervical CA (1980) and breast CA (1985) History of Any Multi-Drug Resistant Organisms: None Reported Past Surgical History: Cholecystectomy, Hysterectomy, Orthopedic Surgery Additional Past Surgical History / Comment(s): right knee surgery 2014, left shoulder 2007, left hip (2017) Past Anesthesia/Blood Transfusion Reactions: No Reported Reaction Additional Past Anesthesia/Blood Transfusion Reaction / Comment(s): pt states that she had a hard time waking up from anesthesia and cannot tolerate "adult dose" Past Psychological History: Anxiety, Depression Past Alcohol Use History: None Reported Past Drug Use History: None Reported - Past Family History Mother Family Medical History: Cancer Additional Family Medical History / Comment(s): skin cancer General Exam - General Exam Comments Initial Comments: General: Appears in mild respiratory distress, respirations slightly elevated. No hypoxia on baseline 4 L nasal cannula. HEAD: Normal with no signs of head trauma. EYES: PERRLA, EOMI, conjunctiva normal, no discharge. ENT: Hearing grossly intact, normal oropharynx. RESPIRATORY: Bilateral end expiratory wheezing. No hypoxia on baseline 4 L nasal cannula. Mild increased work of breathing. C/V: Regular rate and rhythm. S1 and S2 auscultated, no edema, peripheral pulses 2+ and intact throughout ABD: Abd is soft, nontender, nondistended EXT: Normal range of motion, no obvious deformity SKIN: No rashes or lesions observed on exposed skin. NEURO: Alert and oriented 4. Course Vital Signs 05/30/22 05/30/22 05/30/22 15:23 15:52 16:06 Temperature 98.1 F Pulse Rate 87 77 Respiratory 24 22 20 Rate Blood Pressure 108/64 O2 Sat by Pulse 99 Oximetry 05/30/22 16:15 Temperature Pulse Rate 78 Respiratory 20 Rate Blood Pressure O2 Sat by Pulse 100 Oximetry Medical Decision Making - Medical Decision Making Based on patient's presentation and physical exam, I'm concerned for worsening COPD exacerbation are upper respiratory infection. She is wheezy. We'll administer IV steroids, breathing treatments, magnesium. Basic labs will be obtained as well as EKG and chest x-ray. She'll be continued on her home 4 L nasal cannula. Patient was in agreement this plan. EKG shows no signs of acute ischemia. Chest x-ray shows no acute cardiopulmonary process. Troponin is undetectable. Covid and influenza negative. Following breathing treatments, patient remains wheezy. Discussed admission versus discharge. She requests admission to be watched. Patient also likely has bronchitis. Will be started on doxycycline, every 8 hours IV steroids, as well as breathing treatments. She was in agreement this plan. I spoke with the observation on-call physician, Dr. Sanchez who accepted the patient. Vital signs remained within normal limits. Pulse ox remains within normal limits on home nasal cannula oxygen at 4 L. - Lab Data Result diagrams: 05/30/22 15:35 05/30/22 15:35 Lab Results 05/30/22 05/30/22 05/30/22 Range/Units 15:35 15:35 15:35 WBC 11.3 H (3.8-10.6) k/uL RBC 4.74 (3.80-5.40) m/uL Hgb 15.2 (11.4-16.0) gm/dL Hct 47.3 H (34.0-46.0) % MCV 99.8 (80.0-100.0) fL MCH 32.1 (25.0-35.0) pg MCHC 32.2 (31.0-37.0) g/dL RDW 15.6 H (11.5-15.5) % Plt Count 273 (150-450) k/uL MPV 7.3 Neutrophils % 70 % Lymphocytes % 21 % Monocytes % 4 % Eosinophils % 3 % Basophils % 1 % Neutrophils # 7.9 H (1.3-7.7) k/uL Lymphocytes # 2.4 (1.0-4.8) k/uL Monocytes # 0.4 (0-1.0) k/uL Eosinophils # 0.4 (0-0.7) k/uL Basophils # 0.1 (0-0.2) k/uL Macrocytosis Slight PT 10.1 (9.0-12.0) sec INR 0.9 (<1.2) APTT 27.7 (22.0-30.0) sec Sodium 139 (137-145) mmol/L Potassium 4.3 (3.5-5.1) mmol/L Chloride 102 (98-107) mmol/L Carbon Dioxide 28 (22-30) mmol/L Anion Gap 9 mmol/L BUN 17 (7-17) mg/dL Creatinine 1.13 H (0.52-1.04) mg/dL Est GFR (CKD-EPI)AfAm 56 (>60 ml/min/1.73 sqM) Est GFR (CKD-EPI)NonAf 48 (>60 ml/min/1.73 sqM) Glucose 85 (74-99) mg/dL Calcium 9.7 (8.4-10.2) mg/dL Magnesium 2.1 (1.6-2.3) mg/dL Total Bilirubin 0.5 (0.2-1.3) mg/dL AST 26 (14-36) U/L ALT 11 (4-34) U/L Alkaline Phosphatase 105 (38-126) U/L Troponin I (0.000-0.034) ng/mL Total Protein 8.3 H (6.3-8.2) g/dL Albumin 5.0 (3.5-5.0) g/dL Coronavirus (PCR) (Not Detectd) Influenza Type A RNA (Not Detectd) Influenza Type B (PCR) (Not Detectd) 05/30/22 05/30/22 05/30/22 Range/Units 15:35 16:00 16:15 WBC (3.8-10.6) k/uL RBC (3.80-5.40) m/uL Hgb (11.4-16.0) gm/dL Hct (34.0-46.0) % MCV (80.0-100.0) fL MCH (25.0-35.0) pg MCHC (31.0-37.0) g/dL RDW (11.5-15.5) % Plt Count (150-450) k/uL MPV Neutrophils % % Lymphocytes % % Monocytes % % Eosinophils % % Basophils % % Neutrophils # (1.3-7.7) k/uL Lymphocytes # (1.0-4.8) k/uL Monocytes # (0-1.0) k/uL Eosinophils # (0-0.7) k/uL Basophils # (0-0.2) k/uL Macrocytosis PT (9.0-12.0) sec INR (<1.2) APTT (22.0-30.0) sec Sodium (137-145) mmol/L Potassium (3.5-5.1) mmol/L Chloride (98-107) mmol/L Carbon Dioxide (22-30) mmol/L Anion Gap mmol/L BUN (7-17) mg/dL Creatinine (0.52-1.04) mg/dL Est GFR (CKD-EPI)AfAm (>60 ml/min/1.73 sqM) Est GFR (CKD-EPI)NonAf (>60 ml/min/1.73 sqM) Glucose (74-99) mg/dL Calcium (8.4-10.2) mg/dL Magnesium (1.6-2.3) mg/dL Total Bilirubin (0.2-1.3) mg/dL AST (14-36) U/L ALT (4-34) U/L Alkaline Phosphatase (38-126) U/L Troponin I <0.012 (0.000-0.034) ng/mL Total Protein (6.3-8.2) g/dL Albumin (3.5-5.0) g/dL Coronavirus (PCR) Not Detected (Not Detectd) Influenza Type A RNA Not Detected (Not Detectd) Influenza Type B (PCR) Not Detected (Not Detectd) - EKG Data -: EKG Interpreted by Me EKG Comments: 12-lead Electrocardiogram Interpretation Note EKG was reviewed and interpreted by myself. 12-lead ECG performed at 1540 is interpreted by me as revealing normal sinus rhythm at a rate of 80 beats per minute. Left axis deviation. KS interval is 150 ms, QRS duration 72 ms, QTc is 403 ms.. There were no ST or T wave abnormalities to suggest myocardial ischemia or injury. R wave progression across the precordium was satisfactory. By my interpretation this EKG is non-diagnostic for acute ischemia. Disposition Clinical Impression: COPD exacerbation, Bronchitis Disposition: ADMITTED IP TO THIS HOSP Condition: Stable Referrals: Keyanna Fry MD [Primary Care Provider] - 1-2 days Time of Disposition: 17:30
[2022-05-30] MEDS ORDERED: NALOXONE 0.4 MG/ML 1 ML VIAL IV PRN (17:48)
[2022-05-30] MEDS ORDERED: IPRATROPIUM-ALBUTEROL 3 ML NEB INHALATION PRN (19:03)
[2022-05-30] MEDS: DOXYCYCLINE 100 MG in SODIUM CHLORIDE 0.9% 100 ML IVPB SCH (19:59)
[2022-05-30] MEDS: IPRATROPIUM-ALBUTEROL 3 ML NEB INHALATION SCH (20:09)
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
[2022-05-31] MEDS: methylPREDNISolone SOD SUCCI 40 MG/ML 1 ML VIAL IV SCH ×3 (00:49→15:24)
[2022-05-31] MEDS: HEPARIN SODIUM,PORCINE/PF 5,000 UNIT/0.5 ML SYRINGE SQ SCH ×3 (00:49→15:25)
[2022-05-31] MEDS: GABAPENTIN 300 MG CAP PO SCH ×4 (00:49→20:07)
[2022-05-31] MEDS: LEVOTHYROXINE 112 MCG TAB PO SCH (05:29)
[2022-05-31] MEDS: CITALOPRAM HYDROBROMIDE 20 MG TAB PO SCH (07:54)
[2022-05-31] MEDS: DOXYCYCLINE 100 MG in SODIUM CHLORIDE 0.9% 100 ML IVPB SCH (07:54)
[2022-05-31] MEDS: IPRATROPIUM-ALBUTEROL 3 ML NEB INHALATION SCH ×4 (08:48→20:06)
[2022-05-31] MEDS ORDERED: DOXYCYCLINE 100 MG CAP PO SCH (09:00)
[2022-05-31 09:32] LABS: Basophils # (A) 0.03 X 10*3/uL (0.00-0.10); Basophils % (A) 0.4 %; Eosinophils # (A) 0.01 X 10*3/uL (0.04-0.35); Eosinophils % (A) 0.1 %; HCT 41.7 % (37.2-46.3); HGB 13.6 g/dL (12.0-15.0); Immature Grans, Automated 0.7 %; Lymphocytes # (A) 0.58 X 10*3/uL (0.90-5.00); MCHC 32.6 g/dL (32.0-37.0); MCV 98.1 fL (80.0-97.0); Mean Platelet Volume 10.4 fL (9.5-12.2); Monocytes # (A) 0.07 X 10*3/uL (0.20-1.00); Monocytes % (A) 0.8 %; NRBC Per 100 WBC 0 /100 WBCS (0.0-0.0); Neutrophils # (A) 7.55 X 10*3/uL (1.80-7.70); Platelet Count 264 X 10*3/uL (140-440); RBC 4.25 X 10*6/uL (4.10-5.20); RDW 16.3 % (11.5-14.5)
[2022-05-31 09:37] LABS: BUN/Creat Ratio 16.53 Ratio (12.00-20.00)
[2022-05-31 09:38] LABS: African American GFR (CKD) 51.4 (60.0-200.0); Calcium 9.2 mg/dL (8.7-10.3); Carbon Dioxide 21.4 mmol/L (20.0-27.5); Chloride 102 mmol/L (96-109); Glucose 144 mg/dL (70-110); Non-African American GFR(CKD) 44.4 (60.0-200.0); Potassium 5.3 mmol/L (3.5-5.5); Sodium 137 mmol/L (135-145)
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
--- NOTE | 2022-05-31 12:34 | P.PN ---
Subjective Progress Note Date: 05/31/22 Patient says that she has improved her breathing today, but does not feel back to baseline. Still wheezing. Still feels low in energy. Gen: awake, alert HEENT: normocephalic, atraumatic, good hearing acuity, moist mucous membranes Resp: good air exchange, breathing comfortably with no accessory muscle use, diffuse wheezing CVS: good distal perfusion x 4, GI: soft, NTTP, ND : no SPT, no CVAT, hernandez catheter not present MSK: no pitting edema, no clubbing Neuro: non-focal, moving all extremities Psych: cooperative, euthymic mood Assessment/plan: Acute COPD exacerbation Chronic hypoxic respiratory failure on home oxygen 4 L Initiate patient on systemic IV steroids Doxycycline twice a day for anti-inflammatory effect DuoNeb's as needed and [id number] Pulmonary consult Patient strongly encouraged to quit smoking Supplemental oxygen as needed Hypothyroid Resume levothyroxine Check thyroid studies DVT prophylaxis heparin subcu 3 times a day DO NOT RESUSCITATE Objective - Vital Signs Vital signs: Vital Signs Temp 97.9 F 05/31/22 07:00 Pulse 77 05/31/22 11:52 Resp 18 05/31/22 07:00 BP 142/80 05/31/22 07:00 Pulse Ox 98 05/31/22 08:48 FiO2 Intake & Output 05/30/22 05/31/22 05/31/22 18:59 06:59 18:59 Weight 54.431 kg Other: Voiding Method Toilet Toilet Diaper Diaper Incontinent Incontinent # Voids 1 - Labs CBC & Chem 7: 05/31/22 04:19 05/31/22 04:19 Labs: Abnormal Lab Results - Last 24 Hours (Table) 05/30/22 05/30/22 05/31/22 Range/Units 15:35 15:35 04:19 WBC 11.3 H (3.8-10.6) k/uL Hct 47.3 H (34.0-46.0) % MCV 98.1 H (80.0-97.0) fL RDW 15.6 H 16.3 H (11.5-15.5) % Immature Gran # 0.06 H (0.00-0.04) X 10*3/uL Neutrophils # 7.9 H (1.3-7.7) k/uL Lymphocytes # 0.58 L (0.90-5.00) X 10*3/uL Monocytes # 0.07 L (0.20-1.00) X 10*3/uL Eosinophils # 0.01 L (0.04-0.35) X 10*3/uL Creatinine 1.13 H (0.52-1.04) mg/dL Est GFR (CKD-EPI)AfAm (60.0-200.0) Est GFR (CKD-EPI)NonAf (60.0-200.0) Glucose (70-110) mg/dL Total Protein 8.3 H (6.3-8.2) g/dL TSH (0.350-5.500) uIU/mL 05/31/22 Range/Units 04:19 WBC (3.8-10.6) k/uL Hct (34.0-46.0) % MCV (80.0-97.0) fL RDW (11.5-15.5) % Immature Gran # (0.00-0.04) X 10*3/uL Neutrophils # (1.3-7.7) k/uL Lymphocytes # (0.90-5.00) X 10*3/uL Monocytes # (0.20-1.00) X 10*3/uL Eosinophils # (0.04-0.35) X 10*3/uL Creatinine (0.52-1.04) mg/dL Est GFR (CKD-EPI)AfAm 51.4 L (60.0-200.0) Est GFR (CKD-EPI)NonAf 44.4 L (60.0-200.0) Glucose 144 H (70-110) mg/dL Total Protein (6.3-8.2) g/dL TSH 127.000 H (0.350-5.500) uIU/mL
[2022-05-31] MEDS: HYDROcodone/APAP 10-325MG 1 EACH TAB PO PRN (15:43)
[2022-05-31] MEDS: traZODone HCL 50 MG TAB PO SCH (20:06)
[2022-05-31] MEDS: DOXYCYCLINE 100 MG CAP PO SCH (20:06)
[2022-06-01] MEDS: methylPREDNISolone SOD SUCCI 40 MG/ML 1 ML VIAL IV SCH ×4 (00:11→23:57)
[2022-06-01] MEDS: HEPARIN SODIUM,PORCINE/PF 5,000 UNIT/0.5 ML SYRINGE SQ SCH ×4 (00:11→23:57)
[2022-06-01] MEDS: LEVOTHYROXINE 112 MCG TAB PO SCH (05:44)
[2022-06-01] MEDS: HYDROcodone/APAP 10-325MG 1 EACH TAB PO PRN ×3 (08:18→20:29)
[2022-06-01] MEDS: DOXYCYCLINE 100 MG CAP PO SCH ×2 (08:18→20:29)
[2022-06-01] MEDS: GABAPENTIN 300 MG CAP PO SCH ×3 (08:18→20:29)
[2022-06-01] MEDS: CITALOPRAM HYDROBROMIDE 20 MG TAB PO SCH (08:18)
[2022-06-01] MEDS: IPRATROPIUM-ALBUTEROL 3 ML NEB INHALATION SCH ×4 (08:23→19:42)
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
[2022-06-01] MEDS: traZODone HCL 50 MG TAB PO SCH (20:29)
[2022-06-02] MEDS: LEVOTHYROXINE 112 MCG TAB PO SCH (05:08)
[2022-06-02] MEDS: IPRATROPIUM-ALBUTEROL 3 ML NEB INHALATION SCH ×4 (07:49→20:25)
[2022-06-02] MEDS: DOXYCYCLINE 100 MG CAP PO SCH ×2 (08:27→21:10)
[2022-06-02] MEDS: methylPREDNISolone SOD SUCCI 40 MG/ML 1 ML VIAL IV SCH ×3 (08:28→23:31)
[2022-06-02] MEDS: CITALOPRAM HYDROBROMIDE 20 MG TAB PO SCH (08:28)
[2022-06-02] MEDS: HEPARIN SODIUM,PORCINE/PF 5,000 UNIT/0.5 ML SYRINGE SQ SCH ×3 (08:28→23:31)
[2022-06-02] MEDS: GABAPENTIN 300 MG CAP PO SCH ×3 (08:28→21:10)
[2022-06-02] MEDS: HYDROcodone/APAP 10-325MG 1 EACH TAB PO PRN ×3 (08:28→21:09)
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
[2022-06-02] MEDS: BUDESONIDE 1 MG/2 ML NEBU INHALATION SCH (20:25)
[2022-06-02] MEDS: FORMOTEROL FUMARATE 20 MCG/2 ML NEBU INHALATION SCH (20:25)
--- NOTE | 2022-06-02 21:04 | P.PN ---
Subjective Progress Note Date: 06/02/22 Patient is a 71-year-old female with a past medical history of advanced COPD 4 L home oxygen dependent at all times, hypothyroidism, peripheral neuropathy, history of cervical and breast cancer in remission since 1985, and depression. She presented to the emergency department on 05/30/22 with a chief complaint of shortness of breath. She underwent full evaluation in the emergency department and was found to have mild leukocytosis with WBC count of 11.3. Covid PCR, influenza A, and influenza B all resulted negative. Chest x-ray consistent with COPD changes. EKG revealed normal sinus rhythm at 80 bpm with no noted T-wave or ST abnormalities showing no signs of acute ischemia. Patient was admitted under our services with consultation to pulmonology. 06/02/2022 Patient was seen and evaluated in follow-up this morning continues to be extremely dyspneic and bronchospastic on exam. Patient continues with a loose productive cough and sputum culture is negative. Patient is continued on oral doxycycline. Pulmonary is following and patient is maintained on IV steroids along with breathing inhalational treatments and oral antibiotics and will continue. Patient is chronically on 4 Liters via NC. Patient also continues with weakness and dyspnea with exertion. Patient is afebrile. Patient denies chest pain or palpitations. TSH significantly elevated although free t4 is normal. Patient has been out of her levothyroxine. Review of systems: Constitutional: No reports of fatigue, fever, or chills Cardiovascular: No reports of chest pain or palpitations Respiratory: reports of shortness of breath and wet loose productive cough GI: no reports of nausea, no reports of of vomiting : No reports of dysuria or retention Neurovascular: reports of generalized weakness All medications have been reviewed Active Medications Hydrocodone Bitart/Acetaminophen (Hydrocodone/Apap 10-325mg 1 Each Tab) 1 each PO Q6HR PRN PRN Reason: Pain Last Admin: 06/02/22 14:17 Dose: 1 each Albuterol/Ipratropium (Ipratropium-Albuterol 3 Ml Neb) 3 ml INHALATION RT-QID NADEEN Last Admin: 06/02/22 10:56 Dose: 3 ml Albuterol/Ipratropium (Ipratropium-Albuterol 3 Ml Neb) 3 ml INHALATION RT-Q2H PRN PRN Reason: Shortness Of Breath Or Wheezing Last Admin: 05/31/22 00:00 Dose: 3 ml Budesonide (Budesonide 1 Mg/2 Ml Nebu) 1 mg INHALATION RT-BID [facility] Citalopram Hydrobromide (Citalopram Hydrobromide 20 Mg Tab) 20 mg PO DAILY [facility] Last Admin: 06/02/22 08:28 Dose: 20 mg Doxycycline Monohydrate (Doxycycline 100 Mg Cap) 100 mg PO BID [facility]; Protocol Last Admin: 06/02/22 08:27 Dose: 100 mg Formoterol Fumarate (Formoterol Fumarate 20 Mcg/2 Ml Nebu) 20 mcg INHALATION RT-BID [facility] Gabapentin (Gabapentin 300 Mg Cap) 300 mg PO TID [facility] Last Admin: 06/02/22 08:28 Dose: 300 mg Heparin Sodium (Porcine) (Heparin Sodium,Porcine/Pf 5,000 Unit/0.5 Ml Syringe) 5,000 unit SQ Q8HR [facility] Last Admin: 06/02/22 08:28 Dose: 5,000 unit Levothyroxine Sodium (Levothyroxine 112 Mcg Tab) 112 mcg PO DAILY@0630 [facility] Last Admin: 06/02/22 05:08 Dose: 112 mcg Methylprednisolone Sodium Succinate (Methylprednisolone Sod Succi 40 Mg/Ml 1 Ml Vial) 40 mg IV Q8HR [facility] Last Admin: 06/02/22 08:28 Dose: 40 mg Naloxone HCl (Naloxone 0.4 Mg/Ml 1 Ml Vial) 0.2 mg IV Q2M PRN PRN Reason: Opioid Reversal Trazodone HCl (Trazodone Hcl 50 Mg Tab) 50 mg PO HS [facility] Last Admin: 06/01/22 20:29 Dose: 50 mg PHYSICAL EXAMINATION: GENERAL: The patient is alert and oriented x4, Well developed, well nourished. HEENT: Pupils are round and equally reacting to light. EOMI. no scleral icterus. No conjunctival pallor. Normocephalic, atraumatic. No pharyngeal erythema. No thyromegaly. CARDIOVASCULAR: S1 and S2 muffled PULMONARY: diminished breath sounds bilaterally with wheezing and scattered rhonchi noted. ABDOMEN: soft. Nontender on exam. obese. non-distended, normoactive bowel sounds. No palpable organomegaly. MUSCULOSKELETAL: No joint swelling or deformity. EXTREMITIES: No cyanosis, clubbing, or pedal edema. NEUROLOGICAL: Gross neurological examination did not reveal any focal deficits. Diffuse weakness SKIN: No rashes. Assessment: COPD exacerbation Chronic hypoxic respiratory failure on 4 L oxygen at home Continued ongoing nicotine dependence History of hypothyroidism History of peripheral neuropathy GI prophylaxis DVT prophylaxis Full code Plan: Recommend to continue with current medications and management with pulmonary following. Patient is continued on IV steroids, duonebs, inhalers, and oral doxycycline. Patient continues with shortness of breath and frequent coughing spells and phlegm. Sputum culture is negative. Encourage increased activity as tolerated and encouraged oral intake. Due to multiple complex medical issues, prognosis is guarded. The impression and plan of care has been dictated by Liss Shearer, nurse practitioner as directed. MD Alexx I have performed a history and examination and MDM of this patient, discussed the same with the dictator, and agree with the dictator's assessment and plan as written ,documented as a scribe. Based on total visit time, I have performed more than 50% of the visit. Any additional findings or plans will be noted. Objective - Vital Signs Vital signs: Vital Signs Temp 98.1 F 06/02/22 07:30 Pulse 86 06/02/22 11:07 Resp 18 06/02/22 08:00 BP 139/75 06/02/22 07:30 Pulse Ox 93 L 06/02/22 07:50 FiO2 Intake & Output 06/01/22 06/02/22 06/02/22 18:59 06:59 18:59 Other: Voiding Method Toilet # Voids 1 1 - Labs CBC & Chem 7: 05/31/22 04:19 05/31/22 04:19 Labs: Microbiology - Last 24 Hours (Table) 05/31/22 08:40 Gram Stain - Final Sputum Sputum Culture - Final 05/30/22 16:07 Blood Culture - Preliminary Blood No Growth after 48 hours 05/30/22 16:07 Blood Culture - Preliminary Blood No Growth after 48 hours
[2022-06-02] MEDS: traZODone HCL 50 MG TAB PO SCH (21:10)
[2022-06-03] MEDS: LEVOTHYROXINE 112 MCG TAB PO SCH (05:34)
[2022-06-03] MEDS: HEPARIN SODIUM,PORCINE/PF 5,000 UNIT/0.5 ML SYRINGE SQ SCH ×3 (08:38→23:35)
[2022-06-03] MEDS: CITALOPRAM HYDROBROMIDE 20 MG TAB PO SCH (08:38)
[2022-06-03] MEDS: DOXYCYCLINE 100 MG CAP PO SCH ×2 (08:38→21:53)
[2022-06-03] MEDS: methylPREDNISolone SOD SUCCI 40 MG/ML 1 ML VIAL IV SCH ×3 (08:39→23:35)
[2022-06-03] MEDS: GABAPENTIN 300 MG CAP PO SCH ×3 (08:39→21:53)
[2022-06-03] MEDS: FORMOTEROL FUMARATE 20 MCG/2 ML NEBU INHALATION SCH ×2 (08:43→20:17)
[2022-06-03] MEDS: IPRATROPIUM-ALBUTEROL 3 ML NEB INHALATION SCH ×4 (08:43→20:17)
[2022-06-03] MEDS: BUDESONIDE 1 MG/2 ML NEBU INHALATION SCH ×2 (08:43→20:16)
[2022-06-03] MEDS: HYDROcodone/APAP 10-325MG 1 EACH TAB PO PRN ×3 (08:44→21:53)
[2022-06-03 09:12] LABS: African American GFR (CKD) 49 (>60 ml/min/1.73 sqM); Anion Gap 5 mmol/L; Blood Urea Nitrogen 39 mg/dL (7-17); Calcium 8.8 mg/dL (8.4-10.2); Carbon Dioxide 27 mmol/L (22-30); Chloride 103 mmol/L (98-107); Glucose 96 mg/dL (74-99); Non-African American GFR(CKD) 42 (>60 ml/min/1.73 sqM); Potassium 5.3 mmol/L (3.5-5.1); Sodium 135 mmol/L (137-145)
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
[2022-06-03] MEDS: FLUTICASONE 50MCG/SPRAY NASAL 16GM EA NOSTRIL SCH (12:33)
[2022-06-03] MEDS: PSEUDOEPHEDRINE 30 MG TAB PO SCH ×2 (12:34→23:35)
--- NOTE | 2022-06-03 16:18 | P.PN ---
Subjective Progress Note Date: 06/03/22 Patient is a 71-year-old female with a past medical history of advanced COPD 4 L home oxygen dependent at all times, hypothyroidism, peripheral neuropathy, history of cervical and breast cancer in remission since 1985, and depression. She presented to the emergency department on 05/30/22 with a chief complaint of shortness of breath. She underwent full evaluation in the emergency department and was found to have mild leukocytosis with WBC count of 11.3. Covid PCR, influenza A, and influenza B all resulted negative. Chest x-ray consistent with COPD changes. EKG revealed normal sinus rhythm at 80 bpm with no noted T-wave or ST abnormalities showing no signs of acute ischemia. Patient was admitted under our services with consultation to pulmonology. 06/02/2022 Patient was seen and evaluated in follow-up this morning continues to be extremely dyspneic and bronchospastic on exam. Patient continues with a loose productive cough and sputum culture is negative. Patient is continued on oral doxycycline. Pulmonary is following and patient is maintained on IV steroids along with breathing inhalational treatments and oral antibiotics and will continue. Patient is chronically on 4 Liters via NC. Patient also continues with weakness and dyspnea with exertion. Patient is afebrile. Patient denies chest pain or palpitations. TSH significantly elevated although free t4 is normal. Patient has been out of her levothyroxine. 06/03/2022 Patient is seen in follow up this am and continues with bronchospasms and shortness of breath with exertion. Patient is being followed by pulmonary and is maintained on IV steroids, oral doxy, and continued breathing treatments. Patient continues with cough and will add pseudofed and nasacort. Encouraged increased activity as tolerated. Patient is afebrile and denies chest pain or palpitations. Recommend repeat labs and chest xray in the am. PT/OT to evaluate. Review of systems: Constitutional: No reports of fatigue, fever, or chills Cardiovascular: No reports of chest pain or palpitations Respiratory: reports of shortness of breath and wet loose productive cough GI: no reports of nausea, no reports of of vomiting : No reports of dysuria or retention Neurovascular: reports of generalized weakness All medications have been reviewed Active Medications Hydrocodone Bitart/Acetaminophen (Hydrocodone/Apap 10-325mg 1 Each Tab) 1 each PO Q6HR PRN PRN Reason: Pain Last Admin: 06/03/22 08:44 Dose: 1 each Albuterol/Ipratropium (Ipratropium-Albuterol 3 Ml Neb) 3 ml INHALATION RT-QID [facility] Last Admin: 06/03/22 08:43 Dose: 3 ml Albuterol/Ipratropium (Ipratropium-Albuterol 3 Ml Neb) 3 ml INHALATION RT-Q2H PRN PRN Reason: Shortness Of Breath Or Wheezing Last Admin: 05/31/22 00:00 Dose: 3 ml Budesonide (Budesonide 1 Mg/2 Ml Nebu) 1 mg INHALATION RT-BID [facility] Last Admin: 06/03/22 08:43 Dose: 1 mg Citalopram Hydrobromide (Citalopram Hydrobromide 20 Mg Tab) 20 mg PO DAILY [facility] Last Admin: 06/03/22 08:38 Dose: 20 mg Doxycycline Monohydrate (Doxycycline 100 Mg Cap) 100 mg PO BID [facility]; Protocol Last Admin: 06/03/22 08:38 Dose: 100 mg Formoterol Fumarate (Formoterol Fumarate 20 Mcg/2 Ml Nebu) 20 mcg INHALATION RT-BID [facility] Last Admin: 06/03/22 08:43 Dose: 20 mcg Gabapentin (Gabapentin 300 Mg Cap) 300 mg PO TID [facility] Last Admin: 06/03/22 08:39 Dose: 300 mg Heparin Sodium (Porcine) (Heparin Sodium,Porcine/Pf 5,000 Unit/0.5 Ml Syringe) 5,000 unit SQ Q8HR [facility] Last Admin: 06/03/22 08:38 Dose: 5,000 unit Levothyroxine Sodium (Levothyroxine 112 Mcg Tab) 112 mcg PO DAILY@0630 [facility] Last Admin: 06/03/22 05:34 Dose: 112 mcg Methylprednisolone Sodium Succinate (Methylprednisolone Sod Succi 40 Mg/Ml 1 Ml Vial) 40 mg IV Q8HR [facility] Last Admin: 06/03/22 08:39 Dose: 40 mg Naloxone HCl (Naloxone 0.4 Mg/Ml 1 Ml Vial) 0.2 mg IV Q2M PRN PRN Reason: Opioid Reversal Trazodone HCl (Trazodone Hcl 50 Mg Tab) 50 mg PO HS [facility] Last Admin: 06/02/22 21:10 Dose: 50 mg PHYSICAL EXAMINATION: GENERAL: The patient is alert and oriented x4, Well developed, well nourished. HEENT: Pupils are round and equally reacting to light. EOMI. no scleral icterus. No conjunctival pallor. Normocephalic, atraumatic. No pharyngeal erythema. No thyromegaly. CARDIOVASCULAR: S1 and S2 muffled PULMONARY: diminished breath sounds bilaterally with wheezing and scattered rhonchi noted. loose cough on exam ABDOMEN: soft. Nontender on exam. obese. non-distended, normoactive bowel sounds. No palpable organomegaly. MUSCULOSKELETAL: No joint swelling or deformity. EXTREMITIES: No cyanosis, clubbing, or pedal edema. NEUROLOGICAL: Gross neurological examination did not reveal any focal deficits. Diffuse weakness SKIN: No rashes. Assessment: COPD exacerbation Chronic hypoxic respiratory failure on 4 L oxygen at home Continued ongoing nicotine dependence History of hypothyroidism History of peripheral neuropathy GI prophylaxis DVT prophylaxis Full code Plan: Recommend to continue with current medications and management with pulmonary following. Patient is continued on IV steroids, duonebs, inhalers, and oral doxycycline. Patient continues with shortness of breath and frequent coughing spells and phlegm. Sputum culture is negative. Will add pseudofed and nasacort and patient is reports sinus congestion and continued cough. Encourage increased activity as tolerated and encouraged oral intake. Due to multiple complex medical issues, prognosis is guarded. Recommend repeat labs and cxr in the am. The impression and plan of care has been dictated as a scribe by Liss Shearer, nurse practitioner as directed. MD Alexx I have performed a history and examination and MDM of this patient, discussed the same with the dictator and has been documented as a scribe. Based on total visit time, I have performed more than 50% of the visit. Objective - Vital Signs Vital signs: Vital Signs Temp 98.2 F 06/03/22 07:00 Pulse 92 06/03/22 09:02 Resp 16 06/03/22 07:00 BP 129/70 06/03/22 07:00 Pulse Ox 94 L 06/03/22 07:00 FiO2 Intake & Output 06/02/22 06/03/22 06/03/22 18:59 06:59 18:59 Intake Total 358 250 Balance 358 250 Intake: Oral 358 250 Other: Voiding Method Toilet # Voids 3 - Labs CBC & Chem 7: 05/31/22 04:19 06/03/22 08:26 Labs: Abnormal Lab Results - Last 24 Hours (Table) 06/03/22 Range/Units 08:26 Sodium 135 L (137-145) mmol/L Potassium 5.3 H (3.5-5.1) mmol/L BUN 39 H (7-17) mg/dL Creatinine 1.27 H (0.52-1.04) mg/dL Microbiology - Last 24 Hours (Table) 05/30/22 16:07 Blood Culture - Preliminary Blood No Growth after 72 hours 05/30/22 16:07 Blood Culture - Preliminary Blood No Growth after 72 hours 05/31/22 08:40 Gram Stain - Final Sputum Sputum Culture - Final
[2022-06-03] MEDS ORDERED: PSEUDOEPHEDRINE 30 MG TAB PO SCH (21:00)
[2022-06-03] MEDS: CYCLOBENZAPRINE 10 MG TAB PO PRN (21:53)
[2022-06-03] MEDS: traZODone HCL 50 MG TAB PO SCH (21:53)
[2022-06-04] MEDS: LEVOTHYROXINE 112 MCG TAB PO SCH (05:58)
--- NOTE | 2022-06-04 07:51 | XR ---
EXAMINATION TYPE: XR chest 1V portable DATE OF EXAM: 06/04/2022 COMPARISON: 05/30/2022 INDICATION: Short of breath TECHNIQUE: Single frontal view of the chest is obtained. FINDINGS: The heart size is normal. The pulmonary vasculature is normal. The lungs are clear. IMPRESSION: 1. No acute pulmonary process.
[2022-06-04] MEDS: FORMOTEROL FUMARATE 20 MCG/2 ML NEBU INHALATION SCH ×2 (08:41→20:00)
[2022-06-04] MEDS: BUDESONIDE 1 MG/2 ML NEBU INHALATION SCH ×2 (08:41→20:01)
[2022-06-04] MEDS: IPRATROPIUM-ALBUTEROL 3 ML NEB INHALATION SCH ×4 (08:41→20:00)
[2022-06-04 08:47] LABS: African American GFR (CKD) 54 (>60 ml/min/1.73 sqM); Anion Gap 2 mmol/L; Blood Urea Nitrogen 37 mg/dL (7-17); Calcium 8.8 mg/dL (8.4-10.2); Carbon Dioxide 29 mmol/L (22-30); Chloride 103 mmol/L (98-107); Glucose 104 mg/dL (74-99); Non-African American GFR(CKD) 47 (>60 ml/min/1.73 sqM); Potassium 5.2 mmol/L (3.5-5.1); Sodium 134 mmol/L (137-145)
[2022-06-04] MEDS: CYCLOBENZAPRINE 10 MG TAB PO PRN (08:47)
[2022-06-04] MEDS: PSEUDOEPHEDRINE 30 MG TAB PO SCH ×2 (08:47→21:49)
[2022-06-04] MEDS: HYDROcodone/APAP 10-325MG 1 EACH TAB PO PRN (08:47)
[2022-06-04] MEDS: methylPREDNISolone SOD SUCCI 40 MG/ML 1 ML VIAL IV SCH ×2 (08:48→16:12)
[2022-06-04] MEDS: GABAPENTIN 300 MG CAP PO SCH ×3 (08:48→21:49)
[2022-06-04] MEDS: FLUTICASONE 50MCG/SPRAY NASAL 16GM EA NOSTRIL SCH (08:48)
[2022-06-04] MEDS: DOXYCYCLINE 100 MG CAP PO SCH ×2 (08:48→21:49)
[2022-06-04] MEDS: CITALOPRAM HYDROBROMIDE 20 MG TAB PO SCH (08:48)
[2022-06-04] MEDS: HEPARIN SODIUM,PORCINE/PF 5,000 UNIT/0.5 ML SYRINGE SQ SCH ×3 (08:48→21:50)
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
[2022-06-04] MEDS: traZODone HCL 50 MG TAB PO SCH (21:49)
[2022-06-05] MEDS: HYDROcodone/APAP 10-325MG 1 EACH TAB PO PRN ×2 (00:09→07:44)
[2022-06-05] MEDS: methylPREDNISolone SOD SUCCI 40 MG/ML 1 ML VIAL IV SCH ×2 (00:09→07:46)
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
[2022-06-05] MEDS: LEVOTHYROXINE 112 MCG TAB PO SCH (05:37)
[2022-06-05] MEDS: GABAPENTIN 300 MG CAP PO SCH (07:45)
[2022-06-05] MEDS: HEPARIN SODIUM,PORCINE/PF 5,000 UNIT/0.5 ML SYRINGE SQ SCH (07:45)
[2022-06-05] MEDS: DOXYCYCLINE 100 MG CAP PO SCH (07:45)
[2022-06-05] MEDS: CITALOPRAM HYDROBROMIDE 20 MG TAB PO SCH (07:45)
[2022-06-05] MEDS: FLUTICASONE 50MCG/SPRAY NASAL 16GM EA NOSTRIL SCH (07:46)
[2022-06-05] MEDS: PSEUDOEPHEDRINE 30 MG TAB PO SCH (07:46)
[2022-06-05] MEDS: CYCLOBENZAPRINE 10 MG TAB PO PRN (07:51)
[2022-06-05] MEDS: FORMOTEROL FUMARATE 20 MCG/2 ML NEBU INHALATION SCH (07:56)
[2022-06-05] MEDS: BUDESONIDE 1 MG/2 ML NEBU INHALATION SCH (07:57)
[2022-06-05] MEDS: IPRATROPIUM-ALBUTEROL 3 ML NEB INHALATION SCH ×3 (07:57→15:05)
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
[2022-06-05 16:04] VITALS: BP 117/71; PULSE 88; RESP 18; TEMP 99
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
== END 2022-06-05 17:10 | disposition home or self-care (01) | DRG 191 ==
LOC: EC 14:31 → 6NMEDSUR 17:48 → OBSVTOIN 05-31 12:35
PROVIDERS: ADMIT Internal Medicine; ATTEND Internal Medicine
DX: J44.1 Chronic obstructive pulmonary disease with (acute) exacerbation (principal); J96.11 Chronic respiratory failure with hypoxia; K57.92 Diverticulitis of intestine, part unspecified, without perforation or abscess without bleeding; E03.9 Hypothyroidism, unspecified; F17.210 Nicotine dependence, cigarettes, uncomplicated; F32.A Depression, unspecified; F41.9 Anxiety disorder, unspecified; G62.9 Polyneuropathy, unspecified; J44.0 Chronic obstructive pulmonary disease with (acute) lower respiratory infection; Z87.01 Personal history of pneumonia (recurrent); M19.90 Unspecified osteoarthritis, unspecified site; X00.0XXA Exposure to flames in uncontrolled fire in building or structure, initial encounter; T38.1X6A Underdosing of thyroid hormones and substitutes, initial encounter; Z91.128 Patient's intentional underdosing of medication regimen for other reason; Y92.89 Other specified places as the place of occurrence of the external cause; Z20.822 Contact with and (suspected) exposure to COVID-19; Z66 Do not resuscitate; Z80.8 Family history of malignant neoplasm of other organs or systems; Z85.3 Personal history of malignant neoplasm of breast; Z85.41 Personal history of malignant neoplasm of cervix uteri; Z90.710 Acquired absence of both cervix and uterus; Z91.14 Patient's other noncompliance with medication regimen; Z99.81 Dependence on supplemental oxygen; Z28.310 Unvaccinated for COVID-19; Z88.0 Allergy status to penicillin; Z88.6 Allergy status to analgesic agent; Z91.040 Latex allergy status
CPT/HCPCS: 36415; 71045; 71046; 80048; 80053; 83735; 84439; 84443; 84484; 85025; 85610; 85730; 87040; 87070; 87205; 87502; 87635; 93005; 94640; 94760; 96365; 96367; 96375; 99285

== ENCOUNTER 2022-09-19 14:08 | Inpatient (IN) | payer MEDICARE ==
--- NOTE | 2022-09-19 14:59 | ED ---
General Adult HPI - General Chief complaint: Altered Mental Status Stated complaint: mental status change Time Seen by Provider: 09/19/22 14:21 Source: patient, EMS, RN notes reviewed Mode of arrival: EMS Limitations: no limitations - History of Present Illness Initial comments: Patient is a 72-year-old female presenting to the emergency room via EMS who was called by her family for concerns of altered mental status. Patient is currently alert and oriented 4 however she does admit to some episodes of confusion and increased generalized weakness over the last several days. She denies any focal neurological deficits, headache, dizziness, chest pain, changes in baseline shortness of breath, abdominal pain, nausea, vomiting, changes in bowel or bladder, dysuria, urinary frequency, fevers or chills. She is a past medical history significant for COPD and is on home oxygen 3-4 L, hypothyroidism, diverticulosis, neuropathy, cervical and breast cancer, vertigo and arthritis. - Related Data Home Medications Medication Instructions Recorded Confirmed Budesonide-Formot 160-4.5 Mcg 2 puff INHALATION RT-BID 09/19/22 09/19/22 [Symbicort 160-4.5 Mcg Inhaler] Citalopram Hydrobromide [CeleXA] 40 mg PO DAILY 09/19/22 09/19/22 Ipratropium-Albuterol Nebulize 3 ml INHALATION RT-QID PRN 09/19/22 09/19/22 [Duoneb 0.5 mg-3 mg/3 ml Soln] Levothyroxine Sodium [Synthroid] 112 mcg PO DAILY 09/19/22 09/19/22 Meclizine HCl [Antivert] 25 mg PO TID 09/19/22 09/19/22 Sertraline [Zoloft] 100 mg PO DAILY 09/19/22 09/19/22 traZODone HCL [Desyrel] 50 mg PO HS 09/19/22 09/19/22 Previous Rx's Medication Instructions Recorded Fluticasone Nasal [place] [Flonase 2 spray EA NOSTRIL DAILY 30 Days 06/05/22 Nasal [place]] #1 each Pseudoephedrine [Sudafed] 60 mg PO BID 7 Days #14 tab 06/05/22 Allergies Allergy/AdvReac Type Severity Reaction Status Date / Time aspirin Allergy Swelling Verified 09/19/22 15:49 ibuprofen Allergy Anaphylaxis Verified 09/19/22 15:49 latex Allergy Rash/Hives Verified 09/19/22 15:49 Penicillins AdvReac Swelling Verified 09/19/22 15:49 Review of Systems ROS Statement: Those systems with pertinent positive or pertinent negative responses have been documented in the HPI. ROS Other: All systems not noted in ROS Statement are negative. Past Medical History Past Medical History: COPD, Thyroid Disorder Additional Past Medical History / Comment(s): Degenerative bone disease, vertigo, fibrocystic disease, neuropathy, diverticulitis, cervical CA (1980) and breast CA (1985) History of Any Multi-Drug Resistant Organisms: None Reported Past Surgical History: Cholecystectomy, Hysterectomy, Orthopedic Surgery Additional Past Surgical History / Comment(s): right knee surgery 2014, left sh o[place] 2007, left hip (2017) Past Anesthesia/Blood Transfusion Reactions: No Reported Reaction Additional Past Anesthesia/Blood Transfusion Reaction / Comment(s): pt states that she had a hard time waking up from anesthesia and cannot tolerate "adult dose" Past Psychological History: Anxiety, Depression Smoking Status: Former smoker Past Alcohol Use History: None Reported Past Drug Use History: None Reported - Past Family History Mother Family Medical History: Cancer Additional Family Medical History / Comment(s): skin cancer General Exam Limitations: no limitations General appearance: alert, in no apparent distress Head exam: Present: atraumatic, normocephalic, normal inspection Eye exam: Present: normal appearance, PERRL, EOMI. Absent: scleral icterus, conjunctival injection, periorbital swelling ENT exam: Present: normal exam, mucous membranes moist Neck exam: Present: normal inspection, full ROM Respiratory exam: Present: wheezes. Absent: respiratory distress, rales, rhonchi, stridor, accessory muscle use Cardiovascular Exam: Present: regular rate, normal rhythm, normal heart sounds. Absent: systolic murmur, diastolic murmur, rubs, gallop, clicks GI/Abdominal exam: Present: soft, normal bowel sounds. Absent: distended, tenderness, guarding, rebound, rigid Extremities exam: Present: normal inspection. Absent: pedal edema, joint swelling Back exam: Present: normal inspection Neurological exam: Present: alert, oriented X3, CN II-XII intact Psychiatric exam: Present: normal affect, normal mood Skin exam: Present: warm, dry, intact, normal color. Absent: rash Course Vital Signs 09/19/22 09/19/22 09/19/22 14:09 14:18 16:42 Temperature 97.0 F L 97.2 F L Pulse Rate 64 66 67 Respiratory 16 18 16 Rate Blood Pressure 179/89 161/82 O2 Sat by Pulse 98 99 94 L Oximetry 09/19/22 09/19/22 09/19/22 17:30 17:38 17:54 Temperature Pulse Rate 68 68 65 Respiratory 18 18 18 Rate Blood Pressure 141/84 O2 Sat by Pulse 93 L Oximetry Medical Decision Making - Medical Decision Making 72-year-old female presenting to the emergency room with occasional episodes of confusion and weakness currently alert and orientated 4. Will proceed with workup for underlying etiology causing confusion and generalized weakness. Will obtain CBC, CMP, urinalysis, troponin, coags, lactic acid, blood cultures along with urinalysis. Will obtain chest x-ray along with EKG. EKG shows normal sinus rhythm, chest x-ray shows increase in COPD compared to previous x-ray along with small pleural effusion. Blood cultures pending, WBC with mild leukocytosis at 11.7. CMP overall unremarkable. Lactic acid normal. Troponin negative. Will give nebulized treatment and check venous blood gas. Will plan for probable observation admission for continued monitoring and treatment. VBG shows pH 7.35 with CO2 61. Wheeze improved with respiratory treatment. Findings discussed with Dr. Vidal her primary care provider with accepting of admission for COPD exacerbation. Findings of small pleural effusion reviewed with him. No further orders received at this time. Will place admission orders and give Zithromax along with one-time dose of Solu-Medrol. Case discussed with Dr. Regan - Lab Data Result diagrams: 09/19/22 14:58 09/19/22 14:58 Lab Results 09/19/22 09/19/22 09/19/22 Range/Units 14:58 14:58 14:58 WBC 11.7 H (3.8-10.6) k/uL RBC 4.29 (3.80-5.40) m/uL Hgb 13.3 (11.4-16.0) gm/dL Hct 40.0 (34.0-46.0) % MCV 93.3 (80.0-100.0) fL MCH 30.9 (25.0-35.0) pg MCHC 33.2 (31.0-37.0) g/dL RDW 14.2 (11.5-15.5) % Plt Count 297 (150-450) k/uL MPV 7.2 Neutrophils % 79 % Lymphocytes % 14 % Monocytes % 3 % Eosinophils % 3 % Basophils % 1 % Neutrophils # 9.2 H (1.3-7.7) k/uL Lymphocytes # 1.6 (1.0-4.8) k/uL Monocytes # 0.4 (0-1.0) k/uL Eosinophils # 0.3 (0-0.7) k/uL Basophils # 0.1 (0-0.2) k/uL PT 10.7 (9.0-12.0) sec INR 1.0 (<1.2) APTT 29.2 (22.0-30.0) sec VBG pH (7.31-7.41) VBG pCO2 (37-51) mmHg VBG HCO3 (24-28) mmol/L Sodium 137 (137-145) mmol/L Potassium 4.3 (3.5-5.1) mmol/L Chloride 96 L (98-107) mmol/L Carbon Dioxide 27 (22-30) mmol/L Anion Gap 14 mmol/L BUN 17 (7-17) mg/dL Creatinine 1.11 H (0.52-1.04) mg/dL Est GFR (CKD-EPI)AfAm 57 (>60 ml/min/1.73 sqM) Est GFR (CKD-EPI)NonAf 49 (>60 ml/min/1.73 sqM) Glucose 104 H (74-99) mg/dL POC Glucose (mg/dL) (70-110) mg/dL POC Glu Science Manager ID Plasma Lactic Acid Demetrius (0.7-2.0) mmol/L Calcium 9.2 (8.4-10.2) mg/dL Total Bilirubin 1.3 (0.2-1.3) mg/dL AST 20 (14-36) U/L ALT 10 (4-34) U/L Alkaline Phosphatase 134 H (38-126) U/L Troponin I (0.000-0.034) ng/mL Total Protein 8.3 H (6.3-8.2) g/dL Albumin 4.9 (3.5-5.0) g/dL Urine Color Urine Appearance (Clear) Urine pH (5.0-8.0) Ur Specific [place] (1.001-1.035) Urine Protein (Negative) Urine Glucose (UA) (Negative) Urine Ketones (Negative) Urine Blood (Negative) Urine Nitrite (Negative) Urine Bilirubin (Negative) Urine Urobilinogen (<2.0) mg/dL Ur Leukocyte Esterase (Negative) 09/19/22 09/19/22 09/19/22 Range/Units 14:58 14:58 15:40 WBC (3.8-10.6) k/uL RBC (3.80-5.40) m/uL Hgb (11.4-16.0) gm/dL Hct (34.0-46.0) % MCV (80.0-100.0) fL MCH (25.0-35.0) pg MCHC (31.0-37.0) g/dL RDW (11.5-15.5) % Plt Count (150-450) k/uL MPV Neutrophils % % Lymphocytes % % Monocytes % % Eosinophils % % Basophils % % Neutrophils # (1.3-7.7) k/uL Lymphocytes # (1.0-4.8) k/uL Monocytes # (0-1.0) k/uL Eosinophils # (0-0.7) k/uL Basophils # (0-0.2) k/uL PT (9.0-12.0) sec INR (<1.2) APTT (22.0-30.0) sec VBG pH (7.31-7.41) VBG pCO2 (37-51) mmHg VBG HCO3 (24-28) mmol/L Sodium (137-145) mmol/L Potassium (3.5-5.1) mmol/L Chloride (98-107) mmol/L Carbon Dioxide (22-30) mmol/L Anion Gap mmol/L BUN (7-17) mg/dL Creatinine (0.52-1.04) mg/dL Est GFR (CKD-EPI)AfAm (>60 ml/min/1.73 sqM) Est GFR (CKD-EPI)NonAf (>60 ml/min/1.73 sqM) Glucose (74-99) mg/dL POC Glucose (mg/dL) (70-110) mg/dL POC Glu Science Manager ID Plasma Lactic Acid Demetrius 0.9 (0.7-2.0) mmol/L Calcium (8.4-10.2) mg/dL Total Bilirubin (0.2-1.3) mg/dL AST (14-36) U/L ALT (4-34) U/L Alkaline Phosphatase (38-126) U/L Troponin I <0.012 (0.000-0.034) ng/mL Total Protein (6.3-8.2) g/dL Albumin (3.5-5.0) g/dL Urine Color Yellow Urine Appearance Clear (Clear) Urine pH 6.0 (5.0-8.0) Ur Specific [place] 1.012 (1.001-1.035) Urine Protein Negative (Negative) Urine Glucose (UA) Negative (Negative) Urine Ketones Negative (Negative) Urine Blood Negative (Negative) Urine Nitrite Negative (Negative) Urine Bilirubin Negative (Negative) Urine Urobilinogen 2.0 (<2.0) mg/dL Ur Leukocyte Esterase Negative (Negative) 09/19/22 09/19/22 Range/Units 16:00 17:50 WBC (3.8-10.6) k/uL RBC (3.80-5.40) m/uL Hgb (11.4-16.0) gm/dL Hct (34.0-46.0) % MCV (80.0-100.0) fL MCH (25.0-35.0) pg MCHC (31.0-37.0) g/dL RDW (11.5-15.5) % Plt Count (150-450) k/uL MPV Neutrophils % % Lymphocytes % % Monocytes % % Eosinophils % % Basophils % % Neutrophils # (1.3-7.7) k/uL Lymphocytes # (1.0-4.8) k/uL Monocytes # (0-1.0) k/uL Eosinophils # (0-0.7) k/uL Basophils # (0-0.2) k/uL PT (9.0-12.0) sec INR (<1.2) APTT (22.0-30.0) sec VBG pH 7.35 (7.31-7.41) VBG pCO2 61 H (37-51) mmHg VBG HCO3 33 H (24-28) mmol/L Sodium (137-145) mmol/L Potassium (3.5-5.1) mmol/L Chloride (98-107) mmol/L Carbon Dioxide (22-30) mmol/L Anion Gap mmol/L BUN (7-17) mg/dL Creatinine (0.52-1.04) mg/dL Est GFR (CKD-EPI)AfAm (>60 ml/min/1.73 sqM) Est GFR (CKD-EPI)NonAf (>60 ml/min/1.73 sqM) Glucose (74-99) mg/dL POC Glucose (mg/dL) 98 (70-110) mg/dL POC Glu Science Manager ID Viry Pro Plasma Lactic Acid Demetrius (0.7-2.0) mmol/L Calcium (8.4-10.2) mg/dL Total Bilirubin (0.2-1.3) mg/dL AST (14-36) U/L ALT (4-34) U/L Alkaline Phosphatase (38-126) U/L Troponin I (0.000-0.034) ng/mL Total Protein (6.3-8.2) g/dL Albumin (3.5-5.0) g/dL Urine Color Urine Appearance (Clear) Urine pH (5.0-8.0) Ur Specific [place] (1.001-1.035) Urine Protein (Negative) Urine Glucose (UA) (Negative) Urine Ketones (Negative) Urine Blood (Negative) Urine Nitrite (Negative) Urine Bilirubin (Negative) Urine Urobilinogen (<2.0) mg/dL Ur Leukocyte Esterase (Negative) - EKG Data EKG Comments: EKG completed at 1533 interpreted by me shows sinus rhythm, ventricular rate 64 bpm, AK interval 174 ms, QRS duration 83 ms, QT/QTC 347/356 most seconds, PRT axes 62, 74, 74 - Radiology Data Radiology results: report reviewed, image reviewed Two-view chest x-ray impression per radiologist shows no small to tiny pleural effusion. Chronic emphysematous changes and pulmonary fibrotic changes along with cardiomegaly redemonstrated. No suspicious acute infiltrate. Disposition Clinical Impression: Acute exacerbation of chronic obstructive pulmonary disease (COPD) Disposition: ADMITTED IP TO THIS [facility] Condition: Stable Is patient prescribed a controlled substance at d/c from ED?: No Referrals: Keyanna Fry MD [REFERRING] - 1-2 days Time of Disposition: 19:23
--- NOTE | 2022-09-19 15:12 | XR ---
EXAMINATION TYPE: XR chest 2V DATE OF EXAM: 09/19/2022 COMPARISON: Chest x-ray June 04, 2022 HISTORY: Weakness. TECHNIQUE: Frontal and lateral views of the chest are obtained. FINDINGS: Surgical change left humerus is partially imaged. Stable mild cardiomegaly. Chronic emphyse matous and parenchymal changes bilaterally, lateral greatest in the lower lungs is redemonstrated. No new focal airspace opacity or pneumothorax seen bilaterally. There is new small to tiny left pleural effusion noted. IMPRESSION: New small to tiny left pleural effusion. Chronic emphysematous and pulmonary fibrotic ch anges along with mild cardiomegaly redemonstrated. No new suspicious acute infiltrate.
[2022-09-19 15:49] LABS: Basophils # (A) 0.1 k/uL (0-0.2); Basophils % (A) 1 %; Eosinophils # (A) 0.3 k/uL (0-0.7); Eosinophils % (A) 3 %; HGB 13.3 gm/dL (11.4-16.0); Lymphocytes # (A) 1.6 k/uL (1.0-4.8); Lymphocytes % (A) 14 %; MCH 30.9 pg (25.0-35.0); MCHC 33.2 g/dL (31.0-37.0); MCV 93.3 fL (80.0-100.0); Mean Platelet Volume 7.2; Monocytes # (A) 0.4 k/uL (0-1.0); Monocytes % (A) 3 %; Neutrophils # (A) 9.2 k/uL (1.3-7.7); Neutrophils % (A) 79 %; Platelet Count 297 k/uL (150-450); RBC 4.29 m/uL (3.80-5.40); RDW 14.2 % (11.5-15.5); WBC 11.7 k/uL (3.8-10.6)
[2022-09-19 16:00] LABS: Albumin 4.9 g/dL (3.5-5.0); Calcium 9.2 mg/dL (8.4-10.2); Potassium 4.3 mmol/L (3.5-5.1); Total Bilirubin 1.3 mg/dL (0.2-1.3); Total Protein 8.3 g/dL (6.3-8.2)
[2022-09-19 16:02] LABS: Glucose,Whole Blood 98 mg/dL (70-110)
[2022-09-19 16:05] LABS: Partial Thromboplastin Time 29.2 sec (22.0-30.0); Prothrombin Time 10.7 sec (9.0-12.0)
[2022-09-19 16:15] LABS: Appearance,Urine Clear (Clear); Bilirubin,Urine Negative (Negative); Blood,Urine Negative (Negative); Color,Urine Yellow; Glucose,Urine (UA) Negative (Negative); Ketones,Urine Negative (Negative); Leukocyte Esterase,Urine Negative (Negative); Nitrite,Urine Negative (Negative); Protein,Urine Negative (Negative); Specific Gravity,Urine 1.012 (1.001-1.035)
[2022-09-19] MEDS ORDERED: ALBUTEROL NEBULIZED 2.5 MG/3 ML INHALATION STA (17:10)
[2022-09-19 18:02] LABS: VBG PH 7.35 (7.31-7.41)
[2022-09-19] MEDS ORDERED: NALOXONE 0.4 MG/ML 1 ML VIAL IV PRN (19:17)
[2022-09-19] MEDS ORDERED: methylPREDNISolone SOD SUCCI 125 MG/2 ML VIAL IV STA (19:18)
[2022-09-19] MEDS: AZITHROMYCIN 500 MG TAB PO SCH (20:25)
[2022-09-19] MEDS: ACETAMINOPHEN TAB 325 MG TAB PO PRN (21:30)
[2022-09-20] MEDS ORDERED: methylPREDNISolone SOD SUCCI 40 MG/ML 1 ML VIAL IV SCH (18:15)
[2022-09-20] MEDS: SYMBICORT 160-4.5 MCG INHALER INHALATION SCH (20:13)
[2022-09-20] MEDS: IPRATROPIUM-ALBUTEROL 3 ML NEB INHALATION PRN (20:15)
[2022-09-20] MEDS: PSEUDOEPHEDRINE 30 MG TAB PO SCH (20:41)
[2022-09-20] MEDS: traZODone HCL 50 MG TAB PO SCH (20:41)
[2022-09-20] MEDS: AZITHROMYCIN 500 MG TAB PO SCH (20:41)
[2022-09-20] MEDS: methylPREDNISolone SOD SUCCI 40 MG/ML 1 ML VIAL IV SCH (20:41)
[2022-09-20] MEDS: ACETAMINOPHEN TAB 325 MG TAB PO PRN (22:42)
[2022-09-21] MEDS: LEVOTHYROXINE 112 MCG TAB PO SCH (05:19)
[2022-09-21] MEDS: methylPREDNISolone SOD SUCCI 40 MG/ML 1 ML VIAL IV SCH ×3 (05:19→19:45)
--- NOTE | 2022-09-21 07:13 | P.CNPUL ---
History of Present Illness Consult date: 09/21/22 Requesting physician: Js Vidal Reason for consult: dyspnea, cough, COPD, hypoxemia Chief complaint: Shortness of breath and cough. History of present illness: Pulmonary consult dated 09/21/2022. 72-year-old female, not a particularly good historian, who apparently was brought into the emergency room on September 19 by EMS. Apparently she had some changes in her mental status, and her family was concerned. In addition, she had episodes of confusion, and weakness, over a couple days prior to admission. Also, she complained of some shortness of breath, cough, and occasional phlegm production. She does use home O2, 24/7, at 3 L. She does have a history of COPD, and hypothyroidism. White count 11.7, with a normal hemoglobin, hematocrit, and platelet count. Venous blood gas shows a CO2 of 61, and a pH which is 7.35. Sodium is 137, potassium 4.3, chlorides 96, CO2 27, anion gap 14, BUN 17, creatinine 1.11. The patient's troponin was normal. Urine was negative. Chest x-ray shows a small left-sided pleural effusion and some chronic fibrotic changes, without any acute abnormality. Also noted are changes of COPD. Review of Systems REVIEW OF SYSTEMS: CONSTITUTIONAL: Weakness. NEUROLOGIC: Confusion, and mental status changes. HEENT: [ Negative.] CARDIAC: [Negative.] PULMONARY: Shortness of breath, cough, and wheezing. GI: [Negative.] : [Negative.] RHEUMATOLOGIC: [ Negative.] IMMUNOLOGIC: [ Negative.] ENDOCRINE: [Negative. ] DERMATOLOGIC: [Negative.] Past Medical History Past Medical History: COPD, Thyroid Disorder Additional Past Medical History / Comment(s): Degenerative bone disease, vertigo, fibrocystic disease, neuropathy, diverticulitis, cervical CA (1980) and breast CA (1985) History of Any Multi-Drug Resistant Organisms: None Reported Past Surgical History: Cholecystectomy, Hysterectomy, Orthopedic Surgery Additional Past Surgical History / Comment(s): right knee surgery 2014, left shoulder 2007, left hip (2017) Past Anesthesia/Blood Transfusion Reactions: No Reported Reaction Additional Past Anesthesia/Blood Transfusion Reaction / Comment(s): pt states that she had a hard time waking up from anesthesia and cannot tolerate "adult dose" Past Psychological History: Anxiety, Depression Smoking Status: Former smoker Past Alcohol Use History: None Reported Past Drug Use History: None Reported - Past Family History Mother Family Medical History: Cancer Additional Family Medical History / Comment(s): skin cancer Medications and Allergies Home Medications Medication Instructions Recorded Confirmed Type Fluticasone Nasal [place] [Flonase 2 spray EA NOSTRIL DAILY 30 Days 06/05/22 09/19/22 Rx Nasal [place]] #1 each Pseudoephedrine [Sudafed] 60 mg PO BID 7 Days #14 tab 06/05/22 09/19/22 Rx Budesonide-Formot 160-4.5 Mcg 2 puff INHALATION RT-BID 09/19/22 09/19/22 History [Symbicort 160-4.5 Mcg Inhaler] Citalopram Hydrobromide [CeleXA] 40 mg PO DAILY 09/19/22 09/19/22 History Ipratropium-Albuterol Nebulize 3 ml INHALATION RT-QID PRN 09/19/22 09/19/22 History [Duoneb 0.5 mg-3 mg/3 ml Soln] Levothyroxine Sodium [Synthroid] 112 mcg PO DAILY 09/19/22 09/19/22 History Meclizine HCl [Antivert] 25 mg PO TID 09/19/22 09/19/22 History Sertraline [Zoloft] 100 mg PO DAILY 09/19/22 09/19/22 History traZODone HCL [Desyrel] 50 mg PO HS 09/19/22 09/19/22 History Allergies Allergy/AdvReac Type Severity Reaction Status Date / Time aspirin Allergy Swelling Verified 09/19/22 15:49 ibuprofen Allergy Anaphylaxis Verified 09/19/22 15:49 latex Allergy Rash/Hives Verified 09/19/22 15:49 Penicillins AdvReac Swelling Verified 09/19/22 15:49 Physical Exam Osteopathic Statement: *. No significant issues noted on an osteopathic structural exam other than those noted in the History and Physical/Consult. Vitals: Vital Signs Temp Pulse Pulse Resp BP Pulse Ox 09/21/22 02:50 97.8 F 71 17 120/70 96 09/20/22 20:26 78 09/20/22 20:16 74 09/20/22 20:00 69 18 09/20/22 19:23 97.8 F 69 18 147/68 95 09/20/22 16:07 93 L 09/20/22 15:22 78 18 93/55 94 L Intake and Output 09/20/22 09/21/22 09/21/22 22:59 06:59 14:59 Intake Total 500 Balance 500 Intake: Oral 500 Other: # Voids 1 No acute distress, oriented 3. No conversational dyspnea or use of accessory muscles. HEENT examination is grossly unremarkable. Neck supple. Full range of motion. No adenopathy thyromegaly or neck vein distention. Cardiovascular examination reveals regular rhythm rate. S1-S2 normal. No S3 or S4. No discernible murmur noted. Heart rate 71 bpm. Lungs reveal mild scattered rhonchi and wheezes. No crackles. Breath sounds are equal bilaterally. Breath sounds are diminished throughout. Saturations are 95%. Abdomen soft bowel sounds are heard. No masses or tenderness. Extremities are intact. No cyanosis clubbing or edema. Skin is without rash or lesion. Neurologic examination is brief but nonfocal. Results - Laboratory Findings CBC and BMP: 09/19/22 14:58 09/19/22 14:58 PT/INR, D-dimer PT 10.7 sec (9.0-12.0) 09/19/22 14:58 INR 1.0 (<1.2) 09/19/22 14:58 Abnormal lab findings: Abnormal Labs 09/19/22 09/19/22 09/19/22 14:58 14:58 17:50 WBC 11.7 H Neutrophils # 9.2 H VBG pCO2 61 H VBG HCO3 33 H Chloride 96 L Creatinine 1.11 H Glucose 104 H Alkaline Phosphatase 134 H Total Protein 8.3 H - Diagnostic Findings Chest x-ray: image reviewed Assessment and Plan Assessment: Acute exacerbation of COPD, without pneumonia. Possible purulent tracheobronchitis. Chronic hypoxemic respiratory failure, with home O2, 28/05. History of hypothyroidism. Prior history of heavy tobacco use. History of osteoarthritis. History of vertigo. History of breast cancer and cervical cancer. History of neuropathy. History of anxiety/depression. Plan: Plan dated 09/21/2022. Currently, the patient's on albuterol sulfate and ipratropium bromide, as well as Symbicort, and azithromycin. She is also receiving Solu-Medrol 30 mg every 8 hours. The patient's chronic lung disease is mildly to moderately active. No evidence of pneumonia on chest x-ray. Oral antibiotic is fine. Probably d ischarge in 24 hours or so. Time with Patient: Greater than 30
[2022-09-21] MEDS: SYMBICORT 160-4.5 MCG INHALER INHALATION SCH ×2 (08:22→19:30)
[2022-09-21] MEDS: IPRATROPIUM-ALBUTEROL 3 ML NEB INHALATION PRN ×4 (08:22→19:30)
[2022-09-21] MEDS: CITALOPRAM HYDROBROMIDE 20 MG TAB PO SCH (09:13)
[2022-09-21] MEDS: PSEUDOEPHEDRINE 30 MG TAB PO SCH ×2 (09:15→22:00)
[2022-09-21] MEDS: SERTRALINE 100 MG TAB PO SCH (09:15)
[2022-09-21] MEDS: FLUTICASONE 50MCG/SPRAY NASAL 16GM EA NOSTRIL SCH (10:27)
[2022-09-21] MEDS: LORATADINE-PSEUDOEPH 5-120 MG 1 EACH TAB.ER.12H PO SCH ×2 (13:01→21:59)
--- NOTE | 2022-09-21 20:37 | HP ---
HISTORY AND PHYSICAL CHIEF COMPLAINT: Difficulty breathing. HISTORY OF PRESENT ILLNESS: This is apparently another admission for this 72-year-old white female with severe COPD. She does see a Extension Course Counselor. She presented to the office recently as a new patient. She started to have a lot of difficulty with shortness of breath and presented to the emergency room with weakness and mental status changes. She is quite lethargic. CO2 was elevated as was her white count and she had a small pleural effusion. REVIEW OF SYSTEMS: She denies any headache, chest pain, hemoptysis, palpitations, seizure activity, nausea, vomiting, diarrhea, melena, hematochezia, incontinence, etc. Past medical history, family history and personal and social histories reveal that she is allergic to penicillin and NSAIDs. She takes Flonase, Symbicort, updrafts with DuoNeb, gabapentin, trazodone, meclizine, citalopram, sertraline, Vicodin, and thyroid medication. She does continue to smoke. PHYSICAL EXAMINATION: VITAL SIGNS: Blood pressure 122/76 with a pulse of 108, respirations of 41, and temperature 99. GENERAL: She appeared to be older than her stated age. She was dehydrated. She appeared to be chronically ill. HEAD, EARS, EYES, NOSE, MOUTH AND THROAT: Normal. NECK: Neck veins were not distended. CHEST: Demonstrated increased AP diameter with very poor breath sounds throughout. There was tight wheezing on inspiration and expiration and a fine, fascicular scattered rales. She had a productive cough. CARDIAC: Demonstrated tachycardia. ABDOMEN: Soft and nontender. There are no masses or visceromegaly. EXTREMITIES: Normal. NEUROLOGICAL: She was lethargic, but intact. ASSESSMENT: She is admitted to the hospital with diagnosis of; 1. Exacerbation of chronic obstructive pulmonary disease. 2. Mental status changes. PLAN: 1. Bedrest. 2. IV fluids. 3. IV and inhaled steroids. 4. Consult Pulmonology. MMODL / IJN: [id number] /
[2022-09-21] MEDS: traZODone HCL 50 MG TAB PO SCH (22:00)
[2022-09-21] MEDS: AZITHROMYCIN 500 MG TAB PO SCH (22:00)
--- NOTE | 2022-09-22 02:22 | PN ---
PROGRESS NOTE DATE OF SERVICE: 09/21/2022 CHIEF COMPLAINT: COPD. HISTORY OF PRESENT ILLNESS: This lady is not doing much better. She remains very dyspneic. She has been seen by Pulmonology. Steroids are on board. PHYSICAL EXAMINATION: CHEST: Demonstrates her increased AP diameter with very poor breath sounds and scattered wheezes, rhonchi and rales throughout. CARDIAC: Normal. IMPRESSION: Exacerbation of chronic obstructive pulmonary disease. PLAN: Continue on current program and she probably will improve slowly. MMODL / IJN: [id number] /
--- NOTE | 2022-09-22 03:37 | PN ---
PROGRESS NOTE DATE OF SERVICE: 09/20/2022 CHIEF COMPLAINT: Acute respiratory failure. HISTORY OF PRESENT ILLNESS: This lady is still quite dyspneic. She is reliant on oxygen all the time. REVIEW OF SYSTEMS: She has had no chest pain, hemoptysis, chills, fever, etc. PHYSICAL EXAMINATION: LUNGS: Breath sounds are extremely poor throughout with tight crackling wheezes at the bases. There are no rhonchi. CARDIAC: Normal. IMPRESSION: Exacerbation of chronic obstructive pulmonary disease with respiratory failure. PLAN: She will be referred to her usual council member, and steroids have been added. MMODL / IJN: [id number] /
[2022-09-22] MEDS: methylPREDNISolone SOD SUCCI 40 MG/ML 1 ML VIAL IV SCH ×3 (04:36→20:33)
[2022-09-22] MEDS: LEVOTHYROXINE 112 MCG TAB PO SCH (06:27)
--- NOTE | 2022-09-22 07:34 | P.PN ---
Subjective Progress Note Date: 09/22/22 Principal diagnosis: Shortness of breath. Pulmonary consult dated 09/21/2022. 72-year-old female, not a particularly good historian, who apparently was brought into the emergency room on September 19 by EMS. Apparently she had some changes in her mental status, and her family was concerned. In addition, she had episodes of confusion, and weakness, over a couple days prior to admission. Also, she complained of some shortness of breath, cough, and occasional phlegm production. She does use home O2, 24/7, at 3 L. She does have a history of COPD, and hypothyroidism. White count 11.7, with a normal hemoglobin, hematocrit, and platelet count. Venous blood gas shows a CO2 of 61, and a pH which is 7.35. Sodium is 137, potassium 4.3, chlorides 96, CO2 27, anion gap 14, BUN 17, creatinine 1.11. The patient's troponin was normal. Urine was negative. Chest x-ray shows a small left-sided pleural effusion and some chronic fibrotic changes, without any acute abnormality. Also noted are changes of COPD. Progress note dated 09/22/2022. 72-year-old female seen yesterday in consultation for COPD exacerbation. She does see one of my partners in the office, for her COPD. Currently, she is doing better. She is on 3 L. No IV fluids. When I first entered the room, she sleeping. She is not manifesting any signs or symptoms of respiratory difficulty such as conversational dyspnea or use of accessory muscles. No audible wheezing. No new labs today. Objective - Vital Signs Vital signs: Vital Signs Temp 98.1 F 09/22/22 03:09 Pulse 75 09/22/22 03:09 Resp 17 09/22/22 03:09 BP 153/83 09/22/22 03:09 Pulse Ox 94 L 09/22/22 03:09 FiO2 Intake & Output 09/21/22 09/22/22 09/22/22 18:59 06:59 18:59 Intake Total 222 Balance 222 Intake: Oral 222 Other: # Voids 1 3 # Bowel Movements 1 - Exam No acute distress, oriented 3. No conversational dyspnea or use of accessory muscles. Currently on 3 L. HEENT examination is grossly unremarkable. Neck supple. Full range of motion. No adenopathy thyromegaly or neck vein distention. Cardiovascular examination reveals regular rhythm rate. S1-S2 normal. No S3 or S4. No discernible murmur noted. Heart rate 75 bpm. Lungs reveal mild scattered rhonchi and wheezes. No crackles. Breath sounds are equal bilaterally. Breath sounds are diminished throughout. Saturations are 94%. Abdomen soft bowel sounds are heard. No masses or tenderness. Extremities are intact. No cyanosis clubbing or edema. Skin is without rash or lesion. Neurologic examination is brief but nonfocal. - Labs CBC & Chem 7: 09/19/22 14:58 09/19/22 14:58 Labs: Microbiology - Last 24 Hours (Table) 09/19/22 15:20 Blood Culture - Preliminary Blood No Growth after 48 hours 09/19/22 15:05 Blood Culture - Preliminary Blood No Growth after 48 hours Assessment and Plan Assessment: Acute exacerbation of COPD, without pneumonia. Possible purulent tracheobronchitis. Chronic hypoxemic respiratory failure, with home O2, 28/05. History of hypothyroidism. Prior history of heavy tobacco use. History of osteoarthritis. History of vertigo. History of breast cancer and cervical cancer. History of neuropathy. History of anxiety/depression. Plan: Plan dated 09/21/2022. Currently, the patient's on albuterol sulfate and ipratropium bromide, as well as Symbicort, and azithromycin. She is also receiving Solu-Medrol 30 mg every 8 hours. The patient's chronic lung disease is mildly to moderately active. No evidence of pneumonia on chest x-ray. Oral antibiotic is fine. Probably discharge in 24 hours or so. Plan dated 09/22/2022. The patient continues on appropriate medications including Symbicort, 160/4.5, 2 puffs twice a day, albuterol sulfate and ipratropium bromide breathing treatments, 4 times a day and when necessary, and Solu-Medrol, as well as her usual medications. We will continue to follow make recommendations along the way. Prognosis is guarded. The patient will follow-up with her family doctor post discharge, and my partner. No evidence of pneumonia on chest x-ray. Time with Patient: Less than 30
[2022-09-22] MEDS: SERTRALINE 100 MG TAB PO SCH (07:55)
[2022-09-22] MEDS: PSEUDOEPHEDRINE 30 MG TAB PO SCH ×2 (07:55→20:34)
[2022-09-22] MEDS: CITALOPRAM HYDROBROMIDE 20 MG TAB PO SCH (07:55)
[2022-09-22] MEDS: FLUTICASONE 50MCG/SPRAY NASAL 16GM EA NOSTRIL SCH (07:55)
[2022-09-22] MEDS: LORATADINE-PSEUDOEPH 5-120 MG 1 EACH TAB.ER.12H PO SCH ×2 (07:55→20:34)
[2022-09-22] MEDS: IPRATROPIUM-ALBUTEROL 3 ML NEB INHALATION PRN (08:07)
[2022-09-22] MEDS: SYMBICORT 160-4.5 MCG INHALER INHALATION SCH ×2 (08:07→19:13)
[2022-09-22] MEDS: IPRATROPIUM-ALBUTEROL 3 ML NEB INHALATION SCH ×3 (12:03→19:13)
[2022-09-22] MEDS: traZODone HCL 50 MG TAB PO SCH (20:34)
[2022-09-22] MEDS: HYDROcodone/APAP 5-325MG 1 EACH TAB PO PRN (20:39)
[2022-09-22] MEDS: CYCLOBENZAPRINE 5 MG TAB PO PRN (20:52)
[2022-09-23] MEDS: methylPREDNISolone SOD SUCCI 40 MG/ML 1 ML VIAL IV SCH ×3 (04:03→17:42)
[2022-09-23] MEDS: LEVOTHYROXINE 112 MCG TAB PO SCH (06:13)
[2022-09-23] MEDS: IPRATROPIUM-ALBUTEROL 3 ML NEB INHALATION SCH ×4 (08:04→20:52)
[2022-09-23] MEDS: SYMBICORT 160-4.5 MCG INHALER INHALATION SCH (08:04)
[2022-09-23] MEDS: CITALOPRAM HYDROBROMIDE 20 MG TAB PO SCH (09:20)
[2022-09-23] MEDS: SERTRALINE 100 MG TAB PO SCH (09:20)
[2022-09-23] MEDS: PSEUDOEPHEDRINE 30 MG TAB PO SCH ×2 (09:21→21:08)
[2022-09-23] MEDS: LORATADINE-PSEUDOEPH 5-120 MG 1 EACH TAB.ER.12H PO SCH ×2 (09:21→21:08)
[2022-09-23] MEDS: FLUTICASONE 50MCG/SPRAY NASAL 16GM EA NOSTRIL SCH (09:21)
[2022-09-23] MEDS ORDERED: ARTIFICIAL TEARS-HYPROMELLOSE DROPS 15 ML BTL BOTH EYES PRN (12:52)
--- NOTE | 2022-09-23 13:09 | P.PN ---
Subjective Progress Note Date: 09/23/22 72-year-old female, not a particularly good historian, who apparently was brought into the emergency room on September 19 by EMS. Apparently she had some changes in her mental status, and her family was concerned. In addition, she had episodes of confusion, and weakness, over a couple days prior to admission. Also, she complained of some shortness of breath, cough, and occasional phlegm production. She does use home O2, 24/7, at 3 L. She does have a history of COPD, and hypothyroidism. White count 11.7, with a normal hemoglobin, hematocrit, and platelet count. Venous blood gas shows a CO2 of 61, and a pH which is 7.35. Sodium is 137, potassium 4.3, chlorides 96, CO2 27, anion gap 14, BUN 17, creatinine 1.11. The patient's troponin was normal. Urine was negative. Chest x-ray shows a small left-sided pleural effusion and some chronic fibrotic changes, without any acute abnormality. Also noted are changes of COPD. Progress note dated 09/22/2022. 72-year-old female seen yesterday in consultation for COPD exacerbation. She does see one of my partners in the office, for her COPD. Currently, she is doing better. She is on 3 L. No IV fluids. When I first entered the room, she sleeping. She is not manifesting any signs or symptoms of respiratory difficulty such as conversational dyspnea or use of accessory muscles. No audible wheezing. No new labs today. The patient is seen today 09/23/2022 in follow-up on the regular medical floor. She is currently resting fairly comfortably in bed. She is still having cough. She still having some wheezing. Dyspneic with minimal conversation. Dyspneic with minimal exertion. She is maintaining good O2 saturations in the 90s on 3 L nasal cannula. She's afebrile. Blood cultures reveal no growth to date. She is continued on DuoNeb inhalations, IV Solu-Medrol, Symbicort. Objective - Vital Signs Vital signs: Vital Signs Temp 97.7 F 09/23/22 07:30 Pulse 80 09/23/22 08:12 Resp 18 09/23/22 07:30 BP 135/87 09/23/22 07:30 Pulse Ox 94 L 09/23/22 07:30 FiO2 Intake & Output 09/22/22 09/23/22 09/23/22 18:59 06:59 18:59 Other: # Voids 2 2 # Bowel Movements 1 - Exam GENERAL EXAM: Alert, pleasant 72-year-old female, on 3 L nasal cannula, comfortable in no apparent distress. HEAD: Normocephalic. EYES: Normal reaction of pupils, equal size. NOSE: Clear with pink turbinates. THROAT: No erythema or exudates. NECK: No masses, no JVD. CHEST: No chest wall deformity. LUNGS: Equal air entry with bilateral end expiratory wheeze, diminished. CVS: S1 and S2 normal with no audible murmur, regular rhythm. ABDOMEN: No hepatosplenomegaly, normal bowel sounds, no guarding or rigidity. SPINE: No scoliosis or deformity SKIN: No rashes CENTRAL NERVOUS SYSTEM: No focal deficits, tone is normal in all 4 extremities. EXTREMITIES: There is no peripheral edema. No clubbing, no cyanosis. Peripheral pulses are intact. - Labs CBC & Chem 7: 09/19/22 14:58 09/19/22 14:58 Labs: Microbiology - Last 24 Hours (Table) 09/19/22 15:20 Blood Culture - Preliminary Blood No Growth after 72 hours 09/19/22 15:05 Blood Culture - Preliminary Blood No Growth after 72 hours Assessment and Plan Assessment: Acute exacerbation of COPD, without pneumonia. Possible purulent tracheobronchitis. Chronic hypoxemic respiratory failure, with home O2, 28/05. History of hypothyroidism. Prior history of heavy tobacco use. History of osteoarthritis. History of vertigo. History of breast cancer and cervical cancer. History of neuropathy. History of anxiety/depression. Plan: The patient was seen and evaluated Discontinue Symbicort, add Pulmicort and Perforomist Increase IV Solu-Medrol to 60 mg every 6 Titrate the FiO2 as tolerated Follow-up chest x-ray in the a.m. We'll continue to follow I have personally seen and examined the patient, performed the documentation and the assessment and plan as written. Number of minutes spent on the visit: 10.
[2022-09-23] MEDS: HYDROcodone/APAP 5-325MG 1 EACH TAB PO PRN (14:37)
[2022-09-23] MEDS: MECLIZINE 25 MG TAB PO SCH ×2 (15:59→21:08)
[2022-09-23] MEDS: CYCLOBENZAPRINE 5 MG TAB PO PRN (16:35)
[2022-09-23] MEDS: FORMOTEROL FUMARATE 20 MCG/2 ML NEBU INHALATION SCH (20:52)
[2022-09-23] MEDS: BUDESONIDE 1 MG/2 ML NEBU INHALATION SCH (20:52)
[2022-09-23] MEDS: traZODone HCL 50 MG TAB PO SCH (21:08)
[2022-09-24] MEDS: LEVOTHYROXINE 112 MCG TAB PO SCH (06:21)
--- NOTE | 2022-09-24 07:40 | XR ---
EXAMINATION TYPE: XR chest 1V portable DATE OF EXAM: 09/24/2022 Comparison: 09/19/2020 Clinical History: 72-year-old female COPD Findings: Heart normal size. Atherosclerotic arch calcifications. Mild hyperinflation. Diffuse interstitial den sity is similar. Blunting of the left breast findings single is unchanged. Impression: COPD with similar interstitial changes. Similar trace left pleural effusion.
[2022-09-24] MEDS: BUDESONIDE 1 MG/2 ML NEBU INHALATION SCH ×2 (08:00→20:21)
[2022-09-24] MEDS: IPRATROPIUM-ALBUTEROL 3 ML NEB INHALATION SCH ×4 (08:00→20:21)
[2022-09-24] MEDS: FORMOTEROL FUMARATE 20 MCG/2 ML NEBU INHALATION SCH ×2 (08:00→20:21)
[2022-09-24] MEDS: FLUTICASONE 50MCG/SPRAY NASAL 16GM EA NOSTRIL SCH (08:34)
[2022-09-24] MEDS: MECLIZINE 25 MG TAB PO SCH ×3 (08:35→21:26)
[2022-09-24] MEDS: PSEUDOEPHEDRINE 30 MG TAB PO SCH ×2 (08:35→21:26)
[2022-09-24] MEDS: SERTRALINE 100 MG TAB PO SCH (08:35)
[2022-09-24] MEDS: LORATADINE-PSEUDOEPH 5-120 MG 1 EACH TAB.ER.12H PO SCH ×2 (08:35→21:26)
[2022-09-24] MEDS: CITALOPRAM HYDROBROMIDE 20 MG TAB PO SCH (08:35)
[2022-09-24] MEDS ORDERED: predniSONE 20 MG TAB PO SCH (09:00)
[2022-09-24] MEDS: predniSONE 20 MG TAB PO SCH (09:40)
--- NOTE | 2022-09-24 13:14 | P.PN ---
Subjective Progress Note Date: 09/24/22 Principal diagnosis: Shortness of breath. Pulmonary consult dated 09/21/2022. 72-year-old female, not a particularly good historian, who apparently was brought into the emergency room on September 19 by EMS. Apparently she had some changes in her mental status, and her family was concerned. In addition, she had episodes of confusion, and weakness, over a couple days prior to admission. Also, she complained of some shortness of breath, cough, and occasional phlegm production. She does use home O2, 24/7, at 3 L. She does have a history of COPD, and hypothyroidism. White count 11.7, with a normal hemoglobin, hematocrit, and platelet count. Venous blood gas shows a CO2 of 61, and a pH which is 7.35. Sodium is 137, potassium 4.3, chlorides 96, CO2 27, anion gap 14, BUN 17, creatinine 1.11. The patient's troponin was normal. Urine was negative. Chest x-ray shows a small left-sided pleural effusion and some chronic fibrotic changes, without any acute abnormality. Also noted are changes of COPD. Progress note dated 09/22/2022. 72-year-old female seen yesterday in consultation for COPD exacerbation. She does see one of my partners in the office, for her COPD. Currently, she is doing better. She is on 3 L. No IV fluids. When I first entered the room, she sleeping. She is not manifesting any signs or symptoms of respiratory difficulty such as conversational dyspnea or use of accessory muscles. No audible wheezing. No new labs today. The patient is seen today 09/23/2022 in follow-up on the regular medical floor. She is currently resting fairly comfortably in bed. She is still having cough. She still having some wheezing. Dyspneic with minimal conversation. Dyspneic with minimal exertion. She is maintaining good O2 saturations in the 90s on 3 L nasal cannula. She's afebrile. Blood cultures reveal no growth to date. She is continued on DuoNeb inhalations, IV Solu-Medrol, Symbicort. Progress note dated 09/24/2022. The patient appears to be doing a bit better. The patient is on treatment of oxygen. I've changed to prednisone 20 mg twice a day, to 40 mg daily. Other medications are appropriate. The patient does admit to ongoing shortness of breath particularly with exertion, and even with conversation. She also has a cough, and some wheezing. No new labs today. Blood cultures are negative. Chest x-ray shows COPD, with some mild interstitial changes. A small left-sided effusion is noted. Objective - Vital Signs Vital signs: Vital Signs Temp 98 F 09/24/22 08:00 Pulse 72 09/24/22 12:19 Resp 16 09/24/22 08:00 BP 178/89 09/24/22 08:00 Pulse Ox 96 09/24/22 08:00 FiO2 Intake & Output 09/23/22 09/24/22 09/24/22 18:59 06:59 18:59 Intake Total 600 90 Output Total 0 Balance 600 0 90 Intake: Oral 600 90 Output: Emesis 0 Other: # Voids 2 1 # Bowel Movements 0 - Exam No acute distress, oriented 3. No conversational dyspnea or use of accessory muscles. Currently on 2 L. HEENT examination is grossly unremarkable. Neck supple. Full range of motion. No adenopathy thyromegaly or neck vein distention. Cardiovascular examination reveals regular rhythm rate. S1-S2 normal. No S3 or S4. No discernible murmur noted. Heart rate 72 bpm. Lungs reveal mild scattered rhonchi and wheezes. No crackles. Breath sounds are equal bilaterally. Breath sounds are diminished throughout. Saturations are 93 %. Abdomen soft bowel sounds are heard. No masses or tenderness. Extremities are intact. No cyanosis clubbing or edema. Skin is without rash or lesion. Neurologic examination is brief but nonfocal. - Labs CBC & Chem 7: 09/19/22 14:58 09/19/22 14:58 Labs: Microbiology - Last 24 Hours (Table) 09/19/22 15:05 Blood Culture - Preliminary Blood No Growth after 96 hours 09/19/22 15:20 Blood Culture - Preliminary Blood No Growth after 96 hours Assessment and Plan Assessment: Acute exacerbation of COPD, without pneumonia. Possible purulent tracheobronchitis. Chronic hypoxemic respiratory failure, with home O2, 28/05. History of hypothyroidism. Prior history of heavy tobacco use. History of osteoarthritis. History of vertigo. History of breast cancer and cervical cancer. History of neuropathy. History of anxiety/depression. Plan: Plan dated 09/21/2022. Currently, the patient's on albuterol sulfate and ipratropium bromide, as well as Symbicort, and azithromycin. She is also receiving Solu-Medrol 30 mg every 8 hours. The patient's chronic lung disease is mildly to moderately active. No evidence of pneumonia on chest x-ray. Oral antibiotic is fine. Probably discharge in 24 hours or so. Plan dated 09/22/2022. The patient continues on appropriate medications including Symbicort, 160/4.5, 2 puffs twice a day, albuterol sulfate and ipratropium bromide breathing treatments, 4 times a day and when necessary, and Solu-Medrol, as well as her usual medications. We will continue to follow make recommendations along the way. Prognosis is guarded. The patient will follow-up with her family doctor post discharge, and my partner. No evidence of pneumonia on chest x-ray. Plan dated 09/24/2022. Labs, x-rays, and medications are reviewed. The patient continues on appropriate medications including steroids, and breathing treatments. The patient continues on oxygen therapy. We will continue to follow and make recommendations along the way. Hopeful discharge in the next 24-48 hours. Follow-up chest x-ray is unchanged. Prednisone is changed from 20 mg twice a day, to 40 mg once a day. Time with Patient: Less than 30
[2022-09-24] MEDS: traZODone HCL 50 MG TAB PO SCH (21:26)
[2022-09-25] MEDS: LEVOTHYROXINE 112 MCG TAB PO SCH (05:56)
[2022-09-25] MEDS: BUDESONIDE 1 MG/2 ML NEBU INHALATION SCH ×2 (08:34→20:15)
[2022-09-25] MEDS: IPRATROPIUM-ALBUTEROL 3 ML NEB INHALATION SCH ×4 (08:34→20:15)
[2022-09-25] MEDS: FORMOTEROL FUMARATE 20 MCG/2 ML NEBU INHALATION SCH ×2 (08:34→20:15)
[2022-09-25] MEDS: PSEUDOEPHEDRINE 30 MG TAB PO SCH ×2 (10:08→20:32)
[2022-09-25] MEDS: LORATADINE-PSEUDOEPH 5-120 MG 1 EACH TAB.ER.12H PO SCH ×2 (10:09→20:32)
[2022-09-25] MEDS: MECLIZINE 25 MG TAB PO SCH ×3 (10:09→20:33)
[2022-09-25] MEDS: CITALOPRAM HYDROBROMIDE 20 MG TAB PO SCH (10:09)
[2022-09-25] MEDS: HYDROcodone/APAP 5-325MG 1 EACH TAB PO PRN (10:09)
[2022-09-25] MEDS: SERTRALINE 100 MG TAB PO SCH (10:09)
[2022-09-25] MEDS: FLUTICASONE 50MCG/SPRAY NASAL 16GM EA NOSTRIL SCH (10:10)
[2022-09-25] MEDS: predniSONE 20 MG TAB PO SCH (10:10)
--- NOTE | 2022-09-25 17:47 | P.PN ---
Subjective Progress Note Date: 09/25/22 72-year-old female, not a particularly good historian, who apparently was brought into the emergency room on September 19 by EMS. Apparently she had some changes in her mental status, and her family was concerned. In addition, she had episodes of confusion, and weakness, over a couple days prior to admission. Also, she complained of some shortness of breath, cough, and occasional phlegm production. She does use home O2, 24/7, at 3 L. She does have a history of COPD, and hypothyroidism. White count 11.7, with a normal hemoglobin, hematocrit, and platelet count. Venous blood gas shows a CO2 of 61, and a pH which is 7.35. Sodium is 137, potassium 4.3, chlorides 96, CO2 27, anion gap 14, BUN 17, creatinine 1.11. The patient's troponin was normal. Urine was negative. Chest x-ray shows a small left-sided pleural effusion and some chronic fibrotic changes, without any acute abnormality. Also noted are changes of COPD. Progress note dated 09/22/2022. 72-year-old female seen yesterday in consultation for COPD exacerbation. She does see one of my partners in the office, for her COPD. Currently, she is doing better. She is on 3 L. No IV fluids. When I first entered the room, she sleeping. She is not manifesting any signs or symptoms of respiratory difficulty such as conversational dyspnea or use of accessory muscles. No audible wheezing. No new labs today. The patient is seen today 09/23/2022 in follow-up on the regular medical floor. She is currently resting fairly comfortably in bed. She is still having cough. She still having some wheezing. Dyspneic with minimal conversation. Dyspneic with minimal exertion. She is maintaining good O2 saturations in the 90s on 3 L nasal cannula. She's afebrile. Blood cultures reveal no growth to date. She is continued on DuoNeb inhalations, IV Solu-Medrol, Symbicort. The patient is seen today 09/25/2022 in follow-up on the regular medical floor. She is currently resting comfortably in bed. Awake and alert in no acute distress. Maintaining good O2 saturations in the 90s on 2 L/m per nasal cannula. She's afebrile. Hemodynamically stable. Blood cultures reveal no growth. She is continued on DuoNeb inhalations, Pulmicort and Perforomist inhalations, prednisone taper. Objective - Vital Signs Vital signs: Vital Signs Temp 98.7 F 09/25/22 14:00 Pulse 78 09/25/22 16:04 Resp 17 09/25/22 14:00 BP 117/74 09/25/22 14:00 Pulse Ox 94 L 09/25/22 14:00 FiO2 Intake & Output 09/24/22 09/25/22 09/25/22 18:59 06:59 18:59 Intake Total 330 Balance 330 Intake: Oral 330 Other: # Voids 0 2 1 - Exam GENERAL EXAM: Alert, 72-year-old female, on 2 L nasal cannula, comfortable in no apparent distress. HEAD: Normocephalic. EYES: Normal reaction of pupils, equal size. NOSE: Clear with pink turbinates. THROAT: No erythema or exudates. NECK: No masses, no JVD. CHEST: No chest wall deformity. LUNGS: Equal air entry with bilateral end expiratory wheeze, diminished. CVS: S1 and S2 normal with no audible murmur, regular rhythm. ABDOMEN: No hepatosplenomegaly, normal bowel sounds, no guarding or rigidity. SPINE: No scoliosis or deformity SKIN: No rashes CENTRAL NERVOUS SYSTEM: No focal deficits, tone is normal in all 4 extremities. EXTREMITIES: There is no peripheral edema. No clubbing, no cyanosis. Peripheral pulses are intact. - Labs CBC & Chem 7: 09/19/22 14:58 09/19/22 14:58 Labs: Microbiology - Last 24 Hours (Table) 09/19/22 15:20 Blood Culture - Preliminary Blood No Growth after 120 hours 09/19/22 15:05 Blood Culture - Preliminary Blood No Growth after 120 hours Assessment and Plan Assessment: Acute exacerbation of COPD, without pneumonia. Possible purulent tracheobronchitis. Chronic hypoxemic respiratory failure, with home O2, 28/05. History of hypothyroidism. Prior history of heavy tobacco use. History of osteoarthritis. History of vertigo. History of breast cancer and cervical cancer. History of neuropathy. History of anxiety/depression. Plan: The patient was seen and evaluated Continue Pulmicort and Perforomist Continue prednisone taper Titrate the FiO2 as tolerated We will continue to follow I have personally seen and examined the patient, performed the documentation and the assessment and plan as written. Number of minutes spent on the visit: 10.
[2022-09-25] MEDS: traZODone HCL 50 MG TAB PO SCH (20:32)
[2022-09-26] MEDS: LEVOTHYROXINE 112 MCG TAB PO SCH (06:28)
--- NOTE | 2022-09-26 08:09 | PN ---
PROGRESS NOTE DATE OF SERVICE: 09/24/2022 CHIEF COMPLAINT: Exacerbation of COPD. HISTORY OF PRESENT ILLNESS: This lady is doing little bit better from the respiratory point of view, but does not feel she is able to go home. It is beginning to sound like she would prefer staying in the hospital. PHYSICAL EXAMINATION: CHEST: She has a loose and productive cough. Chest is quite clear. VITAL SIGNS: Normal. CARDIAC: Normal. IMPRESSION: Exacerbation of chronic obstructive pulmonary disease. PLAN: Encouraged activity in hopes that she could be discharged in the next day or 2. MMODL / IJN: [id number] /
[2022-09-26] MEDS: FORMOTEROL FUMARATE 20 MCG/2 ML NEBU INHALATION SCH ×2 (08:16→20:16)
[2022-09-26] MEDS: IPRATROPIUM-ALBUTEROL 3 ML NEB INHALATION SCH ×4 (08:16→20:16)
[2022-09-26] MEDS: BUDESONIDE 1 MG/2 ML NEBU INHALATION SCH ×2 (08:16→20:16)
--- NOTE | 2022-09-26 08:31 | PN ---
PROGRESS NOTE DATE OF SERVICE: 09/23/2022 CHIEF COMPLAINT: COPD. HISTORY OF PRESENT ILLNESS: This lady's breathing is not greatly improved. She feels that she is actually a little bit worse. PHYSICAL EXAMINATION: CHEST: Breath sounds are diminished, but they are fairly clear, but there are occasional rales and rhonchi and she does have a productive cough. CARDIAC: Normal. ABDOMEN: Soft, nontender. IMPRESSION: Exacerbation of chronic obstructive pulmonary disease. PLAN: Continue with current program and increase activity. MMODL / IJN: [id number] /
--- NOTE | 2022-09-26 08:34 | PN ---
PROGRESS NOTE DATE OF SERVICE: 09/22/2022 CHIEF COMPLAINT: Exacerbation of COPD. HISTORY OF PRESENT ILLNESS: This lady is still having a lot of trouble breathing. PHYSICAL EXAMINATION: CHEST: Clear but breath sounds are diminished. She has a very productive cough. IMPRESSION: Exacerbation of chronic obstructive pulmonary disease. PLAN: No change in program and continue with updrafts. She is being followed by pulmonology. MMODL / IJN: [id number] /
--- NOTE | 2022-09-26 09:15 | PN ---
PROGRESS NOTE DATE OF SERVICE: 09/25/2022 CHIEF COMPLAINT: Exacerbation of COPD. HISTORY OF PRESENT ILLNESS: This lady is complaining of thrush today. She continues to have a loose cough, but pulse ox is good, and her chest is fairly clear. She is obviously not interested in being discharged. PHYSICAL EXAMINATION: CHEST: Even though, she has loose cough and decreased breath sounds, they are quite clear. CARDIAC: Normal. ABDOMEN: Soft, nontender. IMPRESSION: 1. Exacerbation of chronic obstructive pulmonary disease. 2. Stomatitis. PLAN: 1. Treat with nystatin for her mouth. 2. Try to discharge home as soon as possible. MMODL / IJN: [id number] /
[2022-09-26] MEDS: SERTRALINE 100 MG TAB PO SCH (09:16)
[2022-09-26] MEDS: LORATADINE-PSEUDOEPH 5-120 MG 1 EACH TAB.ER.12H PO SCH ×2 (09:16→20:18)
[2022-09-26] MEDS: FLUTICASONE 50MCG/SPRAY NASAL 16GM EA NOSTRIL SCH (09:17)
[2022-09-26] MEDS: MECLIZINE 25 MG TAB PO SCH ×3 (09:17→20:18)
[2022-09-26] MEDS: CITALOPRAM HYDROBROMIDE 20 MG TAB PO SCH (09:17)
[2022-09-26] MEDS: predniSONE 20 MG TAB PO SCH (09:17)
[2022-09-26] MEDS: PSEUDOEPHEDRINE 30 MG TAB PO SCH ×2 (09:28→20:18)
[2022-09-26 13:21] VITALS: BMI 21.4
--- NOTE | 2022-09-26 14:36 | P.PN ---
Subjective Progress Note Date: 09/26/22 72-year-old female, not a particularly good historian, who apparently was brought into the emergency room on September 19 by EMS. Apparently she had some changes in her mental status, and her family was concerned. In addition, she had episodes of confusion, and weakness, over a couple days prior to admission. Also, she complained of some shortness of breath, cough, and occasional phlegm production. She does use home O2, 24/7, at 3 L. She does have a history of COPD, and hypothyroidism. White count 11.7, with a normal hemoglobin, hematocrit, and platelet count. Venous blood gas shows a CO2 of 61, and a pH which is 7.35. Sodium is 137, potassium 4.3, chlorides 96, CO2 27, anion gap 14, BUN 17, creatinine 1.11. The patient's troponin was normal. Urine was negative. Chest x-ray shows a small left-sided pleural effusion and some chronic fibrotic changes, without any acute abnormality. Also noted are changes of COPD. Progress note dated 09/22/2022. 72-year-old female seen yesterday in consultation for COPD exacerbation. She does see one of my partners in the office, for her COPD. Currently, she is doing better. She is on 3 L. No IV fluids. When I first entered the room, she sleeping. She is not manifesting any signs or symptoms of respiratory difficulty such as conversational dyspnea or use of accessory muscles. No audible wheezing. No new labs today. The patient is seen today 09/23/2022 in follow-up on the regular medical floor. She is currently resting fairly comfortably in bed. She is still having cough. She still having some wheezing. Dyspneic with minimal conversation. Dyspneic with minimal exertion. She is maintaining good O2 saturations in the 90s on 3 L nasal cannula. She's afebrile. Blood cultures reveal no growth to date. She is continued on DuoNeb inhalations, IV Solu-Medrol, Symbicort. The patient is seen today 09/25/2022 in follow-up on the regular medical floor. She is currently resting comfortably in bed. Awake and alert in no acute distress. Maintaining good O2 saturations in the 90s on 2 L/m per nasal cannula. She's afebrile. Hemodynamically stable. Blood cultures reveal no growth. She is continued on DuoNeb inhalations, Pulmicort and Perforomist inhalations, prednisone taper. The patient is seen today 09/26/2022 in follow-up on the regular medical floor. She is sitting up at the bedside. Awake and alert in no acute distress. Feeling better today compared to yesterday. Feeling back to her baseline. No worsening shortness of breath, cough or congestion. She is maintaining O2 saturations in the 90s on 2 L/m per nasal cannula. Afebrile. Hemodynamically stable. Blood cultures reveal no growth. She is continued on DuoNeb inhalations, Pulmicort and Perforomist inhalations, prednisone taper. Objective - Vital Signs Vital signs: Vital Signs Temp 98.1 F 09/26/22 08:00 Pulse 90 09/26/22 13:24 Resp 18 09/26/22 08:00 BP 143/82 09/26/22 08:00 Pulse Ox 94 L 09/26/22 08:17 FiO2 Intake & Output 09/25/22 09/26/22 09/26/22 18:59 06:59 18:59 Intake Total 222 222 Balance 222 222 Weight 49.895 kg Intake: Oral 222 222 Other: # Voids 1 1 - Exam GENERAL EXAM: Alert, very pleasant 72-year-old female, on 2 L nasal cannula, comfortable in no apparent distress. HEAD: Normocephalic. EYES: Normal reaction of pupils, equal size. NOSE: Clear with pink turbinates. THROAT: No erythema or exudates. NECK: No masses, no JVD. CHEST: No chest wall deformity. LUNGS: Equal air entry with bilateral end expiratory wheeze, diminished. CVS: S1 and S2 normal with no audible murmur, regular rhythm. ABDOMEN: No hepatosplenomegaly, normal bowel sounds, no guarding or rigidity. SPINE: No scoliosis or deformity SKIN: No rashes CENTRAL NERVOUS SYSTEM: No focal deficits, tone is normal in all 4 extremities. EXTREMITIES: There is no peripheral edema. No clubbing, no cyanosis. Peripheral pulses are intact. - Labs CBC & Chem 7: 09/19/22 14:58 09/19/22 14:58 Labs: Microbiology - Last 24 Hours (Table) 09/19/22 15:05 Blood Culture - Final Blood No Growth after 144 hours 09/19/22 15:20 Blood Culture - Final Blood No Growth after 144 hours Assessment and Plan Assessment: Acute exacerbation of COPD, without pneumonia. Possible purulent tracheobronchitis. Chronic hypoxemic respiratory failure, with home O2, 28/05. History of hypothyroidism. Prior history of heavy tobacco use. History of osteoarthritis. History of vertigo. History of breast cancer and cervical cancer. History of neuropathy. History of anxiety/depression. Plan: The patient was seen and evaluated Cleared for discharge from the pulmonary standpoint Continue her home pulmonary medications Complete a prednisone taper Continue her home oxygen Follow-up in the office in 1 week I have personally seen and examined the patient, performed the documentation and the assessment and plan as written. Number of minutes spent on the visit: 10. This is a joint evaluation that was done along with the nurse practitioner. Clinically stable and the patient was cleared for discharge from the pulmonary standpoint and a prednisone burst taper, home O2 and nebulizers.
[2022-09-26] MEDS: HYDROcodone/APAP 5-325MG 1 EACH TAB PO PRN (15:55)
--- NOTE | 2022-09-26 16:48 | CDI ---
Documentation Clarification Form Date: 09/26/2022 04:24:00 PM From: Laura Shah RN, RN, and CCDS Admit Date: 09/19/2022 07:56:00 PM Patient Name: Jazmin Tyler Visit Number: [id number] Discharge Date: ATTENTION: The Clinical Documentation Specialists (CDI) and [facility] Coding Staff appreciate your assistance in clarifying documentation. Please respond to the clarification below the line at the bottom and electronically sign. The CDI & [facility] Coding staff will review the response and follow-up if needed. Please note: Queries are made part of the Legal Health Record. If you have any questions, please contact the author of this message via ITS. Dr. Js Vidal Your patient has a diagnosis of ac respiratory failure on per your progress notes. Pulmonary consul ant ongoing has documented chronic hypoxemic respiratory failure, with home O2 28/05. Based on this information and the findings what diagnosis is clinically appropriate for this patient? History/Risk Factors: COPD, Thyroid Disorder, Cervical Ca, Breast CA, For Tobacco use: Former smoker Home oxygen: 3-4 L 28/05 Clinical Indicators: 72-year-old female per family concerns for confusion and weakness. She has wheezes, no respiratory distress. 09/19 Vital signs: 179/89 64 16 97.0 98 5/L NC 09/19 CXR shows increase in COPD. 09/21 attending progress notes: Acute respiratory failure. Still quite dyspneic. She is reliant on oxygen at the time. Breath sounds are extremely poor through with tight crackling wheezes at the bases. There are no rhonchi Treatment: Duoneb 0.5 Mg-3 MG/3 ml Soln Inhalation QID Monitor O2 Sat's (Titrate) Pulmicort 1 MG Inhalation BID, Preformist 20 mcg Inhalation BID Medrol Dose Pack 24 Mg po Daily 09/27 Solu-medrol 125 Mg IV once 09/19 then 60 Mg IB Q 6 hrs (taper per orders) Zithromax 500 Mg Po his 09/19 -09/21 Is there an additional diagnosis that is clinically appropriate for this patient? [ ] Chronic Hypoxemic Respiratory Failure [ ] Acute on chronic hypoxemic Hypoxic Respiratory Failure (pO2 <60 mm Hg or SpO2 <91% on room air) [ ] Other Diagnosis, please specify [ ] Unable to determine (Template Last Revised: January 2021) Acute on chronic hypoxemic hypoxic respiratory failure and chronically wears oxygen in the outpatient setting of 3-4 L Chronic hypoxic respiratory failure Dictated By: Liss Shearer Signed By: <Electronically signed by Liss TORRES> 09/27/22 1406 DD/ 48 TD/TT:09/27/22 114 MARIA LUISA
[2022-09-26] MEDS: traZODone HCL 50 MG TAB PO SCH (20:18)
--- NOTE | 2022-09-27 04:42 | PN ---
PROGRESS NOTE DATE OF SERVICE: 09/26/2022 This patient is doing well and was to be discharged. However, there was confusion on her med rec at what prescription would be she . Also, she had to be taken back to her motel in a wheelchair was available. Her discharge will be moved to tomorrow, the . MARLO / EULOGIO: [id number] /
[2022-09-27] MEDS: LEVOTHYROXINE 112 MCG TAB PO SCH (06:22)
--- NOTE | 2022-09-27 07:58 | DS ---
DISCHARGE SUMMARY CHIEF COMPLAINT: Difficulty breathing. HISTORY OF PRESENT ILLNESS AND PHYSICAL EXAMINATION: Details of this lady's history and physical can be found in her admitting summary. LABORATORY STUDIES: While she was in the hospital, she had laboratory studies details of which can be found in the laboratory section of her chart. COURSE IN THE HOSPITAL: After admission, she was placed on bedrest and started on intravenous fluids, inhaled and IV steroids and updrafts. She was seen by Pulmonology. She did slowly improve. She got to the point where her chest is quite clear, but she still had dyspnea on exertion and very productive cough. This was felt to be relatively normal per her, and pulse oximetry was maintained on room air. It was felt, she could be discharged. She was reluctant to leave the hospital. Arrangements were made for her to go on the , but a wheelchair van was not available until the . She will be sent home on a good pulmonary program and will be followed up in the office, if she complies. FINAL DIAGNOSIS: Exacerbation of chronic obstructive pulmonary disease. OPERATIONS: None. CONSULTATION: Pulmonology. She is improved. MMODL / IJN: [id number] /
[2022-09-27] MEDS: IPRATROPIUM-ALBUTEROL 3 ML NEB INHALATION SCH ×2 (08:38→12:57)
[2022-09-27] MEDS: BUDESONIDE 1 MG/2 ML NEBU INHALATION SCH (08:38)
[2022-09-27] MEDS: FORMOTEROL FUMARATE 20 MCG/2 ML NEBU INHALATION SCH (08:38)
[2022-09-27 08:41] VITALS: BP 139/69; RESP 17; TEMP 98.5
[2022-09-27] MEDS: LORATADINE-PSEUDOEPH 5-120 MG 1 EACH TAB.ER.12H PO SCH (08:44)
[2022-09-27] MEDS: CITALOPRAM HYDROBROMIDE 20 MG TAB PO SCH (08:44)
[2022-09-27] MEDS: MECLIZINE 25 MG TAB PO SCH (08:44)
[2022-09-27] MEDS: SERTRALINE 100 MG TAB PO SCH (08:45)
[2022-09-27] MEDS: PSEUDOEPHEDRINE 30 MG TAB PO SCH (08:45)
[2022-09-27] MEDS: FLUTICASONE 50MCG/SPRAY NASAL 16GM EA NOSTRIL SCH (08:46)
[2022-09-27] MEDS ORDERED: methylPREDNISolone 4 MG TAB TAPER PO SCH ×2 (09:00)
[2022-09-27 10:14] VITALS: PULSE 68
[2022-09-27] MEDS ORDERED: ALBUTEROL HFA INHALER INHALATION PRN (11:48)
--- NOTE | 2022-09-27 14:06 | P.DS ---
Providers Date of admission: 09/19/22 19:56 Expected date of discharge: 09/27/22 Attending physician: Js Vidal Consults: 09/20/22 17:52 Consult Physician Routine Consulting Provider: Lance Camp Reason/Comments: COPD exacerbation Do you want consulting provider notified?: Yes, Notify in am Primary care physician: Js Vidal Hospital Course: Final diagnosis Shortness of breath secondary to COPD exacerbation Acute on chronic hypoxemic hypoxic respiratory failure and chronically wears oxygen in the outpatient setting of 3-4 L Chronic hypoxic respiratory failure Study of hypothyroidism Anxiety/depression history Continued ongoing nicotine dependence Full code Discharge disposition Patient is being discharged in a stable condition with guarded prognosis to home. Patient will follow-up with Dr. Vidal in the outpatient setting upon discharge. Patient is to follow up with pulmonary and continue current medications as scheduled and prescribed. Patient will continue a Medrol Dosepak on discharge. Patient to follow-up with PCP and/or pain management regarding her pain medications. Total time taken is greater than 35 minutes. Hospital course This is a 72-year-old male who was recently admitted with COPD exacerbation with worsening shortness of breath. Patient follows with Dr. Vidal and was closely followed with pulmonary recommending outpatient follow-up. Patient will be continued on inhalers along with breathing inhalational treatments a prednisone taper on discharge. Patient was initially supposed to be discharged last night although unable to receive a ride and medications were not sent to the pharmacy here. Patient also requesting some gabapentin which is not on her medication reconciliation nor her admitting ER documentation that she takes this and instructed the patient to follow-up outpatient with PCP and/or pain management. She will continue prednisone taper on discharge as well. Patient is medically stable and has been cleared by consultations for discharge today. Arranging for wheelchair van for discharge home. Currently no reports of chest pain, shortness of breath, or palpitations. Patient is afebrile. No reports of nausea or vomiting and patient is tolerating diet. Patient will be discharged home today. Guarded prognosis. Physical exam: Gen: This is a 72-year-old female awake, alert and oriented 3, thin built, cachectic, elderly-appearing female HEENT: Head is atraumatic, normocephalic. Pupils equal, round. Sclerae is anicteric. NECK: Supple. No JVD. No lymphadenopathy. No thyromegaly. LUNGS: Diminished breath sounds bilaterally with some scattered rhonchi and mild respiratory wheezing noted. No intercostal retractions. HEART: S1, S2 are muffled. No murmur. ABDOMEN: Soft. Bowel sounds are present. No masses. No tenderness. EXTREMITIES: No pedal edema. No calf tenderness. NEUROLOGICAL: Patient is awake, alert and oriented x3. Cranial nerves 2 through 12 are grossly intact. Please refer to medication reconciliation sheet for a list of medications. The impression and plan of care has been dictated by Liss Shearer, Nurse Practitioner as directed. Dr. Alfonzo MD I have performed a history and examination and MDM of this patient, discussed the same with the dictator, and agree with the dictator's assessment and plan as written ,documented as a scribe. Based on total visit time, I have performed more than 50% of the visit. Patient Condition at Discharge: Stable Plan - Discharge Summary New Discharge Prescriptions: New Fluticasone Nasal Echo [Flonase Nasal Echo] 2 spray EA NOSTRIL DAILY #1 ml Albuterol Inhaler [Ventolin Hfa Inhaler] 1 puff INHALATION QID PRN 30 Days #8 gm PRN Reason: Shortness Of Breath Artificial Tears-Hypromellose [Artificial Tear Drops] 1 drops BOTH EYES TID PRN ml PRN Reason: Dry Eye(S) Loratadine-Pseudoeph 5-120 mg [Claritin-D 12 Hour] 1 each PO Q12HR #10 tab methylPREDNISolone Dose Pack [Medrol Dose Pack] 24 mg PO DAILY 7 Days #1 pack Continue Meclizine HCl [Antivert] 25 mg PO TID #30 tab Citalopram Hydrobromide [CeleXA] 40 mg PO DAILY #30 tab traZODone HCL [Desyrel] 50 mg PO HS #30 tab Fluticasone Nasal Echo [Flonase Nasal Echo] 2 spray EA NOSTRIL DAILY 30 Days #1 each Sertraline [Zoloft] 100 mg PO DAILY #30 tab Changed Budesonide-Formot 160-4.5 Mcg [Symbicort 160-4.5 Mcg Inhaler] 2 puff INHALATION RT-BID #1 each Levothyroxine Sodium [Synthroid] 112 mcg PO DAILY #30 tab Ipratropium-Albuterol Nebulize [Duoneb 0.5 mg-3 mg/3 ml Soln] 3 ml INHALATION RT-QID PRN #120 each PRN Reason: Shortness Of Breath Or Wheezing Discontinued Pseudoephedrine [Sudafed] 60 mg PO BID 7 Days #14 tab Discharge Medication List Artificial Tears-Hypromellose [Artificial Tear Drops] 1 drops BOTH EYES TID PRN ml 09/26/22 [Rx] Budesonide-Formot 160-4.5 Mcg [Symbicort 160-4.5 Mcg Inhaler] 2 puff INHALATION RT-BID #1 each 09/26/22 [Rx] Citalopram Hydrobromide [CeleXA] 40 mg PO DAILY #30 tab 09/26/22 [Rx] Fluticasone Nasal Echo [Flonase Nasal Echo] 2 spray EA NOSTRIL DAILY #1 ml 09/26/22 [Rx] Fluticasone Nasal Echo [Flonase Nasal Echo] 2 spray EA NOSTRIL DAILY 30 Days #1 each 09/26/22 [Rx] Ipratropium-Albuterol Nebulize [Duoneb 0.5 mg-3 mg/3 ml Soln] 3 ml INHALATION RT-QID PRN #120 each 09/26/22 [Rx] Levothyroxine Sodium [Synthroid] 112 mcg PO DAILY #30 tab 09/26/22 [Rx] Loratadine-Pseudoeph 5-120 mg [Claritin-D 12 Hour] 1 each PO Q12HR #10 tab 09/26/22 [Rx] Meclizine HCl [Antivert] 25 mg PO TID #30 tab 09/26/22 [Rx] Sertraline [Zoloft] 100 mg PO DAILY #30 tab 09/26/22 [Rx] methylPREDNISolone Dose Pack [Medrol Dose Pack] 24 mg PO DAILY 7 Days #1 pack 09/26/22 [Rx] traZODone HCL [Desyrel] 50 mg PO HS #30 tab 09/26/22 [Rx] Albuterol Inhaler [Ventolin Hfa Inhaler] 1 puff INHALATION QID PRN 30 Days #8 gm 09/27/22 [Rx] Follow up Appointment(s)/Referral(s): Js Vidal MD [Primary Care Provider] - 10/02/22 11:00 am Patient Instructions/Handouts: COPD (Chronic Obstructive Pulmonary Disease) (DC) Activity/Diet/Wound Care/Special Instructions: Patient will need to contact behavior support specialist of [facility] to inquire about warranty on brake mechanism. MEDICAID APPLICATION LINK: [email or web address] [facility] [address] [address] ., [facility] [address] [place], [place] [id number] Discharge/Stand Alone Forms: Who Do I Call?, Community Resources Discharge Disposition: HOME SELF-CARE
== END 2022-09-27 15:08 | disposition home or self-care (01) | DRG 190 ==
LOC: EC 14:08 → 6NMEDSUR 19:56
PROVIDERS: ADMIT Family Medicine; ATTEND Family Medicine
DX: J44.1 Chronic obstructive pulmonary disease with (acute) exacerbation (principal); J96.21 Acute and chronic respiratory failure with hypoxia; B37.0 Candidal stomatitis; J90 Pleural effusion, not elsewhere classified; D72.829 Elevated white blood cell count, unspecified; E03.9 Hypothyroidism, unspecified; F17.210 Nicotine dependence, cigarettes, uncomplicated; F32.A Depression, unspecified; F41.9 Anxiety disorder, unspecified; K12.1 Other forms of stomatitis; J84.10 Pulmonary fibrosis, unspecified; Z71.3 Dietary counseling and surveillance; R42 Dizziness and giddiness; Z79.51 Long term (current) use of inhaled steroids; G62.9 Polyneuropathy, unspecified; Z79.890 Hormone replacement therapy; Z79.899 Other long term (current) drug therapy; Z80.8 Family history of malignant neoplasm of other organs or systems; Z85.3 Personal history of malignant neoplasm of breast; Z28.310 Unvaccinated for COVID-19; Z85.41 Personal history of malignant neoplasm of cervix uteri; Z90.710 Acquired absence of both cervix and uterus; Z28.82 Immunization not carried out because of caregiver refusal; Z99.81 Dependence on supplemental oxygen; Z88.0 Allergy status to penicillin; Z88.6 Allergy status to analgesic agent; Z91.040 Latex allergy status
CPT/HCPCS: 36415; 71045; 71046; 80053; 81003; 82803; 83605; 84484; 85025; 85610; 85730; 87040; 93005; 94640; 94760; 96374; 99285

== ENCOUNTER 2023-05-01 18:18 | Inpatient (IN) | payer MEDICARE ==
[2023-05-01] MEDS ORDERED: ALBUTEROL NEBULIZED 2.5 MG/3 ML INHALATION STA (19:13)
[2023-05-01] MEDS ORDERED: methylPREDNISolone SOD SUCCI 125 MG/2 ML VIAL IV STA (19:13)
[2023-05-01] MEDS ORDERED: IPRATROPIUM 0.5 MG/2.5 ML NEBU INHALATION STA (19:13)
--- NOTE | 2023-05-01 19:21 | ED ---
General Adult HPI - General Chief complaint: Shortness of Breath Stated complaint: sob Time Seen by Provider: 05/01/23 18:30 Source: patient, EMS, RN notes reviewed, old records reviewed Mode of arrival: EMS Limitations: no limitations - History of Present Illness Initial comments: This is a 72-year-old female presents emergency Department complaining of shortness of breath and chest pain. Patient states shortness of breath is been last 3 days. Patient states the chest pain started last night and continued today. Patient states the chest pain as a heaviness and sometimes a tightness. Patient states his shortness of breath feels like her COPD. Patient states she quit smoking about 6 months ago. Patient denies any fever chills. Patient stat es she does have a cough but it is a dry cough. Patient denies any abdominal pain. Patient denies any headache patient denies numbness weakness patient denies any lightheadedness or dizziness. Patient denies any swelling to the legs or calf tenderness. - Related Data Home Medications Medication Instructions Recorded Confirmed Acetaminophen [Tylenol Extra 2,000 mg PO BID 05/01/23 05/01/23 Strength] diphenhydrAMINE [Benadryl] 200 mg PO BID 05/01/23 05/01/23 Allergies Allergy/AdvReac Type Severity Reaction Status Date / Time aspirin Allergy Swelling Verified 05/01/23 19:01 ibuprofen Allergy Anaphylaxis Verified 05/01/23 19:01 latex Allergy Rash/Hives Verified 05/01/23 19:01 Penicillins AdvReac Swelling Verified 05/01/23 19:01 Review of Systems ROS Statement: Those systems with pertinent positive or pertinent negative responses have been documented in the HPI. ROS Other: All systems not noted in ROS Statement are negative. Past Medical History Past Medical History: COPD, Thyroid Disorder Additional Past Medical History / Comment(s): Degenerative bone disease, vert igo, fibrocystic disease, neuropathy, diverticulitis, cervical CA (1980) and breast CA (1985), heart murmur History of Any Multi-Drug Resistant Organisms: None Reported Past Surgical History: Cholecystectomy, Hysterectomy, Orthopedic Surgery Additional Past Surgical History / Comment(s): right knee surgery 2014, left shoulder 2007, left hip (2018) Past Anesthesia/Blood Transfusion Reactions: No Reported Reaction Additional Past Anesthesia/Blood Transfusion Reaction / Comment(s): pt states that she had a hard time waking up from anesthesia and cannot tolerate "adult dose" Past Psychological History: Anxiety, Depression Smoking Status: Former smoker Past Alcohol Use History: None Reported Past Drug Use History: None Reported - Past Family History Mother Family Medical History: Cancer Additional Family Medical History / Comment(s): skin cancer General Exam - General Exam Comments Initial Comments: GENERAL: Patient is well-developed and well-nourished. Patient is nontoxic and well- hydrated and is in mild distress. ENT: Neck is soft and supple. No significant lymphadenopathy is noted. Oropharynx is clear. Moist mucous membranes. EYES: The sclera were anicteric and conjunctiva were pink and moist. Extraocular movements were intact and pupils were equal round and reactive to light. Eyelids were unremarkable. PULMONARY: Patient has significant diminished breath sounds and expiratory wheezing CARDIOVASCULAR: There is a regular rate and rhythm without any murmurs gallops or rubs. ABDOMEN: Soft and nontender with normal bowel sounds. SKIN: Skin is clear with no lesions or rashes and otherwise unremarkable. NEUROLOGIC: Patient is alert and oriented x3. Cranial nerves II through XII are grossly intact. Motor and sensory are also intact. Normal speech, volume and content. Symmetrical smile. MUSCULOSKELETAL: Normal extremities with adequate strength and full range of motion. No lower extremity swelling or edema. No calf tenderness. LYMPHATICS: No significant lymphadenopathy is noted PSYCHIATRIC: Normal psychiatric evaluation. Limitations: no limitations Course Vital Signs 05/01/23 05/01/23 05/01/23 18:19 20:13 20:21 Temperature 98.2 F Pulse Rate 88 88 88 Respiratory 20 Rate Blood Pressure 165/93 O2 Sat by Pulse 97 Oximetry 05/01/23 05/01/23 20:22 20:32 Temperature Pulse Rate 88 92 Respiratory Rate Blood Pressure O2 Sat by Pulse Oximetry Medical Decision Making - Medical Decision Making EKG was interpreted by myself as sinus rhythm at 90 bpm NC interval 258 QRS is 90 QT interval 350 QTC is 400. Patient's EKG shows no ST segment elevation or depression Was pt. sent in by a medical professional or institution (, PA, SELF PAY COLLECTOR, urgent care, hospital, or group home...) When possible be specific @ -[No] Did you speak to anyone other than the patient for history (EMS, parent, family, police, friend...)? What history was obtained from this source @ -[No] Did you review nursing and triage notes (agree or disagree)? Why? @ -[I reviewed and agree with nursing and triage notes] Were old charts reviewed (outside hosp., previous admission, EMS record, old EKG, old radiological studies, urgent care reports/EKG's, group home records)? Report findings @ -I reviewed prior lab work from prior charting. Differential Diagnosis (chest pain, altered mental status, abdominal pain women, abdominal pain men, vaginal bleeding, weakness, fever, dyspnea, syncope, headache, dizziness, GI bleed, back pain, seizure, CVA, palpatations, mental health, musculoskeletal)? @ -Differential Dyspnea: Coronary syndrome, arrhythmia, tamponade, asthma, COPD, pulmonary embolism, pneumonia, pneumothorax, pulmonary effusion, anaphylaxis, diabetic ketoacidosis, flailed chest, pulmonary contusion, diaphragmatic rupture, anemia, neuromuscular, this is not meant to be an all-inclusive list. EKG interpreted by me (3pts min.). @ -[As above] X-rays interpreted by me (1pt min.). @ -Chest x-ray shows no acute abnormality CT interpreted by me (1pt min.). @ -[None done] U/S interpreted by me (1pt. min.). @ -[None done] What testing was considered but not performed or refused? (CT, X-rays, U/S, labs)? Why? @ -[None] What meds were considered but not given or refused? Why? @ -[None] Did you discuss the management of the patient with other professionals ( professionals i.e. , PA, SELF PAY COLLECTOR, lab, RT, psych nurse, social services technician, flooring installer, teacher, chief technology officer, nurse case management)? Give summary @ -I spoke with Dr. Dunne and he agreed to admit the patient admitted the patient wrote admitting orders Was smoking cessation discussed for >3mins.? @ -[No] Was critical care preformed (if so, how long)? @ -[No] Were there social determinants of health that impacted care today? How? (Homelessness, low income, unemployed, alcoholism, drug addiction, trans portation, low edu. Level, literacy, decrease access to med. care, fci, rehab)? @ -[No] Was there de-escalation of care discussed even if they declined (Discuss DNR or withdrawal of care, Hospice)? DNR status @ -[No] What co-morbidities impacted this encounter? (DM, HTN, Smoking, COPD, CAD, Cancer, CVA, ARF, Chemo, Hep., AIDS, mental health diagnosis, sleep apnea, morbid obesity)? @ -[None] Was patient admitted / discharged? Hospital course, mention meds given and route, prescriptions, significant lab abnormalities, going to OR and other pertinent info. @ -Patient is given breathing treatments in the emergency room as well as steroids. Patient was also started on antibiotics. Spoke with Dr. Dunne and he wanted the patient admitted admitted the patient continued antibiotics steroids and breathing treatments in the hospital. I went back and reevaluated the patient she felt a little better but not enough to go home at this time. Undiagnosed new problem with uncertain prognosis? @ -[No] Drug Therapy requiring intensive monitoring for toxicity (Heparin, Nitro, Insulin, Cardizem)? @ -[No] Were any procedures done? @ -[No] Diagnosis/symptom? @ -COPD exacerbation Acute, or Chronic, or Acute on Chronic? @ -Acute Uncomplicated (without systemic symptoms) or Complicated (systemic symptoms)? @ -Complicated Side effects of treatment? @ -[No] Exacerbation, Progression, or Severe Exacerbation? @ -[No] Poses a threat to life or bodily function? How? (Chest pain, [place], [place], pneumonia, PE, COPD, DKA, ARF, appy, cholecystitis, CVA, Diverticulitis, Homicidal, Suicidal, threat to staff... and all critical care pts) @ -Yes this could lead to hypoxia and and/or dysfunction - Lab Data Result diagrams: 05/01/23 19:21 05/01/23 19:21 Lab Results 05/01/23 05/01/23 05/01/23 Range/Units 19:21 19:21 19:21 WBC 8.8 (3.8-10.6) k/uL RBC 4.23 (3.80-5.40) m/uL Hgb 13.2 (11.4-16.0) gm/dL Hct 39.7 (34.0-46.0) % MCV 93.9 (80.0-100.0) fL MCH 31.2 (25.0-35.0) pg MCHC 33.3 (31.0-37.0) g/dL RDW 14.6 (11.5-15.5) % Plt Count 219 (150-450) k/uL MPV 7.5 Neutrophils % (Manual) 77 % Band Neuts % (Manual) 14 % Lymphocytes % (Manual) 5 % Monocytes % (Manual) 4 % Neutrophils # (Manual) 8.00 H (1.3-7.7) k/uL Lymphocytes # (Manual) 0.44 L (1.0-4.8) k/uL Monocytes # (Manual) 0.35 (0-1.0) k/uL Nucleated RBCs 0 (0-0) /100 WBC Manual Slide Review Performed RBC Morphology Normal PT 9.7 (9.0-12.0) sec INR 0.9 (<1.2) APTT 28.2 (22.0-30.0) sec Sodium 133 L (137-145) mmol/L Potassium 3.6 (3.5-5.1) mmol/L Chloride 94 L (98-107) mmol/L Carbon Dioxide 26 (22-30) mmol/L Anion Gap 13 mmol/L BUN 27 H (7-17) mg/dL Creatinine 1.65 H (0.52-1.04) mg/dL Est GFR (CKD-EPI)AfAm 35 (>60 ml/min/1.73 sqM) Est GFR (CKD-EPI)NonAf 30 (>60 ml/min/1.73 sqM) Glucose 103 H (74-99) mg/dL Plasma Lactic Acid Demetrius (0.7-2.0) mmol/L Calcium 8.5 (8.4-10.2) mg/dL Magnesium 2.4 H (1.6-2.3) mg/dL Total Bilirubin 1.5 H (0.2-1.3) mg/dL AST 34 (14-36) U/L ALT 23 (4-34) U/L Alkaline Phosphatase 110 (38-126) U/L Troponin I (0.000-0.034) ng/mL Total Protein 7.8 (6.3-8.2) g/dL Albumin 4.6 (3.5-5.0) g/dL 05/01/23 05/01/23 Range/Units 19:21 19:21 WBC (3.8-10.6) k/uL RBC (3.80-5.40) m/uL Hgb (11.4-16.0) gm/dL Hct (34.0-46.0) % MCV (80.0-100.0) fL MCH (25.0-35.0) pg MCHC (31.0-37.0) g/dL RDW (11.5-15.5) % Plt Count (150-450) k/uL MPV Neutrophils % (Manual) % Band Neuts % (Manual) % Lymphocytes % (Manual) % Monocytes % (Manual) % Neutrophils # (Manual) (1.3-7.7) k/uL Lymphocytes # (Manual) (1.0-4.8) k/uL Monocytes # (Manual) (0-1.0) k/uL Nucleated RBCs (0-0) /100 WBC Manual Slide Review RBC Morphology PT (9.0-12.0) sec INR (<1.2) APTT (22.0-30.0) sec Sodium (137-145) mmol/L Potassium (3.5-5.1) mmol/L Chloride (98-107) mmol/L Carbon Dioxide (22-30) mmol/L Anion Gap mmol/L BUN (7-17) mg/dL Creatinine (0.52-1.04) mg/dL Est GFR (CKD-EPI)AfAm (>60 ml/min/1.73 sqM) Est GFR (CKD-EPI)NonAf (>60 ml/min/1.73 sqM) Glucose (74-99) mg/dL Plasma Lactic Acid Demetrius 1.9 (0.7-2.0) mmol/L Calcium (8.4-10.2) mg/dL Magnesium (1.6-2.3) mg/dL Total Bilirubin (0.2-1.3) mg/dL AST (14-36) U/L ALT (4-34) U/L Alkaline Phosphatase (38-126) U/L Troponin I <0.012 (0.000-0.034) ng/mL Total Protein (6.3-8.2) g/dL Albumin (3.5-5.0) g/dL Disposition Clinical Impression: Chest pain Disposition: ADMITTED IP TO THIS HOSP Referrals: Js Vidal MD [Primary Care Provider] - 1-2 days Time of Disposition: 21:03
[2023-05-01 19:54] LABS: ALT 23 U/L (4-34); AST 34 U/L (14-36); African American GFR (CKD) 35 (>60 ml/min/1.73 sqM); Albumin 4.6 g/dL (3.5-5.0); Alkaline Phosphatase 110 U/L (38-126); Anion Gap 13 mmol/L; Blood Urea Nitrogen 27 mg/dL (7-17); Calcium 8.5 mg/dL (8.4-10.2); Carbon Dioxide 26 mmol/L (22-30); Chloride 94 mmol/L (98-107); Glucose 103 mg/dL (74-99); Magnesium 2.4 mg/dL (1.6-2.3); Non-African American GFR(CKD) 30 (>60 ml/min/1.73 sqM); Potassium 3.6 mmol/L (3.5-5.1); Sodium 133 mmol/L (137-145); Total Bilirubin 1.5 mg/dL (0.2-1.3); Total Protein 7.8 g/dL (6.3-8.2)
[2023-05-01 19:58] LABS: HCT 39.7 % (34.0-46.0); HGB 13.2 gm/dL (11.4-16.0); MCH 31.2 pg (25.0-35.0); MCHC 33.3 g/dL (31.0-37.0); MCV 93.9 fL (80.0-100.0); Mean Platelet Volume 7.5; Platelet Count 219 k/uL (150-450); RBC 4.23 m/uL (3.80-5.40); RDW 14.6 % (11.5-15.5); WBC 8.8 k/uL (3.8-10.6)
[2023-05-01 20:10] LABS: INR 0.9 (<1.2); Partial Thromboplastin Time 28.2 sec (22.0-30.0); Prothrombin Time 9.7 sec (9.0-12.0)
--- NOTE | 2023-05-01 20:10 | XR ---
EXAMINATION TYPE: XR chest 2V DATE OF EXAM: 05/01/2023 COMPARISON: 09/24/2022 HISTORY: Shortness of breath TECHNIQUE: Frontal and lateral chest views of the chest are obtained. FINDINGS: Scattered senescent parenchymal changes noted. Hyperinflation compatible with COPD. No evidence for infiltrate. No evidence for atelectasis. Heart size is stable. Mediastinal structures are stable and grossly unremarkable. No evidence for hilar prominence. Degenerative changes dorsal spine. IMPRESSION: 1. No evidence for acute pulmonary disease.
[2023-05-01 20:20] LABS: Band Neutrophils % 14 %; Lymphocytes # (M) 0.44 k/uL (1.0-4.8); Monocytes # (M) 0.35 k/uL (0-1.0); Neutrophils % (M) 77 %; Nucleated Red Blood Cells 0 /100 WBC (0-0); RBC Morphology Normal; Total Cells Counted 100
[2023-05-01] MEDS ORDERED: NALOXONE 0.4 MG/ML 1 ML VIAL IVP PRN (21:03)
[2023-05-01] MEDS ORDERED: IPRATROPIUM-ALBUTEROL 3 ML NEB INHALATION PRN (21:03)
[2023-05-01] MEDS: methylPREDNISolone SOD SUCCI 125 MG/2 ML VIAL IV SCH (23:56)
[2023-05-02] MEDS: methylPREDNISolone SOD SUCCI 125 MG/2 ML VIAL IV SCH ×3 (06:26→18:56)
[2023-05-02] MEDS: AZITHROMYCIN 500 MG TAB PO SCH (08:31)
[2023-05-02] MEDS: IPRATROPIUM-ALBUTEROL 3 ML NEB INHALATION SCH ×4 (08:51→20:35)
--- NOTE | 2023-05-02 09:45 | CONS ---
CONSULTATION CHIEF COMPLAINT: Palpitations. HISTORY OF PRESENT ILLNESS: This is a 72-year-old lady, with history of COPD, on home O2, who presented to hospital complaining of worsening shortness of breath and chest discomfort. She has been diagnosed with COPD exacerbation, and Cardiology has been consulted because of the chest discomfort. Her chest pain is mild intensity, sharp, precordial. Describes it as a chest tightness and heaviness without definite radiation to neck, arm, or back. The patient is a smoker that she quit about 6 months ago. She denies cough, fever, or chills. EKG shows sinus rhythm with poor R-wave progression and nonspecific ST-T wave changes. The patient had 2 sets of troponins that are all within normal limits. Creatinine is elevated at 1.5, hemoglobin is normal at 15.2 with a platelet count of 219. PAST MEDICAL HISTORY: Significant for COPD. MEDICATIONS: At home include: 1. Benadryl. 2. Tylenol. ALLERGIES: To aspirin, ibuprofen, Aleve, and penicillin. FAMILY HISTORY: Negative for premature coronary artery disease. SOCIAL HISTORY: Negative for current smoking, EtOH abuse, or drug abuse. REVIEW OF SYSTEMS: 14 out of 14 review of systems has been performed. Pertinents are as documented. PHYSICAL EXAMINATION: VITAL SIGNS: The patient is afebrile. Heart rate is 60 beats per minute, blood pressure is 140/80, respiratory rate is 18, O2 saturation is 92% on 5 L. NECK: There is no jugular venous distention. Carotid upstroke is normal. There is no bruit. CHEST: Reveals diminished air entry with occasional rhonchi bilaterally. HEART: Reveals first and second heart sounds. No gallop. Has a systolic murmur at the apex. ABDOMEN: Soft. EXTREMITIES: Did not reveal any edema. Peripheral pulses are felt. LABORATORY DATA: Labs have been reviewed. ASSESSMENT AND PLAN: 1. Atypical chest pain. 2. Chronic obstructive pulmonary disease exacerbation. PLAN: I will obtain a 2D echo to assess LV function and to rule out any pericardial disease. Once the patient's respiratory status improves, we will consider an outpatient stress test. MMODL / IJN: [id number] /
[2023-05-02 11:17] LABS: African American GFR (CKD) 32 (>60 ml/min/1.73 sqM); Anion Gap 16 mmol/L; Blood Urea Nitrogen 30 mg/dL (7-17); Calcium 8.3 mg/dL (8.4-10.2); Carbon Dioxide 24 mmol/L (22-30); Chloride 93 mmol/L (98-107); Glucose 158 mg/dL (74-99); Non-African American GFR(CKD) 28 (>60 ml/min/1.73 sqM); Potassium 3.8 mmol/L (3.5-5.1); Sodium 133 mmol/L (137-145)
--- NOTE | 2023-05-02 11:21 | CA ---
Transthoracic Echo Report Name: Jazmin Tyler Age: 72 Gender: F : 1950 Exam Date: 05/02/2023 10:29 Exam Location: [facility] Ht (in): 59 Wt (lb): 115 Ordering Physician: José Miguel White MD ([id number]) Attending/Referring Phys: Cindy SAMANIEGO [employer] Watcher Judit Islas RDCS Procedure CPT: Indications: Chest Pain Cardiac Hx: Technical Quality: Fair Contrast 1: Total Dose (mL): Contrast 2: Total Dose (mL): MEASUREMENTS (Male / Female) Normal Values 2D ECHO LV Diastolic Diameter PLAX 4.0 cm 4.2 - 5.9 / 3.9 - 5.3 cm LV Systolic Diameter PLAX 2.8 cm IVS Diastolic Thickness 1.2 cm 0.6 - 1.0 / 0.6 - 0.9 cm LVPW Diastolic Thickness 1.1 cm 0.6 - 1.0 / 0.6 - 0.9 cm LV Relative Wall Thickness 0.6 RV Internal Dim ED PLAX 3.4 cm LA Systolic Diameter LX 3.8 cm 3.0 - 4.0 / 2.7 - 3.8 cm M-MODE Aortic Root Diameter MM 3.4 cm AV Cusp Separation MM 2.0 cm DOPPLER MV Area PHT 2.9 cm??? Mitral E Point Velocity 74.9 cm/s Mitral A Point Velocity 95.9 cm/s Mitral E to A Ratio 0.8 MV Deceleration Time 265.2 ms MV E' Velocity 6.4 cm/s Mitral E to MV E' Ratio 11.8 TR Peak Velocity 231.1 cm/s TR Peak Gradient 21.4 mmHg Right Ventricular Systolic Press 26.4 mmHg FINDINGS Left Ventricle Left ventricular ejection fraction is estimated at 50-55 %. Left ventricular cavity size normal. Mildly increased septal wall thickness. Mildly increased posterior wall thickness. Right Ventricle Mild right ventricular dilatation. Right ventricular systolic pressure within normal limits. Right Atrium Normal right atrial size. Left Atrium Normal left atrial size. Mitral Valve Structurally normal mitral valve. No mitral stenosis, regurgitation or prolapse. Aortic Valve Trileaflet aortic valve. No aortic valve stenosis or regurgitation. Tricuspid Valve Structurally normal tricuspid valve. Mild tricuspid regurgitation. Pulmonic Valve Pulmonic valve not well visualized. Pericardium Moderate pericardial effusion with clotting Aorta Normal size aortic root and proximal ascending aorta. CONCLUSIONS Technically somewhat suboptimal study right ventricle is prominent. LV function is fairly well-preserved. Doppler exam is suboptimal. There is a moderate-sized pericardial effusion with evidence of some fibrinous material and probably some thrombus as well in the effusion. Previewed by: Dr. Terrell Jaquez MD (Electronically Signed) Final Date: 02 May 2023 11:19
--- NOTE | 2023-05-02 12:07 | P.CNPUL ---
History of Present Illness Consult date: 05/02/23 Requesting physician: Js Vidal Reason for consult: COPD Chief complaint: Shortness of breath, cough, congestion History of present illness: This is a very pleasant 72-year-old female patient with a known history of oxygen dependent chronic obstructive pulmonary disease maintained on 5 L, Symbicort and albuterol in the outpatient setting. She had a 50+ year smoking history however quit less than a year ago. She follows with Dr. Camp in our office. She also has a history of osteoarthritis, vertical, breast cancer and cervical cancer, neuropathy, anxiety/depression. She presented here to the emergency yesterday evening with worsening shortness of breath cough and congestion. She was also having chest pain and heaviness. Chest pain reveals no acute pulmonary process. EKG revealed no significant ST or T wave abnormalities. White count 8.8. Hemoglobin 13.2. Platelets 219. D-dimer 2.73. Sodium 133. Potassium 3.8. Bicarb 24. BUN 30. Creatinine 1.77. Glucose 158. Troponins negative 2. Echocardiogram revealed preserved left ventricular systolic function with ejection fraction 50-55%. No significant valvular abnormalities. There was noted however a moderate size pericardial effusion with evidence of fibrinous material and probable thrombus. She's been initiated on DuoNeb inhalations, IV Solu-Medrol, antibiotics in the form of ceftriaxone and azithromycin. She is seen today in consultation in the emergency department. She is sitting up in a stretcher. Awake and alert in no acute distress. Feeling a bit better today compared to yesterday. Denies any chest pain currently. Still bronchus spastic and wheezing. Maintaining O2 saturations in the 90s on 5 L/m per nasal cannula. Review of Systems REVIEW OF SYSTEMS: CONSTITUTIONAL: Denies any recent significant weight loss or weight gain. EYES: Denies change in vision. EARS, NOSE, MOUTH, THROAT: Denies headaches, denies sore throat. CARDIOVASCULAR: Positive for chest pain, no palpitations or syncopal episodes. RESPIRATORY: Positive for shortness of breath, cough, congestion no hemoptysis. GASTROINTESTINAL: Denies change in appetite, denies abdominal pain GENITOURINARY: Denies hematuria, denies infections. MUSKULOSKELETAL: Denies pain, denies swelling. INTEGUMENTARY: Denies rash, denies eczema. NEUROLOGICAL: Denies recent memory loss, no recent seizure activity. PSYCHIATRIC: Denies anxiety, denies depression. HEMATOLOGIC/LYMPHATIC: Denies anemia, denies enlarged lymph nodes. Past Medical History Past Medical History: COPD, Thyroid Disorder Additional Past Medical History / Comment(s): Degenerative bone disease, vertigo, fibrocystic disease, neuropathy, diverticulitis, cervical CA (1980) and breast CA (1985), heart murmur History of Any Multi-Drug Resistant Organisms: None Reported Past Surgical History: Cholecystectomy, Hysterectomy, Orthopedic Surgery Additional Past Surgical History / Comment(s): right knee surgery 2014, left shoulder 2007, left hip (2017) Past Anesthesia/Blood Transfusion Reactions: No Reported Reaction Additional Past Anesthesia/Blood Transfusion Reaction / Comment(s): pt states that she had a hard time waking up from anesthesia and cannot tolerate "adult dose" Past Psychological History: Anxiety, Depression Smoking Status: Former smoker Past Alcohol Use History: None Reported Past Drug Use History: None Reported - Past Family History Mother Family Medical History: Cancer Additional Family Medical History / Comment(s): skin cancer Medications and Allergies Home Medications Medication Instructions Recorded Confirmed Type Acetaminophen [Tylenol Extra 2,000 mg PO BID 05/01/23 05/01/23 History Strength] diphenhydrAMINE [Benadryl] 200 mg PO BID 05/01/23 05/01/23 History Allergies Allergy/AdvReac Type Severity Reaction Status Date / Time aspirin Allergy Swelling Verified 05/01/23 19:01 ibuprofen Allergy Anaphylaxis Verified 05/01/23 19:01 latex Allergy Rash/Hives Verified 05/01/23 19:01 Penicillins AdvReac Swelling Verified 05/01/23 19:01 Physical Exam Vitals: Vital Signs Temp Pulse Pulse Resp BP BP Pulse Ox 05/02/23 09:00 65 05/02/23 08:51 62 05/02/23 08:00 97.9 F 70 20 145/81 91 L 05/02/23 06:26 65 16 123/77 92 L 05/02/23 00:00 91 L 05/01/23 23:56 85 20 145/85 88 L 05/01/23 22:14 55 L 18 144/83 92 L 05/01/23 20:32 92 05/01/23 20:22 88 05/01/23 20:21 88 05/01/23 20:13 88 05/01/23 18:19 98.2 F 88 20 165/93 97 Intake and Output 05/01/23 05/02/23 05/02/23 22:59 06:59 14:59 Other: Voiding Method Incontinent Weight 52.163 kg 52.163 kg GENERAL EXAM: Alert, pleasant 72-year-old female, on 5 L nasal cannula, fairly comfortable in no apparent distress. HEAD: Normocephalic. EYES: Normal reaction of pupils, equal size. NOSE: Clear with pink turbinates. THROAT: No erythema or exudates. NECK: No masses, no JVD. CHEST: No chest wall deformity. LUNGS: Equal air entry with bilateral wheeze, diminished. CVS: S1 and S2 normal with no audible murmur, regular rhythm. ABDOMEN: No hepatosplenomegaly, normal bowel sounds, no guarding or rigidity. SPINE: No scoliosis or deformity SKIN: No rashes CENTRAL NERVOUS SYSTEM: No focal deficits, tone is normal in all 4 extremities. EXTREMITIES: There is no peripheral edema. No clubbing, no cyanosis. Peripheral pulses are intact. Results - Laboratory Findings CBC and BMP: 05/01/23 19:21 05/02/23 09:24 PT/INR, D-dimer PT 9.7 sec (9.0-12.0) 05/01/23 19:21 INR 0.9 (<1.2) 05/01/23 19:21 D-Dimer 2.73 mg/L FEU (<0.60) H 05/02/23 09:24 Abnormal lab findings: Abnormal Labs 05/01/23 05/01/23 05/02/23 19:21 19:21 09:24 Neutrophils # (Manual) 8.00 H Lymphocytes # (Manual) 0.44 L D-Dimer 2.73 H Sodium 133 L Chloride 94 L BUN 27 H Creatinine 1.65 H Glucose 103 H Calcium Magnesium 2.4 H Total Bilirubin 1.5 H 05/02/23 09:24 Neutrophils # (Manual) Lymphocytes # (Manual) D-Dimer Sodium 133 L Chloride 93 L BUN 30 H Creatinine 1.77 H Glucose 158 H Calcium 8.3 L Magnesium Total Bilirubin - Diagnostic Findings Chest x-ray: image reviewed Assessment and Plan Assessment: Acute exacerbation of chronic obstructive pulmonary disease Chest pain in a patient found to have a moderate pericardial effusion with possible thrombus Acute renal failure History of chronic tobacco dependence of over 50 years however quit less than 1 year ago Severe oxygen dependent chronic obstructive pulmonary disease wearing 5 L/m per nasal cannula 28/05 Hypothyroidism History of breast cancer History of cervical cancer Osteoarthritis History of anxiety/depression Plan: The patient was seen and evaluated Chest x-ray, echocardiogram, labs and medications reviewed Continue Symbicort, DuoNeb inhalations, Solu-Medrol Continue empiric antibiotics in the form of azithromycin Doppler of the lower extremities Cardiology consulted We will continue to follow and make further recommendations based on her clinical status I have personally seen and examined the patient, performed the documentation and the assessment and plan as written. Number of minutes spent on the visit: 20.
[2023-05-02] MEDS: ACETAMINOPHEN TAB 325 MG TAB PO PRN ×2 (13:26→21:05)
--- NOTE | 2023-05-02 14:33 | US ---
"EXAMINATION TYPE: US venous doppler duplex LE DATE OF EXAM: 05/02/2023 2:09 PM COMPARISON: NONE CLINICAL INDICATION: Female, 72 years old with history of Elevated d dimer, chest pain; Elevated D di rosendo. No hx of DVT. Patient does not take blood thinners. Chest pain. SIDE PERFORMED: Bilateral TECHNIQUE: The lower extremity deep venous system is examined utilizing real time linear array sonog elsie with graded compression, doppler sonography and color-flow sonography. VESSELS IMAGED: Common Femoral Vein Deep Femoral Vein Greater Saphenous Vein * Femoral Vein Popliteal Vein Small Saphenous Vein * Proximal Calf Veins (* superficial vessels) Right Leg: Thready flow seen in mid and distal femoral vein. Femoral vein appears to compress incomp letely, probable chronic thrombus within the femoral vein. Left Leg: CFV appears to compress incompletely, possible chronic thrombus within. IMPRESSION: Suspected chronic thrombus within the common femoral vein on the left and right femoral vein. A Yellow level critical message alert has been initiated for Js Vidal MD via the [employer] | Critical Results System on 05/02/2023 2:31 PM. This message alert has been sent to Mamie Vidal MD via the preferences provided by the clinician for the receipt of Radiology Critical F indings. Message ID [id number]."
[2023-05-02] MEDS ORDERED: HEPARIN SODIUM 1,000 UN/ML (10ML VL) IV ONE (15:10)
[2023-05-02] MEDS: HEPARIN SOD,PORK IN 0.45% NACL 25,000 UNIT in 0.45% NACL 1 250ML.BAG IV SCH (15:21)
[2023-05-02 16:53] LABS: Basophils % (A) 0 %; Eosinophils % (A) 0 %; HCT 35.5 % (34.0-46.0); HGB 12.3 gm/dL (11.4-16.0); Lymphocytes # (A) 0.3 k/uL (1.0-4.8); Lymphocytes % (A) 3 %; MCH 32.3 pg (25.0-35.0); MCHC 34.8 g/dL (31.0-37.0); MCV 92.9 fL (80.0-100.0); Mean Platelet Volume 9.9; Monocytes # (A) 0.2 k/uL (0-1.0); Monocytes % (A) 2 %; Neutrophils # (A) 7.4 k/uL (1.3-7.7); Neutrophils % (A) 93 %; Platelet Count 187 k/uL (150-450); RBC 3.82 m/uL (3.80-5.40); RDW 14.7 % (11.5-15.5); WBC 7.9 k/uL (3.8-10.6)
[2023-05-02] MEDS: SYMBICORT 160-4.5 MCG INHALER INHALATION SCH (20:35)
[2023-05-02] MEDS: hydrOXYzine pamoate 25 MG CAP PO PRN (21:06)
[2023-05-03] MEDS: methylPREDNISolone SOD SUCCI 125 MG/2 ML VIAL IV SCH ×4 (00:30→17:06)
[2023-05-03] MEDS: NYSTATIN 100,000 UNIT/ML SUSP 500,000 UNIT/5 ML CUP PO SCH ×5 (00:31→20:51)
[2023-05-03 04:40] LABS: Basophils % (A) 0 %; Eosinophils % (A) 0 %; HCT 34.7 % (34.0-46.0); HGB 11.3 gm/dL (11.4-16.0); Lymphocytes # (A) 0.3 k/uL (1.0-4.8); Lymphocytes % (A) 4 %; MCH 30.5 pg (25.0-35.0); MCHC 32.6 g/dL (31.0-37.0); MCV 93.4 fL (80.0-100.0); Mean Platelet Volume 9.2; Monocytes # (A) 0.2 k/uL (0-1.0); Monocytes % (A) 3 %; Neutrophils # (A) 6.8 k/uL (1.3-7.7); Neutrophils % (A) 91 %; Platelet Count 204 k/uL (150-450); RBC 3.72 m/uL (3.80-5.40); RDW 14.6 % (11.5-15.5); WBC 7.4 k/uL (3.8-10.6)
[2023-05-03 04:54] LABS: African American GFR (CKD) 32 (>60 ml/min/1.73 sqM); Anion Gap 13 mmol/L; Blood Urea Nitrogen 37 mg/dL (7-17); Calcium 8.3 mg/dL (8.4-10.2); Carbon Dioxide 24 mmol/L (22-30); Chloride 95 mmol/L (98-107); Glucose 133 mg/dL (74-99); Non-African American GFR(CKD) 28 (>60 ml/min/1.73 sqM); Potassium 4.1 mmol/L (3.5-5.1); Sodium 132 mmol/L (137-145)
[2023-05-03 05:06] LABS: INR 0.9 (<1.2); Prothrombin Time 9.5 sec (9.0-12.0)
--- NOTE | 2023-05-03 07:14 | P.GSCN ---
History of Present Illness History of present illness: 72-year-old white female, patient has history of COPD has been admitted to medical service history of shortness of breath or chest pain I was consulted position noted some right foot discoloration of the toes according to patient she has this for some time patient also had a venous ultrasound which shows chronic. DVT Medical history history of COPD no history of diabetes hypertension On examination patient was seen in the room neck is supple no bruit appreciated Chest has rhonchi bilateral pulses second sound present Abdomen soft nontender Vascular brachial radial pulses are present femorals are 1+ bilateral PTDP not palpable patient has some right foot toes are discoloration noted patient is on heparin we'll follow with you patient may need angiogram we will arrange and fol low with you at this point patient has been seen by cardiology and pulmonology Past Medical History Past Medical History: COPD, Thyroid Disorder Additional Past Medical History / Comment(s): Degenerative bone disease, vertigo, fibrocystic disease, neuropathy, diverticulitis, cervical CA (1980) and breast CA (1985), heart murmur History of Any Multi-Drug Resistant Organisms: None Reported Past Surgical History: Cholecystectomy, Hysterectomy, Orthopedic Surgery Additional Past Surgical History / Comment(s): right knee surgery 2014, left shoulder 2007, left hip (2017) Past Anesthesia/Blood Transfusion Reactions: No Reported Reaction Additional Past Anesthesia/Blood Transfusion Reaction / Comm: pt states that she had a hard time waking up from anesthesia and cannot tolerate "adult dose" Past Psychological History: Anxiety, Depression Smoking Status: Former smoker Past Alcohol Use History: None Reported Past Drug Use History: None Reported - Past Family History Mother Family Medical History: Cancer Additional Family Medical History / Comment(s): skin cancer Medications and Allergies Home Medications Medication Instructions Recorded Confirmed Type Acetaminophen [Tylenol Extra 2,000 mg PO BID 05/01/23 05/01/23 History Strength] diphenhydrAMINE [Benadryl] 200 mg PO BID 05/01/23 05/01/23 History Allergies Allergy/AdvReac Type Severity Reaction Status Date / Time aspirin Allergy Swelling Verified 05/01/23 19:01 ibuprofen Allergy Anaphylaxis Verified 05/01/23 19:01 latex Allergy Rash/Hives Verified 05/01/23 19:01 Penicillins AdvReac Swelling Verified 05/01/23 19:01 Surgical - Exam Vital Signs Temp Pulse Resp BP Pulse Ox 98.2 F 88 20 165/93 97 05/01/23 18:19 05/01/23 18:19 05/01/23 18:19 05/01/23 18:19 05/01/23 18:19 Results - Labs 05/03/23 03:42 05/03/23 03:42 Abnormal Lab Results - Last 24 Hours (Table) 05/02/23 05/02/23 05/02/23 Range/Units 09:24 09:24 15:28 RBC (3.80-5.40) m/uL Hgb (11.4-16.0) gm/dL Lymphocytes # 0.3 L (1.0-4.8) k/uL APTT (22.0-30.0) sec D-Dimer 2.73 H (<0.60) mg/L FEU Sodium 133 L (137-145) mmol/L Chloride 93 L (98-107) mmol/L BUN 30 H (7-17) mg/dL Creatinine 1.77 H (0.52-1.04) mg/dL Glucose 158 H (74-99) mg/dL Calcium 8.3 L (8.4-10.2) mg/dL 05/02/23 05/03/23 05/03/23 Range/Units 21:08 03:42 03:42 RBC 3.72 L (3.80-5.40) m/uL Hgb 11.3 L (11.4-16.0) gm/dL Lymphocytes # 0.3 L (1.0-4.8) k/uL APTT 31.5 H 36.4 H (22.0-30.0) sec D-Dimer (<0.60) mg/L FEU Sodium (137-145) mmol/L Chloride (98-107) mmol/L BUN (7-17) mg/dL Creatinine (0.52-1.04) mg/dL Glucose (74-99) mg/dL Calcium (8.4-10.2) mg/dL 05/03/23 Range/Units 03:42 RBC (3.80-5.40) m/uL Hgb (11.4-16.0) gm/dL Lymphocytes # (1.0-4.8) k/uL APTT (22.0-30.0) sec D-Dimer (<0.60) mg/L FEU Sodium 132 L (137-145) mmol/L Chloride 95 L (98-107) mmol/L BUN 37 H (7-17) mg/dL Creatinine 1.77 H (0.52-1.04) mg/dL Glucose 133 H (74-99) mg/dL Calcium 8.3 L (8.4-10.2) mg/dL Microbiology - Last 24 Hours (Table) 05/01/23 19:30 Blood Culture - Preliminary Blood 05/01/23 19:15 Blood Culture - Preliminary Blood Diabetes panel 05/02/23 05/03/23 Range/Units 09:24 03:42 Sodium 133 L 132 L (137-145) mmol/L Potassium 3.8 4.1 (3.5-5.1) mmol/L Chloride 93 L 95 L (98-107) mmol/L Carbon Dioxide 24 24 (22-30) mmol/L BUN 30 H 37 H (7-17) mg/dL Creatinine 1.77 H 1.77 H (0.52-1.04) mg/dL Glucose 158 H 133 H (74-99) mg/dL Calcium 8.3 L 8.3 L (8.4-10.2) mg/dL Calcium panel 05/02/23 05/03/23 Range/Units 09:24 03:42 Calcium 8.3 L 8.3 L (8.4-10.2) mg/dL Pituitary panel 05/02/23 05/03/23 Range/Units 09:24 03:42 Sodium 133 L 132 L (137-145) mmol/L Potassium 3.8 4.1 (3.5-5.1) mmol/L Chloride 93 L 95 L (98-107) mmol/L Carbon Dioxide 24 24 (22-30) mmol/L BUN 30 H 37 H (7-17) mg/dL Creatinine 1.77 H 1.77 H (0.52-1.04) mg/dL Glucose 158 H 133 H (74-99) mg/dL Calcium 8.3 L 8.3 L (8.4-10.2) mg/dL Adrenal panel 05/02/23 05/03/23 Range/Units 09:24 03:42 Sodium 133 L 132 L (137-145) mmol/L Potassium 3.8 4.1 (3.5-5.1) mmol/L Chloride 93 L 95 L (98-107) mmol/L Carbon Dioxide 24 24 (22-30) mmol/L BUN 30 H 37 H (7-17) mg/dL Creatinine 1.77 H 1.77 H (0.52-1.04) mg/dL Glucose 158 H 133 H (74-99) mg/dL Calcium 8.3 L 8.3 L (8.4-10.2) mg/dL
[2023-05-03] MEDS: IPRATROPIUM-ALBUTEROL 3 ML NEB INHALATION SCH ×4 (08:31→21:20)
[2023-05-03] MEDS: SYMBICORT 160-4.5 MCG INHALER INHALATION SCH ×2 (08:31→21:20)
[2023-05-03] MEDS: AZITHROMYCIN 500 MG TAB PO SCH (08:52)
--- NOTE | 2023-05-03 12:40 | P.PN ---
Subjective Progress Note Date: 05/03/23 Principal diagnosis: Acute exacerbation of COPD This is a very pleasant 72-year-old female patient with a known history of oxygen dependent chronic obstructive pulmonary disease maintained on 5 L, Symbicort and albuterol in the outpatient setting. She had a 50+ year smoking history however quit less than a year ago. She follows with Dr. Camp in our office. She also has a history of osteoarthritis, vertical, breast cancer and cervical cancer, neuropathy, anxiety/depression. She presented here to the emergency yesterday evening with worsening shortness of breath cough and congestion. She was also having chest pain and heaviness. Chest pain reveals no acute pulmonary process. EKG revealed no significant ST or T wave abnormalities. White count 8.8. Hemoglobin 13.2. Platelets 219. D-dimer 2.73. Sodium 133. Potassium 3.8. Bicarb 24. BUN 30. Creatinine 1.77. Glucose 158. Troponins negative 2. Echocardiogram revealed preserved left ventricular systolic function with ejection fraction 50-55%. No significant valvular abnormalities. There was noted however a moderate size pericardial effusion with evidence of fibrinous material and probable thrombus. She's been initiated on DuoNeb inhalations, IV Solu-Medrol, antibiotics in the form of ceftriaxone and azithromycin. She is seen today in consultation in the emergency department. She is sitting up in a stretcher. Awake and alert in no acute distress. Feeling a bit better today compared to yesterday. Denies any chest pain currently. Still bronchus spastic and wheezing. Maintaining O2 satu rations in the 90s on 5 L/m per nasal cannula. Reevaluated today on 05/03/2023, patient is basically about the same. Continues to have intermittent cough, wheezing, shortness of breath, patient was found to have chronic thrombus within the common femoral vein on the left and right femoral vein hence I'm recommending low intensity heparin, eventually will transition the patient to eliquis. Ordered to [place] in the meantime the patient is being seen for peripheral vessel occlusive disease by vascular surgery, and entertaining the possibility of angiogram of lower extremities. She was seen by cardiology for atypical chest pain, and no comment from cardiology on her abnormal echocardiogram showing moderate size pericardial effusion with fibrinous material and probably some thrombus noted in the effusion. Nonetheless the patient is on anticoagulation therapy for now, and will eventually transition to oral anticoagulation. For her COPD, and continue with her bronchodilators treatment Objective - Vital Signs Vital signs: Vital Signs Temp 97.5 F L 05/03/23 08:00 Pulse 85 05/03/23 11:14 Resp 22 05/03/23 08:00 BP 161/79 05/03/23 08:00 Pulse Ox 95 05/03/23 08:34 FiO2 Intake & Output 05/02/23 05/03/23 05/03/23 18:59 06:59 18:59 Intake Total 97.414 240 Balance 97.414 240 Weight 52.163 kg Intake: Intake, IV Titration 97.414 Amount Heparin Sod,Pork in 0.45% 97.414 NaCl 25,000 unit In 0.45 % NaCl 1 250ml.bag @ 12 UNITS/KG/HR 6.26 mls/hr IV .Q24H [facility] Rx#: [id number] Oral 240 Other: Voiding Method Incontinent Incontinent Incontinent # Voids 2 - Exam Physical Exam: Revealed a 72-year-old female in no distress Head: Atraumatic, normocephalic. HEENT:[Neck is supple.] [No neck masses.] [No thyromegaly.] [No JVD.] Chest: [Rhonchi and wheezes noted bilaterally. Cardiac Exam: [Normal S1 and S2, no S3 gallop, no murmur.] Abdomen: [Soft, nontender, no megaly, no rebound, no guarding, normal bowel sounds.] Extremities: [No clubbing, no edema, feet are felt to be a bit cold, minimal cyanosis noted at the tips of her toes bilaterally diminished distal pulses Neurological Exam: [No focal neurologic deficit.] Alert and oriented 3 no focal deficit Psychiatric: Normal mood affect and normal mental status examination - Labs CBC & Chem 7: 05/03/23 03:42 05/03/23 03:42 Labs: Abnormal Lab Results - Last 24 Hours (Table) 05/02/23 05/02/23 05/03/23 Range/Units 15:28 21:08 03:42 RBC (3.80-5.40) m/uL Hgb (11.4-16.0) gm/dL Lymphocytes # 0.3 L (1.0-4.8) k/uL APTT 31.5 H 36.4 H (22.0-30.0) sec Sodium (137-145) mmol/L Chloride (98-107) mmol/L BUN (7-17) mg/dL Creatinine (0.52-1.04) mg/dL Glucose (74-99) mg/dL Calcium (8.4-10.2) mg/dL 05/03/23 05/03/23 Range/Units 03:42 03:42 RBC 3.72 L (3.80-5.40) m/uL Hgb 11.3 L (11.4-16.0) gm/dL Lymphocytes # 0.3 L (1.0-4.8) k/uL APTT (22.0-30.0) sec Sodium 132 L (137-145) mmol/L Chloride 95 L (98-107) mmol/L BUN 37 H (7-17) mg/dL Creatinine 1.77 H (0.52-1.04) mg/dL Glucose 133 H (74-99) mg/dL Calcium 8.3 L (8.4-10.2) mg/dL Microbiology - Last 24 Hours (Table) 05/01/23 19:30 Blood Culture - Preliminary Blood 05/01/23 19:15 Blood Culture - Preliminary Blood Assessment and Plan Assessment: Impression: Acute exacerbation of COPD Chronic hypoxic for failure patient is on home O2 28/05 at 5 L/m Acute kidney injury Hypothyroidism Chronic deep vein thrombosis Pericardial effusion with thromboses noted in the pericardial effusion Generalized anxiety disorder History of breast cancer History of cervical cancer Atypical chest pain with abnormal echocardiogram. Recommendation: Continue low intensity heparin Continue bronchodilators Cardiology to evaluate her abnormal echocardiogram and decide on long-term anticoagulation treatment, or further evaluation of her pericardial effusion Vascular surgery addressing her peripheral vessel occlusive disease Continue oxygen and titrate accordingly Continue empiric antibiotics to Zithromax Continue Solu-Medrol DuoNeb and Symbicort Overall long-term prognosis is poor We will continue to follow Time with Patient: Less than 30
--- NOTE | 2023-05-03 13:39 | P.PN ---
Subjective Progress Note Date: 05/03/23 HISTORY OF PRESENT ILLNESS: This is a 72-year-old female presented to the hospital with a chief complaint of chest pain and shortness of breath. She is currently being treated for COPD exacerbation. She is receiving IV steroids. Patient examined this more at the bedside. She continues to have significant audible wheezing upon examination. She states that her reading feels more labored compared to yesterday. She currently denies any chest pain or pressure. She has been evaluated by vascular surgery for discoloration in her toes. She remains on IV heparin. Echocardiogram completed revealing ejection fraction 50-55% with moderate size pericardial effusion with evidence of some fibrinous material and probably some thrombus as well and the effusion. PHYSICAL EXAM: VITAL SIGNS: Reviewed. GENERAL: Well-developed in no acute distress. NECK: Supple. No JVD or thyromegaly LUNGS: Respirations even and unlabored. Lungs essentially clear to auscultation bilaterally. HEART: Regular rate and rhythm. S1 and S2 heard. EXTREMITIES: Normal range of motion. No clubbing or cyanosis. Peripheral pulses intact. No lower extremity edema ASSESSMENT: Chest pain, acute coronary syndrome ruled out Acute COPD exacerbation Acute kidney injury Moderate pericardial effusion without evidence of tamponade with fibrinous material and probably some thrombus as well within the effusion Peripheral vascular disease, on IV heparin Chronic DVT PLAN: Continue current cardiac medications Continue IV heparin per vascular surgery Patient does not require anticoagulation for echocardiogram findings Patient is stable from a cardiac perspective Nurse practitioner note has been reviewed by physician. Signing provider agrees with the documented findings, assessment, and plan of care. Objective - Vital Signs Vital signs: Vital Signs Temp 97.5 F L 05/03/23 08:00 Pulse 85 05/03/23 11:14 Resp 22 05/03/23 08:00 BP 161/79 05/03/23 08:00 Pulse Ox 95 05/03/23 08:34 FiO2 Intake & Output 05/02/23 05/03/23 05/03/23 18:59 06:59 18:59 Intake Total 97.414 240 Balance 97.414 240 Weight 52.163 kg Intake: Intake, IV Titration 97.414 Amount Heparin Sod,Pork in 0.45% 97.414 NaCl 25,000 unit In 0.45 % NaCl 1 250ml.bag @ 12 UNITS/KG/HR 6.26 mls/hr IV .Q24H [facility] Rx#: [id number] Oral 240 Other: Voiding Method Incontinent Incontinent Incontinent # Voids 2 - Labs CBC & Chem 7: 05/03/23 03:42 05/03/23 03:42 Labs: Abnormal Lab Results - Last 24 Hours (Table) 05/02/23 05/02/23 05/03/23 Range/Units 15:28 21:08 03:42 RBC (3.80-5.40) m/uL Hgb (11.4-16.0) gm/dL Lymphocytes # 0.3 L (1.0-4.8) k/uL APTT 31.5 H 36.4 H (22.0-30.0) sec Sodium (137-145) mmol/L Chloride (98-107) mmol/L BUN (7-17) mg/dL Creatinine (0.52-1.04) mg/dL Glucose (74-99) mg/dL Calcium (8.4-10.2) mg/dL 05/03/23 05/03/23 Range/Units 03:42 03:42 RBC 3.72 L (3.80-5.40) m/uL Hgb 11.3 L (11.4-16.0) gm/dL Lymphocytes # 0.3 L (1.0-4.8) k/uL APTT (22.0-30.0) sec Sodium 132 L (137-145) mmol/L Chloride 95 L (98-107) mmol/L BUN 37 H (7-17) mg/dL Creatinine 1.77 H (0.52-1.04) mg/dL Glucose 133 H (74-99) mg/dL Calcium 8.3 L (8.4-10.2) mg/dL Microbiology - Last 24 Hours (Table) 05/01/23 19:30 Blood Culture - Preliminary Blood 05/01/23 19:15 Blood Culture - Preliminary Blood
[2023-05-03] MEDS ORDERED: HEPARIN SODIUM 1,000 UN/ML (10ML VL) IV PRN (13:46)
[2023-05-03] MEDS: traZODone HCL 50 MG TAB PO SCH (20:51)
[2023-05-03] MEDS: hydrOXYzine pamoate 25 MG CAP PO PRN (20:51)
[2023-05-03] MEDS: diphenhydrAMINE 50 MG CAP PO SCH (20:52)
[2023-05-03] MEDS: ACETAMINOPHEN TAB 500 MG TAB PO SCH (20:54)
[2023-05-03 20:57] LABS: Glucose,Whole Blood 134 mg/dL (70-110)
[2023-05-03] MEDS: HEPARIN SOD,PORK IN 0.45% NACL 25,000 UNIT in 0.45% NACL 1 250ML.BAG IV SCH (21:03)
[2023-05-04] MEDS: methylPREDNISolone SOD SUCCI 125 MG/2 ML VIAL IV SCH ×5 (01:18→23:36)
[2023-05-04 06:01] LABS: Glucose,Whole Blood 131 mg/dL (70-110)
[2023-05-04 06:50] LABS: Basophils % (A) 0 %; Eosinophils # (A) 0.1 k/uL (0-0.7); Eosinophils % (A) 1 %; HCT 37.7 % (34.0-46.0); HGB 12.3 gm/dL (11.4-16.0); Lymphocytes # (A) 0.6 k/uL (1.0-4.8); Lymphocytes % (A) 5 %; MCH 31.3 pg (25.0-35.0); MCHC 32.8 g/dL (31.0-37.0); MCV 95.5 fL (80.0-100.0); Mean Platelet Volume 8.4; Monocytes # (A) 0.4 k/uL (0-1.0); Monocytes % (A) 3 %; Neutrophils # (A) 11.4 k/uL (1.3-7.7); Neutrophils % (A) 91 %; Platelet Count 284 k/uL (150-450); RBC 3.94 m/uL (3.80-5.40); RDW 14.6 % (11.5-15.5); WBC 12.6 k/uL (3.8-10.6)
[2023-05-04 07:15] LABS: African American GFR (CKD) 34 (>60 ml/min/1.73 sqM); Anion Gap 13 mmol/L; Blood Urea Nitrogen 32 mg/dL (7-17); Calcium 8.6 mg/dL (8.4-10.2); Carbon Dioxide 22 mmol/L (22-30); Chloride 98 mmol/L (98-107); Glucose 113 mg/dL (74-99); Non-African American GFR(CKD) 29 (>60 ml/min/1.73 sqM); Potassium 4.9 mmol/L (3.5-5.1); Sodium 133 mmol/L (137-145)
[2023-05-04] MEDS: SYMBICORT 160-4.5 MCG INHALER INHALATION SCH ×2 (07:52→21:17)
[2023-05-04] MEDS: IPRATROPIUM-ALBUTEROL 3 ML NEB INHALATION SCH ×4 (07:53→21:17)
[2023-05-04] MEDS ORDERED: amLODIPine 5 MG TAB PO SCH (09:30)
[2023-05-04] MEDS: AZITHROMYCIN 500 MG TAB PO SCH (10:00)
[2023-05-04] MEDS: diphenhydrAMINE 50 MG CAP PO SCH ×2 (10:00→21:16)
[2023-05-04] MEDS: hydrOXYzine pamoate 25 MG CAP PO PRN ×2 (10:00→17:13)
[2023-05-04] MEDS: NYSTATIN 100,000 UNIT/ML SUSP 500,000 UNIT/5 ML CUP PO SCH ×4 (10:00→22:44)
[2023-05-04] MEDS: ACETAMINOPHEN TAB 500 MG TAB PO SCH ×2 (10:01→21:16)
--- NOTE | 2023-05-04 10:32 | P.PN ---
Subjective Progress Note Date: 05/04/23 HISTORY OF PRESENT ILLNESS: This is a 72-year-old female presented to the hospital with a chief complaint of chest pain and shortness of breath. She is currently being treated for COPD exacerbation. She is receiving IV steroids. Patient examined this more at the bedside. She continues to have significant audible wheezing upon examination. She states that her reading feels more labored compared to yesterday. She currently denies any chest pain or pressure. She has been evaluated by vascular surgery for discoloration in her toes. She remains on IV heparin. Echocardiogram completed revealing ejection fraction 50-55% with moderate size pericardial effusion with evidence of some fibrinous material and probably some thrombus as well and the effusion. 05/04/2023 Patient examined this morning at the bedside. Patient denies chest pain or pressure. She reports SOB. She continues to have wheezing. She is receiving IV steroids. Blood pressure elevated with a SBP in the 170s. PHYSICAL EXAM: VITAL SIGNS: Reviewed. GENERAL: Well-developed in no acute distress. NECK: Supple. No JVD or thyromegaly LUNGS: Respirations even and unlabored. Lungs with expiratory wheezing noted HEART: Regular rate and rhythm. S1 and S2 heard. EXTREMITIES: Normal range of motion. No clubbing or cyanosis. Peripheral pulses intact. No lower extremity edema ASSESSMENT: Chest pain, acute coronary syndrome ruled out Acute COPD exacerbation Acute kidney injury Moderate pericardial effusion without evidence of tamponade with fibrinous material and probably some thrombus as well within the effusion Peripheral vascular disease, on IV heparin Chronic DVT PLAN: Continue current cardiac medications Continue IV heparin per vascular surgery Patient does not require anticoagulation for echocardiogram findings Add Norvasc 5mg daily for optimal blood pressure control Patient is stable from a cardiac perspective Nurse practitioner note has been reviewed by physician. Signing provider agrees with the documented findings, assessment, and plan of care. Objective - Vital Signs Vital signs: Vital Signs Temp 97.7 F 05/04/23 09:55 Pulse 76 05/04/23 09:55 Resp 20 05/04/23 09:55 BP 176/94 05/04/23 09:55 Pulse Ox 92 L 05/04/23 09:55 FiO2 Intake & Output 05/03/23 05/04/23 05/04/23 18:59 06:59 18:59 Intake Total 316.413 76.173 108.851 Balance 316.413 76.173 108.851 Intake: Intake, IV Titration 76.413 76.173 108.851 Amount Heparin Sod,Pork in 0.45% 76.413 76.173 108.851 NaCl 25,000 unit In 0.45 % NaCl 1 250ml.bag @ 12 UNITS/KG/HR 6.26 mls/hr IV .Q24H [facility] Rx#: [id number] Oral 240 Other: Voiding Method Incontinent Incontinent # Voids 3 1 # Bowel Movements 1 - Labs CBC & Chem 7: 05/04/23 06:20 05/04/23 06:20 Labs: Abnormal Lab Results - Last 24 Hours (Table) 05/03/23 05/03/23 05/04/23 Range/Units 20:33 20:56 05:59 WBC (3.8-10.6) k/uL Neutrophils # (1.3-7.7) k/uL Lymphocytes # (1.0-4.8) k/uL APTT 51.2 H (22.0-30.0) sec Sodium (137-145) mmol/L BUN (7-17) mg/dL Creatinine (0.52-1.04) mg/dL Glucose (74-99) mg/dL POC Glucose (mg/dL) 134 H 131 H (70-110) mg/dL 05/04/23 05/04/23 05/04/23 Range/Units 06:20 06:20 06:20 WBC 12.6 H (3.8-10.6) k/uL Neutrophils # 11.4 H (1.3-7.7) k/uL Lymphocytes # 0.6 L (1.0-4.8) k/uL APTT 89.4 H (22.0-30.0) sec Sodium 133 L (137-145) mmol/L BUN 32 H (7-17) mg/dL Creatinine 1.70 H (0.52-1.04) mg/dL Glucose 113 H (74-99) mg/dL POC Glucose (mg/dL) (70-110) mg/dL Microbiology - Last 24 Hours (Table) 05/01/23 19:30 Blood Culture - Preliminary Blood 05/01/23 19:15 Blood Culture - Preliminary Blood
--- NOTE | 2023-05-04 10:54 | PN ---
PROGRESS NOTE SUBJECTIVE: This is a 72-year-old female. The patient came with a history of heaviness within the chest with history of COPD. She had to do an echo of the heart, and report came back as moderate-sized pericardial effusion with evidence of some fibrinous material and probably some thrombus as well as effusion. We were consulted for the patient having some discoloration involving the toes, mostly on the right big toe. The patient also has bilateral DVT. The patient is on heparin. OBJECTIVE: Today on examination, her both feet are warm. There is mild discoloration of the right big toe. Femorals are palpable. PT and DP not palpable bilateral. The patient has a history of fall at home. According to the patient, she had pain and discomfort in the right elbow and right foot. ASSESSMENT AND PLAN: At this point, we will watch very closely. We will discuss with the family. If her toe is not getting better, then we may consider doing angiogram. I have discussed with her daughter and keep you posted. MMODL / IJN: [id number] /
[2023-05-04 11:49] LABS: Glucose,Whole Blood 136 mg/dL (70-110)
--- NOTE | 2023-05-04 14:35 | P.PN ---
Subjective Progress Note Date: 05/04/23 Principal diagnosis: Acute exacerbation of COPD This is a very pleasant 72-year-old female patient with a known history of oxygen dependent chronic obstructive pulmonary disease maintained on 5 L, Symbicort and albuterol in the outpatient setting. She had a 50+ year smoking history however quit less than a year ago. She follows with Dr. Camp in our office. She also has a history of osteoarthritis, vertical, breast cancer and cervical cancer, neuropathy, anxiety/depression. She presented here to the emergency yesterday evening with worsening shortness of breath cough and congestion. She was also having chest pain and heaviness. Chest pain reveals no acute pulmonary process. EKG revealed no significant ST or T wave abnormalities. White count 8.8. Hemoglobin 13.2. Platelets 219. D-dimer 2.73. Sodium 133. Potassium 3.8. Bicarb 24. BUN 30. Creatinine 1.77. Glucose 158. Troponins negative 2. Echocardiogram revealed preserved left ventricular systolic function with ejection fraction 50-55%. No significant valvular abnormalities. There was noted however a moderate size pericardial effusion with evidence of fibrinous material and probable thrombus. She's been initiated on DuoNeb inhalations, IV Solu-Medrol, antibiotics in the form of ceftriaxone and azithromycin. She is seen today in consultation in the emergency department. She is sitting up in a stretcher. Awake and alert in no acute distress. Feeling a bit better today compared to yesterday. Denies any chest pain currently. Still bronchus spastic and wheezing. Maintaining O2 satu rations in the 90s on 5 L/m per nasal cannula. Reevaluated today on 05/03/2023, patient is basically about the same. Continues to have intermittent cough, wheezing, shortness of breath, patient was found to have chronic thrombus within the common femoral vein on the left and right femoral vein hence I'm recommending low intensity heparin, eventually will transition the patient to eliquis. Ordered to [place] in the meantime the patient is being seen for peripheral vessel occlusive disease by vascular surgery, and entertaining the possibility of angiogram of lower extremities. She was seen by cardiology for atypical chest pain, and no comment from cardiology on her abnormal echocardiogram showing moderate size pericardial effusion with fibrinous material and probably some thrombus noted in the effusion. Nonetheless the patient is on anticoagulation therapy for now, and will eventually transition to oral anticoagulation. For her COPD, and continue with her bronchodilators treatment Reevaluated today on 04/24/2023, patient is basically about the same, continues to have cough wheezing shortness of breath. 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 Apparently cardiology reviewed her echocardiogram, and based on that note not t oo much concerned about her pericardial effusion and thromboses and the pericardial effusion nonetheless I will recommend anticoagulation therapy on this patient possibly lifetime considering the findings on her lower extremities ultrasound in the meantime I'm recommending we continue bronchodilators for her underlying active COPD. Vascular is still interested obtaining the possibility of angiogram. Objective - Vital Signs Vital signs: Vital Signs Temp 98 F 05/04/23 13:05 Pulse 85 05/04/23 13:05 Resp 18 05/04/23 13:05 BP 166/103 05/04/23 13:05 Pulse Ox 92 L 05/04/23 13:05 FiO2 Intake & Output 05/03/23 05/04/23 05/04/23 18:59 06:59 18:59 Intake Total 316.413 76.173 166.124 Balance 316.413 76.173 166.124 Weight 52.163 kg Intake: Intake, IV Titration 76.413 76.173 166.124 Amount Heparin Sod,Pork in 0.45% 76.413 76.173 166.124 NaCl 25,000 unit In 0.45 % NaCl 1 250ml.bag @ 12 UNITS/KG/HR 6.26 mls/hr IV .Q24H [facility] Rx#: [id number] Oral 240 Other: Voiding Method Incontinent Incontinent Incontinent # Voids 3 1 3 # Bowel Movements 1 - Exam Physical Exam: Revealed a 72-year-old female in no distress Head: Atraumatic, normocephalic. HEENT:[Neck is supple.] [No neck masses.] [No thyromegaly.] [No JVD.] Chest: [Rhonchi and wheezes noted bilaterally. Cardiac Exam: [Normal S1 and S2, no S3 gallop, no murmur.] Abdomen: [Soft, nontender, no megaly, no rebound, no guarding, normal bowel sounds.] Extremities: [No clubbing, no edema, feet are felt to be a bit cold, minimal cyanosis noted at the tips of her toes bilaterally diminished distal pulses Neurological Exam: [No focal neurologic deficit.] Alert and oriented 3 no focal deficit Psychiatric: Normal mood affect and normal mental status examination - Labs CBC & Chem 7: 05/04/23 06:20 05/04/23 06:20 Labs: Abnormal Lab Results - Last 24 Hours (Table) 05/03/23 05/03/23 05/04/23 Range/Units 20:33 20:56 05:59 WBC (3.8-10.6) k/uL Neutrophils # (1.3-7.7) k/uL Lymphocytes # (1.0-4.8) k/uL APTT 51.2 H (22.0-30.0) sec Sodium (137-145) mmol/L BUN (7-17) mg/dL Creatinine (0.52-1.04) mg/dL Glucose (74-99) mg/dL POC Glucose (mg/dL) 134 H 131 H (70-110) mg/dL 05/04/23 05/04/23 05/04/23 Range/Units 06:20 06:20 06:20 WBC 12.6 H (3.8-10.6) k/uL Neutrophils # 11.4 H (1.3-7.7) k/uL Lymphocytes # 0.6 L (1.0-4.8) k/uL APTT 89.4 H (22.0-30.0) sec Sodium 133 L (137-145) mmol/L BUN 32 H (7-17) mg/dL Creatinine 1.70 H (0.52-1.04) mg/dL Glucose 113 H (74-99) mg/dL POC Glucose (mg/dL) (70-110) mg/dL 05/04/23 05/04/23 Range/Units 11:27 13:06 WBC (3.8-10.6) k/uL Neutrophils # (1.3-7.7) k/uL Lymphocytes # (1.0-4.8) k/uL APTT 82.5 H (22.0-30.0) sec Sodium (137-145) mmol/L BUN (7-17) mg/dL Creatinine (0.52-1.04) mg/dL Glucose (74-99) mg/dL POC Glucose (mg/dL) 136 H (70-110) mg/dL Microbiology - Last 24 Hours (Table) 05/01/23 19:30 Blood Culture - Preliminary Blood 05/01/23 19:15 Blood Culture - Preliminary Blood Assessment and Plan Assessment: Impression: Acute exacerbation of COPD Chronic hypoxic for failure patient is on home O2 28/05 at 5 L/m Acute kidney injury Hypothyroidism Chronic deep vein thrombosis Pericardial effusion with thromboses noted in the pericardial effusion Generalized anxiety disorder History of breast cancer History of cervical cancer Atypical chest pain with abnormal echocardiogram. Recommendation: Continue heparin and will likely transition to eliquis in the next 24 hours Continue bronchodilators Vascular surgery addressing her peripheral vessel occlusive disease Continue oxygen and titrate accordingly Continue empiric antibiotics to Zithromax Continue Solu-Medrol DuoNeb and Symbicort We will continue to follow Time with Patient: Less than 30
[2023-05-04] MEDS ORDERED: amLODIPine 5 MG TAB PO STA (15:38)
[2023-05-04] MEDS: HEPARIN SOD,PORK IN 0.45% NACL 25,000 UNIT in 0.45% NACL 1 250ML.BAG IV SCH ×2 (16:46→22:43)
[2023-05-04 16:48] LABS: Glucose,Whole Blood 171 mg/dL (70-110)
[2023-05-04 20:03] LABS: Glucose,Whole Blood 159 mg/dL (70-110)
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
[2023-05-04] MEDS: traZODone HCL 50 MG TAB PO SCH (21:17)
--- NOTE | 2023-05-04 21:20 | PN ---
PROGRESS NOTE DATE OF SERVICE: 05/03/2023 CHIEF COMPLAINT: Exacerbation of COPD. HISTORY OF PRESENT ILLNESS: This lady is still quite dyspneic. She is not complaining of any chest pain. PHYSICAL EXAMINATION: LUNGS: She still has terrible breath sounds. They are diminished throughout with wheezing on inspiration and expiration and scattered rales and rhonchi. CARDIAC: Normal. IMPRESSION: 1. Exacerbation of chronic obstructive pulmonary disease. 2. Chronic kidney disease (BUN 27 and creatinine 1.7). PLAN: 1. Continue with management of her COPD. 2. She is being evaluated by Vascular Surgery for her PVOD. MMODL / IJN: [id number] /
--- NOTE | 2023-05-04 21:42 | PN ---
PROGRESS NOTE DATE OF SERVICE: 05/04/2023 CHIEF COMPLAINT: COPD. HISTORY OF PRESENT ILLNESS: This lady is still very dyspneic. She cannot get out of bed. PHYSICAL EXAMINATION: LUNGS: Breath sounds are diminished throughout with wheezing, rales, and rhonchi. CARDIAC: Normal. ABDOMEN: Soft. EXTREMITIES: Remain cool, but Vascular Surgery has nothing further planned, in that, this is chronic. IMPRESSION: 1. Chronic obstructive pulmonary disease. 2. General debility and weakness. 3. PVOD. PLAN: Continue with pulmonary management and start to consider working on a discharge plan. MMODL / IJN: [id number] /
[2023-05-05 06:06] LABS: Glucose,Whole Blood 128 mg/dL (70-110)
[2023-05-05] MEDS: methylPREDNISolone SOD SUCCI 125 MG/2 ML VIAL IV SCH ×4 (06:29→23:34)
[2023-05-05] MEDS: IPRATROPIUM-ALBUTEROL 3 ML NEB INHALATION SCH ×4 (07:13→20:08)
[2023-05-05] MEDS: SYMBICORT 160-4.5 MCG INHALER INHALATION SCH ×2 (07:13→20:08)
[2023-05-05] MEDS ORDERED: diphenhydrAMINE 50 MG/ML 1 ML VIAL IVP ONE (08:29)
[2023-05-05] MEDS ORDERED: methylPREDNISolone SOD SUCCI 125 MG/2 ML VIAL IV ONE (08:29)
[2023-05-05] MEDS ORDERED: SODIUM CHLORIDE 0.9% 250 ML IV ONE (08:30)
[2023-05-05] MEDS ORDERED: MIDAZOLAM 2 MG/2 ML VIAL IV ONE (08:30)
[2023-05-05] MEDS ORDERED: LIDOCAINE 1% INJ 10MG/ML (20 ML MDV) SQ ONE (08:34)
[2023-05-05] MEDS ORDERED: IOPAMIDOL-370 100ML BTL INJ ONE (08:45)
--- NOTE | 2023-05-05 08:57 | P.PCN ---
Description of Procedure: Preoperative diagnoses is ischemic right foot big toe Right leg angiogram Procedure this patient was brought to the [facility] right leg was prepped and draped applied sterile manner. Patient has history of diarrhea DVT of Solu- Medrol and Benadryl ultrasound-guided micropuncture introducer right femoral artery micropuncture guidewire was passed and 4-Citizen Of [place] dilator advanced top of guidewire with hand injection right leg angiogram us for performed finding #1 the common iliac external iliac was found to be patent Right common femoral and profunda was visualized Right SFA was visualized was small in [place] had some mild atherosclerosis disease. Popliteal artery and has some mild plaque formation noted. The infrapopliteal v essels were visualized anterior tibial posterior tibial there were small in caliber we saw because of her down to the foot impression is a infrapopliteal vessels are small but patent catheter was removed pressure held patient prior the procedure well and transferred to separate his condition thank you
[2023-05-05] MEDS: amLODIPine 10 MG TAB PO SCH (09:26)
[2023-05-05] MEDS: ACETAMINOPHEN TAB 500 MG TAB PO SCH ×2 (09:26→20:48)
[2023-05-05] MEDS: diphenhydrAMINE 50 MG CAP PO SCH ×2 (09:27→20:49)
[2023-05-05] MEDS: NYSTATIN 100,000 UNIT/ML SUSP 500,000 UNIT/5 ML CUP PO SCH ×4 (09:28→20:51)
--- NOTE | 2023-05-05 09:50 | P.PN ---
Progress Note - Text Progress Note Date: 05/05/23 Patient off the floor this morning for angiogram with vascular surgery. Patient will be re-evaluated on rounds tomorrow
--- NOTE | 2023-05-05 10:33 | P.PN ---
Subjective Progress Note Date: 05/05/23 HISTORY OF PRESENT ILLNESS: This is a 72-year-old female presented to the hospital with a chief complaint of chest pain and shortness of breath. She is currently being treated for COPD exacerbation. She is receiving IV steroids. Patient examined this more at the bedside. She continues to have significant audible wheezing upon examination. She states that her reading feels more labored compared to yesterday. She currently denies any chest pain or pressure. She has been evaluated by vascular surgery for discoloration in her toes. She remains on IV heparin. Echocardiogram completed revealing ejection fraction 50-55% with moderate size pericardial effusion with evidence of some fibrinous material and probably some thrombus as well and the effusion. 05/04/2023 Patient examined this morning at the bedside. Patient denies chest pain or pressure. She reports SOB. She continues to have wheezing. She is receiving IV steroids. Blood pressure elevated with a SBP in the 170s. 05/05/2023 Patient underwent right leg angiogram today with Dr. Reeves revealing mild atherosclerotic disease. Patient examined this morning at the bedside. Patient denies chest pain or pressure. She continues to report shortness of breath. She remains on IV steroids. She continues to have wheezing today, although improved from yesterday. Blood pressure is improved today compared to yesterday. PHYSICAL EXAM: VITAL SIGNS: Reviewed. GENERAL: Well-developed in no acute distress. NECK: Supple. No JVD or thyromegaly LUNGS: Respirations even and unlabored. Lungs with expiratory wheezing noted HEART: Regular rate and rhythm. S1 and S2 heard. EXTREMITIES: Normal range of motion. No clubbing or cyanosis. Peripheral pulses intact. No lower extremity edema ASSESSMENT: Chest pain, acute coronary syndrome ruled out Acute COPD exacerbation Acute kidney injury Moderate pericardial effusion without evidence of tamponade with fibrinous material and probably some thrombus as well within the effusion Peripheral vascular disease, on IV heparin Chronic DVT PLAN: Continue current cardiac medications Patient started on Norvasc 10 mg daily yesterday with improvement in blood pressure Patient does not require anticoagulation for echocardiogram findings Patient is stable from a cardiac perspective Further recommendations pending patient's course Nurse practitioner note has been reviewed by physician. Signing provider agrees with the documented findings, assessment, and plan of care. Objective - Vital Signs Vital signs: Vital Signs Temp 97.7 F 05/05/23 09:15 Pulse 87 05/05/23 09:15 Resp 23 05/05/23 09:15 BP 156/90 05/05/23 09:15 Pulse Ox 90 L 05/05/23 09:15 FiO2 Intake & Output 05/04/23 05/05/23 05/05/23 18:59 06:59 18:59 Intake Total 166.124 76.088 50 Balance 166.124 76.088 50 Weight 52.163 kg Intake: IV 50 Intake, IV Titration 166.124 76.088 Amount Heparin Sod,Pork in 0.45% 166.124 76.088 NaCl 25,000 unit In 0.45 % NaCl 1 250ml.bag @ 12 UNITS/KG/HR 6.26 mls/hr IV .Q24H [facility] Rx#: [id number] Other: Voiding Method Incontinent Incontinent # Voids 3 1 - Labs CBC & Chem 7: 05/04/23 06:20 05/04/23 06:20 Labs: Abnormal Lab Results - Last 24 Hours (Table) 05/04/23 05/04/23 05/04/23 Range/Units 11:27 13:06 16:33 APTT 82.5 H (22.0-30.0) sec POC Glucose (mg/dL) 136 H 171 H (70-110) mg/dL 05/04/23 05/04/23 05/05/23 Range/Units 20:01 22:49 06:04 APTT 55.3 H (22.0-30.0) sec POC Glucose (mg/dL) 159 H 128 H (70-110) mg/dL Microbiology - Last 24 Hours (Table) 05/01/23 19:30 Blood Culture - Preliminary Blood 05/01/23 19:15 Blood Culture - Preliminary Blood
--- NOTE | 2023-05-05 10:51 | P.PN ---
Subjective Progress Note Date: 05/05/23 Principal diagnosis: Acute exacerbation of COPD This is a very pleasant 72-year-old female patient with a known history of oxygen dependent chronic obstructive pulmonary disease maintained on 5 L, Symbicort and albuterol in the outpatient setting. She had a 50+ year smoking history however quit less than a year ago. She follows with Dr. Camp in our office. She also has a history of osteoarthritis, vertical, breast cancer and cervical cancer, neuropathy, anxiety/depression. She presented here to the emergency yesterday evening with worsening shortness of breath cough and congestion. She was also having chest pain and heaviness. Chest pain reveals no acute pulmonary process. EKG revealed no significant ST or T wave abnormalities. White count 8.8. Hemoglobin 13.2. Platelets 219. D-dimer 2.73. Sodium 133. Potassium 3.8. Bicarb 24. BUN 30. Creatinine 1.77. Glucose 158. Troponins negative 2. Echocardiogram revealed preserved left ventricular systolic function with ejection fraction 50-55%. No significant valvular abnormalities. There was noted however a moderate size pericardial effusion with evidence of fibrinous material and probable thrombus. She's been initiated on DuoNeb inhalations, IV Solu-Medrol, antibiotics in the form of ceftriaxone and azithromycin. She is seen today in consultation in the emergency department. She is sitting up in a stretcher. Awake and alert in no acute distress. Feeling a bit better today compared to yesterday. Denies any chest pain currently. Still bronchus spastic and wheezing. Maintaining O2 satu rations in the 90s on 5 L/m per nasal cannula. Reevaluated today on 05/03/2023, patient is basically about the same. Continues to have intermittent cough, wheezing, shortness of breath, patient was found to have chronic thrombus within the common femoral vein on the left and right femoral vein hence I'm recommending low intensity heparin, eventually will transition the patient to eliquis. Ordered to [place] in the meantime the patient is being seen for peripheral vessel occlusive disease by vascular surgery, and entertaining the possibility of angiogram of lower extremities. She was seen by cardiology for atypical chest pain, and no comment from cardiology on her abnormal echocardiogram showing moderate size pericardial effusion with fibrinous material and probably some thrombus noted in the effusion. Nonetheless the patient is on anticoagulation therapy for now, and will eventually transition to oral anticoagulation. For her COPD, and continue with her bronchodilators treatment Reevaluated today on 05/04/2023, patient is basically about the same, continues to have cough wheezing shortness of breath. 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 Apparently cardiology reviewed her echocardiogram, and based on that note not t oo much concerned about her pericardial effusion and thromboses and the pericardial effusion nonetheless I will recommend anticoagulation therapy on this patient possibly lifetime considering the findings on her lower extremities ultrasound in the meantime I'm recommending we continue bronchodilators for her underlying active COPD. Vascular is still interested obtaining the possibility of angiogram. Patient was reevaluated today on 05/05/2023, patient had a right lower extremity angiogram today, and she was found to have some mild atherosclerosis, mostly in the right superficial femoral artery. Also had some mild plaque formation in the popliteal artery. She was found to have small caliber distal blood vessels/anterior tibial posterior tibial but these vessels were patent. Pulmonary-loo the patient continues to have intermittent cough and wheezing, remains on the present course of bronchodilators, not quite ready for discharge planning Objective - Vital Signs Vital signs: Vital Signs Temp 97.7 F 05/05/23 09:15 Pulse 87 05/05/23 09:15 Resp 23 05/05/23 09:15 BP 135/79 05/05/23 10:30 Pulse Ox 90 L 05/05/23 09:15 FiO2 Intake & Output 05/04/23 05/05/23 05/05/23 18:59 06:59 18:59 Intake Total 166.124 76.088 50 Balance 166.124 76.088 50 Weight 52.163 kg Intake: IV 50 Intake, IV Titration 166.124 76.088 Amount Heparin Sod,Pork in 0.45% 166.124 76.088 NaCl 25,000 unit In 0.45 % NaCl 1 250ml.bag @ 12 UNITS/KG/HR 6.26 mls/hr IV .Q24H [facility] Rx#: [id number] Other: Voiding Method Incontinent Incontinent Incontinent # Voids 3 1 - Exam Physical Exam: Revealed a 72-year-old female in no distress Head: Atraumatic, normocephalic. HEENT:[Neck is supple.] [No neck masses.] [No thyromegaly.] [No JVD.] Chest: [Continues to have scattered rhonchi and wheezes Cardiac Exam: [Normal S1 and S2, no S3 gallop, no murmur.] Abdomen: [Soft, nontender, no megaly, no rebound, no guarding, normal bowel sounds.] Extremities: [No clubbing, no edema, feet are felt to be a bit cold, minimal cyanosis noted at the tips of her toes of/right foot, no clinical findings in t he left foot today Neurological Exam: [No focal neurologic deficit.] Alert and oriented 3 no focal deficit Psychiatric: Normal mood affect and normal mental status examination - Labs CBC & Chem 7: 05/04/23 06:20 05/04/23 06:20 Labs: Abnormal Lab Results - Last 24 Hours (Table) 05/04/23 05/04/23 05/04/23 Range/Units 11:27 13:06 16:33 APTT 82.5 H (22.0-30.0) sec POC Glucose (mg/dL) 136 H 171 H (70-110) mg/dL 05/04/23 05/04/23 05/05/23 Range/Units 20:01 22:49 06:04 APTT 55.3 H (22.0-30.0) sec POC Glucose (mg/dL) 159 H 128 H (70-110) mg/dL Microbiology - Last 24 Hours (Table) 05/01/23 19:30 Blood Culture - Preliminary Blood 05/01/23 19:15 Blood Culture - Preliminary Blood Assessment and Plan Assessment: Impression: Acute exacerbation of COPD Chronic hypoxic for failure patient is on home O2 28/05 at 5 L/m Acute kidney injury Hypothyroidism Chronic deep vein thrombosis Pericardial effusion with thromboses noted in the pericardial effusion Generalized anxiety disorder History of breast cancer History of cervical cancer Atypical chest pain with abnormal echocardiogram. Recommendation: Change heparin to eliquis for chronic thromboses and that will be 5 mg twice a day Continue bronchodilators Vascular surgery addressing her peripheral vessel occlusive disease Continue oxygen and titrate accordingly Continue empiric antibiotics to Zithromax Continue Solu-Medrol DuoNeb and Symbicort We will continue to follow
[2023-05-05] MEDS: APIXABAN 5 MG TAB PO SCH ×2 (11:20→20:50)
[2023-05-05 11:52] LABS: Glucose,Whole Blood 120 mg/dL (70-110)
--- NOTE | 2023-05-05 13:57 | P.PN ---
Subjective Progress Note Date: 05/05/23 This is a 72-year-old female presented to the hospital with a chief complaint of chest pain and shortness of breath. She is currently being treated for COPD exacerbation. She is receiving IV steroids. . She has been evaluated by vascular surgery for discoloration in her toes. She remains on IV heparin. Echocardiogram completed revealing ejection fraction 50-55% with moderate size pericardial effusion with evidence of some fibrinous material and probably some thrombus as well and the effusion. 05/05. Patient seen and examined. Still has shortness of breath. Continues to be on 5 L of oxygen. Patient has right lower extremity angiogram done today REVIEW OF SYSTEMS: CONSTITUTIONAL: No fever, no malaise,. CARDIOVASCULAR: No chest pain, no palpitations, no syncope. PULMONARY: c/o of shortness of breath and cough GASTROINTESTINAL: No diarrhea, no nausea, no vomiting, no abdominal pain. NEUROLOGICAL: No headaches, no weakness, PHYSICAL EXAMINATION: GENERAL: The patient is alert and oriented x3, not in any acute distress. Well developed, well nourished. HEENT: Pupils are round and equally reacting to light. EOMI. No scleral icterus. No conjunctival pallor. Normocephalic, atraumatic. No pharyngeal erythema. No thyromegaly. CARDIOVASCULAR: S1 and S2 present. No murmurs, rubs, or gallops. PULMONARY: Coarse breath some bilaterally, expiratory wheeze audible ABDOMEN: Soft, nontender, nondistended, normoactive bowel sounds. No palpable organomegaly. MUSCULOSKELETAL: No joint swelling or deformity. EXTREMITIES: No cyanosis, clubbing, or pedal edema. NEUROLOGICAL: Gross neurological examination did not reveal any focal deficits. SKIN: No rashes. Assessment and plan Chest pain, acute coronary syndrome ruled out Acute COPD exacerbation Acute kidney injury Moderate pericardial effusion without evidence of tamponade with fibrinous material and probably some thrombus as well within the effusion Peripheral vascular disease, on IV heparin Chronic DVT Monitor vital signs Monitor CBC Monitor CMP Continue telemetry monitoring Continue breathing treatment Continue IV Solu-Medrol Continue Norvasc Continue pharmacy dose heparin Cardiology recommended no anticoagulation for her echocardiogram findings Follow-up on pulmonary recs DVT prophylaxis: Objective - Vital Signs Vital signs: Vital Signs Temp 97.7 F 05/05/23 09:15 Pulse 87 05/05/23 09:15 Resp 23 05/05/23 09:15 BP 135/79 05/05/23 10:30 Pulse Ox 90 L 05/05/23 09:15 FiO2 Intake & Output 05/04/23 05/05/23 05/05/23 18:59 06:59 18:59 Intake Total 166.124 76.088 50 Balance 166.124 76.088 50 Weight 52.163 kg Intake: IV 50 Intake, IV Titration 166.124 76.088 Amount Heparin Sod,Pork in 0.45% 166.124 76.088 NaCl 25,000 unit In 0.45 % NaCl 1 250ml.bag @ 12 UNITS/KG/HR 6.26 mls/hr IV .Q24H [facility] Rx#: [id number] Other: Voiding Method Incontinent Incontinent Incontinent # Voids 3 1 - Labs CBC & Chem 7: 05/04/23 06:20 05/04/23 06:20 Labs: Abnormal Lab Results - Last 24 Hours (Table) 05/04/23 05/04/23 05/04/23 Range/Units 11:27 13:06 16:33 APTT 82.5 H (22.0-30.0) sec POC Glucose (mg/dL) 136 H 171 H (70-110) mg/dL 05/04/23 05/04/23 05/05/23 Range/Units 20:01 22:49 06:04 APTT 55.3 H (22.0-30.0) sec POC Glucose (mg/dL) 159 H 128 H (70-110) mg/dL Microbiology - Last 24 Hours (Table) 05/01/23 19:30 Blood Culture - Preliminary Blood 05/01/23 19:15 Blood Culture - Preliminary Blood
[2023-05-05 16:22] LABS: Glucose,Whole Blood 155 mg/dL (70-110)
[2023-05-05 20:16] LABS: Glucose,Whole Blood 162 mg/dL (70-110)
[2023-05-05] MEDS: traZODone HCL 50 MG TAB PO SCH (20:53)
[2023-05-06] MEDS: ACETAMINOPHEN TAB 325 MG TAB PO PRN (03:56)
[2023-05-06] MEDS: methylPREDNISolone SOD SUCCI 125 MG/2 ML VIAL IV SCH ×4 (05:36→23:41)
[2023-05-06 06:19] LABS: Glucose,Whole Blood 120 mg/dL (70-110)
[2023-05-06] MEDS: IPRATROPIUM-ALBUTEROL 3 ML NEB INHALATION SCH ×4 (08:57→20:44)
[2023-05-06] MEDS: SYMBICORT 160-4.5 MCG INHALER INHALATION SCH ×3 (08:57→20:45)
[2023-05-06] MEDS: ACETAMINOPHEN TAB 500 MG TAB PO SCH ×2 (09:53→20:15)
[2023-05-06] MEDS: diphenhydrAMINE 50 MG CAP PO SCH ×2 (09:53→20:16)
[2023-05-06] MEDS: APIXABAN 5 MG TAB PO SCH ×2 (09:54→20:16)
[2023-05-06] MEDS: amLODIPine 10 MG TAB PO SCH (09:54)
[2023-05-06] MEDS: NYSTATIN 100,000 UNIT/ML SUSP 500,000 UNIT/5 ML CUP PO SCH ×4 (09:54→20:15)
[2023-05-06 10:19] LABS: ALT 38 U/L (4-34); AST 43 U/L (14-36); African American GFR (CKD) 38 (>60 ml/min/1.73 sqM); Albumin 4.2 g/dL (3.5-5.0); Alkaline Phosphatase 105 U/L (38-126); Anion Gap 10 mmol/L; Blood Urea Nitrogen 34 mg/dL (7-17); Calcium 8.8 mg/dL (8.4-10.2); Carbon Dioxide 28 mmol/L (22-30); Chloride 96 mmol/L (98-107); Glucose 102 mg/dL (74-99); Non-African American GFR(CKD) 33 (>60 ml/min/1.73 sqM); Potassium 5.1 mmol/L (3.5-5.1); Sodium 134 mmol/L (137-145); Total Bilirubin 0.5 mg/dL (0.2-1.3)
[2023-05-06 10:30] LABS: HCT 38.7 % (34.0-46.0); HGB 12.5 gm/dL (11.4-16.0); MCH 30.7 pg (25.0-35.0); MCHC 32.4 g/dL (31.0-37.0); MCV 94.8 fL (80.0-100.0); Mean Platelet Volume 7.6; Platelet Count 411 k/uL (150-450); RBC 4.09 m/uL (3.80-5.40); RDW 15.1 % (11.5-15.5); WBC 17.3 k/uL (3.8-10.6)
--- NOTE | 2023-05-06 10:31 | P.PN ---
Subjective Progress Note Date: 05/06/23 HISTORY OF PRESENT ILLNESS: This is a 72-year-old female presented to the hospital with a chief complaint of chest pain and shortness of breath. She is currently being treated for COPD exacerbation. She is receiving IV steroids. Patient examined this more at the bedside. She continues to have significant audible wheezing upon examination. She states that her reading feels more labored compared to yesterday. She currently denies any chest pain or pressure. She has been evaluated by vascular surgery for discoloration in her toes. She remains on IV heparin. Echocardiogram completed revealing ejection fraction 50-55% with moderate size pericardial effusion with evidence of some fibrinous material and probably some thrombus as well and the effusion. 05/04/2023 Patient examined this morning at the bedside. Patient denies chest pain or pressure. She reports SOB. She continues to have wheezing. She is receiving IV steroids. Blood pressure elevated with a SBP in the 170s. 05/05/2023 Patient underwent right leg angiogram today with Dr. Reeves revealing mild atherosclerotic disease. Patient examined this morning at the bedside. Patient denies chest pain or pressure. She continues to report shortness of breath. She remains on IV steroids. She continues to have wheezing today, although improved from yesterday. Blood pressure is improved today compared to yesterday. 05/06 Patient is seen today in follow-up. She denies having any chest pain. She is having difficulty in breathing with significant wheezing this morning. Heart rate is in the 80s and 90s, blood pressure 146/87, pulse ox 91% on 5 L nasal cannula. Repeat blood work reveals sodium 134, potassium 5.1, chloride 96, CO2 28, BUN 34 creatinine 1.54. Patient was started on Norvasc yesterday with improvement of her blood pressure. PHYSICAL EXAM: VITAL SIGNS: Reviewed. GENERAL: Well-developed in no acute distress. NECK: Supple. No JVD or thyromegaly LUNGS: Respirations even and unlabored. His respiratory and expiratory wheezing and rhonchi bilaterally HEART: Regular rate and rhythm. S1 and S2 heard. EXTREMITIES: Normal range of motion. No clubbing or cyanosis. Peripheral pulses intact. No lower extremity edema ASSESSMENT: Chest pain, acute coronary syndrome ruled out Acute COPD exacerbation Acute kidney injury Moderate pericardial effusion without evidence of tamponade with fibrinous material and probably some thrombus as well within the effusion Peripheral vascular disease, on IV heparin Chronic DVT PLAN: Continue current cardiac medications Patient does not require anticoagulation for echocardiogram findings Patient is stable from a cardiac perspective Further recommendations pending patient's course Nurse practitioner note has been reviewed by physician. Signing provider agrees with the documented findings, assessment, and plan of care. Objective - Vital Signs Vital signs: Vital Signs Temp 98 F 05/06/23 03:54 Pulse 90 05/06/23 03:54 Resp 16 05/06/23 03:54 BP 133/78 05/06/23 03:54 Pulse Ox 90 L 05/06/23 03:54 FiO2 Intake & Output 05/05/23 05/06/23 05/06/23 18:59 06:59 18:59 Intake Total 50 240 Balance 50 240 Intake: IV 50 Oral 240 Other: Voiding Method Incontinent Incontinent # Voids 1 1 - Labs CBC & Chem 7: 05/04/23 06:20 05/06/23 09:41 Labs: Abnormal Lab Results - Last 24 Hours (Table) 05/05/23 05/05/23 05/05/23 Range/Units 11:50 16:16 20:14 POC Glucose (mg/dL) 120 H 155 H 162 H (70-110) mg/dL 05/06/23 Range/Units 06:17 POC Glucose (mg/dL) 120 H (70-110) mg/dL Microbiology - Last 24 Hours (Table) 05/01/23 19:30 Blood Culture - Preliminary Blood 05/01/23 19:15 Blood Culture - Preliminary Blood
[2023-05-06 11:31] LABS: Glucose,Whole Blood 103 mg/dL (70-110)
[2023-05-06 11:46] LABS: Band Neutrophils % 4 %; Eosinophils # (M) 0.17 k/uL (0-0.7); Lymphocytes # (M) 1.21 k/uL (1.0-4.8); Metamyelocytes # (M) 0.52 k/uL (0); Metamyelocytes % 3 %; Monocytes # (M) 0.69 k/uL (0-1.0); Myelocytes # (M) 0.69 k/uL (0); Myelocytes % 4 %; Neutrophils % (M) 79 %; Nucleated Red Blood Cells 0 /100 WBC (0-0); Total Cells Counted 200
--- NOTE | 2023-05-06 12:35 | P.PN ---
Subjective Progress Note Date: 05/06/23 This is a 72-year-old female presented to the hospital with a chief complaint of chest pain and shortness of breath. She is currently being treated for COPD exacerbation. She is receiving IV steroids. . She has been evaluated by vascular surgery for discoloration in her toes. She remains on IV heparin. Echocardiogram completed revealing ejection fraction 50-55% with moderate size pericardial effusion with evidence of some fibrinous material and probably some thrombus as well and the effusion. 05/05. Patient seen and examined. Still has shortness of breath. Continues to be on 5 L of oxygen. Patient has right lower extremity angiogram done today 05/06. Patient seen and examined. Continues to cough and shortness of breath at rest as well as exertion. Still complaining of lethargy and weakness, states she is not ready to go home REVIEW OF SYSTEMS: CONSTITUTIONAL: No fever, no malaise,. CARDIOVASCULAR: No chest pain, no palpitations, no syncope. PULMONARY: c/o of shortness of breath and cough GASTROINTESTINAL: No diarrhea, no nausea, no vomiting, no abdominal pain. NEUROLOGICAL: No headaches, no weakness, PHYSICAL EXAMINATION: GENERAL: The patient is alert and oriented x3, not in any acute distress. Well developed, well nourished. HEENT: Pupils are round and equally reacting to light. EOMI. No scleral icterus. No conjunctival pallor. Normocephalic, atraumatic. No pharyngeal erythema. No thyromegaly. CARDIOVASCULAR: S1 and S2 present. No murmurs, rubs, or gallops. PULMONARY: Coarse breath some bilaterally, expiratory wheeze audible ABDOMEN: Soft, nontender, nondistended, normoactive bowel sounds. No palpable organomegaly. MUSCULOSKELETAL: No joint swelling or deformity. EXTREMITIES: No cyanosis, clubbing, or pedal edema. NEUROLOGICAL: Gross neurological examination did not reveal any focal deficits. SKIN: No rashes. Assessment and plan Chest pain, acute coronary syndrome ruled out Acute COPD exacerbation Acute kidney injury Moderate pericardial effusion without evidence of tamponade with fibrinous material and probably some thrombus as well within the effusion Peripheral vascular disease, on IV heparin Chronic DVT Monitor vital signs Monitor CBC Monitor CMP Continue telemetry monitoring Continue breathing treatment Continue IV Solu-Medrol Continue Norvasc Switched to Eliquis for her peripheral vascular disease Cardiology recommended no anticoagulation for her echocardiogram findings Follow-up on pulmonary recs, recommend oral anticoagulation for which she was started on Eliquis DVT prophylaxis: Objective - Vital Signs Vital signs: Vital Signs Temp 98 F 05/06/23 03:54 Pulse 90 05/06/23 03:54 Resp 16 05/06/23 03:54 BP 133/78 05/06/23 03:54 Pulse Ox 90 L 05/06/23 03:54 FiO2 Intake & Output 05/05/23 05/06/23 05/06/23 18:59 06:59 18:59 Intake Total 50 240 Balance 50 240 Intake: IV 50 Oral 240 Other: Voiding Method Incontinent Incontinent # Voids 1 1 - Labs CBC & Chem 7: 05/06/23 09:41 05/06/23 09:41 Labs: Abnormal Lab Results - Last 24 Hours (Table) 05/05/23 05/05/23 05/05/23 Range/Units 11:50 16:16 20:14 POC Glucose (mg/dL) 120 H 155 H 162 H (70-110) mg/dL 05/06/23 Range/Units 06:17 POC Glucose (mg/dL) 120 H (70-110) mg/dL
--- NOTE | 2023-05-06 12:56 | P.PN ---
Subjective Progress Note Date: 05/06/23 Principal diagnosis: Acute exacerbation of COPD This is a very pleasant 72-year-old female patient with a known history of oxygen dependent chronic obstructive pulmonary disease maintained on 5 L, Symbicort and albuterol in the outpatient setting. She had a 50+ year smoking history however quit less than a year ago. She follows with Dr. Camp in our office. She also has a history of osteoarthritis, vertical, breast cancer and cervical cancer, neuropathy, anxiety/depression. She presented here to the emergency yesterday evening with worsening shortness of breath cough and congestion. She was also having chest pain and heaviness. Chest pain reveals no acute pulmonary process. EKG revealed no significant ST or T wave abnormalities. White count 8.8. Hemoglobin 13.2. Platelets 219. D-dimer 2.73. Sodium 133. Potassium 3.8. Bicarb 24. BUN 30. Creatinine 1.77. Glucose 158. Troponins negative 2. Echocardiogram revealed preserved left ventricular systolic function with ejection fraction 50-55%. No significant valvular abnormalities. There was noted however a moderate size pericardial effusion with evidence of fibrinous material and probable thrombus. She's been initiated on DuoNeb inhalations, IV Solu-Medrol, antibiotics in the form of ceftriaxone and azithromycin. She is seen today in consultation in the emergency department. She is sitting up in a stretcher. Awake and alert in no acute distress. Feeling a bit better today compared to yesterday. Denies any chest pain currently. Still bronchus spastic and wheezing. Maintaining O2 satu rations in the 90s on 5 L/m per nasal cannula. Reevaluated today on 05/03/2023, patient is basically about the same. Continues to have intermittent cough, wheezing, shortness of breath, patient was found to have chronic thrombus within the common femoral vein on the left and right femoral vein hence I'm recommending low intensity heparin, eventually will transition the patient to eliquis. Ordered to [place] in the meantime the patient is being seen for peripheral vessel occlusive disease by vascular surgery, and entertaining the possibility of angiogram of lower extremities. She was seen by cardiology for atypical chest pain, and no comment from cardiology on her abnormal echocardiogram showing moderate size pericardial effusion with fibrinous material and probably some thrombus noted in the effusion. Nonetheless the patient is on anticoagulation therapy for now, and will eventually transition to oral anticoagulation. For her COPD, and continue with her bronchodilators treatment Reevaluated today on 05/04/2023, patient is basically about the same, continues to have cough wheezing shortness of breath. 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 Apparently cardiology reviewed her echocardiogram, and based on that note not t oo much concerned about her pericardial effusion and thromboses and the pericardial effusion nonetheless I will recommend anticoagulation therapy on this patient possibly lifetime considering the findings on her lower extremities ultrasound in the meantime I'm recommending we continue bronchodilators for her underlying active COPD. Vascular is still interested obtaining the possibility of angiogram. Patient was reevaluated today on 05/05/2023, patient had a right lower extremity angiogram today, and she was found to have some mild atherosclerosis, mostly in the right superficial femoral artery. Also had some mild plaque formation in the popliteal artery. She was found to have small caliber distal blood vessels/anterior tibial posterior tibial but these vessels were patent. Pulmonary-loo the patient continues to have intermittent cough and wheezing, remains on the present course of bronchodilators, not quite ready for discharge planning Reevaluated today on 05/06/2023, not much of a change, patient is about the same, continues to have intermittent cough wheezing and shortness of breath. Remains on 5 L nasal cannula with O2 saturations ranging between 90-92% at best. Patient is maximized on bronchodilators and steroids, not quite ready for discharge planning. Patient is on DuoNeb, methylprednisolone 60 every 6 hours, she is also on Symbicort. As far as her anticoagulation therapy, patient is now on eliquis at 5 mg twice a day she was found to have chronic deep vein throm bosis. Objective - Vital Signs Vital signs: Vital Signs Temp 97.1 F L 05/06/23 12:00 Pulse 97 05/06/23 12:00 Resp 22 05/06/23 12:00 BP 153/88 05/06/23 12:00 Pulse Ox 90 L 05/06/23 12:00 FiO2 Intake & Output 05/05/23 05/06/23 05/06/23 18:59 06:59 18:59 Intake Total 50 990 Balance 50 990 Intake: IV 50 Oral 990 Other: Voiding Method Incontinent Incontinent Incontinent # Voids 1 1 1 - Exam Physical Exam: Revealed a 72-year-old female in no distress Head: Atraumatic, normocephalic. HEENT:[Neck is supple.] [No neck masses.] [No thyromegaly.] [No JVD.] Chest: [Continues to have scattered rhonchi and wheezes Cardiac Exam: [Normal S1 and S2, no S3 gallop, no murmur.] Abdomen: [Soft, nontender, no megaly, no rebound, no guarding, normal bowel sounds.] Extremities: [No clubbing, no edema, no cyanosis noted today. Neurological Exam: [No focal neurologic deficit.] Alert and oriented 3 no focal deficit Psychiatric: Normal mood affect and normal mental status examination - Labs CBC & Chem 7: 05/06/23 09:41 05/06/23 09:41 Labs: Abnormal Lab Results - Last 24 Hours (Table) 05/05/23 05/05/23 05/06/23 Range/Units 16:16 20:14 06:17 WBC (3.8-10.6) k/uL Neutrophils # (Manual) (1.3-7.7) k/uL Metamyelocytes # (Man) (0) k/uL Myelocytes # (Manual) (0) k/uL Sodium (137-145) mmol/L Chloride (98-107) mmol/L BUN (7-17) mg/dL Creatinine (0.52-1.04) mg/dL Glucose (74-99) mg/dL POC Glucose (mg/dL) 155 H 162 H 120 H (70-110) mg/dL AST (14-36) U/L ALT (4-34) U/L 05/06/23 05/06/23 Range/Units 09:41 09:41 WBC 17.3 H (3.8-10.6) k/uL Neutrophils # (Manual) 14.30 H (1.3-7.7) k/uL Metamyelocytes # (Man) 0.52 H (0) k/uL Myelocytes # (Manual) 0.69 H (0) k/uL Sodium 134 L (137-145) mmol/L Chloride 96 L (98-107) mmol/L BUN 34 H (7-17) mg/dL Creatinine 1.54 H (0.52-1.04) mg/dL Glucose 102 H (74-99) mg/dL POC Glucose (mg/dL) (70-110) mg/dL AST 43 H (14-36) U/L ALT 38 H (4-34) U/L Assessment and Plan Assessment: Impression: Acute exacerbation of COPD Chronic hypoxic for failure patient is on home O2 24/7 at 5 L/m Acute kidney injury Hypothyroidism Chronic deep vein thrombosis Pericardial effusion with thromboses noted in the pericardial effusion Generalized anxiety disorder History of breast cancer History of cervical cancer Atypical chest pain with abnormal echocardiogram. Recommendation: Continue eliquis Continue bronchodilators continue Solu-Medrol, continue DuoNeb and Symbicort Continue oxygen and titrate accordingly Continue empiric antibiotics to Zithromax Not quite ready for discharge planning will continue to follow We will continue to follow Time with Patient: Less than 30
[2023-05-06 16:17] LABS: Glucose,Whole Blood 112 mg/dL (70-110)
[2023-05-06 20:12] LABS: Glucose,Whole Blood 121 mg/dL (70-110)
[2023-05-06] MEDS: traZODone HCL 50 MG TAB PO SCH (20:16)
[2023-05-07] MEDS: methylPREDNISolone SOD SUCCI 125 MG/2 ML VIAL IV SCH ×3 (06:05→17:57)
[2023-05-07 06:13] LABS: Glucose,Whole Blood 108 mg/dL (70-110)
--- NOTE | 2023-05-07 08:31 | IR ---
EXAMINATION TYPE: IR angio lower extremity RT DATE OF EXAM: 05/05/2023 COMPARISON: NONE HISTORY: Fluoroscopy time. Fluoroscopy was provided to the referring clinician.
[2023-05-07] MEDS: IPRATROPIUM-ALBUTEROL 3 ML NEB INHALATION SCH ×4 (08:53→20:44)
[2023-05-07] MEDS: SYMBICORT 160-4.5 MCG INHALER INHALATION SCH (08:53)
[2023-05-07] MEDS: NYSTATIN 100,000 UNIT/ML SUSP 500,000 UNIT/5 ML CUP PO SCH ×4 (09:29→21:16)
[2023-05-07] MEDS: ACETAMINOPHEN TAB 500 MG TAB PO SCH ×2 (09:29→21:16)
[2023-05-07] MEDS: diphenhydrAMINE 50 MG CAP PO SCH ×2 (09:29→21:17)
[2023-05-07] MEDS: APIXABAN 5 MG TAB PO SCH ×2 (09:30→21:16)
[2023-05-07] MEDS: amLODIPine 10 MG TAB PO SCH (09:30)
--- NOTE | 2023-05-07 10:38 | P.PN ---
Subjective Progress Note Date: 05/07/23 HISTORY OF PRESENT ILLNESS: This is a 72-year-old female presented to the hospital with a chief complaint of chest pain and shortness of breath. She is currently being treated for COPD exacerbation. She is receiving IV steroids. Patient examined this more at the bedside. She continues to have significant audible wheezing upon examination. She states that her reading feels more labored compared to yesterday. She currently denies any chest pain or pressure. She has been evaluated by vascular surgery for discoloration in her toes. She remains on IV heparin. Echocardiogram completed revealing ejection fraction 50-55% with moderate size pericardial effusion with evidence of some fibrinous material and probably some thrombus as well and the effusion. 05/04/2023 Patient examined this morning at the bedside. Patient denies chest pain or pressure. She reports SOB. She continues to have wheezing. She is receiving IV steroids. Blood pressure elevated with a SBP in the 170s. 05/05/2023 Patient underwent right leg angiogram today with Dr. Reeves revealing mild atherosclerotic disease. Patient examined this morning at the bedside. Patient denies chest pain or pressure. She continues to report shortness of breath. She remains on IV steroids. She continues to have wheezing today, although improved from yesterday. Blood pressure is improved today compared to yesterday. 05/06 Patient is seen today in follow-up. She denies having any chest pain. She is having difficulty in breathing with significant wheezing this morning. Heart rate is in the 80s and 90s, blood pressure 146/87, pulse ox 91% on 5 L nasal cannula. Repeat blood work reveals sodium 134, potassium 5.1, chloride 96, CO2 28, BUN 34 creatinine 1.54. Patient was started on Norvasc yesterday with improvement of her blood pressure. 05/07 Patient is seen today in follow-up. Patient states that she had an episode of c hest pain last night but it occurred when she took deep breath. No chest pain at this time. She continues to have difficulty breathing secondary to COPD exacerbation. Blood pressure 151/76, heart rate in the 70s to 90s, pulse ox 95% on 5 L nasal cannula. PHYSICAL EXAM: VITAL SIGNS: Reviewed. GENERAL: Well-developed in no acute distress. NECK: Supple. No JVD or thyromegaly LUNGS: Respirations even and unlabored. His respiratory and expiratory wheezing and rhonchi bilaterally HEART: Regular rate and rhythm. S1 and S2 heard. EXTREMITIES: Normal range of motion. No clubbing or cyanosis. Peripheral pulses intact. No lower extremity edema ASSESSMENT: Chest pain, acute coronary syndrome ruled out Acute COPD exacerbation Acute kidney injury Moderate pericardial effusion without evidence of tamponade with fibrinous material and probably some thrombus as well within the effusion Peripheral vascular disease, on IV heparin Chronic DVT PLAN: Continue current cardiac medications Patient does not require anticoagulation for echocardiogram findings Patient is stable from a cardiac perspective Cardiology will follow on an as-needed basis. Please reconsult for any new concerns. Nurse practitioner note has been reviewed by physician. Signing provider agrees with the documented findings, assessment, and plan of care. Objective - Vital Signs Vital signs: Vital Signs Temp 98.6 F 05/07/23 03:50 Pulse 93 05/07/23 03:50 Resp 24 05/07/23 03:50 BP 154/91 05/07/23 03:50 Pulse Ox 93 L 05/07/23 03:50 FiO2 Intake & Output 05/06/23 05/07/23 05/07/23 18:59 06:59 18:59 Intake Total 1000 20 Balance 1000 20 Intake: IV 10 20 Invasive Line 2 10 20 Oral 990 Other: Voiding Method Incontinent Incontinent # Voids 1 1 - Labs CBC & Chem 7: 05/06/23 09:41 05/06/23 09:41 Labs: Abnormal Lab Results - Last 24 Hours (Table) 05/06/23 05/06/23 05/06/23 Range/Units 09:41 09:41 16:15 WBC 17.3 H (3.8-10.6) k/uL Neutrophils # (Manual) 14.30 H (1.3-7.7) k/uL Metamyelocytes # (Man) 0.52 H (0) k/uL Myelocytes # (Manual) 0.69 H (0) k/uL Sodium 134 L (137-145) mmol/L Chloride 96 L (98-107) mmol/L BUN 34 H (7-17) mg/dL Creatinine 1.54 H (0.52-1.04) mg/dL Glucose 102 H (74-99) mg/dL POC Glucose (mg/dL) 112 H (70-110) mg/dL AST 43 H (14-36) U/L ALT 38 H (4-34) U/L 05/06/23 Range/Units 20:10 WBC (3.8-10.6) k/uL Neutrophils # (Manual) (1.3-7.7) k/uL Metamyelocytes # (Man) (0) k/uL Myelocytes # (Manual) (0) k/uL Sodium (137-145) mmol/L Chloride (98-107) mmol/L BUN (7-17) mg/dL Creatinine (0.52-1.04) mg/dL Glucose (74-99) mg/dL POC Glucose (mg/dL) 121 H (70-110) mg/dL AST (14-36) U/L ALT (4-34) U/L Microbiology - Last 24 Hours (Table) 05/01/23 19:30 Blood Culture - Final Blood 05/01/23 19:15 Blood Culture - Final Blood
[2023-05-07 11:27] LABS: Glucose,Whole Blood 105 mg/dL (70-110)
--- NOTE | 2023-05-07 11:49 | P.PN ---
Subjective Progress Note Date: 05/07/23 Principal diagnosis: COPD exacerbation. Reevaluated today on 05/04/2023, patient is basically about the same, continues to have cough wheezing shortness of breath. 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 Apparently cardiology reviewed her echocardiogram, and based on that note not too much concerned about her pericardial effusion and thromboses and the pericardial effusion nonetheless I will recommend anticoagulation therapy on this patient possibly lifetime considering the findings on her lower extremities ultrasound in the meantime I'm recommending we continue bronchodilators for her underlying active COPD. Vascular is still interested obtaining the possibility of angiogram. Patient was reevaluated today on 05/05/2023, patient had a right lower extremity angiogram today, and she was found to have some mild atherosclerosis, mostly in the right superficial femoral artery. Also had some mild plaque formation in the popliteal artery. She was found to have small caliber distal blood vessels/anterior tibial posterior tibial but these vessels were patent. Pulmonary-loo the patient continues to have intermittent cough and wheezing, remains on the present course of bronchodilators, not quite ready for discharge planning Reevaluated today on 05/06/2023, not much of a change, patient is about the same, continues to have intermittent cough wheezing and shortness of breath. Remains on 5 L nasal cannula with O2 saturations ranging between 90-92% at best. Patient is maximized on bronchodilators and steroids, not quite ready for discharge planning. Patient is on DuoNeb, methylprednisolone 60 every 6 hours, she is also on Symbicort. As far as her anticoagulation therapy, patient is now on eliquis at 5 mg twice a day she was found to have chronic deep vein thrombosis. Progress note dated 05/07/2023. The patient is seen today in room 364. She currently is on 5 L nasal cannula. Saturations are 93%. She's not receiving any IV fluids. The patient's Symbicort be converted over to Pulmicort, and formoterol. No new labs on this patient other than a glucose of 105. No recent chest x-rays on this patient. Blood cultures have been negative. The patient continues on albuterol, ipratropium bromide, and Solu-Medrol. Objective - Vital Signs Vital signs: Vital Signs Temp 97.7 F 07/03/23 08:00 Pulse 92 05/07/23 09:06 Resp 22 05/07/23 08:00 BP 151/76 05/07/23 08:00 Pulse Ox 93 L 05/07/23 08:53 FiO2 Intake & Output 05/06/23 05/07/23 05/07/23 18:59 06:59 18:59 Intake Total 1000 20 10 Balance 1000 20 10 Weight 52.163 kg Intake: IV 10 20 10 Invasive Line 2 10 20 10 Oral 990 Other: Voiding Method Incontinent Incontinent Incontinent # Voids 1 1 - Exam No acute distress, oriented 3. No audible wheezing, or use of accessory muscles. HEENT examination is grossly unremarkable. Mucous membranes are moist. No oral lesions. Neck supple. Full range of motion. No adenopathy thyromegaly or neck vein distention. Cardiovascular examination reveals regular rhythm rate. S1-S2 normal. No S3 or S4. No discernible murmur noted. Lungs reveal scattered bilateral expiratory rhonchi and there breath sounds are equal bilaterally but diminished throughout. No crackles. Abdomen soft bowel sounds are heard. No masses or tenderness. Extremities are intact. No cyanosis clubbing or edema. Skin is without rash or lesion. Neurologic examination is brief but nonfocal. - Labs CBC & Chem 7: 05/06/23 09:41 05/06/23 09:41 Labs: Abnormal Lab Results - Last 24 Hours (Table) 05/06/23 05/06/23 05/06/23 Range/Units 09:41 16:15 20:10 Neutrophils # (Manual) 14.30 H (1.3-7.7) k/uL Metamyelocytes # (Man) 0.52 H (0) k/uL Myelocytes # (Manual) 0.69 H (0) k/uL POC Glucose (mg/dL) 112 H 121 H (70-110) mg/dL Microbiology - Last 24 Hours (Table) 05/01/23 19:30 Blood Culture - Final Blood 05/01/23 19:15 Blood Culture - Final Blood Assessment and Plan Assessment: Acute exacerbation of COPD. Acute hypoxemic respiratory failure, currently on 5 L, nasal cannula. Acute kidney injury. Hypothyroidism. Chronic deep vein thrombosis. History of pericardial effusion. Generalized anxiety disorder. History of breast cancer. History of cervical cancer. Plan: Plan dated 05/07/2023. The patient continues on all appropriate medications including updrafts, Solu- Medrol, as well as long-acting beta agonist, and inhaled corticosteroids the patient continues on 5 L of oxygen. This will continue to be titrated down. Antibiotics have been discontinued. No additional recommendations are made. Prognosis is guarded. We will continue to follow. The patient is a DO NOT RESUSCITATE patient. Time with Patient: Less than 30
--- NOTE | 2023-05-07 13:58 | P.PN ---
Subjective Progress Note Date: 05/07/23 This is a 72-year-old female presented to the hospital with a chief complaint of chest pain and shortness of breath. She is currently being treated for COPD exacerbation. She is receiving IV steroids. . She has been evaluated by vascular surgery for discoloration in her toes. She remains on IV heparin. Echocardiogram completed revealing ejection fraction 50-55% with moderate size pericardial effusion with evidence of some fibrinous material and probably some thrombus as well and the effusion. 05/05. Patient seen and examined. Still has shortness of breath. Continues to be on 5 L of oxygen. Patient has right lower extremity angiogram done today 05/06. Patient seen and examined. Continues to cough and shortness of breath at rest as well as exertion. Still complaining of lethargy and weakness, states she is not ready to go home 05/07. Patient seen and examined. States she is not ready to be discharged. States she gets short of breath on exertion. REVIEW OF SYSTEMS: CONSTITUTIONAL: No fever, no malaise,. CARDIOVASCULAR: No chest pain, no palpitations, no syncope. PULMONARY: c/o of shortness of breath and cough GASTROINTESTINAL: No diarrhea, no nausea, no vomiting, no abdominal pain. NEUROLOGICAL: No headaches, no weakness, PHYSICAL EXAMINATION: GENERAL: The patient is alert and oriented x3, not in any acute distress. Well developed, well nourished. HEENT: Pupils are round and equally reacting to light. EOMI. No scleral icterus. No conjunctival pallor. Normocephalic, atraumatic. No pharyngeal erythema. No thyromegaly. CARDIOVASCULAR: S1 and S2 present. No murmurs, rubs, or gallops. PULMONARY: Coarse breath some bilaterally, expiratory wheeze audible ABDOMEN: Soft, nontender, nondistended, normoactive bowel sounds. No palpable or ganomegaly. MUSCULOSKELETAL: No joint swelling or deformity. EXTREMITIES: No cyanosis, clubbing, or pedal edema. NEUROLOGICAL: Gross neurological examination did not reveal any focal deficits. SKIN: No rashes. Assessment and plan Chest pain, acute coronary syndrome ruled out Acute COPD exacerbation Acute kidney injury Moderate pericardial effusion without evidence of tamponade with fibrinous material and probably some thrombus as well within the effusion Peripheral vascular disease, on IV heparin Chronic DVT Monitor vital signs Monitor CBC Monitor CMP Continue telemetry monitoring Continue breathing treatment Continue IV Solu-Medrol Continue Norvasc Continue Eliquis for her peripheral vascular disease Cardiology recommended no anticoagulation for her echocardiogram findings Follow-up on pulmonary recs, recommend oral anticoagulation for which she was s tarted on Eliquis for chronic deep vein thrombosis DVT prophylaxis: Objective - Vital Signs Vital signs: Vital Signs Temp 98.2 F 05/07/23 12:00 Pulse 85 05/07/23 13:46 Resp 22 05/07/23 13:46 BP 150/84 05/07/23 12:00 Pulse Ox 91 L 05/07/23 12:00 FiO2 Intake & Output 05/06/23 05/07/23 05/07/23 18:59 06:59 18:59 Intake Total 1000 20 138 Balance 1000 20 138 Weight 52.163 kg Intake: IV 10 20 20 Invasive Line 2 10 20 20 Oral 990 118 Other: Voiding Method Incontinent Incontinent Incontinent # Voids 1 1 2 - Labs CBC & Chem 7: 05/06/23 09:41 05/06/23 09:41 Labs: Abnormal Lab Results - Last 24 Hours (Table) 05/06/23 05/06/23 Range/Units 16:15 20:10 POC Glucose (mg/dL) 112 H 121 H (70-110) mg/dL Microbiology - Last 24 Hours (Table) 05/01/23 19:30 Blood Culture - Final Blood 05/01/23 19:15 Blood Culture - Final Blood
[2023-05-07 16:05] LABS: Glucose,Whole Blood 107 mg/dL (70-110)
[2023-05-07 20:06] LABS: Glucose,Whole Blood 116 mg/dL (70-110)
[2023-05-07] MEDS: BUDESONIDE 1 MG/2 ML NEBU INHALATION SCH (20:44)
[2023-05-07] MEDS: FORMOTEROL FUMARATE 20 MCG/2 ML NEBU INHALATION SCH (20:44)
[2023-05-07] MEDS: traZODone HCL 50 MG TAB PO SCH (21:16)
[2023-05-08] MEDS: methylPREDNISolone SOD SUCCI 125 MG/2 ML VIAL IV SCH ×5 (00:16→23:26)
[2023-05-08 07:52] LABS: Glucose,Whole Blood 135 mg/dL (70-110)
[2023-05-08] MEDS: BUDESONIDE 1 MG/2 ML NEBU INHALATION SCH ×2 (08:42→20:41)
[2023-05-08] MEDS: IPRATROPIUM-ALBUTEROL 3 ML NEB INHALATION SCH ×4 (08:42→20:41)
[2023-05-08] MEDS: FORMOTEROL FUMARATE 20 MCG/2 ML NEBU INHALATION SCH ×2 (08:42→20:41)
[2023-05-08] MEDS: ACETAMINOPHEN TAB 500 MG TAB PO SCH ×2 (09:21→21:46)
[2023-05-08] MEDS: diphenhydrAMINE 50 MG CAP PO SCH ×2 (09:22→21:47)
[2023-05-08] MEDS: APIXABAN 5 MG TAB PO SCH ×2 (09:22→21:46)
[2023-05-08] MEDS: amLODIPine 10 MG TAB PO SCH (09:22)
[2023-05-08] MEDS: NYSTATIN 100,000 UNIT/ML SUSP 500,000 UNIT/5 ML CUP PO SCH ×4 (09:22→21:46)
--- NOTE | 2023-05-08 11:44 | P.PN ---
Subjective Progress Note Date: 05/08/23 Reevaluated today on 05/04/2023, patient is basically about the same, continues to have cough wheezing shortness of breath. 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 Apparently cardiology reviewed her echocardiogram, and based on that note not too much concerned about her pericardial effusion and thromboses and the pericardial effusion nonetheless I will recommend anticoagulation therapy on this patient possibly lifetime considering the findings on her lower extremities ultrasound in the meantime I'm recommending we continue bronchodilators for her underlying active COPD. Vascular is still interested obtaining the possibility of angiogram. Patient was reevaluated today on 05/05/2023, patient had a right lower extremity angiogram today, and she was found to have some mild atherosclerosis, mostly in the right superficial femoral artery. Also had some mild plaque formation in the popliteal artery. She was found to have small caliber distal blood vessels/anterior tibial posterior tibial but these vessels were patent. Pulmonary-loo the patient continues to have intermittent cough and wheezing, remains on the present course of bronchodilators, not quite ready for discharge planning Reevaluated today on 05/06/2023, not much of a change, patient is about the same, continues to have intermittent cough wheezing and shortness of breath. Remains on 5 L nasal cannula with O2 saturations ranging between 90-92% at best. Patient is maximized on bronchodilators and steroids, not quite ready for discharge planning. Patient is on DuoNeb, methylprednisolone 60 every 6 hours, she is also on Symbicort. As far as her anticoagulation therapy, patient is now on eliquis at 5 mg twice a day she was found to have chronic deep vein thrombosis. Progress note dated 05/07/2023. The patient is seen today in room 364. She currently is on 5 L nasal cannula. Saturations are 93%. She's not receiving any IV fluids. The patient's Symbicort be converted over to Pulmicort, and formoterol. No new labs on this patient other than a glucose of 105. No recent chest x-rays on this patient. Blood cultures have been negative. The patient continues on albuterol, ipratropium bromide, and Solu-Medrol. The patient is seen today 05/08/2023 in follow-up on the regular medical floor. She is currently resting fairly comfortably in bed. Awake and alert in no acute distress. Requiring 5 L high flow nasal cannula to maintain O2 saturations in the 90s. Still with some scattered rhonchi and wheeze. She has been slow to progress. Blood sugar 135. Continued on DuoNeb inhalations, Pulmicort and Perforomist inhalations, IV Solu-Medrol. Objective - Vital Signs Vital signs: Vital Signs Temp 97.4 F L 05/08/23 07:45 Pulse 71 05/08/23 07:45 Resp 16 05/08/23 07:45 BP 131/75 05/08/23 07:45 Pulse Ox 97 05/08/23 08:43 FiO2 Intake & Output 05/07/23 05/08/23 05/08/23 18:59 06:59 18:59 Intake Total 138 10 Balance 138 10 Weight 52.163 kg Intake: IV 20 10 Invasive Line 2 20 10 Oral 118 Other: Voiding Method Incontinent Incontinent # Voids 1 1 3 - Exam GENERAL EXAM: Alert, 72-year-old female, on 5 L nasal cannula, comfortable in no apparent distress. HEAD: Normocephalic. EYES: Normal reaction of pupils, equal size. NOSE: Clear with pink turbinates. THROAT: No erythema or exudates. NECK: No masses, no JVD. CHEST: No chest wall deformity. LUNGS: Equal air entry with bilateral wheeze, scattered rhonchi. CVS: S1 and S2 normal with no audible murmur, regular rhythm. ABDOMEN: No hepatosplenomegaly, normal bowel sounds, no guarding or rigidity. SPINE: No scoliosis or deformity SKIN: No rashes CENTRAL NERVOUS SYSTEM: No focal deficits, tone is normal in all 4 extremities. EXTREMITIES: There is no peripheral edema. Peripheral pulses are intact. - Labs CBC & Chem 7: 05/06/23 09:41 05/06/23 09:41 Labs: Abnormal Lab Results - Last 24 Hours (Table) 05/07/23 05/08/23 Range/Units 20:03 07:49 POC Glucose (mg/dL) 116 H 135 H (70-110) mg/dL Assessment and Plan Assessment: Acute exacerbation of chronic obstructive pulmonary disease Chest pain in a patient found to have a moderate pericardial effusion with possible thrombus Acute renal failure, improving, current creatinine 1.54 Peripheral vascular disease with chronic DVT, anticoagulated with Eliquis History of chronic tobacco dependence of over 50 years however quit less than 1 year ago Severe oxygen dependent chronic obstructive pulmonary disease wearing 5 L/m per nasal cannula 28/05 Hypothyroidism History of breast cancer History of cervical cancer Osteoarthritis History of anxiety/depression Plan: The patient was seen and evaluated Labs and medications reviewed Continue Symbicort, DuoNeb inhalations, Solu-Medrol May need bronchoscopy if not much improvement Follow-up chest x-ray pending DO NOT RESUSCITATE/DO NOT INTUBATE CODE STATUS We will continue to follow I have personally seen and examined the patient, performed the documentation and the assessment and plan as written. Number of minutes spent on the visit: 10.
--- NOTE | 2023-05-08 12:07 | XR ---
EXAMINATION TYPE: XR chest 1V portable DATE OF EXAM: 05/08/2023 COMPARISON: 05/01/2023 INDICATION: COPD TECHNIQUE: Frontal and lateral views of the chest are obtained. FINDINGS: The heart size is normal. The pulmonary vasculature is normal. Mild subsegmental atelectasis at the left base.. Minimal subsegmental atelectasis of the right diaph ragm may be present. Old left humeral fracture repair is evident. IMPRESSION: 1. Mild bibasilar subsegmental atelectasis.
[2023-05-08 12:19] LABS: Glucose,Whole Blood 141 mg/dL (70-110)
--- NOTE | 2023-05-08 13:27 | P.PN ---
Subjective Progress Note Date: 05/08/23 This is a 72-year-old female presented to the hospital with a chief complaint of chest pain and shortness of breath. She is currently being treated for COPD exacerbation. She is receiving IV steroids. . She has been evaluated by vascular surgery for discoloration in her toes. She remains on IV heparin. Echocardiogram completed revealing ejection fraction 50-55% with moderate size pericardial effusion with evidence of some fibrinous material and probably some thrombus as well and the effusion. 05/05. Patient seen and examined. Still has shortness of breath. Continues to be on 5 L of oxygen. Patient has right lower extremity angiogram done today 05/06. Patient seen and examined. Continues to cough and shortness of breath at rest as well as exertion. Still complaining of lethargy and weakness, states she is not ready to go home 05/07. Patient seen and examined. States she is not ready to be discharged. States she gets short of breath on exertion. 05/08. Patient seen and examined. States she remains unchanged compared to yesterday. Still has shortness of breath. Vital signs stable REVIEW OF SYSTEMS: CONSTITUTIONAL: No fever, no malaise,. CARDIOVASCULAR: No chest pain, no palpitations, no syncope. PULMONARY: c/o of shortness of breath and cough GASTROINTESTINAL: No diarrhea, no nausea, no vomiting, no abdominal pain. NEUROLOGICAL: No headaches, no weakness, PHYSICAL EXAMINATION: GENERAL: The patient is alert and oriented x3, not in any acute distress. Well developed, well nourished. HEENT: Pupils are round and equally reacting to light. EOMI. No scleral icterus. No conjunctival pallor. Normocephalic, atraumatic. No pharyngeal erythema. No thyromegaly. CARDIOVASCULAR: S1 and S2 present. No murmurs, rubs, or gallops. PULMONARY: Coarse breath some bilaterally, expiratory wheeze audible ABDOMEN: Soft, nontender, nondistended, normoactive bowel sounds. No palpable organomegaly. MUSCULOSKELETAL: No joint swelling or deformity. EXTREMITIES: No cyanosis, clubbing, or pedal edema. NEUROLOGICAL: Gross neurological examination did not reveal any focal deficits. SKIN: No rashes. Assessment and plan Chest pain, acute coronary syndrome ruled out Acute COPD exacerbation Acute kidney injury Moderate pericardial effusion without evidence of tamponade with fibrinous material and probably some thrombus as well within the effusion Peripheral vascular disease, on IV heparin Chronic DVT Monitor vital signs Monitor CBC Monitor CMP Continue telemetry monitoring Continue breathing treatment Continue IV Solu-Medrol Continue Norvasc Continue Eliquis for her peripheral vascular disease Cardiology recommended no anticoagulation for her echocardiogram findings Follow-up on pulmonary recs, recommend oral anticoagulation for which she was started on Eliquis for chronic deep vein thrombosis DVT prophylaxis: Objective - Vital Signs Vital signs: Vital Signs Temp 98.1 F 05/08/23 11:41 Pulse 84 05/08/23 11:41 Resp 16 05/08/23 11:41 BP 130/78 05/08/23 11:41 Pulse Ox 95 05/08/23 11:41 FiO2 Intake & Output 05/07/23 05/08/23 05/08/23 18:59 06:59 18:59 Intake Total 138 10 Balance 138 10 Weight 52.163 kg Intake: IV 20 10 Invasive Line 2 20 10 Oral 118 Other: Voiding Method Incontinent Incontinent Incontinent # Voids 1 1 3 - Labs CBC & Chem 7: 05/06/23 09:41 05/06/23 09:41 Labs: Abnormal Lab Results - Last 24 Hours (Table) 05/07/23 05/08/23 05/08/23 Range/Units 20:03 07:49 12:15 POC Glucose (mg/dL) 116 H 135 H 141 H (70-110) mg/dL
[2023-05-08 17:34] LABS: Glucose,Whole Blood 130 mg/dL (70-110)
[2023-05-08 20:49] LABS: Glucose,Whole Blood 141 mg/dL (70-110)
[2023-05-08] MEDS: traZODone HCL 50 MG TAB PO SCH (21:46)
[2023-05-09] MEDS: methylPREDNISolone SOD SUCCI 125 MG/2 ML VIAL IV SCH (05:12)
[2023-05-09] MEDS: BUDESONIDE 1 MG/2 ML NEBU INHALATION SCH (07:46)
[2023-05-09] MEDS: IPRATROPIUM-ALBUTEROL 3 ML NEB INHALATION SCH ×4 (07:46→21:11)
[2023-05-09 07:51] LABS: Glucose,Whole Blood 119 mg/dL (70-110)
[2023-05-09] MEDS: FORMOTEROL FUMARATE 20 MCG/2 ML NEBU INHALATION SCH (08:13)
[2023-05-09] MEDS: predniSONE 20 MG TAB PO SCH (09:00)
[2023-05-09] MEDS: diphenhydrAMINE 50 MG CAP PO SCH ×2 (09:01→22:19)
[2023-05-09] MEDS: APIXABAN 5 MG TAB PO SCH ×2 (09:01→22:19)
[2023-05-09] MEDS: amLODIPine 10 MG TAB PO SCH (09:01)
[2023-05-09] MEDS: NYSTATIN 100,000 UNIT/ML SUSP 500,000 UNIT/5 ML CUP PO SCH ×4 (09:01→22:20)
[2023-05-09] MEDS: ACETAMINOPHEN TAB 500 MG TAB PO SCH ×2 (09:01→22:18)
[2023-05-09 11:05] LABS: HCT 40.3 % (37.2-46.3); HGB 12.8 d/dL (12.0-15.0); MCH 30.6 pg (27.0-32.0); MCHC 31.8 d/dL (32.0-37.0); MCV 96.4 FL (80.0-97.0); Mean Platelet Volume 9.3 FL (9.5-12.2); NRBC Per 100 WBC 0.03 X 10*3/uL (0.00-0.01); Platelet Count 586 X 10*3/uL (140-440); RBC 4.18 X 10*6/uL (4.10-5.20); RDW 15.8 % (11.5-14.5); WBC 17.43 X 10*3/uL (4.50-10.00)
[2023-05-09 11:17] LABS: BUN/Creat Ratio 25.33 Ratio (12.00-20.00); Blood Urea Nitrogen 45.6 mg/dL (9.0-27.0); Calcium 8.8 mg/dL (8.7-10.3); Carbon Dioxide 24.4 mmol/L (21.6-31.8); Chloride 96 mmol/L (96-109); Glucose 110 mg/dL (70-110); Potassium 5.9 mmol/L (3.5-5.5); Sodium 133 mmol/L (135-145)
[2023-05-09 11:34] LABS: Basophils # (M) 0 X 10*3/uL (0.00-0.10); Eosinophils # (M) 0 X 10*3/uL (0.04-0.35); Lymphocytes # (M) 0.87 X 10*3/uL (0.90-5.00); Metamyelocytes % 2 % (0-0); Monocytes # (M) 0.35 X 10*3/uL (0.20-1.00); Myelocytes % 4 % (0-0); Neutrophils # (M) 15.16 X 10*3/uL (1.80-7.70); Neutrophils % (M) 87 %; RBC Morphology Normal (Normal)
--- NOTE | 2023-05-09 11:47 | P.PN ---
Subjective Progress Note Date: 05/09/23 Reevaluated today on 05/04/2023, patient is basically about the same, continues to have cough wheezing shortness of breath. 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 Apparently cardiology reviewed her echocardiogram, and based on that note not too much concerned about her pericardial effusion and thromboses and the pericardial effusion nonetheless I will recommend anticoagulation therapy on this patient possibly lifetime considering the findings on her lower extremities ultrasound in the meantime I'm recommending we continue bronchodilators for her underlying active COPD. Vascular is still interested obtaining the possibility of angiogram. Patient was reevaluated today on 05/05/2023, patient had a right lower extremity angiogram today, and she was found to have some mild atherosclerosis, mostly in the right superficial femoral artery. Also had some mild plaque formation in the popliteal artery. She was found to have small caliber distal blood vessels/anterior tibial posterior tibial but these vessels were patent. Pulmonary-loo the patient continues to have intermittent cough and wheezing, remains on the present course of bronchodilators, not quite ready for discharge planning Reevaluated today on 05/06/2023, not much of a change, patient is about the same, continues to have intermittent cough wheezing and shortness of breath. Remains on 5 L nasal cannula with O2 saturations ranging between 90-92% at best. Patient is maximized on bronchodilators and steroids, not quite ready for discharge planning. Patient is on DuoNeb, methylprednisolone 60 every 6 hours, she is also on Symbicort. As far as her anticoagulation therapy, patient is now on eliquis at 5 mg twice a day she was found to have chronic deep vein thrombosis. Progress note dated 05/07/2023. The patient is seen today in room 364. She currently is on 5 L nasal cannula. Saturations are 93%. She's not receiving any IV fluids. The patient's Symbicort be converted over to Pulmicort, and formoterol. No new labs on this patient other than a glucose of 105. No recent chest x-rays on this patient. Blood cultures have been negative. The patient continues on albuterol, ipratropium bromide, and Solu-Medrol. The patient is seen today 05/08/2023 in follow-up on the regular medical floor. She is currently resting fairly comfortably in bed. Awake and alert in no acute distress. Requiring 5 L high flow nasal cannula to maintain O2 saturations in the 90s. Still with some scattered rhonchi and wheeze. She has been slow to progress. Blood sugar 135. Continued on DuoNeb inhalations, Pulmicort and Perforomist inhalations, IV Solu-Medrol. The patient is seen today 05/09/2023 in follow-up on the regular medical floor. She is feeling better today compared to yesterday. She is maintaining O2 saturations in the 90s on 4 L/m per nasal cannula. She considers continues with a cough. No phlegm production. No IV fluids. She is continued on Pulmicort and Perforomist inhalations, DuoNeb inhalations, Solu-Medrol. Anticoagulated with Eliquis. White count 17.4. Hemoglobin 12.8. Platelets 586. Sodium 133. Potassium 5.9. Bicarb 24. BUN 35. Creatinine 1.8. Glucose 110. Objective - Vital Signs Vital signs: Vital Signs Temp 98.1 F 05/09/23 07:45 Pulse 82 05/09/23 08:14 Resp 16 05/09/23 07:45 BP 141/82 05/09/23 07:45 Pulse Ox 96 05/09/23 08:15 FiO2 Intake & Output 05/08/23 05/09/23 05/09/23 18:59 06:59 18:59 Intake Total 360 Balance 360 Intake: Oral 360 Other: Voiding Method Incontinent Incontinent Incontinent # Voids 1 1 4 - Exam GENERAL EXAM: Alert, oriented, pleasant 72-year-old female, on 4 L nasal cannula, comfortable in no apparent distress. HEAD: Normocephalic. EYES: Normal reaction of pupils, equal size. NOSE: Clear with pink turbinates. THROAT: No erythema or exudates. NECK: No masses, no JVD. CHEST: No chest wall deformity. LUNGS: Equal air entry with bilateral wheeze, scattered rhonchi. CVS: S1 and S2 normal with no audible murmur, regular rhythm. ABDOMEN: No hepatosplenomegaly, normal bowel sounds, no guarding or rigidity. SPINE: No scoliosis or deformity SKIN: No rashes CENTRAL NERVOUS SYSTEM: No focal deficits, tone is normal in all 4 extremities. EXTREMITIES: There is no peripheral edema. Peripheral pulses are intact. - Labs CBC & Chem 7: 05/09/23 06:25 05/09/23 06:25 Labs: Abnormal Lab Results - Last 24 Hours (Table) 05/08/23 05/08/23 05/08/23 Range/Units 12:15 17:20 20:48 WBC (4.50-10.00) X 10*3/uL MCHC (32.0-37.0) d/dL RDW (11.5-14.5) % Plt Count (140-440) X 10*3/uL MPV (9.5-12.2) FL Lymphocytes # (Manual) (0.90-5.00) X 10*3/uL Eosinophils # (Manual) (0.04-0.35) X 10*3/uL NRBC/100 WBC Diff (0.00-0.01) X 10*3/uL Sodium (135-145) mmol/L Potassium (3.5-5.5) mmol/L Anion Gap (4.00-12.00) mmol/L BUN (9.0-27.0) mg/dL Creatinine (0.6-1.5) mg/dL Est GFR (CKD-EPI) (>=60) BUN/Creatinine Ratio (12.00-20.00) Ratio POC Glucose (mg/dL) 141 H 130 H 141 H (70-110) mg/dL 05/09/23 05/09/23 05/09/23 Range/Units 06:25 06:25 07:47 WBC 17.43 H (4.50-10.00) X 10*3/uL MCHC 31.8 L (32.0-37.0) d/dL RDW 15.8 H (11.5-14.5) % Plt Count 586 H (140-440) X 10*3/uL MPV 9.3 L (9.5-12.2) FL Lymphocytes # (Manual) 0.87 L (0.90-5.00) X 10*3/uL Eosinophils # (Manual) 0 L (0.04-0.35) X 10*3/uL NRBC/100 WBC Diff 0.03 H (0.00-0.01) X 10*3/uL Sodium 133 L (135-145) mmol/L Potassium 5.9 H (3.5-5.5) mmol/L Anion Gap 12.60 H (4.00-12.00) mmol/L BUN 45.6 H (9.0-27.0) mg/dL Creatinine 1.8 H (0.6-1.5) mg/dL Est GFR (CKD-EPI) 29 L (>=60) BUN/Creatinine Ratio 25.33 H (12.00-20.00) Ratio POC Glucose (mg/dL) 119 H (70-110) mg/dL Assessment and Plan Assessment: Acute exacerbation of chronic obstructive pulmonary disease or follow-up chest x-ray reveals mild bibasilar subsegmental atelectasis. No acute process. Chest pain in a patient found to have a moderate pericardial effusion with po ssible thrombus Acute renal failure, current creatinine 1.8 Peripheral vascular disease with chronic DVT, anticoagulated with Eliquis History of chronic tobacco dependence of over 50 years however quit less than 1 year ago Severe oxygen dependent chronic obstructive pulmonary disease wearing 5 L/m per nasal cannula 28/05 Hypothyroidism History of breast cancer History of cervical cancer Osteoarthritis History of anxiety/depression Plan: The patient was seen and evaluated Chest x-ray, labs and medications reviewed Continue Symbicort, DuoNeb inhalations, prednisone Titrate down the FiO2 as tolerated The patient is feeling better, no plans for bronchoscopy DO NOT RESUSCITATE/DO NOT INTUBATE CODE STATUS We will continue to follow I have personally seen and examined the patient, performed the documentation and the assessment and plan as written. Number of minutes spent on the visit: 10.
[2023-05-09 12:09] LABS: Glucose,Whole Blood 118 mg/dL (70-110)
--- NOTE | 2023-05-09 15:15 | P.PN ---
Subjective Progress Note Date: 05/09/23 This is a 72-year-old female presented to the hospital with a chief complaint of chest pain and shortness of breath. She is currently being treated for COPD exacerbation. She is receiving IV steroids. . She has been evaluated by vascular surgery for discoloration in her toes. She remains on IV heparin. Echocardiogram completed revealing ejection fraction 50-55% with moderate size pericardial effusion with evidence of some fibrinous material and probably some thrombus as well and the effusion. 05/05. Patient seen and examined. Still has shortness of breath. Continues to be on 5 L of oxygen. Patient has right lower extremity angiogram done today 05/06. Patient seen and examined. Continues to cough and shortness of breath at rest as well as exertion. Still complaining of lethargy and weakness, states she is not ready to go home 05/07. Patient seen and examined. States she is not ready to be discharged. States she gets short of breath on exertion. 05/08. Patient seen and examined. States she remains unchanged compared to yesterday. Still has shortness of breath. Vital signs stable 05/09. Patient seen and examined. States she is not ready to go home yet. States she still gets short of breath on exertion. REVIEW OF SYSTEMS: CONSTITUTIONAL: No fever, no malaise,. CARDIOVASCULAR: No chest pain, no palpitations, no syncope. PULMONARY: c/o of shortness of breath and cough GASTROINTESTINAL: No diarrhea, no nausea, no vomiting, no abdominal pain. NEUROLOGICAL: No headaches, no weakness, PHYSICAL EXAMINATION: GENERAL: The patient is alert and oriented x3, not in any acute distress. Well developed, well nourished. HEENT: Pupils are round and equally reacting to light. EOMI. No scleral icterus. No conjunctival pallor. Normocephalic, atraumatic. No pharyngeal erythema. No thyromegaly. CARDIOVASCULAR: S1 and S2 present. No murmurs, rubs, or gallops. PULMONARY: Coarse breath some bilaterally, expiratory wheeze audible ABDOMEN: Soft, nontender, nondistended, normoactive bowel sounds. No palpable organomegaly. MUSCULOSKELETAL: No joint swelling or deformity. EXTREMITIES: No cyanosis, clubbing, or pedal edema. NEUROLOGICAL: Gross neurological examination did not reveal any focal deficits. SKIN: No rashes. Assessment and plan Chest pain, acute coronary syndrome ruled out Acute COPD exacerbation Acute kidney injury Moderate pericardial effusion without evidence of tamponade with fibrinous material and probably some thrombus as well within the effusion Peripheral vascular disease, on IV heparin Chronic DVT Monitor vital signs Monitor CBC Monitor CMP Continue telemetry monitoring Continue breathing treatment Continue prednisone Continue Norvasc Continue Eliquis for her peripheral vascular disease Cardiology recommended no anticoagulation for her echocardiogram findings Follow-up on pulmonary recs, recommend oral anticoagulation for which she was started on Eliquis for chronic deep vein thrombosis DVT prophylaxis: Objective - Vital Signs Vital signs: Vital Signs Temp 97.3 F L 05/09/23 11:48 Pulse 83 05/09/23 12:11 Resp 16 05/09/23 11:48 BP 152/90 05/09/23 11:48 Pulse Ox 93 L 05/09/23 11:48 FiO2 Intake & Output 05/08/23 05/09/23 05/09/23 18:59 06:59 18:59 Intake Total 360 Balance 360 Intake: Oral 360 Other: Voiding Method Incontinent Incontinent Incontinent # Voids 1 1 4 - Labs CBC & Chem 7: 05/09/23 06:25 05/09/23 06:25 Labs: Abnormal Lab Results - Last 24 Hours (Table) 05/08/23 05/08/23 05/09/23 Range/Units 17:20 20:48 06:25 WBC 17.43 H (4.50-10.00) X 10*3/uL MCHC 31.8 L (32.0-37.0) d/dL RDW 15.8 H (11.5-14.5) % Plt Count 586 H (140-440) X 10*3/uL MPV 9.3 L (9.5-12.2) FL Neutrophils # (Manual) 15.16 H (1.80-7.70) X 10*3/uL Lymphocytes # (Manual) 0.87 L (0.90-5.00) X 10*3/uL Eosinophils # (Manual) 0 L (0.04-0.35) X 10*3/uL NRBC/100 WBC Diff 0.03 H (0.00-0.01) X 10*3/uL Sodium (135-145) mmol/L Potassium (3.5-5.5) mmol/L Anion Gap (4.00-12.00) mmol/L BUN (9.0-27.0) mg/dL Creatinine (0.6-1.5) mg/dL Est GFR (CKD-EPI) (>=60) BUN/Creatinine Ratio (12.00-20.00) Ratio POC Glucose (mg/dL) 130 H 141 H (70-110) mg/dL 05/09/23 05/09/23 05/09/23 Range/Units 06:25 07:47 11:50 WBC (4.50-10.00) X 10*3/uL MCHC (32.0-37.0) d/dL RDW (11.5-14.5) % Plt Count (140-440) X 10*3/uL MPV (9.5-12.2) FL Neutrophils # (Manual) (1.80-7.70) X 10*3/uL Lymphocytes # (Manual) (0.90-5.00) X 10*3/uL Eosinophils # (Manual) (0.04-0.35) X 10*3/uL NRBC/100 WBC Diff (0.00-0.01) X 10*3/uL Sodium 133 L (135-145) mmol/L Potassium 5.9 H (3.5-5.5) mmol/L Anion Gap 12.60 H (4.00-12.00) mmol/L BUN 45.6 H (9.0-27.0) mg/dL Creatinine 1.8 H (0.6-1.5) mg/dL Est GFR (CKD-EPI) 29 L (>=60) BUN/Creatinine Ratio 25.33 H (12.00-20.00) Ratio POC Glucose (mg/dL) 119 H 118 H (70-110) mg/dL
[2023-05-09 17:25] LABS: Glucose,Whole Blood 153 mg/dL (70-110)
[2023-05-09] MEDS ORDERED: MAGNESIUM HYDROXIDE 2,400 MG/30 ML CUP PO PRN (20:10)
[2023-05-09 20:48] LABS: Glucose,Whole Blood 205 mg/dL (70-110)
[2023-05-09] MEDS: SYMBICORT 160-4.5 MCG INHALER INHALATION SCH (21:11)
[2023-05-09] MEDS: DOCUSATE 100 MG CAP PO SCH (22:17)
[2023-05-09] MEDS: traZODone HCL 50 MG TAB PO SCH (22:19)
[2023-05-10 07:43] LABS: Glucose,Whole Blood 76 mg/dL (70-110)
[2023-05-10] MEDS: IPRATROPIUM-ALBUTEROL 3 ML NEB INHALATION SCH ×4 (08:22→21:01)
[2023-05-10] MEDS: SYMBICORT 160-4.5 MCG INHALER INHALATION SCH ×2 (08:22→21:01)
[2023-05-10] MEDS: NYSTATIN 100,000 UNIT/ML SUSP 500,000 UNIT/5 ML CUP PO SCH ×5 (09:58→21:09)
[2023-05-10] MEDS: DOCUSATE 100 MG CAP PO SCH (09:58)
[2023-05-10] MEDS: diphenhydrAMINE 50 MG CAP PO SCH ×2 (09:59→21:06)
[2023-05-10] MEDS: predniSONE 20 MG TAB PO SCH (09:59)
[2023-05-10] MEDS: amLODIPine 10 MG TAB PO SCH (09:59)
[2023-05-10] MEDS: APIXABAN 5 MG TAB PO SCH ×2 (09:59→21:06)
[2023-05-10] MEDS: ACETAMINOPHEN TAB 500 MG TAB PO SCH ×2 (10:03→21:06)
[2023-05-10 11:41] LABS: Glucose,Whole Blood 97 mg/dL (70-110)
--- NOTE | 2023-05-10 12:29 | P.PN ---
Subjective Progress Note Date: 05/10/23 Reevaluated today on 05/04/2023, patient is basically about the same, continues to have cough wheezing shortness of breath. 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 Apparently cardiology reviewed her echocardiogram, and based on that note not too much concerned about her pericardial effusion and thromboses and the pericardial effusion nonetheless I will recommend anticoagulation therapy on this patient possibly lifetime considering the findings on her lower extremities ultrasound in the meantime I'm recommending we continue bronchodilators for her underlying active COPD. Vascular is still interested obtaining the possibility of angiogram. Patient was reevaluated today on 05/05/2023, patient had a right lower extremity angiogram today, and she was found to have some mild atherosclerosis, mostly in the right superficial femoral artery. Also had some mild plaque formation in the popliteal artery. She was found to have small caliber distal blood vessels/anterior tibial posterior tibial but these vessels were patent. Pulmonary-loo the patient continues to have intermittent cough and wheezing, remains on the present course of bronchodilators, not quite ready for discharge planning Reevaluated today on 05/06/2023, not much of a change, patient is about the same, continues to have intermittent cough wheezing and shortness of breath. Remains on 5 L nasal cannula with O2 saturations ranging between 90-92% at best. Patient is maximized on bronchodilators and steroids, not quite ready for discharge planning. Patient is on DuoNeb, methylprednisolone 60 every 6 hours, she is also on Symbicort. As far as her anticoagulation therapy, patient is now on eliquis at 5 mg twice a day she was found to have chronic deep vein thrombosis. Progress note dated 05/07/2023. The patient is seen today in room 364. She currently is on 5 L nasal cannula. Saturations are 93%. She's not receiving any IV fluids. The patient's Symbicort be converted over to Pulmicort, and formoterol. No new labs on this patient other than a glucose of 105. No recent chest x-rays on this patient. Blood cultures have been negative. The patient continues on albuterol, ipratropium bromide, and Solu-Medrol. The patient is seen today 05/08/2023 in follow-up on the regular medical floor. She is currently resting fairly comfortably in bed. Awake and alert in no acute distress. Requiring 5 L high flow nasal cannula to maintain O2 saturations in the 90s. Still with some scattered rhonchi and wheeze. She has been slow to progress. Blood sugar 135. Continued on DuoNeb inhalations, Pulmicort and Perforomist inhalations, IV Solu-Medrol. The patient is seen today 05/09/2023 in follow-up on the regular medical floor. She is feeling better today compared to yesterday. She is maintaining O2 saturations in the 90s on 4 L/m per nasal cannula. She considers continues with a cough. No phlegm production. No IV fluids. She is continued on Pulmicort and Perforomist inhalations, DuoNeb inhalations, Solu-Medrol. Anticoagulated with Eliquis. White count 17.4. Hemoglobin 12.8. Platelets 586. Sodium 133. Potassium 5.9. Bicarb 24. BUN 35. Creatinine 1.8. Glucose 110. The patient is seen today 05/10/2020 follow-up on the regular medical floor. She is currently sitting up in bed. Awake and alert in no acute distress. He is maintaining good O2 saturations in the mid 90s on 4 L/m per nasal cannula. Current blood sugar 97. The cultures are revealing no growth. Currently on DuoNeb inhalations, Symbicort, prednisone taper. Anticoagulated with Eliquis. Objective - Vital Signs Vital signs: Vital Signs Temp 97.3 F L 05/10/23 07:25 Pulse 76 05/10/23 11:59 Resp 20 05/10/23 08:00 BP 132/83 05/10/23 07:25 Pulse Ox 96 05/10/23 08:23 FiO2 Intake & Output 05/09/23 05/10/23 05/10/23 18:59 06:59 18:59 Other: Voiding Method Incontinent Incontinent Incontinent # Voids 1 1 - Exam GENERAL EXAM: Alert, 72-year-old female, on 4 L nasal cannula, comfortable in no apparent distress. HEAD: Normocephalic. EYES: Normal reaction of pupils, equal size. NOSE: Clear with pink turbinates. THROAT: No erythema or exudates. NECK: No masses, no JVD. CHEST: No chest wall deformity. LUNGS: Equal air entry with bilateral wheeze, scattered rhonchi. CVS: S1 and S2 normal with no audible murmur, regular rhythm. ABDOMEN: No hepatosplenomegaly, normal bowel sounds, no guarding or rigidity. SPINE: No scoliosis or deformity SKIN: No rashes CENTRAL NERVOUS SYSTEM: No focal deficits, tone is normal in all 4 extremities. EXTREMITIES: There is no peripheral edema. Peripheral pulses are intact. - Labs CBC & Chem 7: 05/09/23 06:25 05/09/23 06:25 Labs: Abnormal Lab Results - Last 24 Hours (Table) 05/09/23 05/09/23 05/09/23 Range/Units 06:25 17:23 20:44 Neutrophils # (Manual) 15.16 H (1.80-7.70) X 10*3/uL POC Glucose (mg/dL) 153 H 205 H (70-110) mg/dL Assessment and Plan Assessment: Acute exacerbation of chronic obstructive pulmonary disease or follow-up chest x-ray reveals mild bibasilar subsegmental atelectasis. No acute process. Chest pain in a patient found to have a moderate pericardial effusion with possible thrombus Acute renal failure, current creatinine 1.8 Peripheral vascular disease with chronic DVT, anticoagulated with Eliquis History of chronic tobacco dependence of over 50 years however quit less than 1 year ago Severe oxygen dependent chronic obstructive pulmonary disease wearing 5 L/m per nasal cannula 28/05 Hypothyroidism History of breast cancer History of cervical cancer Osteoarthritis History of anxiety/depression Plan: The patient was seen and evaluated Medications reviewed Titrate down the FiO2 as tolerated The patient is cleared for discharge from the pulmonary standpoint Continue Symbicort, albuterol HFA, DuoNeb inhalations, prednisone Would recommend follow-up in our office in 1-2 weeks' I have personally seen and examined the patient, performed the documentation and the assessment and plan as written. Number of minutes spent on the visit: 10.
[2023-05-10 17:34] LABS: Glucose,Whole Blood 138 mg/dL (70-110)
[2023-05-10 20:05] LABS: Glucose,Whole Blood 185 mg/dL (70-110)
[2023-05-10] MEDS: traZODone HCL 50 MG TAB PO SCH (21:06)
--- NOTE | 2023-05-10 22:27 | PN ---
PROGRESS NOTE DIAGNOSIS: Chronic obstructive pulmonary disease. HISTORY OF PRESENT ILLNESS: This is a lady who continues to be quite dyspneic, but is slowly improving. PHYSICAL EXAMINATION: VITAL SIGNS: Normal. She is afebrile. LUNGS: Breath sounds are diminished and she still has occasional rales and occasional rhonchi. CARDIAC: Normal. IMPRESSION: Exacerbation of chronic obstructive pulmonary disease. PLAN: Continue with inpatient management until arrangements could be set up for her safe discharge. MMODL / IJN: [id number] /
[2023-05-11 07:37] LABS: Glucose,Whole Blood 84 mg/dL (70-110)
[2023-05-11] MEDS: IPRATROPIUM-ALBUTEROL 3 ML NEB INHALATION SCH ×3 (08:06→15:13)
[2023-05-11] MEDS: SYMBICORT 160-4.5 MCG INHALER INHALATION SCH (08:06)
[2023-05-11] MEDS: DOCUSATE 100 MG CAP PO SCH (08:10)
[2023-05-11] MEDS: amLODIPine 10 MG TAB PO SCH (08:10)
[2023-05-11] MEDS: APIXABAN 5 MG TAB PO SCH (08:10)
[2023-05-11] MEDS: ACETAMINOPHEN TAB 500 MG TAB PO SCH (08:10)
[2023-05-11] MEDS: diphenhydrAMINE 50 MG CAP PO SCH (08:11)
[2023-05-11] MEDS: NYSTATIN 100,000 UNIT/ML SUSP 500,000 UNIT/5 ML CUP PO SCH ×3 (08:11→17:32)
[2023-05-11] MEDS: predniSONE 20 MG TAB PO SCH (08:11)
[2023-05-11 12:12] LABS: Glucose,Whole Blood 109 mg/dL (70-110)
[2023-05-11 12:39] VITALS: BMI 23.8
--- NOTE | 2023-05-11 13:22 | P.PN ---
Subjective Progress Note Date: 05/11/23 Reevaluated today on 05/04/2023, patient is basically about the same, continues to have cough wheezing shortness of breath. 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 Apparently cardiology reviewed her echocardiogram, and based on that note not too much concerned about her pericardial effusion and thromboses and the pericardial effusion nonetheless I will recommend anticoagulation therapy on this patient possibly lifetime considering the findings on her lower extremities ultrasound in the meantime I'm recommending we continue bronchodilators for her underlying active COPD. Vascular is still interested obtaining the possibility of angiogram. Patient was reevaluated today on 05/05/2023, patient had a right lower extremity angiogram today, and she was found to have some mild atherosclerosis, mostly in the right superficial femoral artery. Also had some mild plaque formation in the popliteal artery. She was found to have small caliber distal blood vessels/anterior tibial posterior tibial but these vessels were patent. Pulmonary-loo the patient continues to have intermittent cough and wheezing, remains on the present course of bronchodilators, not quite ready for discharge planning Reevaluated today on 05/06/2023, not much of a change, patient is about the same, continues to have intermittent cough wheezing and shortness of breath. Remains on 5 L nasal cannula with O2 saturations ranging between 90-92% at best. Patient is maximized on bronchodilators and steroids, not quite ready for discharge planning. Patient is on DuoNeb, methylprednisolone 60 every 6 hours, she is also on Symbicort. As far as her anticoagulation therapy, patient is now on eliquis at 5 mg twice a day she was found to have chronic deep vein thrombosis. Progress note dated 05/07/2023. The patient is seen today in room 364. She currently is on 5 L nasal cannula. Saturations are 93%. She's not receiving any IV fluids. The patient's Symbicort be converted over to Pulmicort, and formoterol. No new labs on this patient other than a glucose of 105. No recent chest x-rays on this patient. Blood cultures have been negative. The patient continues on albuterol, ipratropium bromide, and Solu-Medrol. The patient is seen today 05/08/2023 in follow-up on the regular medical floor. She is currently resting fairly comfortably in bed. Awake and alert in no acute distress. Requiring 5 L high flow nasal cannula to maintain O2 saturations in the 90s. Still with some scattered rhonchi and wheeze. She has been slow to progress. Blood sugar 135. Continued on DuoNeb inhalations, Pulmicort and Perforomist inhalations, IV Solu-Medrol. The patient is seen today 05/09/2023 in follow-up on the regular medical floor. She is feeling better today compared to yesterday. She is maintaining O2 saturations in the 90s on 4 L/m per nasal cannula. She considers continues with a cough. No phlegm production. No IV fluids. She is continued on Pulmicort and Perforomist inhalations, DuoNeb inhalations, Solu-Medrol. Anticoagulated with Eliquis. White count 17.4. Hemoglobin 12.8. Platelets 586. Sodium 133. Potassium 5.9. Bicarb 24. BUN 35. Creatinine 1.8. Glucose 110. The patient is seen today 05/10/2020 follow-up on the regular medical floor. She is currently sitting up in bed. Awake and alert in no acute distress. He is maintaining good O2 saturations in the mid 90s on 4 L/m per nasal cannula. Current blood sugar 97. The cultures are revealing no growth. Currently on DuoNeb inhalations, Symbicort, prednisone taper. Anticoagulated with Eliquis. The patient is seen today 05/11/2023 in follow-up on the regular medical floor. She is currently resting comfortably in bed. Awake and alert in no acute distress. Maintaining good O2 saturations in the upper 90s on 3 L/m per nasal cannula. Afebrile. Hemodynamically stable. Cultures revealed no growth. Blood glucose 109. She is continued on Symbicort, DuoNeb inhalations, prednisone taper. Anticoagulated with Eliquis. Objective - Vital Signs Vital signs: Vital Signs Temp 97.8 F 05/11/23 07:25 Pulse 72 05/11/23 07:25 Resp 15 05/11/23 07:25 BP 139/80 05/11/23 07:25 Pulse Ox 98 05/11/23 07:25 FiO2 Intake & Output 05/10/23 05/11/23 05/11/23 18:59 06:59 18:59 Intake Total 590 Balance 590 Weight 53.54 kg 53.54 kg Intake: Oral 590 Other: Voiding Method Incontinent Incontinent Incontinent # Voids 1 2 1 - Exam GENERAL EXAM: Alert, 72-year-old female, on 3 L nasal cannula, comfortable in no apparent distress. HEAD: Normocephalic. EYES: Normal reaction of pupils, equal size. NOSE: Clear with pink turbinates. THROAT: No erythema or exudates. NECK: No masses, no JVD. CHEST: No chest wall deformity. LUNGS: Equal air entry with bilateral wheeze, scattered rhonchi. CVS: S1 and S2 normal with no audible murmur, regular rhythm. ABDOMEN: No hepatosplenomegaly, normal bowel sounds, no guarding or rigidity. SPINE: No scoliosis or deformity SKIN: No rashes CENTRAL NERVOUS SYSTEM: No focal deficits, tone is normal in all 4 extremities. EXTREMITIES: There is no peripheral edema. Peripheral pulses are intact. - Labs CBC & Chem 7: 05/09/23 06:25 05/09/23 06:25 Labs: Abnormal Lab Results - Last 24 Hours (Table) 05/10/23 05/10/23 Range/Units 17:33 20:04 POC Glucose (mg/dL) 138 H 185 H (70-110) mg/dL Assessment and Plan Assessment: Acute exacerbation of chronic obstructive pulmonary disease or follow-up chest x-ray reveals mild bibasilar subsegmental atelectasis. No acute process. Chest pain in a patient found to have a moderate pericardial effusion with possible thrombus Acute renal failure, current creatinine 1.8 Peripheral vascular disease with chronic DVT, anticoagulated with Eliquis History of chronic tobacco dependence of over 50 years however quit less than 1 year ago Severe oxygen dependent chronic obstructive pulmonary disease wearing 5 L/m per nasal cannula 28/05 Hypothyroidism History of breast cancer History of cervical cancer Osteoarthritis History of anxiety/depression Plan: The patient was seen and evaluated Medications reviewed Cleared for discharge from the pulmonary standpoint Continue Symbicort, albuterol HFA, DuoNeb inhalations, prednisone Follow-up in our office in 1-2 weeks' I have personally seen and examined the patient, performed the documentation and the assessment and plan as written. Number of minutes spent on the visit: 10.
[2023-05-11 19:43] VITALS: BP 137/82; PULSE 75; RESP 16; TEMP 97.5
--- NOTE | 2023-05-12 23:15 | DS ---
DISCHARGE SUMMARY CHIEF COMPLAINT: Difficulty breathing. HISTORY OF PRESENT ILLNESS AND PHYSICAL EXAMINATION: Details of this lady's history and physical can be found in the initial workup. LABORATORY STUDIES: While she was in the hospital, she had laboratory studies, details of which can be found in the laboratory section of her chart. COURSE IN THE HOSPITAL: After admission, she was placed on bedrest, started on intravenous fluids and updrafts with IV inhaled steroids. She improved very slowly, gradually, and respirations improved and she was able to move about and ambulate and was felt she could be discharged on the . She will go home on her usual activity, regular diet, and usual medications and will be followed up in the office in several days. FINAL DIAGNOSIS: Acute exacerbation of chronic obstructive pulmonary disease. OPERATIONS: None. CONSULTATIONS: None, she is improved. MMODL / IJN: [id number] /
== END 2023-05-11 20:15 | disposition home or self-care (01) | DRG 190 ==
LOC: EC 18:18 → 3SCARD 21:04 → 5NMEDONC 05-07 23:33
PROVIDERS: ADMIT Family Medicine; ATTEND Family Medicine
DX: J44.1 Chronic obstructive pulmonary disease with (acute) exacerbation (principal); J96.01 Acute respiratory failure with hypoxia; J98.11 Atelectasis; N17.9 Acute kidney failure, unspecified; I82.513 Chronic embolism and thrombosis of femoral vein, bilateral; I31.39 Other pericardial effusion (noninflammatory); I24.0 Acute coronary thrombosis not resulting in myocardial infarction; M19.90 Unspecified osteoarthritis, unspecified site; I12.9 Hypertensive chronic kidney disease with stage 1 through stage 4 chronic kidney disease, or unspecified chronic kidney disease; F41.1 Generalized anxiety disorder; I73.9 Peripheral vascular disease, unspecified; N18.9 Chronic kidney disease, unspecified; Z79.01 Long term (current) use of anticoagulants; Z80.8 Family history of malignant neoplasm of other organs or systems; E03.9 Hypothyroidism, unspecified; Z85.3 Personal history of malignant neoplasm of breast; Z85.41 Personal history of malignant neoplasm of cervix uteri; Z90.710 Acquired absence of both cervix and uterus; Z99.81 Dependence on supplemental oxygen
CPT/HCPCS: 36415; 71045; 71046; 75710; 80048; 80053; 83605; 83735; 84484; 85025; 85379; 85610; 85730; 87040; 93005; 93306; 93970; 94640; 94667; 94760; 96365; 96375; 99285

== ENCOUNTER 2023-05-15 13:38 | Inpatient (IN) | payer MEDICARE ==
--- NOTE | 2023-05-15 14:39 | ED ---
General Adult HPI - General Source: patient, family, RN notes reviewed Mode of arrival: wheelchair Limitations: no limitations <Dariusz Cabrera - Last Filed: 05/15/23 14:38> - General Source: patient, family, RN notes reviewed Mode of arrival: wheelchair Limitations: no limitations <Rc Hollis - Last Filed: 05/15/23 17:41> - General Chief complaint: Shortness of Breath Stated complaint: Dyspnea Time Seen by Provider: 05/15/23 14:38 - History of Present Illness Initial comments: 72-year-old female presents emergency Department from PCPs office for admission to to chronic shortness of breath. Patient's unable to further prescription for her inhaler. She's been having increasing shortness presents discharge of recent. Patient has oxygen dependent COPD (Dariusz Cabrera) Patient is a pleasant 72-year-old female presenting to the emergency department with difficulty breathing. Onset of symptoms was worsened the past few days. Patient has chronic COPD. Patient is having some mild chest discomfort. No significant cough. No fever. Patient did see her doctor today and was advised come the emergency department for admission. (Rc Hollis) - Related Data Home Medications Medication Instructions Recorded Confirmed Acetaminophen [Tylenol Extra 2,000 mg PO BID 05/01/23 05/15/23 Strength] diphenhydrAMINE [Benadryl] 200 mg PO BID 05/01/23 05/15/23 Previous Rx's Medication Instructions Recorded Apixaban [Eliquis] 5 mg PO BID #60 tab 05/11/23 Budesonide-Formot 160-4.5 Mcg 2 puff INHALATION RT-BID 1 Days #1 05/11/23 [Symbicort 160-4.5 Mcg Inhaler] dispenser Ipratropium-Albuterol Nebulize 3 ml INHALATION RT-QID #120 each 05/11/23 [Duoneb 0.5 mg-3 mg/3 ml Soln] amLODIPine [Norvasc] 10 mg PO DAILY #30 tab 05/11/23 predniSONE [Deltasone] 40 mg PO DAILY #7 tab 05/11/23 Allergies Allergy/AdvReac Type Severity Reaction Status Date / Time aspirin Allergy Swelling Verified 05/15/23 17:16 ibuprofen Allergy Anaphylaxis Verified 05/15/23 17:16 Iodinated Contrast Media Allergy Swelling Verified 05/15/23 17:16 latex Allergy Rash/Hives Verified 05/15/23 17:16 Penicillins AdvReac Swelling Verified 05/15/23 17:16 Review of Systems ROS Other: All systems not noted in ROS Statement are negative. <Dariusz Cabrera - Last Filed: 05/15/23 14:38> ROS Other: All systems not noted in ROS Statement are negative. Constitutional: Denies: fever Eyes: Denies: eye pain ENT: Denies: ear pain Respiratory: Reports: as per HPI, dyspnea Cardiovascular: Denies: chest pain Endocrine: Reports: fatigue Gastrointestinal: Denies: abdominal pain Genitourinary: Denies: urgency Musculoskeletal: Denies: back pain Skin: Denies: rash Neurological: Denies: weakness <Rc Hollis - Last Filed: 05/15/23 17:41> ROS Statement: Those systems with pertinent positive or pertinent negative responses have been documented in the HPI. Past Medical History Past Medical History: COPD, Thyroid Disorder Additional Past Medical History / Comment(s): Degenerative bone disease, lima tigo, fibrocystic disease, neuropathy, diverticulitis, cervical CA (1980) and breast CA (1985), heart murmur History of Any Multi-Drug Resistant Organisms: None Reported Past Surgical History: Cholecystectomy, Hysterectomy, Orthopedic Surgery Additional Past Surgical History / Comment(s): right knee surgery 2014, left shoulder 2007, left hip (2017) Past Anesthesia/Blood Transfusion Reactions: No Reported Reaction Additional Past Anesthesia/Blood Transfusion Reaction / Comment(s): pt states that she had a hard time waking up from anesthesia and cannot tolerate "adult do se" Past Psychological History: Anxiety, Depression Smoking Status: Former smoker Past Alcohol Use History: None Reported Past Drug Use History: None Reported - Past Family History Mother Family Medical History: Cancer Additional Family Medical History / Comment(s): skin cancer <Dariusz Cabrera - Last Filed: 05/15/23 14:38> General Exam Limitations: no limitations <Dariusz Cabrera - Last Filed: 05/15/23 14:38> Limitations: no limitations General appearance: alert Head exam: Present: normocephalic Eye exam: Present: normal appearance Respiratory exam: Present: decreased breath sounds, prolonged expiratory, other (Pursed lip breathing) Cardiovascular Exam: Present: regular rate, normal rhythm GI/Abdominal exam: Present: soft. Absent: tenderness Extremities exam: Present: normal inspection. Absent: pedal edema, calf tenderness Neurological exam: Present: alert Psychiatric exam: Present: normal affect, normal mood Skin exam: Present: normal color <Rc Hollis - Last Filed: 05/15/23 17:41> - General Exam Comments Initial Comments: Visual Physical Exam Vital signs reviewed General: Well-appearing, nontoxic, no acute distress. Head: Normocephalic, atraumatic Eyes: PERRLA, EOMI ENT: Airway patent Chest: Nonlabored breathing Skin: No visual rash, normal skin tone Neuro: Alert and oriented 3 Musculoskeletal: No gross abnormalities (Dariusz Cabrera) Course Vital Signs 05/15/23 05/15/23 05/15/23 13:49 15:13 17:13 Temperature 97.5 F L Pulse Rate 72 67 65 Respiratory 18 20 Rate Blood Pressure 144/88 148/82 O2 Sat by Pulse 98 97 Oximetry 05/15/23 17:24 Temperature Pulse Rate 67 Respiratory Rate Blood Pressure O2 Sat by Pulse Oximetry EKG Findings - EKG Results: EKG: interpreted by LASHAWN (Low QRS voltage), sinus rhythm, normal ST/T <Rc Hollis - Last Filed: 05/15/23 17:41> Medical Decision Making - Lab Data Result diagrams: 05/15/23 14:20 05/15/23 14:20 <Rc Hollis - Last Filed: 05/15/23 17:41> - Medical Decision Making Was pt. sent in by a medical professional or institution ([facility], [facility], urgent care, hospital, or senior living...) When possible be specific @ -Patient was sent in by Dr. Moran's office Did you speak to anyone other than the patient for history (EMS, parent, family, police, friend...)? What history was obtained from this source @ -Family is present and helps provide history as patient is a poor historian Did you review nursing and triage notes (agree or disagree)? Why? @ -I reviewed and agree with nursing and triage notes Were old charts reviewed (outside hosp., previous admission, EMS record, old EKG, old radiological studies, urgent care reports/EKG's, senior living records)? Report findings @ -No old charts were reviewed Differential Diagnosis (chest pain, altered mental status, abdominal pain women, abdominal pain men, vaginal bleeding, weakness, fever, dyspnea, syncope, headache, dizziness, GI bleed, back pain, seizure, CVA, palpatations, mental health, musculoskeletal)? @ -Differential Dyspnea: Coronary syndrome, arrhythmia, tamponade, asthma, COPD, pulmonary embolism, pneumonia, pneumothorax, pulmonary effusion, anaphylaxis, diabetic ketoacidosis, flailed chest, pulmonary contusion, diaphragmatic rupture, anemia, neuromuscular, this is not meant to be an all-inclusive list. EKG interpreted by me (3pts min.). @ -As above X-rays interpreted by me (1pt min.). @ -Chest x-ray shows COPD. No acute process otherwise. CT interpreted by me (1pt min.). @ -None done U/S interpreted by me (1pt. min.). @ -None done What testing was considered but not performed or refused? (CT, X-rays, U/S, labs)? Why? @ -None What meds were considered but not given or refused? Why? @ -None Did you discuss the management of the patient with other professionals (prof loretoionals i.e. , PA, SHIRRER, lab, RT, psych nurse, director social welfare, merchant miller, teacher, chairman and chief executive officer, case management coordinator)? Give summary @ -Case was discussed with Dr. Vidal who would like to have his patient admitted. Was smoking cessation discussed for >3mins.? @ -No Was critical care preformed (if so, how long)? @ -No Were there social determinants of health that impacted care today? How? (Homelessness, low income, unemployed, alcoholism, drug addiction, transportation, low edu. Level, literacy, decrease access to med. care, penitentiary, rehab)? @ -No Was there de-escalation of care discussed even if they declined (Discuss DNR or withdrawal of care, Hospice)? DNR status @ -No What co-morbidities impacted this encounter? (DM, HTN, Smoking, COPD, CAD, Cancer, CVA, ARF, Chemo, Hep., AIDS, mental health diagnosis, sleep apnea, morbid obesity)? @ -None Was patient admitted / discharged? Hospital course, mention meds given and route, prescriptions, significant lab abnormalities, going to OR and other pertinent info. @ -Patient and family updated. Patient will be admitted with pulmonary consult. Undiagnosed new problem with uncertain prognosis? @ -No Drug Therapy requiring intensive monitoring for toxicity (Heparin, Nitro, Insulin, Cardizem)? @ -No Were any procedures done? @ -No Diagnosis/symptom? @ -Acute COPD Acute, or Chronic, or Acute on Chronic? @ -acute on chronic Uncomplicated (without systemic symptoms) or Complicated (systemic symptoms)? @ -default Side effects of treatment? @ -No Exacerbation, Progression, or Severe Exacerbation? @ -Exacerbation Poses a threat to life or bodily function? How? (Chest pain, USA, GA, pneumonia, PE, COPD, DKA, ARF, appy, cholecystitis, CVA, Diverticulitis, Homicidal, Suicidal, threat to staff... and all critical care pts) @ -No (Rc Hollis) - Lab Data Lab Results 05/15/23 05/15/23 05/15/23 Range/Units 14:20 14:20 15:32 WBC 12.3 H (3.8-10.6) k/uL RBC 3.81 (3.80-5.40) m/uL Hgb 11.5 (11.4-16.0) gm/dL Hct 36.6 (34.0-46.0) % MCV 96.0 (80.0-100.0) fL MCH 30.2 (25.0-35.0) pg MCHC 31.5 (31.0-37.0) g/dL RDW 15.3 (11.5-15.5) % Plt Count 419 (150-450) k/uL MPV 7.9 Neutrophils % 82 % Lymphocytes % 12 % Monocytes % 3 % Eosinophils % 1 % Basophils % 0 % Neutrophils # 10.1 H (1.3-7.7) k/uL Lymphocytes # 1.5 (1.0-4.8) k/uL Monocytes # 0.4 (0-1.0) k/uL Eosinophils # 0.2 (0-0.7) k/uL Basophils # 0.0 (0-0.2) k/uL PT 9.6 (9.0-12.0) sec INR 0.9 (<1.2) APTT 21.1 L (22.0-30.0) sec Sodium 138 (137-145) mmol/L Potassium 4.7 (3.5-5.1) mmol/L Chloride 102 (98-107) mmol/L Carbon Dioxide 24 (22-30) mmol/L Anion Gap 12 mmol/L BUN 39 H (7-17) mg/dL Creatinine 1.41 H (0.52-1.04) mg/dL Est GFR (CKD-EPI)AfAm 42 (>60 ml/min/1.73 sqM) Est GFR (CKD-EPI)NonAf 37 (>60 ml/min/1.73 sqM) Glucose 130 H (74-99) mg/dL Plasma Lactic Acid Demetrius (0.7-2.0) mmol/L Calcium 9.0 (8.4-10.2) mg/dL Total Bilirubin 0.9 (0.2-1.3) mg/dL AST 29 (14-36) U/L ALT 26 (4-34) U/L Alkaline Phosphatase 86 (38-126) U/L Troponin I (0.000-0.034) ng/mL Total Protein 7.6 (6.3-8.2) g/dL Albumin 4.6 (3.5-5.0) g/dL 05/15/23 05/15/23 Range/Units 15:32 15:32 WBC (3.8-10.6) k/uL RBC (3.80-5.40) m/uL Hgb (11.4-16.0) gm/dL Hct (34.0-46.0) % MCV (80.0-100.0) fL MCH (25.0-35.0) pg MCHC (31.0-37.0) g/dL RDW (11.5-15.5) % Plt Count (150-450) k/uL MPV Neutrophils % % Lymphocytes % % Monocytes % % Eosinophils % % Basophils % % Neutrophils # (1.3-7.7) k/uL Lymphocytes # (1.0-4.8) k/uL Monocytes # (0-1.0) k/uL Eosinophils # (0-0.7) k/uL Basophils # (0-0.2) k/uL PT (9.0-12.0) sec INR (<1.2) APTT (22.0-30.0) sec Sodium (137-145) mmol/L Potassium (3.5-5.1) mmol/L Chloride (98-107) mmol/L Carbon Dioxide (22-30) mmol/L Anion Gap mmol/L BUN (7-17) mg/dL Creatinine (0.52-1.04) mg/dL Est GFR (CKD-EPI)AfAm (>60 ml/min/1.73 sqM) Est GFR (CKD-EPI)NonAf (>60 ml/min/1.73 sqM) Glucose (74-99) mg/dL Plasma Lactic Acid Demetrius 2.5 H* (0.7-2.0) mmol/L Calcium (8.4-10.2) mg/dL Total Bilirubin (0.2-1.3) mg/dL AST (14-36) U/L ALT (4-34) U/L Alkaline Phosphatase (38-126) U/L Troponin I <0.012 (0.000-0.034) ng/mL Total Protein (6.3-8.2) g/dL Albumin (3.5-5.0) g/dL Disposition <Dariusz Cabrera - Last Filed: 05/15/23 14:38> Is patient prescribed a controlled substance at d/c from ED?: No Time of Disposition: 17:41 <Rc Hollis - Last Filed: 05/15/23 17:41> Clinical Impression: Acute exacerbation of chronic obstructive pulmonary disease (COPD) Disposition: ADMITTED IP TO THIS HOSP Referrals: Js Vidal MD [Primary Care Provider] - 1-2 days
[2023-05-15 14:42] LABS: ALT 26 U/L (4-34); AST 29 U/L (14-36); African American GFR (CKD) 42 (>60 ml/min/1.73 sqM); Albumin 4.6 g/dL (3.5-5.0); Alkaline Phosphatase 86 U/L (38-126); Anion Gap 12 mmol/L; Blood Urea Nitrogen 39 mg/dL (7-17); Carbon Dioxide 24 mmol/L (22-30); Chloride 102 mmol/L (98-107); Glucose 130 mg/dL (74-99); Non-African American GFR(CKD) 37 (>60 ml/min/1.73 sqM); Potassium 4.7 mmol/L (3.5-5.1); Sodium 138 mmol/L (137-145); Total Bilirubin 0.9 mg/dL (0.2-1.3); Total Protein 7.6 g/dL (6.3-8.2)
[2023-05-15 15:11] LABS: Basophils % (A) 0 %; Eosinophils # (A) 0.2 k/uL (0-0.7); Eosinophils % (A) 1 %; HCT 36.6 % (34.0-46.0); HGB 11.5 gm/dL (11.4-16.0); Lymphocytes # (A) 1.5 k/uL (1.0-4.8); Lymphocytes % (A) 12 %; MCH 30.2 pg (25.0-35.0); MCHC 31.5 g/dL (31.0-37.0); Mean Platelet Volume 7.9; Monocytes # (A) 0.4 k/uL (0-1.0); Monocytes % (A) 3 %; Neutrophils # (A) 10.1 k/uL (1.3-7.7); Neutrophils % (A) 82 %; Platelet Count 419 k/uL (150-450); RBC 3.81 m/uL (3.80-5.40); RDW 15.3 % (11.5-15.5); WBC 12.3 k/uL (3.8-10.6)
[2023-05-15] MEDS ORDERED: IPRATROPIUM-ALBUTEROL 3 ML NEB INHALATION STA (15:42)
[2023-05-15] MEDS ORDERED: methylPREDNISolone SOD SUCCI 125 MG/2 ML VIAL IV STA (15:43)
[2023-05-15 17:00] LABS: INR 0.9 (<1.2); Partial Thromboplastin Time 21.1 sec (22.0-30.0)
[2023-05-15 17:03] LABS: Prothrombin Time 9.6 sec (9.0-12.0)
--- NOTE | 2023-05-15 17:07 | XR ---
EXAMINATION TYPE: XR chest 2V DATE OF EXAM: 05/15/2023 4:44 PM COMPARISON: Chest radiographs from 05/08/2023 TECHNIQUE: XR chest 2V Frontal and lateral views of the chest. CLINICAL INDICATION:Female, 72 years old with history of difficulty breathing; FINDINGS: Lungs/Pleura: There is flattening of the diaphragm with increased lucency of the lungs. No evidence o f pneumothorax, pleural effusion or focal consolidation. Pulmonary vascularity: Unremarkable. Heart/mediastinum: Cardiomediastinal silhouette is unremarkable. Musculoskeletal: No acute osseous pathology. Partially visualized fixation hardware in the left humer us. IMPRESSION: 1. No acute cardiopulmonary disease process. 2. COPD changes.
[2023-05-15] MEDS ORDERED: NALOXONE 0.4 MG/ML 1 ML VIAL IVP PRN (17:41)
[2023-05-15] MEDS ORDERED: IPRATROPIUM-ALBUTEROL 3 ML NEB INHALATION PRN (17:41)
[2023-05-15] MEDS ORDERED: ACETAMINOPHEN TAB 325 MG TAB PO PRN (17:41)
[2023-05-15] MEDS: IPRATROPIUM-ALBUTEROL 3 ML NEB INHALATION SCH (20:57)
[2023-05-15 23:32] LABS: Glucose,Whole Blood 261 mg/dL (70-110)
[2023-05-15] MEDS: methylPREDNISolone SOD SUCCI 125 MG/2 ML VIAL IV SCH (23:49)
--- NOTE | 2023-05-16 00:55 | P.CNPUL ---
History of Present Illness Consult date: 05/16/23 Requesting physician: Rc Hollis Reason for consult: COPD Chief complaint: Shortness of breath 2 weeks History of present illness: I am seeing this patient in consultation today 05/16/2023 for an acute COPD exacerbation. Patient is a 72-year-old white female with medical history significant for severe oxygen dependent COPD, pericardial effusion, bilateral lower extremity DVT anticoagulated on Eliquis, hypertension, chronic kidney disease, breast cancer, and cervical cancer. Patient is an ex-smoker, quitting approximately one year ago, with over a [id number]-[id number] history. Patient has been seen in the office by Dr. Sanches for her severe COPD, however, does not routinely follow-up. Her PCP is Dr. Gil. She manages her COPD on an outpatient basis with Symbicort and albuterol inhalers. States she has not been using her Symbicort inhaler. She utilizes 4 L/m nasal cannula at home. Patient recently was discharged from the hospital on May 12 for acute COPD exacerbation on a prednisone taper. On the patient's previous admission she also had chest pain, and was found to have a moderate pericardial effusion with thrombus on echocardiogram. Was also found to have chronic appearing thrombi within the left and right femoral veins. She was started on Eliquis. She states that her shortness of breath has progressively worsened since discharge causing her to come back to emergency room yesterday afternoon. She has been using her a when necessary albuterol inhaler about 6 times per day. Denies using Symbicort inhaler. Denies any fevers, chills, cough, congestion, hemoptysis. Elizabeth lara is still reporting some right-sided chest pain that's nonradiating and is intermittent. Heart sounds are not muffled. Denies any heart palpitations, lightheadedness or syncope, lower extremity swelling, orthopnea, PND. Patient is currently sitting up in bed, on 5 L/m nasal cannula, in no acute distress. Chest x-ray on arrival showed no acute cardiopulmonary process. CBC on arrival shows W Dariusz of 12.3, hemoglobin 11.5, hematocrit 36.6, platelets 419. BMP has a sodium 138, potassium 4.7, chloride 102, serum bicarb 24, BUN 39, creatinine 1.41, glucose 130. Troponin less than 0.012. ECG shows no obvious acute ischemic changes. Heart rhythm is normal sinus with a left axis deviation. Patient has been started on a combination of Symbicort inhaler, DuoNeb's, IV Solu-Medrol. Vital signs are stable. Review of Systems NREVIEW OF SYSTEMS: CONSTITUTIONAL: Denies any recent significant weight loss or weight gain. EYES: Denies change in vision. EARS, NOSE, MOUTH, THROAT: Denies headaches, denies sore throat. CARDIOVASCULAR: See HPI RESPIRATORY: See HPI GASTROINTESTINAL: Denies change in appetite, abdominal pain, nausea and vomiting, or diarrhea GENITOURINARY: Denies hematuria, denies infections. MUSKULOSKELETAL: Denies pain, denies swelling. INTEGUMENTARY: Denies rash, denies eczema. NEUROLOGICAL: Denies recent memory loss, no recent seizure activity. PSYCHIATRIC: Denies anxiety, denies depression. HEMATOLOGIC/LYMPHATIC: Denies anemia, denies enlarged lymph node Past Medical History Past Medical History: COPD, Thyroid Disorder Additional Past Medical History / Comment(s): Degenerative bone disease, vertigo, fibrocystic disease, neuropathy, diverticulitis, cervical CA (1980) and breast CA (1985), heart murmur History of Any Multi-Drug Resistant Organisms: None Reported Past Surgical History: Cholecystectomy, Hysterectomy, Orthopedic Surgery Additional Past Surgical History / Comment(s): right knee surgery 2014, left shoulder 2007, left hip (2018) Past Anesthesia/Blood Transfusion Reactions: No Reported Reaction Additional Past Anesthesia/Blood Transfusion Reaction / Comment(s): pt states that she had a hard time waking up from anesthesia and cannot tolerate "adult dose" Past Psychological History: Anxiety, Depression Smoking Status: Former smoker Past Alcohol Use History: None Reported Past Drug Use History: None Reported - Past Family History Mother Family Medical History: Cancer Additional Family Medical History / Comment(s): skin cancer Medications and Allergies Home Medications Medication Instructions Recorded Confirmed Type Acetaminophen [Tylenol Extra 2,000 mg PO BID 05/01/23 05/15/23 History Strength] diphenhydrAMINE [Benadryl] 200 mg PO BID 05/01/23 05/15/23 History Apixaban [Eliquis] 5 mg PO BID #60 tab 05/11/23 05/15/23 Rx Budesonide-Formot 160-4.5 Mcg 2 puff INHALATION RT-BID 1 Days #1 05/11/23 05/15/23 Rx [Symbicort 160-4.5 Mcg Inhaler] dispenser Ipratropium-Albuterol Nebulize 3 ml INHALATION RT-QID #120 each 05/11/23 05/15/23 Rx [Duoneb 0.5 mg-3 mg/3 ml Soln] amLODIPine [Norvasc] 10 mg PO DAILY #30 tab 05/11/23 05/15/23 Rx predniSONE [Deltasone] 40 mg PO DAILY #7 tab 05/11/23 05/15/23 Rx Allergies Allergy/AdvReac Type Severity Reaction Status Date / Time aspirin Allergy Swelling Verified 05/15/23 17:16 ibuprofen Allergy Anaphylaxis Verified 05/15/23 17:16 Iodinated Contrast Media Allergy Swelling Verified 05/15/23 17:16 latex Allergy Rash/Hives Verified 05/15/23 17:16 Penicillins AdvReac Swelling Verified 05/15/23 17:16 Physical Exam Vitals: Vital Signs Temp Pulse Resp BP Pulse Ox 05/15/23 23:49 77 20 112/62 96 05/15/23 21:09 69 05/15/23 20:58 67 90 L 05/15/23 19:58 71 20 136/66 96 05/15/23 18:23 62 20 145/73 94 L 05/15/23 17:24 67 05/15/23 17:13 65 05/15/23 15:13 67 20 148/82 97 05/15/23 13:49 97.5 F L 72 18 144/88 98 Intake and Output 05/15/23 05/15/23 05/16/23 14:59 22:59 06:59 Other: Weight 49.442 kg GENERAL EXAM: Alert, 72-year-old white female appearing stated age, comfortable in no apparent distress. HEAD: Normocephalic and atraumatic EYES: Normal reaction of pupils, equal size. NOSE: Clear with pink turbinates. THROAT: No erythema or exudates. NECK: No masses, no JVD. CHEST: No chest wall deformity. LUNGS: Equal air entry with expiratory wheezes heard throughout. no crackles, rhonchi or dullness. On 5 L/m nasal cannula. No conversational dyspnea or accessory muscle use.. CVS: S1 and S2 normal with no audible murmur, regular rhythm. No extra heart sounds ABDOMEN: No hepatosplenomegaly, active bowel sounds, no guarding or rigidity. SPINE: No scoliosis or deformity SKIN: No rashes CENTRAL NERVOUS SYSTEM: No focal deficits, tone is normal in all 4 extremities. EXTREMITIES: There is no peripheral edema, clubbing, or cyanosis. Peripheral pulses are intact. Results - Laboratory Findings CBC and BMP: 05/15/23 14:20 05/15/23 14:20 PT/INR, D-dimer PT 9.6 sec (9.0-12.0) 05/15/23 15:32 INR 0.9 (<1.2) 05/15/23 15:32 Abnormal lab findings: Abnormal Labs 05/15/23 05/15/23 05/15/23 14:20 14:20 15:32 WBC 12.3 H Neutrophils # 10.1 H APTT 21.1 L BUN 39 H Creatinine 1.41 H Glucose 130 H POC Glucose (mg/dL) Plasma Lactic Acid Demetrius 05/15/23 05/15/23 15:32 23:30 WBC Neutrophils # APTT BUN Creatinine Glucose POC Glucose (mg/dL) 261 H Plasma Lactic Acid Demetrius 2.5 H* - Diagnostic Findings Chest x-ray: image reviewed Assessment and Plan Assessment: Acute on chronic hypoxemic respiratory failure secondary to acute COPD exacerbation. Chest x-ray shows no focal consolidation or evidence of pneumonia. Moderate sized pericardial effusion with possible thrombus found on recent echocardiogram on May 02 Atypical chest pain likely secondary to above. No evidence of acute coronary syndrome. Chronic bilateral lower extremity DVTs, anticoagulated on Eliquis Benign essential hypertension Chronic kidney disease stage IIIb History of breast cancer History of cervical cancer History of significant chronic tobacco dependence with over a [id number] history. Plan: Patient's medications, labs, chest x-ray reviewed Continue supplemental oxygen Start patient on a combination of DuoNeb's, Symbicort inhaler, IV Solu-Medrol Empiric antibiotic coverage with Zithromax Continue Eliquis We will continue to follow I have personally seen and examined the patient, performed the documentation and the assessment and plan as written. Number of minutes spent on the visit:20 This is a joint evaluation that was being done by the nurse practitioner. The patient was seen in more than 30 minutes. The patient is coming in for an acute COPD exacerbation. She has other comorbidities including previous history of chronic DVTs of the lower extremity and she has limited on anticoagulation. She has a moderate-sized pericardial effusion. She has hypertension, chronic stage III kidney disease, breast cancer, cervical cancer history of smoking. We'll continue bronchodilators, steroids, and the patient is going to the placed on empiric antibiotic coverage with Zithromax 500 mg by mouth daily basis. The chest x-ray is free of any acute pulmonary infiltrates. Time with Patient: Greater than 30
[2023-05-16] MEDS: methylPREDNISolone SOD SUCCI 125 MG/2 ML VIAL IV SCH ×3 (05:54→18:10)
[2023-05-16] MEDS: APIXABAN 5 MG TAB PO SCH ×2 (08:23→21:51)
[2023-05-16] MEDS: amLODIPine 10 MG TAB PO SCH (08:24)
[2023-05-16] MEDS: SYMBICORT 160-4.5 MCG INHALER INHALATION SCH ×2 (09:00→19:26)
[2023-05-16] MEDS: IPRATROPIUM-ALBUTEROL 3 ML NEB INHALATION SCH ×5 (09:00→19:25)
[2023-05-16] MEDS: AZITHROMYCIN 500 MG TAB PO SCH (16:37)
[2023-05-16 17:08] LABS: Glucose,Whole Blood 258 mg/dL (70-110)
[2023-05-16] MEDS: ACETAMINOPHEN TAB 500 MG TAB PO SCH ×2 (18:11→21:51)
[2023-05-16] MEDS ORDERED: SYMBICORT 160-4.5 MCG INHALER INHALATION SCH (20:00)
[2023-05-16 20:45] LABS: Glucose,Whole Blood 212 mg/dL (70-110)
[2023-05-16] MEDS: diphenhydrAMINE 25 MG CAP PO SCH (21:51)
[2023-05-17] MEDS: methylPREDNISolone SOD SUCCI 125 MG/2 ML VIAL IV SCH ×5 (01:20→23:26)
--- NOTE | 2023-05-17 04:23 | HP ---
HISTORY AND PHYSICAL CHIEF COMPLAINT: Difficulty breathing. HISTORY OF PRESENT ILLNESS: This is an another recent admission for this 72-year-old white female who is just in the hospital for severe COPD and low back pain. She improved enough that it was felt she could be discharged home, but she came back into the office several days later, acutely dyspneic and unable to function at home and had no family members to help her. REVIEW OF SYSTEMS: She is extremely dyspneic. She denies headaches, chest pain, hemoptysis, sputum production, abdominal pain, melena, hematochezia, jaundice, urinary complaints, etc. Past medical history, family history and personal and social histories are all otherwise unremarkable or unchanged from her recent discharge summary. PHYSICAL EXAMINATION: VITAL SIGNS: Blood pressure is 98/55 with a pulse of 71, respirations of 42, and she is afebrile. GENERAL: She appears to be extremely dyspneic with labored breathing. She was pale. She had cyanosis around the mouth. HEAD, EARS, EYES, NOSE, MOUTH AND THROAT: Otherwise normal. CHEST: Demonstrated poor breath sounds with increased AP diameter and extensive rales and rhonchi throughout with a prolonged expiratory phase. CARDIAC: Demonstrates tachycardia. ABDOMEN: Soft. EXTREMITIES: Normal. She is admitted to the hospital with diagnoses to be, 1. Exacerbation of chronic obstructive pulmonary disease. 2. General debility and failure to thrive. 3. Chronic low back pain due to osteoarthritis. PLAN: 1. Bed rest. 2. IV fluids. 3. IV inhaled steroids. 4. Updrafts. Consult PT and OT as well as discharge planning. MMODL / IJN: [id number] /
--- NOTE | 2023-05-17 04:29 | PN ---
PROGRESS NOTE DATE OF SERVICE: 05/16/2023 CHIEF COMPLAINT: Exacerbation of COPD. HISTORY OF PRESENT ILLNESS: This lady is doing a little bit better. She is less dyspneic. She has no chest pain. The back does not seem to be bothering her at this time either. PHYSICAL EXAMINATION: VITAL SIGNS: Normal. GENERAL: She remains very pale. CHEST: Demonstrates scattered rales and rhonchi with poor inspiratory and expiratory effort and expiratory and inspiratory wheezing. CARDIAC: Normal. ABDOMEN: Soft, nontender. IMPRESSION: 1. Exacerbation of end-stage chronic obstructive pulmonary disease. 2. Low back pain. PLAN: Continue with current treatment and occupational and physical therapy has been ordered along with discharge planning. MMODL / IJN: [id number] /
[2023-05-17 06:25] LABS: Glucose,Whole Blood 141 mg/dL (70-110)
[2023-05-17] MEDS: ACETAMINOPHEN TAB 500 MG TAB PO SCH ×4 (08:44→20:19)
[2023-05-17] MEDS: AZITHROMYCIN 500 MG TAB PO SCH (08:44)
[2023-05-17] MEDS: APIXABAN 5 MG TAB PO SCH ×2 (08:44→20:19)
[2023-05-17] MEDS: diphenhydrAMINE 25 MG CAP PO SCH ×2 (08:44→20:18)
[2023-05-17] MEDS: amLODIPine 10 MG TAB PO SCH (08:49)
[2023-05-17] MEDS ORDERED: predniSONE 20 MG TAB PO SCH (09:00)
[2023-05-17] MEDS: IPRATROPIUM-ALBUTEROL 3 ML NEB INHALATION SCH ×4 (09:22→21:11)
[2023-05-17] MEDS: SYMBICORT 160-4.5 MCG INHALER INHALATION SCH (09:22)
[2023-05-17 11:40] LABS: Glucose,Whole Blood 215 mg/dL (70-110)
--- NOTE | 2023-05-17 17:04 | P.PN ---
Subjective Progress Note Date: 05/17/23 I am seeing this patient in consultation today 05/16/2023 for an acute COPD exacerbation. Patient is a 72-year-old white female with medical history significant for severe oxygen dependent COPD, pericardial effusion, bilateral lower extremity DVT anticoagulated on Eliquis, hypertension, chronic kidney d isease, breast cancer, and cervical cancer. Patient is an ex-smoker, quitting approximately one year ago, with over a [id number] history. Patient has been seen in the office by Dr. Sanches for her severe COPD, however, does not routinely follow-up. Her PCP is Dr. Gil. She manages her COPD on an outpatient basis with Symbicort and albuterol inhalers. States she has not been using her Symbicort inhaler. She utilizes 4 L/m nasal cannula at home. Patient recently was discharged from the hospital on May 12 for acute COPD exacerbation on a prednisone taper. On the patient's previous admission she also had chest pain, and was found to have a moderate pericardial effusion with thrombus on echocardiogram. Was also found to have chronic appearing thrombi within the left and right femoral veins. She was started on Eliquis. She states that her shortness of breath has progressively worsened since discharge causing her to come back to emergency room yesterday afternoon. She has been using her a when necessary albuterol inhaler about 6 times per day. Denies using Symbicort inhaler. Denies any fevers, chills, cough, congestion, hemoptysis. She is still reporting some right-sided chest pain that's nonradiating and is intermittent. Heart sounds are not muffled. Denies any heart palpitations, lightheadedness or syncope, lower extremity swelling, orthopnea, PND. Patient is currently sitting up in bed, on 5 L/m nasal cannula, in no acute distress. Chest x-ray on arrival showed no acute cardiopulmonary process. CBC on arrival shows W Dariusz of 12.3, hemoglobin 11.5, hematocrit 36.6, platelets 419. BMP has a sodium 138, potassium 4.7, chloride 102, serum bicarb 24, BUN 39, creatinine 1.41, glucose 130. Troponin less than 0.012. ECG shows no obvious acute ischemic changes. Heart rhythm is normal sinus with a left axis deviation. Patient has been started on a combination of Symbicort inhaler, DuoNeb's, IV Solu-Medrol. Vital signs are stable. On today's evaluation of 05/17/2023, the patient is being seen for a follow-up. The patient was restless for an acute COPD exacerbation. For now, she is still receiving a combination of bronchodilators and steroids. No new complaints on today's evaluation. We'll continue the same treatment as the patient is showing some progress since yesterday. Objective - Vital Signs Vital signs: Vital Signs Temp 98.3 F 05/17/23 07:00 Pulse 74 05/17/23 09:35 Resp 18 05/17/23 07:00 BP 126/66 05/17/23 07:00 Pulse Ox 99 05/17/23 09:24 FiO2 Intake & Output 05/16/23 05/17/23 05/17/23 18:59 06:59 18:59 Intake Total 222 Balance 222 Weight 49.442 kg Intake: Oral 222 Other: # Voids 1 - Exam GENERAL EXAM: Alert, 72-year-old white female appearing stated age, comfortable in no apparent distress. HEAD: Normocephalic and atraumatic EYES: Normal reaction of pupils, equal size. NOSE: Clear with pink turbinates. THROAT: No erythema or exudates. NECK: No masses, no JVD. CHEST: No chest wall deformity. LUNGS: Equal air entry with expiratory wheezes heard throughout. no crackles, rhonchi or dullness. On 4 L/m nasal cannula. No conversational dyspnea or accessory muscle use.. CVS: S1 and S2 normal with no audible murmur, regular rhythm. No extra heart sounds ABDOMEN: No hepatosplenomegaly, active bowel sounds, no guarding or rigidity. SPINE: No scoliosis or deformity SKIN: No rashes CENTRAL NERVOUS SYSTEM: No focal deficits, tone is normal in all 4 extremities. EXTREMITIES: There is no peripheral edema, clubbing, or cyanosis. Peripheral pulses are intact. - Labs CBC & Chem 7: 05/15/23 14:20 05/15/23 14:20 Labs: Abnormal Lab Results - Last 24 Hours (Table) 05/16/23 05/16/23 05/17/23 Range/Units 17:06 20:44 06:24 POC Glucose (mg/dL) 258 H 212 H 141 H (70-110) mg/dL 05/17/23 Range/Units 11:39 POC Glucose (mg/dL) 215 H (70-110) mg/dL Assessment and Plan Assessment: Acute on chronic hypoxemic respiratory failure secondary to acute COPD exacerbation. Chest x-ray shows no focal consolidation or evidence of pneumonia. Moderate sized pericardial effusion with possible thrombus found on recent echocardiogram on May 02 Atypical chest pain likely secondary to above. No evidence of acute coronary syndrome. Chronic bilateral lower extremity DVTs, anticoagulated on Eliquis Benign essential hypertension Chronic kidney disease stage IIIb History of breast cancer History of cervical cancer History of significant chronic tobacco dependence with over a 18-[id number]-[id number] history. Plan: Continue same treatment for now No changes without murmur current regimen Continue DuoNeb's, Symbicort inhaler, Continue IV Solu-Medrol Empiric antibiotic coverage with Zithromax Continue Eliquis We will continue to follow
[2023-05-17 17:29] LABS: Glucose,Whole Blood 147 mg/dL (70-110)
[2023-05-17 20:07] LABS: Glucose,Whole Blood 163 mg/dL (70-110)
[2023-05-17] MEDS: FORMOTEROL FUMARATE 20 MCG/2 ML NEBU INHALATION SCH (21:11)
[2023-05-17] MEDS: BUDESONIDE 0.5 MG/2 ML NEBU INHALATION SCH (21:12)
[2023-05-18] MEDS: methylPREDNISolone SOD SUCCI 125 MG/2 ML VIAL IV SCH ×3 (05:45→18:22)
[2023-05-18 06:14] LABS: Glucose,Whole Blood 136 mg/dL (70-110)
--- NOTE | 2023-05-18 08:44 | P.PN ---
Subjective Progress Note Date: 05/18/23 I am seeing this patient in consultation today 05/16/2023 for an acute COPD exacerbation. Patient is a 72-year-old white female with medical history significant for severe oxygen dependent COPD, pericardial effusion, bilateral lower extremity DVT anticoagulated on Eliquis, hypertension, chronic kidney d isease, breast cancer, and cervical cancer. Patient is an ex-smoker, quitting approximately one year ago, with over a 89-[id number]-[id number] history. Patient has been seen in the office by Dr. Sanches for her severe COPD, however, does not routinely follow-up. Her PCP is Dr. Gil. She manages her COPD on an outpatient basis with Symbicort and albuterol inhalers. States she has not been using her Symbicort inhaler. She utilizes 4 L/m nasal cannula at home. Patient recently was discharged from the hospital on May 12 for acute COPD exacerbation on a prednisone taper. On the patient's previous admission she also had chest pain, and was found to have a moderate pericardial effusion with thrombus on echocardiogram. Was also found to have chronic appearing thrombi within the left and right femoral veins. She was started on Eliquis. She states that her shortness of breath has progressively worsened since discharge causing her to come back to emergency room yesterday afternoon. She has been using her a when necessary albuterol inhaler about 6 times per day. Denies using Symbicort inhaler. Denies any fevers, chills, cough, congestion, hemoptysis. She is still reporting some right-sided chest pain that's nonradiating and is intermittent. Heart sounds are not muffled. Denies any heart palpitations, lightheadedness or syncope, lower extremity swelling, orthopnea, PND. Patient is currently sitting up in bed, on 5 L/m nasal cannula, in no acute distress. Chest x-ray on arrival showed no acute cardiopulmonary process. CBC on arrival shows W Dariusz of 12.3, hemoglobin 11.5, hematocrit 36.6, platelets 419. BMP has a sodium 138, potassium 4.7, chloride 102, serum bicarb 24, BUN 39, creatinine 1.41, glucose 130. Troponin less than 0.012. ECG shows no obvious acute ischemic changes. Heart rhythm is normal sinus with a left axis deviation. Patient has been started on a combination of Symbicort inhaler, DuoNeb's, IV Solu-Medrol. Vital signs are stable. On today's evaluation of 05/17/2023, the patient is being seen for a follow-up. The patient was restless for an acute COPD exacerbation. For now, she is still receiving a combination of bronchodilators and steroids. No new complaints on today's evaluation. We'll continue the same treatment as the patient is showing some progress since yesterday. On 05/18/2023, the patient is being seen for a follow-up. She is laying down comfortably in bed. She is currently on 4 L of oxygen by nasal cannula. Slightly improved compared to yesterday and she is less bronchospastic and wheezy on today's evaluation. No chest pain. No altered mentation. No pleurisy. No hemoptysis.Awaiting labs from today. Objective - Vital Signs Vital signs: Vital Signs Temp 97.9 F 05/18/23 07:00 Pulse 76 05/18/23 07:00 Resp 18 05/18/23 07:00 BP 116/67 05/18/23 07:00 Pulse Ox 99 05/18/23 07:00 FiO2 Intake & Output 05/17/23 05/18/23 05/18/23 18:59 06:59 18:59 Intake Total 118 Balance 118 Intake: Oral 118 Other: # Voids 2 1 - Exam GENERAL EXAM: Alert, 72-year-old white female appearing stated age, comfortable in no apparent distress. HEAD: Normocephalic and atraumatic EYES: Normal reaction of pupils, equal size. NOSE: Clear with pink turbinates. THROAT: No erythema or exudates. NECK: No masses, no JVD. CHEST: No chest wall deformity. LUNGS: Equal air entry with expiratory wheezes heard throughout. no crackles, rhonchi or dullness. On 4 L/m nasal cannula. No conversational dyspnea or accessory muscle use.. CVS: S1 and S2 normal with no audible murmur, regular rhythm. No extra heart sounds ABDOMEN: No hepatosplenomegaly, active bowel sounds, no guarding or rigidity. SPINE: No scoliosis or deformity SKIN: No rashes CENTRAL NERVOUS SYSTEM: No focal deficits, tone is normal in all 4 extremities. EXTREMITIES: There is no peripheral edema, clubbing, or cyanosis. Peripheral pulses are intact. - Labs CBC & Chem 7: 05/15/23 14:20 05/15/23 14:20 Labs: Abnormal Lab Results - Last 24 Hours (Table) 05/17/23 05/17/23 05/17/23 Range/Units 11:39 17:27 20:06 POC Glucose (mg/dL) 215 H 147 H 163 H (70-110) mg/dL 05/18/23 Range/Units 06:12 POC Glucose (mg/dL) 136 H (70-110) mg/dL Assessment and Plan Assessment: Acute on chronic hypoxemic respiratory failure secondary to acute COPD exacerbation. Chest x-ray shows no focal consolidation or evidence of pneumonia. Moderate sized pericardial effusion with possible thrombus found on recent echocardiogram on May 02 Atypical chest pain likely secondary to above. No evidence of acute coronary syndrome. Chronic bilateral lower extremity DVTs, anticoagulated on Eliquis Benign essential hypertension Chronic kidney disease stage IIIb History of breast cancer History of cervical cancer History of significant chronic tobacco dependence with over a 84-[id number]-blgc history. Plan: Clinically improving and the patient seems to be better today compared to yesterday Continue same treatment for now Continue DuoNeb's, Continue Perforomist and budesonide and blood treatments twice a day Continue IV Solu-Medrol at the same doses Empiric antibiotic coverage with Zithromax Continue Eliquis We will continue to follow
[2023-05-18] MEDS: FORMOTEROL FUMARATE 20 MCG/2 ML NEBU INHALATION SCH ×2 (09:11→20:29)
[2023-05-18] MEDS: BUDESONIDE 0.5 MG/2 ML NEBU INHALATION SCH ×2 (09:11→20:30)
[2023-05-18] MEDS: IPRATROPIUM-ALBUTEROL 3 ML NEB INHALATION SCH ×4 (09:11→20:30)
[2023-05-18] MEDS: AZITHROMYCIN 500 MG TAB PO SCH (09:56)
[2023-05-18] MEDS: diphenhydrAMINE 25 MG CAP PO SCH ×2 (09:56→21:11)
[2023-05-18] MEDS: ACETAMINOPHEN TAB 500 MG TAB PO SCH ×4 (09:56→21:12)
[2023-05-18] MEDS: amLODIPine 10 MG TAB PO SCH (09:57)
[2023-05-18] MEDS: APIXABAN 5 MG TAB PO SCH ×2 (09:57→21:12)
[2023-05-18 12:06] LABS: Glucose,Whole Blood 154 mg/dL (70-110)
[2023-05-18 17:29] LABS: Glucose,Whole Blood 155 mg/dL (70-110)
[2023-05-18 20:45] LABS: Glucose,Whole Blood 135 mg/dL (70-110)
[2023-05-19] MEDS: methylPREDNISolone SOD SUCCI 125 MG/2 ML VIAL IV SCH ×5 (00:14→23:24)
[2023-05-19] MEDS: IPRATROPIUM-ALBUTEROL 3 ML NEB INHALATION SCH ×4 (08:22→19:47)
[2023-05-19] MEDS: BUDESONIDE 0.5 MG/2 ML NEBU INHALATION SCH ×2 (08:22→19:47)
[2023-05-19] MEDS: FORMOTEROL FUMARATE 20 MCG/2 ML NEBU INHALATION SCH ×2 (08:22→19:47)
[2023-05-19] MEDS: amLODIPine 10 MG TAB PO SCH (09:32)
[2023-05-19] MEDS: ACETAMINOPHEN TAB 500 MG TAB PO SCH ×4 (09:32→20:19)
[2023-05-19] MEDS: APIXABAN 5 MG TAB PO SCH ×2 (09:33→20:19)
[2023-05-19] MEDS ORDERED: diphenhydrAMINE 50 MG CAP PO SCH (10:00)
[2023-05-19 11:53] LABS: Glucose,Whole Blood 115 mg/dL (70-110)
--- NOTE | 2023-05-19 12:43 | P.PN ---
Subjective Progress Note Date: 05/19/23 I am seeing this patient in consultation today 05/16/2023 for an acute COPD exacerbation. Patient is a 72-year-old white female with medical history significant for severe oxygen dependent COPD, pericardial effusion, bilateral lower extremity DVT anticoagulated on Eliquis, hypertension, chronic kidney d isease, breast cancer, and cervical cancer. Patient is an ex-smoker, quitting approximately one year ago, with over a [id number] history. Patient has been seen in the office by Dr. Sanches for her severe COPD, however, does not routinely follow-up. Her PCP is Dr. Gil. She manages her COPD on an outpatient basis with Symbicort and albuterol inhalers. States she has not been using her Symbicort inhaler. She utilizes 4 L/m nasal cannula at home. Patient recently was discharged from the hospital on May 12 for acute COPD exacerbation on a prednisone taper. On the patient's previous admission she also had chest pain, and was found to have a moderate pericardial effusion with thrombus on echocardiogram. Was also found to have chronic appearing thrombi within the left and right femoral veins. She was started on Eliquis. She states that her shortness of breath has progressively worsened since discharge causing her to come back to emergency room yesterday afternoon. She has been using her a when necessary albuterol inhaler about 6 times per day. Denies using Symbicort inhaler. Denies any fevers, chills, cough, congestion, hemoptysis. She is still reporting some right-sided chest pain that's nonradiating and is intermittent. Heart sounds are not muffled. Denies any heart palpitations, lightheadedness or syncope, lower extremity swelling, orthopnea, PND. Patient is currently sitting up in bed, on 5 L/m nasal cannula, in no acute distress. Chest x-ray on arrival showed no acute cardiopulmonary process. CBC on arrival shows W Dariusz of 12.3, hemoglobin 11.5, hematocrit 36.6, platelets 419. BMP has a sodium 138, potassium 4.7, chloride 102, serum bicarb 24, BUN 39, creatinine 1.41, glucose 130. Troponin less than 0.012. ECG shows no obvious acute ischemic changes. Heart rhythm is normal sinus with a left axis deviation. Patient has been started on a combination of Symbicort inhaler, DuoNeb's, IV Solu-Medrol. Vital signs are stable. On today's evaluation of 05/17/2023, the patient is being seen for a follow-up. The patient was restless for an acute COPD exacerbation. For now, she is still receiving a combination of bronchodilators and steroids. No new complaints on today's evaluation. We'll continue the same treatment as the patient is showing some progress since yesterday. On 05/18/2023, the patient is being seen for a follow-up. She is laying down comfortably in bed. She is currently on 4 L of oxygen by nasal cannula. Slightly improved compared to yesterday and she is less bronchospastic and wheezy on today's evaluation. No chest pain. No altered mentation. No pleurisy. No hemoptysis.Awaiting labs from today. 05/19/2023, no new complaints and the patient continued to bronchospastic and wheezy and short of breath. Limited improvement since yesterday. Chest x-ray was repeated and there is no interval change and there is some consolidation of the left lower lobe atelectasis. White cycles of 8.1. BUN is at 30 with creatinine of 0.9. Sodiums of 140. Objective - Vital Signs Vital signs: Vital Signs Temp 97.8 F 05/19/23 07:00 Pulse 67 05/19/23 12:10 Resp 18 05/19/23 09:33 BP 143/64 05/19/23 07:00 Pulse Ox 93 L 05/19/23 08:23 FiO2 Intake & Output 05/18/23 05/19/23 05/19/23 18:59 06:59 18:59 Intake Total 118 Output Total 0 Balance 118 0 Intake: Oral 118 Output: Emesis 0 Other: # Voids 1 2 - Labs CBC & Chem 7: 05/15/23 14:20 05/15/23 14:20 Labs: Abnormal Lab Results - Last 24 Hours (Table) 05/18/23 05/18/23 05/19/23 Range/Units 17:28 20:36 11:51 POC Glucose (mg/dL) 155 H 135 H 115 H (70-110) mg/dL Assessment and Plan Assessment: Acute on chronic hypoxemic respiratory failure secondary to acute COPD exacerbation. Chest x-ray shows no focal consolidation or evidence of pneumonia. Chest x-ray findings are stable and the patient has some atelectatic changes left lung base Moderate sized pericardial effusion with possible thrombus found on recent echocardiogram on May 02 Atypical chest pain likely secondary to above. No evidence of acute coronary syndrome. Chronic bilateral lower extremity DVTs, anticoagulated on Eliquis Benign essential hypertension Chronic kidney disease stage IIIb History of breast cancer History of cervical cancer History of significant chronic tobacco dependence with over a [id number] history. Plan: Continue same treatment Continue same treatment for now Continue DuoNeb's, Continue Perforomist and budesonide and blood treatments twice a day Continue IV Solu-Medrol at the same doses Empiric antibiotic coverage with Zithromax Pro calcitonin level is at 0.1 Continue Eliquis We will continue to follow
[2023-05-19 17:33] LABS: Glucose,Whole Blood 138 mg/dL (70-110)
[2023-05-19] MEDS: diphenhydrAMINE 50 MG CAP PO SCH ×2 (20:20→20:21)
[2023-05-19] MEDS: DEXTROSE 5%-0.2% NACL 1,000 ML IV SCH (20:34)
[2023-05-19 21:03] LABS: Glucose,Whole Blood 178 mg/dL (70-110)
[2023-05-20] MEDS: methylPREDNISolone SOD SUCCI 125 MG/2 ML VIAL IV SCH (05:17)
[2023-05-20 05:51] LABS: African American GFR (CKD) 41 (>60 ml/min/1.73 sqM); Anion Gap 10 mmol/L; Blood Urea Nitrogen 44 mg/dL (7-17); Calcium 8.4 mg/dL (8.4-10.2); Carbon Dioxide 21 mmol/L (22-30); Chloride 104 mmol/L (98-107); Glucose 128 mg/dL (74-99); Non-African American GFR(CKD) 36 (>60 ml/min/1.73 sqM); Potassium 4.4 mmol/L (3.5-5.1); Sodium 135 mmol/L (137-145)
[2023-05-20 07:00] LABS: Glucose,Whole Blood 123 mg/dL (70-110)
[2023-05-20] MEDS: IPRATROPIUM-ALBUTEROL 3 ML NEB INHALATION SCH ×4 (07:21→19:39)
[2023-05-20] MEDS: BUDESONIDE 0.5 MG/2 ML NEBU INHALATION SCH ×2 (07:21→19:39)
[2023-05-20] MEDS: FORMOTEROL FUMARATE 20 MCG/2 ML NEBU INHALATION SCH ×2 (07:21→19:39)
[2023-05-20] MEDS: APIXABAN 5 MG TAB PO SCH ×2 (09:27→21:31)
[2023-05-20] MEDS: ACETAMINOPHEN TAB 500 MG TAB PO SCH ×4 (09:28→21:31)
[2023-05-20] MEDS: amLODIPine 10 MG TAB PO SCH (09:28)
[2023-05-20] MEDS: diphenhydrAMINE 50 MG CAP PO SCH ×3 (09:29→21:31)
[2023-05-20 09:54] LABS: Basophils # (A) 0.05 X 10*3/uL (0.00-0.10); Basophils % (A) 0.2 %; Eosinophils # (A) 0.02 X 10*3/uL (0.04-0.35); Eosinophils % (A) 0.1 %; HCT 33.4 % (37.2-46.3); HGB 10.6 d/dL (12.0-15.0); Lymphocytes # (A) 0.69 X 10*3/uL (0.90-5.00); Lymphocytes % (A) 3.2 %; MCH 31.1 pg (27.0-32.0); MCHC 31.7 d/dL (32.0-37.0); MCV 97.9 FL (80.0-97.0); Mean Platelet Volume 9.5 FL (9.5-12.2); Monocytes # (A) 0.28 X 10*3/uL (0.20-1.00); Monocytes % (A) 1.3 %; NRBC Per 100 WBC 0 X 10*3/uL (0.00-0.01); Neutrophils # (A) 19.59 X 10*3/uL (1.80-7.70); Neutrophils % (A) 92.3 %; Platelet Count 353 X 10*3/uL (140-440); RBC 3.41 X 10*6/uL (4.10-5.20); RDW 17.2 % (11.5-14.5); WBC 21.25 X 10*3/uL (4.50-10.00)
[2023-05-20] MEDS: DEXTROSE 5%-0.2% NACL 1,000 ML IV SCH ×2 (10:00→21:56)
--- NOTE | 2023-05-20 11:43 | P.PN ---
Subjective Progress Note Date: 05/20/23 I am seeing this patient in consultation today 05/16/2023 for an acute COPD exacerbation. Patient is a 72-year-old white female with medical history significant for severe oxygen dependent COPD, pericardial effusion, bilateral lower extremity DVT anticoagulated on Eliquis, hypertension, chronic kidney d isease, breast cancer, and cervical cancer. Patient is an ex-smoker, quitting approximately one year ago, with over a 13-[id number]-cmuz history. Patient has been seen in the office by Dr. Sanches for her severe COPD, however, does not routinely follow-up. Her PCP is Dr. Gil. She manages her COPD on an outpatient basis with Symbicort and albuterol inhalers. States she has not been using her Symbicort inhaler. She utilizes 4 L/m nasal cannula at home. Patient recently was discharged from the hospital on May 12 for acute COPD exacerbation on a prednisone taper. On the patient's previous admission she also had chest pain, and was found to have a moderate pericardial effusion with thrombus on echocardiogram. Was also found to have chronic appearing thrombi within the left and right femoral veins. She was started on Eliquis. She states that her shortness of breath has progressively worsened since discharge causing her to come back to emergency room yesterday afternoon. She has been using her a when necessary albuterol inhaler about 6 times per day. Denies using Symbicort inhaler. Denies any fevers, chills, cough, congestion, hemoptysis. She is still reporting some right-sided chest pain that's nonradiating and is intermittent. Heart sounds are not muffled. Denies any heart palpitations, lightheadedness or syncope, lower extremity swelling, orthopnea, PND. Patient is currently sitting up in bed, on 5 L/m nasal cannula, in no acute distress. Chest x-ray on arrival showed no acute cardiopulmonary process. CBC on arrival shows W Dariusz of 12.3, hemoglobin 11.5, hematocrit 36.6, platelets 419. BMP has a sodium 138, potassium 4.7, chloride 102, serum bicarb 24, BUN 39, creatinine 1.41, glucose 130. Troponin less than 0.012. ECG shows no obvious acute ischemic changes. Heart rhythm is normal sinus with a left axis deviation. Patient has been started on a combination of Symbicort inhaler, DuoNeb's, IV Solu-Medrol. Vital signs are stable. On today's evaluation of 05/17/2023, the patient is being seen for a follow-up. The patient was restless for an acute COPD exacerbation. For now, she is still receiving a combination of bronchodilators and steroids. No new complaints on today's evaluation. We'll continue the same treatment as the patient is showing some progress since yesterday. On 05/18/2023, the patient is being seen for a follow-up. She is laying down comfortably in bed. She is currently on 4 L of oxygen by nasal cannula. Slightly improved compared to yesterday and she is less bronchospastic and wheezy on today's evaluation. No chest pain. No altered mentation. No pleurisy. No hemoptysis.Awaiting labs from today. 05/19/2023, no new complaints and the patient continued to bronchospastic and wheezy and short of breath. Limited improvement since yesterday. Chest x-ray was repeated and there is no interval change and there is some consolidation of the left lower lobe atelectasis. White cycles of 8.1. BUN is at 30 with creatinine of 0.9. Sodiums of 140. On today's evaluation of 05/20/2023, the patient is much improved and the patient is less bronchospastic and wheezy. No new complaints otherwise for now. Blood sugars at 123. The white cell cause of 21 with a hemoglobin of 10.6. BUN is at 44 with a creatinine of 1.4 and a sodium level is at 135. Objective - Vital Signs Vital signs: Vital Signs Temp 98.2 F 05/20/23 07:00 Pulse 73 05/20/23 07:00 Resp 19 05/20/23 09:39 BP 134/79 05/20/23 07:00 Pulse Ox 98 05/20/23 07:21 FiO2 Intake & Output 05/19/23 05/20/23 05/20/23 18:59 06:59 18:59 Other: Voiding Method Bedside Commode Diaper # Voids 1 2 1 - Exam GENERAL EXAM: Alert, 72-year-old white female appearing stated age, comfortable in no apparent distress. HEAD: Normocephalic and atraumatic EYES: Normal reaction of pupils, equal size. NOSE: Clear with pink turbinates. THROAT: No erythema or exudates. NECK: No masses, no JVD. CHEST: No chest wall deformity. LUNGS: Equal air entry with expiratory wheezes heard throughout. no crackles, rhonchi or dullness. On 4 L/m nasal cannula. No conversational dyspnea or accessory muscle use.. CVS: S1 and S2 normal with no audible murmur, regular rhythm. No extra heart sounds ABDOMEN: No hepatosplenomegaly, active bowel sounds, no guarding or rigidity. SPINE: No scoliosis or deformity SKIN: No rashes CENTRAL NERVOUS SYSTEM: No focal deficits, tone is normal in all 4 extremities. EXTREMITIES: There is no peripheral edema, clubbing, or cyanosis. Peripheral pulses are intact. - Labs CBC & Chem 7: 05/20/23 05:17 05/20/23 05:09 Labs: Abnormal Lab Results - Last 24 Hours (Table) 05/19/23 05/19/23 05/19/23 Range/Units 11:51 17:32 21:01 WBC (4.50-10.00) X 10*3/uL RBC (4.10-5.20) X 10*6/uL Hgb (12.0-15.0) d/dL Hct (37.2-46.3) % MCV (80.0-97.0) FL MCHC (32.0-37.0) d/dL RDW (11.5-14.5) % Neutrophils # (1.80-7.70) X 10*3/uL Lymphocytes # (0.90-5.00) X 10*3/uL Eosinophils # (0.04-0.35) X 10*3/uL Sodium (137-145) mmol/L Carbon Dioxide (22-30) mmol/L BUN (7-17) mg/dL Creatinine (0.52-1.04) mg/dL Glucose (74-99) mg/dL POC Glucose (mg/dL) 115 H 138 H 178 H (70-110) mg/dL 05/20/23 05/20/23 05/20/23 Range/Units 05:09 05:17 06:56 WBC 21.25 H (4.50-10.00) X 10*3/uL RBC 3.41 L (4.10-5.20) X 10*6/uL Hgb 10.6 L (12.0-15.0) d/dL Hct 33.4 L (37.2-46.3) % MCV 97.9 H (80.0-97.0) FL MCHC 31.7 L (32.0-37.0) d/dL RDW 17.2 H (11.5-14.5) % Neutrophils # 19.59 H (1.80-7.70) X 10*3/uL Lymphocytes # 0.69 L (0.90-5.00) X 10*3/uL Eosinophils # 0.02 L (0.04-0.35) X 10*3/uL Sodium 135 L (137-145) mmol/L Carbon Dioxide 21 L (22-30) mmol/L BUN 44 H (7-17) mg/dL Creatinine 1.44 H (0.52-1.04) mg/dL Glucose 128 H (74-99) mg/dL POC Glucose (mg/dL) 123 H (70-110) mg/dL Assessment and Plan Assessment: Acute on chronic hypoxemic respiratory failure secondary to acute COPD exacerbation. Chest x-ray shows no focal consolidation or evidence of pneumonia. Chest x-ray findings are stable and the patient has some atelectatic changes left lung base Moderate sized pericardial effusion with possible thrombus found on recent echocardiogram on May 02 Atypical chest pain likely secondary to above. No evidence of acute coronary syndrome. Chronic bilateral lower extremity DVTs, anticoagulated on Eliquis Benign essential hypertension Chronic kidney disease stage IIIb History of breast cancer History of cervical cancer History of significant chronic tobacco dependence with over a [id number] history. Plan: Clinically improving Continue same treatment Continue same treatment for now Continue DuoNeb's, Continue Perforomist and budesonide and blood treatments twice a day Discontinue the IV Solu-Medrol and start the patient prednisone burst taper Empiric antibiotic coverage with Zithromax Pro calcitonin level is at 0.1 Continue Eliquis Creatinine is stable We will continue to follow
[2023-05-20] MEDS: predniSONE 20 MG TAB PO SCH (12:21)
[2023-05-20 12:53] LABS: Glucose,Whole Blood 114 mg/dL (70-110)
[2023-05-20 17:32] LABS: Glucose,Whole Blood 174 mg/dL (70-110)
[2023-05-20 20:25] LABS: Glucose,Whole Blood 149 mg/dL (70-110)
[2023-05-21 06:10] LABS: Glucose,Whole Blood 123 mg/dL (70-110)
[2023-05-21] MEDS: FORMOTEROL FUMARATE 20 MCG/2 ML NEBU INHALATION SCH ×2 (09:09→19:40)
[2023-05-21] MEDS: IPRATROPIUM-ALBUTEROL 3 ML NEB INHALATION SCH ×4 (09:09→19:40)
[2023-05-21] MEDS: BUDESONIDE 0.5 MG/2 ML NEBU INHALATION SCH ×2 (09:10→19:40)
[2023-05-21] MEDS: ACETAMINOPHEN TAB 500 MG TAB PO SCH ×4 (10:18→21:42)
[2023-05-21] MEDS: APIXABAN 5 MG TAB PO SCH ×2 (10:18→21:42)
[2023-05-21] MEDS: diphenhydrAMINE 50 MG CAP PO SCH ×3 (10:18→21:43)
[2023-05-21] MEDS: predniSONE 20 MG TAB PO SCH (10:18)
[2023-05-21] MEDS: amLODIPine 10 MG TAB PO SCH (10:19)
[2023-05-21 11:58] LABS: Glucose,Whole Blood 77 mg/dL (70-110)
--- NOTE | 2023-05-21 12:05 | P.PN ---
Subjective Progress Note Date: 05/21/23 I am seeing this patient in consultation today 05/16/2023 for an acute COPD exacerbation. Patient is a 72-year-old white female with medical history significant for severe oxygen dependent COPD, pericardial effusion, bilateral lower extremity DVT anticoagulated on Eliquis, hypertension, chronic kidney di sease, breast cancer, and cervical cancer. Patient is an ex-smoker, quitting approximately one year ago, with over a [id number] history. Patient has been seen in the office by Dr. Sanches for her severe COPD, however, does not routinely follow-up. Her PCP is Dr. Gil. She manages her COPD on an outpatient basis with Symbicort and albuterol inhalers. States she has not been using her Symbicort inhaler. She utilizes 4 L/m nasal cannula at home. Patient recently was discharged from the hospital on May 12 for acute COPD exacerbation on a prednisone taper. On the patient's previous admission she also had chest pain, and was found to have a moderate pericardial effusion with thrombus on echocardiogram. Was also found to have chronic appearing thrombi within the left and right femoral veins. She was started on Eliquis. She states that her shortness of breath has progressively worsened since discharge causing her to come back to emergency room yesterday afternoon. She has been using her a when necessary albuterol inhaler about 6 times per day. Denies using Symbicort inhaler. Denies any fevers, chills, cough, congestion, hemoptysis. She is still reporting some right-sided chest pain that's nonradiating and is intermittent. Heart sounds are not muffled. Denies any heart palpitations, lightheadedness or syncope, lower extremity swelling, orthopnea, PND. Patient is currently sitting up in bed, on 5 L/m nasal cannula, in no acute distress. Chest x-ray on arrival showed no acute cardiopulmonary process. CBC on arrival shows W Dariusz of 12.3, hemoglobin 11.5, hematocrit 36.6, platelets 419. BMP has a sodium 138, potassium 4.7, chloride 102, serum bicarb 24, BUN 39, creatinine 1.41, glucose 130. Troponin less than 0.012. ECG shows no obvious acute ischemic changes. Heart rhythm is normal sinus with a left axis deviation. Patient has been started on a combination of Symbicort inhaler, DuoNeb's, IV Solu-Medrol. Vital signs are stable. On today's evaluation of 05/17/2023, the patient is being seen for a follow-up. The patient was restless for an acute COPD exacerbation. For now, she is still receiving a combination of bronchodilators and steroids. No new complaints on today's evaluation. We'll continue the same treatment as the patient is showing some progress since yesterday. On 05/18/2023, the patient is being seen for a follow-up. She is laying down comfortably in bed. She is currently on 4 L of oxygen by nasal cannula. Slightly improved compared to yesterday and she is less bronchospastic and wheezy on today's evaluation. No chest pain. No altered mentation. No pleurisy. No hemoptysis.Awaiting labs from today. 05/19/2023, no new complaints and the patient continued to bronchospastic and wheezy and short of breath. Limited improvement since yesterday. Chest x-ray was repeated and there is no interval change and there is some consolidation of the left lower lobe atelectasis. White cycles of 8.1. BUN is at 30 with creatinine of 0.9. Sodiums of 140. On today's evaluation of 05/20/2023, the patient is much improved and the patient is less bronchospastic and wheezy. No new complaints otherwise for now. Blood sugars at 123. The white cell cause of 21 with a hemoglobin of 10.6. BUN is at 44 with a creatinine of 1.4 and a sodium level is at 135. The patient is seen today 05/21/2023 in follow-up on the regular medical floor. She is currently resting comfortably in bed. Awake and alert in no acute distress. She is feeling today better today compared to yesterday. Maintaining O2 saturations in the upper 90s on 4 L/m per nasal cannula. Blood sugar 123. She remains on DuoNeb inhalations, Pulmicort and Perforomist inhalations, prednisone taper. Anticoagulated with Eliquis. Objective - Vital Signs Vital signs: Vital Signs Temp 98 F 05/21/23 07:00 Pulse 74 05/21/23 09:40 Resp 16 05/21/23 07:00 BP 149/79 05/21/23 07:00 Pulse Ox 99 05/21/23 09:12 FiO2 Intake & Output 05/20/23 05/21/23 05/21/23 18:59 06:59 18:59 Intake Total 120 149 221 Balance 120 149 221 Intake: Oral 120 149 221 Other: Voiding Method Bedside Commode Bedside Commode Diaper Diaper # Voids 1 1 - Exam GENERAL EXAM: Alert, pleasant 72-year-old female, on 4 L nasal cannula, comfortable in no apparent distress. HEAD: Normocephalic. EYES: Normal reaction of pupils, equal size. NOSE: Clear with pink turbinates. THROAT: Edentulous. No erythema or exudates. NECK: No masses, no JVD. CHEST: No chest wall deformity. LUNGS: Equal air entry with bilateral end expiratory wheeze. CVS: S1 and S2 normal with no audible murmur, regular rhythm. ABDOMEN: No hepatosplenomegaly, normal bowel sounds, no guarding or rigidity. SPINE: No scoliosis or deformity SKIN: No rashes CENTRAL NERVOUS SYSTEM: No focal deficits, tone is normal in all 4 extremities. EXTREMITIES: There is no peripheral edema. No clubbing, no cyanosis. Peripheral pulses are intact. - Labs CBC & Chem 7: 05/20/23 05:17 05/20/23 05:09 Labs: Abnormal Lab Results - Last 24 Hours (Table) 05/20/23 05/20/23 05/20/23 Range/Units 12:51 17:31 20:23 POC Glucose (mg/dL) 114 H 174 H 149 H (70-110) mg/dL 05/21/23 Range/Units 06:08 POC Glucose (mg/dL) 123 H (70-110) mg/dL Assessment and Plan Assessment: Acute on chronic hypoxemic respiratory failure secondary to acute COPD exacerbation. Chest x-ray findings are stable and the patient has some atelectatic changes left lung base Moderate sized pericardial effusion with possible thrombus found on recent echocardiogram on 05/02/2023 Atypical chest pain likely secondary to above. No evidence of acute coronary s yndrome. Chronic bilateral lower extremity DVTs, anticoagulated on Eliquis Benign essential hypertension Chronic kidney disease stage IIIb History of breast cancer History of cervical cancer History of significant chronic tobacco dependence with over a 50-gnwl-ndry history Plan: The patient was seen and evaluated Labs and medications reviewed Follow-up echocardiogram pending Continue the current treatment plan We will continue to follow I have personally seen and examined the patient, performed the documentation and the assessment and plan as written. Number of minutes spent on the visit: 10.
[2023-05-21 13:12] VITALS: BMI 22.0
[2023-05-21] MEDS: DEXTROSE 5%-0.2% NACL 1,000 ML IV SCH ×2 (14:02→21:43)
[2023-05-21 17:30] LABS: Glucose,Whole Blood 138 mg/dL (70-110)
[2023-05-21 20:55] LABS: Glucose,Whole Blood 190 mg/dL (70-110)
[2023-05-22 05:59] LABS: Glucose,Whole Blood 107 mg/dL (70-110)
[2023-05-22] MEDS: BUDESONIDE 0.5 MG/2 ML NEBU INHALATION SCH (07:34)
[2023-05-22] MEDS: FORMOTEROL FUMARATE 20 MCG/2 ML NEBU INHALATION SCH (07:35)
[2023-05-22] MEDS: IPRATROPIUM-ALBUTEROL 3 ML NEB INHALATION SCH ×2 (07:35→11:51)
[2023-05-22 08:36] VITALS: BP 154/74; PULSE 86; RESP 16; TEMP 98.1
[2023-05-22] MEDS: diphenhydrAMINE 50 MG CAP PO SCH (09:06)
[2023-05-22] MEDS: amLODIPine 10 MG TAB PO SCH (09:06)
[2023-05-22] MEDS: predniSONE 20 MG TAB PO SCH (09:06)
[2023-05-22] MEDS: APIXABAN 5 MG TAB PO SCH (09:07)
[2023-05-22] MEDS: ACETAMINOPHEN TAB 500 MG TAB PO SCH (09:07)
--- NOTE | 2023-05-22 11:00 | P.PN ---
Subjective Progress Note Date: 05/22/23 I am seeing this patient in consultation today 05/16/2023 for an acute COPD exacerbation. Patient is a 72-year-old white female with medical history significant for severe oxygen dependent COPD, pericardial effusion, bilateral lower extremity DVT anticoagulated on Eliquis, hypertension, chronic kidney di sease, breast cancer, and cervical cancer. Patient is an ex-smoker, quitting approximately one year ago, with over a [id number] history. Patient has been seen in the office by Dr. Sanches for her severe COPD, however, does not routinely follow-up. Her PCP is Dr. Gil. She manages her COPD on an outpatient basis with Symbicort and albuterol inhalers. States she has not been using her Symbicort inhaler. She utilizes 4 L/m nasal cannula at home. Patient recently was discharged from the hospital on May 12 for acute COPD exacerbation on a prednisone taper. On the patient's previous admission she also had chest pain, and was found to have a moderate pericardial effusion with thrombus on echocardiogram. Was also found to have chronic appearing thrombi within the left and right femoral veins. She was started on Eliquis. She states that her shortness of breath has progressively worsened since discharge causing her to come back to emergency room yesterday afternoon. She has been using her a when necessary albuterol inhaler about 6 times per day. Denies using Symbicort inhaler. Denies any fevers, chills, cough, congestion, hemoptysis. She is still reporting some right-sided chest pain that's nonradiating and is intermittent. Heart sounds are not muffled. Denies any heart palpitations, lightheadedness or syncope, lower extremity swelling, orthopnea, PND. Patient is currently sitting up in bed, on 5 L/m nasal cannula, in no acute distress. Chest x-ray on arrival showed no acute cardiopulmonary process. CBC on arrival shows W Dariusz of 12.3, hemoglobin 11.5, hematocrit 36.6, platelets 419. BMP has a sodium 138, potassium 4.7, chloride 102, serum bicarb 24, BUN 39, creatinine 1.41, glucose 130. Troponin less than 0.012. ECG shows no obvious acute ischemic changes. Heart rhythm is normal sinus with a left axis deviation. Patient has been started on a combination of Symbicort inhaler, DuoNeb's, IV Solu-Medrol. Vital signs are stable. On today's evaluation of 05/17/2023, the patient is being seen for a follow-up. The patient was restless for an acute COPD exacerbation. For now, she is still receiving a combination of bronchodilators and steroids. No new complaints on today's evaluation. We'll continue the same treatment as the patient is showing some progress since yesterday. On 05/18/2023, the patient is being seen for a follow-up. She is laying down comfortably in bed. She is currently on 4 L of oxygen by nasal cannula. Slightly improved compared to yesterday and she is less bronchospastic and wheezy on today's evaluation. No chest pain. No altered mentation. No pleurisy. No hemoptysis.Awaiting labs from today. 05/19/2023, no new complaints and the patient continued to bronchospastic and wheezy and short of breath. Limited improvement since yesterday. Chest x-ray was repeated and there is no interval change and there is some consolidation of the left lower lobe atelectasis. White cycles of 8.1. BUN is at 30 with creatinine of 0.9. Sodiums of 140. On today's evaluation of 05/20/2023, the patient is much improved and the patient is less bronchospastic and wheezy. No new complaints otherwise for now. Blood sugars at 123. The white cell cause of 21 with a hemoglobin of 10.6. BUN is at 44 with a creatinine of 1.4 and a sodium level is at 135. The patient is seen today 05/21/2023 in follow-up on the regular medical floor. She is currently resting comfortably in bed. Awake and alert in no acute distress. She is feeling today better today compared to yesterday. Maintaining O2 saturations in the upper 90s on 4 L/m per nasal cannula. Blood sugar 123. She remains on DuoNeb inhalations, Pulmicort and Perforomist inhalations, prednisone taper. Anticoagulated with Eliquis. The patient is seen today 05/22/2023 in follow-up on the regular medical floor. She is awake and alert in no acute distress. Having some issues with nausea. She is maintaining good O2 saturations in the mid to upper 90s on 4 L/m per nasal cannula. Afebrile. Hemodynamically stable. Sugar 107. She is continued on DuoNeb inhalations, Pulmicort and Perforomist inhalations, prednisone taper. Anticoagulated with Eliquis. Objective - Vital Signs Vital signs: Vital Signs Temp 98.1 F 05/22/23 07:50 Pulse 86 05/22/23 07:50 Resp 16 05/22/23 07:50 BP 154/74 05/22/23 07:50 Pulse Ox 98 05/22/23 07:50 FiO2 Intake & Output 05/21/23 05/22/23 05/22/23 18:59 06:59 18:59 Intake Total 443 347 Balance 443 347 Weight 49.442 kg Intake: Oral 443 347 Other: Voiding Method Diaper # Voids 1 3 - Exam GENERAL EXAM: Alert, pleasant 72-year-old female, resting in bed, on 4 L nasal cannula, in no apparent distress. HEAD: Normocephalic. EYES: Normal reaction of pupils, equal size. NOSE: Clear with pink turbinates. THROAT: Edentulous. No erythema or exudates. NECK: No masses, no JVD. CHEST: No chest wall deformity. LUNGS: Equal air entry with bilateral end expiratory wheeze. Diminished. CVS: S1 and S2 normal with no audible murmur, regular rhythm. ABDOMEN: No hepatosplenomegaly, normal bowel sounds, no guarding or rigidity. SPINE: No scoliosis or deformity SKIN: No rashes CENTRAL NERVOUS SYSTEM: No focal deficits, tone is normal in all 4 extremities. EXTREMITIES: There is no peripheral edema. No clubbing, no cyanosis. Peripheral pulses are intact. - Labs CBC & Chem 7: 05/20/23 05:17 05/20/23 05:09 Labs: Abnormal Lab Results - Last 24 Hours (Table) 05/21/23 05/21/23 Range/Units 17:28 20:54 POC Glucose (mg/dL) 138 H 190 H (70-110) mg/dL Assessment and Plan Assessment: Acute on chronic hypoxemic respiratory failure secondary to acute COPD exacerbation. Chest x-ray findings are stable and the patient has some atelect atic changes left lung base Moderate sized pericardial effusion with possible thrombus found on recent echocardiogram on 05/02/2023 Atypical chest pain likely secondary to above. No evidence of acute coronary syndrome. Chronic bilateral lower extremity DVTs, anticoagulated on Eliquis Benign essential hypertension Chronic kidney disease stage IIIb History of breast cancer History of cervical cancer History of significant chronic tobacco dependence with over a [id number] history Plan: The patient was seen and evaluated Labs and medications reviewed Echocardiogram results pending Remains on Eliquis Cleared for discharge from the pulmonary standpoint Continue her home oxygen, DuoNeb inhalations, Symbicort, prednisone taper Follow-up in our office in 1 week I have personally seen and examined the patient, performed the documentation and the assessment and plan as written. Number of minutes spent on the visit: 10.
[2023-05-22 12:05] LABS: Glucose,Whole Blood 96 mg/dL (70-110)
[2023-05-22] MEDS ORDERED: SYMBICORT 160-4.5 MCG INHALER INHALATION SCH (20:00)
--- NOTE | 2023-05-22 22:57 | PN ---
PROGRESS NOTE DATE OF SERVICE: 05/18/2023 CHIEF COMPLAINT: COPD. HISTORY OF PRESENT ILLNESS: This lady continues to be very short of breath. She remains pale. She has no other complaints. She has no chest pain or back pain. PHYSICAL EXAMINATION: LUNGS: Breath sounds are diminished throughout with inspiratory and expiratory wheezing. There are scattered rales. CARDIAC: Demonstrates sinus tachycardia. ABDOMEN: Soft. IMPRESSION: Exacerbation of chronic obstructive pulmonary disease. PLAN: Continue with IV fluids, steroids and updrafts. MMODL / IJN: [id number] /
--- NOTE | 2023-05-22 23:05 | PN ---
PROGRESS NOTE DATE OF SERVICE: 05/19/2023 CHIEF COMPLAINT: COPD. HISTORY OF PRESENT ILLNESS: This lady is doing a little bit better. She states she is still short of breath, but clinically she has improved. PHYSICAL EXAMINATION: VITAL SIGNS: Normal. She is still on nasal O2 around the clock. CHEST: Demonstrates poor breath sounds with rales and rhonchi, but they are somewhat more diminished. CARDIAC: Normal. IMPRESSION: Exacerbation of chronic obstructive pulmonary disease. PLAN: Continue with current program and follow recommendations of pulmonology. MMODL / IJN: [id number] /
--- NOTE | 2023-05-22 23:11 | PN ---
PROGRESS NOTE CHIEF COMPLAINT: General debility and exacerbation of chronic obstructive pulmonary disease. HISTORY OF PRESENT ILLNESS: This lady is still very congested. She is still short of breath. PHYSICAL EXAMINATION: LUNGS: She has scattered rales and rhonchi throughout. She has inspiratory and expiratory wheezing. CARDIAC: Demonstrates sinus tachycardia. IMPRESSION: 1. Chronic obstructive pulmonary disease. 2. Congestive heart failure. PLAN: Continue with current management and she is being followed by pulmonology. MMODL / IJN: [id number] /
--- NOTE | 2023-05-22 23:27 | PN ---
PROGRESS NOTE DATE OF SERVICE: 05/20/2023 CHIEF COMPLAINT: COPD. HISTORY OF PRESENT ILLNESS: This lady is still quite dyspneic and probably will not get much better than she is. We are looking at trying to place her in a halfway. PHYSICAL EXAMINATION: VITAL SIGNS: Normal. GENERAL: She remains pale. CHEST: Demonstrates poor breath sounds throughout with extensive rales. CARDIAC: Normal. IMPRESSION: Exacerbation of end-stage COPD. PLAN: Continue with current program and, hopefully, get her in to a halfway soon. MMODL / IJN: [id number] /
--- NOTE | 2023-05-22 23:41 | PN ---
PROGRESS NOTE DATE OF SERVICE: 05/21/2023 CHIEF COMPLAINT: Exacerbation of COPD. HISTORY OF PRESENT ILLNESS: This lady is fairly stable. We are looking at discharge planning. She is apparently stating that she may not go to rehab. PHYSICAL EXAMINATION: CHEST: Clear. CARDIAC: Normal. ABDOMEN: Soft and nontender. IMPRESSION: Exacerbation of chronic obstructive pulmonary disease. PLAN: Continue management of her pulmonary disease and look and start looking at discharging soon. MMODL / IJN: [id number] /
--- NOTE | 2023-05-23 08:38 | CA ---
Transthoracic Echo Report Name: Jazmin Tyler Age: 72 Gender: F : 1950 Exam Date: 05/21/2023 14:52 Exam Location: [facility] Ht (in): 69 Wt (lb): 109 Ordering Physician: Cristina Espinosa Attending/Referring Phys: Feeder Loader Lianet Morales RDCS Procedure CPT: Indications: Follow up thrombus Cardiac Hx: Technical Quality: Fair Contrast 1: Total Dose (mL): Contrast 2: Total Dose (mL): MEASUREMENTS (Male / Female) Normal Values 2D ECHO LV Diastolic Diameter PLAX 3.0 cm 4.2 - 5.9 / 3.9 - 5.3 cm LV Systolic Diameter PLAX 2.0 cm IVS Diastolic Thickness 1.0 cm 0.6 - 1.0 / 0.6 - 0.9 cm LVPW Diastolic Thickness 1.1 cm 0.6 - 1.0 / 0.6 - 0.9 cm LV Relative Wall Thickness 0.7 FINDINGS Left Ventricle Limited study. Normal left ventricular systolic function with no obvious regional wall motion abnormalities. Left ventricular ejection fraction is estimated at 55-60 %. Right Ventricle Right Atrium Left Atrium Mitral Valve Aortic Valve Tricuspid Valve Pulmonic Valve Pericardium Small pericardial effusion, measruing 1.5 cm during diastole Thrombus noted in percardial space, which is similar to prior echo from 05/02/23 Aorta CONCLUSIONS Limited echo to visualize pericaridal thrombus Small pericardial effusion, measruing 1.5 cm during diastole Thrombus noted in percardial space, which is similar to prior echo from 05/02/23 Overall normal LV size and systolic function with LVEF 55-60% Previewed by: Dr Dre Gibson (Electronically Signed) Final Date: 22 May 2023 10:26
--- NOTE | 2023-05-23 23:33 | DS ---
DISCHARGE SUMMARY CHIEF COMPLAINT: Difficulty breathing. HISTORY OF PRESENT ILLNESS AND PHYSICAL EXAMINATION: Details of this lady's history and physical can be found in the initial workup. LABORATORY STUDIES: While she was in the hospital, she had laboratory studies, details of which can be found in the laboratory section of her chart. COURSE IN THE HOSPITAL: After admission, she was placed on bedrest and started on intravenous fluids in management of her COPD. Her back pain was treated as well. As she was slowly improving, it was felt she could be discharged. This lady will not do well at home, but she refuses to go to a rehab or an extended care facility. She will be discharged home and followed up there. FINAL DIAGNOSES: 1. Exacerbation of chronic obstructive pulmonary disease. 2. General debility and failure to thrive. OPERATIONS: None. CONSULTATIONS: Pulmonology. CONDITION: She is improved. MARLO / EULOGIO: [id number] /
== END 2023-05-22 13:01 | disposition home or self-care (01) | DRG 190 ==
LOC: EC 13:38 → 6NMEDSUR 17:43 → OBSVTOIN 17:48 → 6NMEDSUR 21:38
PROVIDERS: ADMIT Family Medicine; ATTEND Family Medicine
DX: J44.1 Chronic obstructive pulmonary disease with (acute) exacerbation (principal); J96.21 Acute and chronic respiratory failure with hypoxia; J98.11 Atelectasis; I82.503 Chronic embolism and thrombosis of unspecified deep veins of lower extremity, bilateral; I31.39 Other pericardial effusion (noninflammatory); N18.32 Chronic kidney disease, stage 3b; R53.81 Other malaise; M54.50 Low back pain, unspecified; R62.7 Adult failure to thrive; Z79.01 Long term (current) use of anticoagulants; Z79.51 Long term (current) use of inhaled steroids; Z79.899 Other long term (current) drug therapy; Z85.3 Personal history of malignant neoplasm of breast; Z85.41 Personal history of malignant neoplasm of cervix uteri; Z90.710 Acquired absence of both cervix and uterus; Z99.81 Dependence on supplemental oxygen; Z28.310 Unvaccinated for COVID-19; Z28.21 Immunization not carried out because of patient refusal; Z88.0 Allergy status to penicillin; Z88.6 Allergy status to analgesic agent; Z91.041 Radiographic dye allergy status; Z91.040 Latex allergy status; Z85.828 Personal history of other malignant neoplasm of skin
CPT/HCPCS: 36415; 71046; 80048; 80053; 83605; 84484; 85025; 85610; 85730; 87636; 93005; 93308; 94640; 94760; 96374; 96376; 99285